=== PATIENT | female | born 1975 | race Caucasian/White ===

== ENCOUNTER 2016-05-19 08:45 | Inpatient (IN) | payer MEDICARE, OTHER ==
[2016-05-19] MEDS ORDERED: SODIUM CHLORIDE 0.9% 1,000 ML IV STA ×2 (10:28)
[2016-05-19] MEDS ORDERED: SODIUM CHLORIDE 0.9% 500 ML IV STA (10:28)
[2016-05-19 10:29] LABS: Glucose,Whole Blood 564 mg/dL (75-99)
--- NOTE | 2016-05-19 10:37 | ED ---
General Adult HPI <Jase Bueno - Last Filed: 05/19/16 13:52> - General Source: patient, RN notes reviewed Mode of arrival: ambulatory Limitations: no limitations <Ky Trent - Last Filed: 05/19/16 14:11> - General Chief complaint: Recheck/Abnormal Lab/Rx Stated complaint: dizziness Time Seen by Provider: 05/19/16 10:22 - History of Present Illness Initial comments: Patient is a 41-year-old female who presents emergency room today with multiple complaints. She does admit that she's had some lower abdominal pain over the last few days. States the pain is gone away. Does admit that she's had increased urinary frequency. States she's had a yeast infection. States she's had a dry mouth. Patient states she was worried about diabetes. States she does have family history. She states she's never been diagnosed or had any issues with blood sugar. Denies any other complaints or symptoms currently. Patient denies any recent fever, chills, shortness of breath, chest pain, back pain, nausea or vomiting, numbness or tingling, dysuria or hematuria, constipation or diarrhea, headaches or visual changes, or any other complaints. (Ky Trent) - Related Data Home Medications Medication Instructions Recorded Confirmed diphenhydrAMINE [Benadryl] 25 mg PO HS PRN 08/05/14 05/19/16 risperiDONE MICROSPHERES 37.5 mg IM Q30D 08/05/14 05/19/16 [RisperDAL CONSTA] Benztropine Mesylate [Cogentin] 0.5 mg PO HS 05/19/16 05/19/16 FLUoxetine HCL [PROzac] 20 mg PO HS 05/19/16 05/19/16 Medroxyprogesterone Acetate 150 mg IM Q90D 05/19/16 05/19/16 [Depo-Provera] Allergies Allergy/AdvReac Type Severity Reaction Status Date / Time No Known Allergies Allergy Verified 05/19/16 10:00 Review of Systems ROS Other: All systems not noted in ROS Statement are negative. <Jase Bueno - Last Filed: 05/19/16 13:52> ROS Other: All systems not noted in ROS Statement are negative. <Ky Trent - Last Filed: 05/19/16 14:11> ROS Statement: Those systems with pertinent positive or pertinent negative responses have been documented in the HPI. Past Medical History Past Medical History: No Reported History History of Any Multi-Drug Resistant Organisms: None Reported Past Surgical History: No Surgical Hx Reported Past Psychological History: Bipolar, Schizophrenia Smoking Status: Current every day smoker Past Alcohol Use History: Occasional Past Drug Use History: None Reported <Ky Trent - Last Filed: 05/19/16 14:11> General Exam <Jase Bueno - Last Filed: 05/19/16 13:52> Limitations: no limitations <Ky Trent - Last Filed: 05/19/16 14:11> - General Exam Comments Initial Comments: General: The patient is awake and alert, in no distress, and does not appear acutely ill. Eye: Pupils are equal, round and reactive to light, extra-ocular movements are intact. No nystagmus. There is normal conjunctiva bilaterally. No signs of icterus. Ears, nose, mouth and throat: There are moist mucous membranes and no oral lesions. Neck: The neck is supple, there is no tenderness or JVD. Cardiovascular: There is a regular rate and rhythm. No murmur, rub or gallop is appreciated. Respiratory: Lungs are clear to auscultation, respirations are non-labored, breath sounds are equal. No wheezes, stridor, rales, or rhonchi. Gastrointestinal: Soft, non-distended, non-tender abdomen without masses or organomegaly noted. There is no rebound or guarding present. No CVA tenderness. Bowel sounds are unremarkable. Musculoskeletal: Normal ROM, no tenderness. Strength 5/5. Sensation intact. Pulses equal bilaterally 2+. Neurological: A&O x 3. CN II-XII intact, There are no obvious motor or sensory deficits. Coordination appears grossly intact. Speech is normal. Skin: Skin is warm and dry and no rashes or lesions are noted. Psychiatric: Cooperative, appropriate mood & affect, normal judgment. (Ky Trent) Course <Jase Bueno - Last Filed: 05/19/16 13:52> <Ky Trent - Last Filed: 05/19/16 14:11> Vital Signs 05/19/16 05/19/16 05/19/16 08:49 11:03 13:01 Temperature 99.1 F Pulse Rate 97 82 86 Respiratory 20 20 20 Rate Blood Pressure 138/83 134/94 120/67 O2 Sat by Pulse 96 97 99 Oximetry - Reevaluation(s) Reevaluation #1: 05/19/16 13:52 Patient reevaluated by myself, Dr. Bueno. Patient resting comfortably in bed. Patient updated on results and plan. IV fluids and insulin provided per DKA protocol. Case was discussed in detail with Dr. Ma, who will admit for Dr. De Leon. (Jase Bueno) Medical Decision Making - Lab Data Result diagrams: 05/19/16 10:29 05/19/16 10:29 <Jase Bueno - Last Filed: 05/19/16 13:52> - Lab Data Result diagrams: 05/19/16 10:29 05/19/16 10:29 <Ky Trent - Last Filed: 05/19/16 14:11> - Medical Decision Making Patient reexamined at this time shows no signs of distress. Patient's labs been reviewed does show evidence for urinary tract infection. Given dose of antibiotics in the emergency room. Patient does have multiple glucose. New- onset diabetes. Patient's been started on insulin drip here in the emergency room. Acetone positive. Patient feeling better. Patient will be admitted. ( Ky Trent) - Lab Data Lab Results 05/19/16 05/19/16 05/19/16 Range/Units 10:25 10:29 10:29 WBC 16.2 H (3.8-10.6) k/uL RBC 5.11 (3.80-5.40) m/uL Hgb 16.1 H (11.4-16.0) gm/dL Hct 46.0 (34.0-46.0) % MCV 90.1 (80.0-100.0) fL MCH 31.5 (25.0-35.0) pg MCHC 34.9 (31.0-37.0) g/dL RDW 13.0 (11.5-15.5) % Plt Count 369 (150-450) k/uL Neutrophils % 84 % Lymphocytes % 11 % Monocytes % 3 % Eosinophils % 0 % Basophils % 0 % Neutrophils # 13.7 H (1.3-7.7) k/uL Lymphocytes # 1.9 (1.0-4.8) k/uL Monocytes # 0.4 (0-1.0) k/uL Eosinophils # 0.1 (0-0.7) k/uL Basophils # 0.1 (0-0.2) k/uL Sodium 134 L (137-145) mmol/L Potassium 4.9 (3.5-5.1) mmol/L Chloride 98 (98-107) mmol/L Carbon Dioxide 16 L (22-30) mmol/L Anion Gap 20 mmol/L BUN 10 (7-17) mg/dL Creatinine 0.76 (0.52-1.04) mg/dL Est GFR (MDRD) Af Amer >60 (>60 ml/min/1.73 sqM) Est GFR (MDRD) Non-Af >60 (>60 ml/min/1.73 sqM) Glucose 608 H* (74-99) mg/dL POC Glucose (mg/dL) 564 H (75-99) mg/dL POC Glu Cloud Engineer ID Ayaz Jung Calcium 9.9 (8.4-10.2) mg/dL Total Bilirubin 1.0 (0.2-1.3) mg/dL AST 32 (14-36) U/L ALT 64 H (9-52) U/L Alkaline Phosphatase 209 H (38-126) U/L Total Protein 8.2 (6.3-8.2) g/dL Albumin 4.6 (3.5-5.0) g/dL Amylase 52 (30-110) U/L Lipase 312 H (23-300) U/L Urine Color Urine Appearance (Clear) Urine pH (5.0-8.0) Ur Specific [place] (1.001-1.035) Urine Protein (Negative) Urine Glucose (UA) (Negative) Urine Ketones (Negative) Urine Blood (Negative) Urine Nitrite (Negative) Urine Bilirubin (Negative) Urine Urobilinogen (<2.0) mg/dL Ur Leukocyte Esterase (Negative) Urine RBC (0-5) /hpf Urine WBC (0-5) /hpf Ur Squamous Epith Cells (0-4) /hpf Urine Bacteria (None) /hpf Urine Yeast (Budding) (None) /hpf Urine HCG, Qual (Not Detectd) Acetone, Qual Positive (Negative) 05/19/16 05/19/16 05/19/16 Range/Units 10:29 10:29 12:11 WBC (3.8-10.6) k/uL RBC (3.80-5.40) m/uL Hgb (11.4-16.0) gm/dL Hct (34.0-46.0) % MCV (80.0-100.0) fL MCH (25.0-35.0) pg MCHC (31.0-37.0) g/dL RDW (11.5-15.5) % Plt Count (150-450) k/uL Neutrophils % % Lymphocytes % % Monocytes % % Eosinophils % % Basophils % % Neutrophils # (1.3-7.7) k/uL Lymphocytes # (1.0-4.8) k/uL Monocytes # (0-1.0) k/uL Eosinophils # (0-0.7) k/uL Basophils # (0-0.2) k/uL Sodium (137-145) mmol/L Potassium (3.5-5.1) mmol/L Chloride (98-107) mmol/L Carbon Dioxide (22-30) mmol/L Anion Gap mmol/L BUN (7-17) mg/dL Creatinine (0.52-1.04) mg/dL Est GFR (MDRD) Af Amer (>60 ml/min/1.73 sqM) Est GFR (MDRD) Non-Af (>60 ml/min/1.73 sqM) Glucose (74-99) mg/dL POC Glucose (mg/dL) 427 H (75-99) mg/dL POC Glu Cloud Engineer ID Branch, Barrera Calcium (8.4-10.2) mg/dL Total Bilirubin (0.2-1.3) mg/dL AST (14-36) U/L ALT (9-52) U/L Alkaline Phosphatase (38-126) U/L Total Protein (6.3-8.2) g/dL Albumin (3.5-5.0) g/dL Amylase (30-110) U/L Lipase (23-300) U/L Urine Color Light Yellow Urine Appearance Cloudy H (Clear) Urine pH 5.0 (5.0-8.0) Ur Specific [place] 1.029 (1.001-1.035) Urine Protein Trace H (Negative) Urine Glucose (UA) 4+ H (Negative) Urine Ketones 3+ H (Negative) Urine Blood Large H (Negative) Urine Nitrite Negative (Negative) Urine Bilirubin Negative (Negative) Urine Urobilinogen <2.0 (<2.0) mg/dL Ur Leukocyte Esterase Moderate H (Negative) Urine RBC 13 H (0-5) /hpf Urine WBC 38 H (0-5) /hpf Ur Squamous Epith Cells 8 H (0-4) /hpf Urine Bacteria Occasional H (None) /hpf Urine Yeast (Budding) Few H (None) /hpf Urine HCG, Qual Not Detected (Not Detectd) Acetone, Qual (Negative) 05/19/16 Range/Units 13:57 WBC (3.8-10.6) k/uL RBC (3.80-5.40) m/uL Hgb (11.4-16.0) gm/dL Hct (34.0-46.0) % MCV (80.0-100.0) fL MCH (25.0-35.0) pg MCHC (31.0-37.0) g/dL RDW (11.5-15.5) % Plt Count (150-450) k/uL Neutrophils % % Lymphocytes % % Monocytes % % Eosinophils % % Basophils % % Neutrophils # (1.3-7.7) k/uL Lymphocytes # (1.0-4.8) k/uL Monocytes # (0-1.0) k/uL Eosinophils # (0-0.7) k/uL Basophils # (0-0.2) k/uL Sodium (137-145) mmol/L Potassium (3.5-5.1) mmol/L Chloride (98-107) mmol/L Carbon Dioxide (22-30) mmol/L Anion Gap mmol/L BUN (7-17) mg/dL Creatinine (0.52-1.04) mg/dL Est GFR (MDRD) Af Amer (>60 ml/min/1.73 sqM) Est GFR (MDRD) Non-Af (>60 ml/min/1.73 sqM) Glucose (74-99) mg/dL POC Glucose (mg/dL) 326 H (75-99) mg/dL POC Glu Cloud Engineer ID Ayaz Jung Calcium (8.4-10.2) mg/dL Total Bilirubin (0.2-1.3) mg/dL AST (14-36) U/L ALT (9-52) U/L Alkaline Phosphatase (38-126) U/L Total Protein (6.3-8.2) g/dL Albumin (3.5-5.0) g/dL Amylase (30-110) U/L Lipase (23-300) U/L Urine Color Urine Appearance (Clear) Urine pH (5.0-8.0) Ur Specific [place] (1.001-1.035) Urine Protein (Negative) Urine Glucose (UA) (Negative) Urine Ketones (Negative) Urine Blood (Negative) Urine Nitrite (Negative) Urine Bilirubin (Negative) Urine Urobilinogen (<2.0) mg/dL Ur Leukocyte Esterase (Negative) Urine RBC (0-5) /hpf Urine WBC (0-5) /hpf Ur Squamous Epith Cells (0-4) /hpf Urine Bacteria (None) /hpf Urine Yeast (Budding) (None) /hpf Urine HCG, Qual (Not Detectd) Acetone, Qual (Negative) Disposition <Jase Bueno - Last Filed: 05/19/16 13:52> Time of Disposition: 14:10 <Ky Trent - Last Filed: 05/19/16 14:11> Clinical Impression: DKA (diabetic ketoacidoses) Disposition: ADMITTED IP TO THIS [facility] Condition: Stable
[2016-05-19] MEDS ORDERED: INSULIN REGULAR 100 UNIT/ML VIAL IV ONE (10:40)
[2016-05-19 10:49] LABS: Basophils # (A) 0.1 k/uL (0-0.2); Basophils % (A) 0 %; CHCM 34.5; Eosinophils # (A) 0.1 k/uL (0-0.7); Eosinophils % (A) 0 %; HDW 2.53; HGB 16.1 gm/dL (11.4-16.0); Luc # (Auto) 0.18; Luc % (Auto) 1; Lymphocytes # (A) 1.9 k/uL (1.0-4.8); Lymphocytes % (A) 11 %; MCH 31.5 pg (25.0-35.0); MCHC 34.9 g/dL (31.0-37.0); MCV 90.1 fL (80.0-100.0); Mean Platelet Volume 7.3; Monocytes # (A) 0.4 k/uL (0-1.0); Monocytes % (A) 3 %; Neutrophils # (A) 13.7 k/uL (1.3-7.7); Neutrophils % (A) 84 %; RBC 5.11 m/uL (3.80-5.40); WBC 16.2 k/uL (3.8-10.6); WBC (Perox) 16.72
[2016-05-19 11:00] LABS: ALT 64 U/L (9-52); AST 32 U/L (14-36); Alkaline Phosphatase 209 U/L (38-126); Amylase 52 U/L (30-110); Anion Gap 20 mmol/L; Blood Urea Nitrogen 10 mg/dL (7-17); Calcium 9.9 mg/dL (8.4-10.2); Carbon Dioxide 16 mmol/L (22-30); Chloride 98 mmol/L (98-107); Non-African American GFR(MDRD) >60 (>60 ml/min/1.73 sqM); Potassium 4.9 mmol/L (3.5-5.1); Sodium 134 mmol/L (137-145); Total Protein 8.2 g/dL (6.3-8.2)
[2016-05-19 11:04] LABS: Glucose 608 mg/dL (74-99)
[2016-05-19 11:05] LABS: Appearance,Urine Cloudy (Clear); Bacteria,Urine Occasional /hpf; Bilirubin,Urine Negative (Negative); Glucose,Urine (UA) 4+ (Negative); Leukocyte Esterase,Urine Moderate (Negative); Nitrite,Urine Negative (Negative); Particle Count 5111; Protein,Urine Trace (Negative); RBC,Urine 13 /hpf (0-5); Specific Gravity,Urine 1.029 (1.001-1.035); Squamous Epithelial Cell,Urine 8 /hpf (0-4); UA Billing (MACRO vs. MICRO) MICRO; Urobilinogen,Urine <2.0 mg/dL (<2.0); WBC,Urine 38 /hpf (0-5)
[2016-05-19 11:28] LABS: Ketones,Urine 3+ (Negative)
[2016-05-19 12:13] LABS: Glucose,Whole Blood 427 mg/dL (75-99)
[2016-05-19] MEDS ORDERED: SODIUM CHLORIDE 0.9% 1,000 ML IV SCH ×2 (12:30→18:00)
[2016-05-19] MEDS ORDERED: INSULIN REGULAR 100 UNIT in SODIUM CHLORIDE 0.9% 100 ML IV SCH (13:00)
[2016-05-19 13:59] LABS: Glucose,Whole Blood 326 mg/dL (75-99)
[2016-05-19] MEDS ORDERED: NALOXONE 0.4 MG/ML 1 ML VIAL IV PRN (14:11)
[2016-05-19 15:09] LABS: Glucose,Whole Blood 361 mg/dL (75-99)
[2016-05-19 16:10] LABS: Glucose,Whole Blood 262 mg/dL (75-99)
[2016-05-19 16:25] LABS: Anion Gap 11 mmol/L; Blood Urea Nitrogen 10 mg/dL (7-17); Carbon Dioxide 16 mmol/L (22-30); Chloride 109 mmol/L (98-107); Glucose 291 mg/dL (74-99); Non-African American GFR(MDRD) >60 (>60 ml/min/1.73 sqM); Phosphorous 2.6 mg/dL (2.5-4.5); Potassium 4.2 mmol/L (3.5-5.1); Sodium 136 mmol/L (137-145)
[2016-05-19] MEDS: D5-0.45% NACL WITH KCL 20MEQ/L 1,000 ML IV SCH ×2 (16:29→20:01)
[2016-05-19] MEDS ORDERED: diphenhydrAMINE 25 MG CAP PO PRN (16:51)
[2016-05-19] MEDS ORDERED: FLUCONAZOLE 100 MG TAB PO STA (16:57)
[2016-05-19 16:58] LABS: Glucose,Whole Blood 194 mg/dL (75-99)
[2016-05-19 18:01] LABS: Glucose,Whole Blood 160 mg/dL (75-99)
[2016-05-19] MEDS: INSULIN LISPRO (humaLOG) 300 UNIT/3 ML VIAL SQ SCH ×2 (18:11→20:59)
[2016-05-19] MEDS: LACTATED RINGERS 1,000 ML IV SCH (18:39)
[2016-05-19 19:30] LABS: Anion Gap 9 mmol/L; Blood Urea Nitrogen 10 mg/dL (7-17); Carbon Dioxide 20 mmol/L (22-30); Chloride 107 mmol/L (98-107); Glucose 180 mg/dL (74-99); Non-African American GFR(MDRD) >60 (>60 ml/min/1.73 sqM); Phosphorous 2.7 mg/dL (2.5-4.5); Potassium 3.8 mmol/L (3.5-5.1); Sodium 136 mmol/L (137-145)
[2016-05-19 19:31] LABS: Glucose,Whole Blood 240 mg/dL (75-99)
[2016-05-19 20:57] LABS: Glucose,Whole Blood 273 mg/dL (75-99)
[2016-05-19] MEDS ORDERED: INSULIN GLARGINE 100 UNIT/ML 10 ML VIAL SQ SCH (21:00)
[2016-05-19] MEDS ORDERED: FLUoxetine HCL 20 MG CAP PO SCH (21:00)
[2016-05-19] MEDS ORDERED: BENZTROPINE MESYLATE 0.5 MG TAB PO SCH (21:00)
--- NOTE | 2016-05-19 23:35 | HP ---
DATE OF ADMISSION: Patient is a 41-year-old female who came in with multiple complaints, including excessive thirst that has been going on for about a week. Patient has increased urination, polyuria, polydipsia. Patient has a significantly dry mouth. Patient came here, found to have highly elevated blood sugars of 700 along with DKA with anion gap, metabolic acidosis, 3+ ketones in the urine. Patient was diagnosed with DKA, was started on IV insulin. Her anion gap subsequently resolved, so I transitioned her to subcutaneous insulin. Patient will be started on diet. Although patient has a little bit of acidosis, which I believe is secondary to hyperchloremia, because of which I changed the IV fluids to lactated Ringers rather than normal saline, which has high chloride. Patient does not have any lactic acidosis. Patient was quite dry when she came in and patient apparently has gestational diabetes. Patient believes she has a yeast infection ( ) patient denied any other UTI ( ) like symptoms, although patient does have leukocytosis. Patient does have concentrated urine, because of which she believes patient has ( ) although UA did show some white blood cells, and I believe it is mostly secondary to her concentrated urine. Color of the urine is mostly secondary to concentrated urine and highly elevated ketones and bilirubin. Patient denied any nausea, vomiting. Patient denied any dysuria. Patient has increased urinary frequency, probably secondary to hyperglycemia rather than urinary tract infection. ROS: All other systems were reviewed and were negative. Home medications include: 1. Diphenhydramine. 2. Risperidone. 3. Benztropine. 4. Fluoxetine. 5. Medroxyprogesterone. ALLERGIES: NO KNOWN DRUG ALLERGIES. PAST MEDICAL HISTORY: 1. Bipolar disorder. 2. Schizophrenia. 3. Gestational diabetes mellitus. SOCIAL HISTORY: Patient does smoke. Denied any alcohol abuse or any drug abuse. FAMILY HISTORY: Significant for diabetes mellitus in both grandparents. PHYSICAL EXAMINATION: VITAL SIGNS: Temperature 99.1, pulse of 82, respiratory rate 20. Blood pressure is 120/67. Saturating at 99% on room air. GENERAL: The patient is alert and oriented x3, not in any acute distress. Well developed, well nourished. HEENT: Pupils are round and equally reacting to light. EOMI. No scleral icterus. No conjunctival pallor. Normocephalic, atraumatic. No pharyngeal erythema. No thyromegaly. Mucous membranes are dry in oral cavity and throat. CARDIOVASCULAR: S1 and S2 present. No murmurs, rubs, or gallops. PULMONARY: Chest is clear to auscultation, no wheezing or crackles. ABDOMEN: Soft, nontender, nondistended, normoactive bowel sounds. No palpable organomegaly. MUSCULOSKELETAL: No joint swelling or deformity. EXTREMITIES: No cyanosis, clubbing, or pedal edema. NEUROLOGICAL: Gross neurological examination did not reveal any focal deficits. SKIN: No rashes. LABORATORY DATA: CBC, CMP: there were multiple electrolyte abnormalities on admission which subsequently improved with treatment of DKA. Patient was hyponatremic which is pseudohyponatremia. Patient has leukocytosis secondary to DKA rather than urinary tract infection. Blood glucose was 608, now 180. Bicarbonate was 16 with significant anion gap of 20; now anion gap resolved. Patient's anion gap is 9 at present. Bicarbonate is still 20. This is as a result of hyperchloremia, which is 107. Patient's AST and ALT are elevated which are nonspecific elevations secondary to DKA. Will repeat liver enzymes again. IMAGING STUDIES: None available. ASSESSMENT AND PLAN: 1. Diabetic ketoacidosis. 2. New-onset diabetes mellitus, most probably type 1 ( ) diabetes mellitus. Patient apparently does have insulin. The patient ( ) insulin. Patient may have insulin resistance along with that. Not sure whether oral hypoglycemic agents will be beneficial or not. Patient was started on 20 units of Lantus with 6 units of pre-meal insulin along with sliding scale. Will titrate as needed. 3. Possibly asymptomatic bacteriuria. May not need antibiotics. Until I get the urine culture and sensitivities, I will go ahead and continue the antibiotics. As mentioned above, rather than UTI patient mostly has symptomatic bacteriuria. 4. Mild hematuria. Repeat UA as an outpatient. 5. Bipolar disorder. Patient's home medications will be continued. 6. Anion gap metabolic acidosis secondary to diabetic ketoacidosis, which resolved. Patient has ( ) gap metabolic acidosis secondary to hyperchloremia. 7. Pseudohyponatremia. 8. Leukocytosis, which is reactive in nature. MTDD
[2016-05-20] MEDS: LACTATED RINGERS 1,000 ML IV SCH ×2 (05:17→10:20)
[2016-05-20 05:53] LABS: Glucose,Whole Blood 325 mg/dL (75-99)
[2016-05-20 06:41] LABS: CH 31.8; CHCM 34.5; HCT 36.7 % (34.0-46.0); HDW 2.39; MCH 30.6 pg (25.0-35.0); MCHC 33.1 g/dL (31.0-37.0); MCV 92.5 fL (80.0-100.0); Mean Platelet Volume 7.3; RBC 3.96 m/uL (3.80-5.40); RDW 13.4 % (11.5-15.5); WBC 12.6 k/uL (3.8-10.6)
[2016-05-20 06:56] LABS: HGB 12.2 gm/dL (11.4-16.0)
[2016-05-20 07:00] LABS: ALT 45 U/L (9-52); AST 26 U/L (14-36); Alkaline Phosphatase 87 U/L (38-126); Anion Gap 10 mmol/L; Blood Urea Nitrogen 11 mg/dL (7-17); Calcium 8.4 mg/dL (8.4-10.2); Carbon Dioxide 17 mmol/L (22-30); Chloride 105 mmol/L (98-107); Glucose 311 mg/dL (74-99); Non-African American GFR(MDRD) >60 (>60 ml/min/1.73 sqM); Sodium 132 mmol/L (137-145); Total Bilirubin 0.7 mg/dL (0.2-1.3); Total Protein 5.6 g/dL (6.3-8.2)
[2016-05-20] MEDS: INSULIN LISPRO (humaLOG) 300 UNIT/3 ML VIAL SQ SCH ×2 (07:18→12:47)
[2016-05-20] MEDS ORDERED: FLUCONAZOLE 100 MG TAB PO SCH (09:00)
[2016-05-20 11:55] LABS: Glucose,Whole Blood 386 mg/dL (75-99)
[2016-05-20 12:18] VITALS: BP 117/76; PULSE 74; RESP 20; TEMP 97.1
[2016-05-20] MEDS ORDERED: INSULIN LISPRO (humaLOG) 300 UNIT/3 ML VIAL SQ SCH (12:30)
[2016-05-20 13:06] LABS: Hemoglobin A1C 11.8 % (4.2-6.1)
[2016-05-20 15:00] VITALS: BMI 36.6
--- NOTE | 2016-05-21 08:06 | DS ---
DATE OF ADMISSION: 05/19/2016 DATE OF DISCHARGE: 05/20/2016 The patient is a 41-year-old admitted secondary to DKA. Patient is a new onset diabetes mellitus. Patient is insulin deficient because of which patient will require insulin. Patient presented with DKA. I am not sure whether any autoimmune conditions were contributing to that. I am obtaining a C-peptide level, results of which are still pending. Patient will be discharged today. Her DKA resolved. The C-peptide needs to be followed as an outpatient. Patient has vaginal candidiasis. Patient does not have any urinary tract infection. Patient has asymptomatic bacteriuria. Patient is being discharged on 30 units of Lantus at bedtime, 9 units of Lispro with each meal along Accu-Cheks 3 times. Patient received diabetic counseling, dietary counseling and patient is also being discharged on fluconazole. Patient was seen and examined on the day of discharge. Vitals are stable. PHYSICAL EXAMINATION: GENERAL: The patient is alert and oriented x3, not in any acute distress. Well developed, well nourished. HEENT: Pupils are round and equally reacting to light. EOMI. No scleral icterus. No conjunctival pallor. Normocephalic, atraumatic. No pharyngeal erythema. No thyromegaly. CARDIOVASCULAR: S1 and S2 present. No murmurs, rubs, or gallops. PULMONARY: Chest is clear to auscultation, no wheezing or crackles. ABDOMEN: Soft, nontender, nondistended, normoactive bowel sounds. No palpable organomegaly. MUSCULOSKELETAL: No joint swelling or deformity. EXTREMITIES: No cyanosis, clubbing, or pedal edema. NEUROLOGICAL: Gross neurological examination did not reveal any focal deficits. SKIN: No rashes. FINAL DIAGNOSES: 1. Diabetic ketoacidosis. 2. New onset diabetes mellitus, probably type 2 with insulin deficiency. C-peptide levels are pending. Autoimmune conditions that cause pancreatic insufficiency need to be considered. Workup can be done as an outpatient. 3. Asymptomatic bacteriuria. 4. Bipolar disorder. 5. Pseudohyponatremia secondary to hyperglycemia, which improved at this point of time. 6. Leukocytosis reactive, which is improving. 7. Vaginal candidiasis. Please refer to my depart summary for further details of discharge medication. Patient will need to closely follow up with Dr. Castaneda in about 3 to 7 days. Activity as tolerated. Diabetic 1800 calorie diet. Spent greater than 35 minutes in total discharge process.
== END 2016-05-20 16:03 | disposition home or self-care (01) | DRG 638 ==
LOC: EC 08:45 → 6SEL 13:55 → 6PED 05-20 10:45
PROVIDERS: ADMIT Internal Medicine; ATTEND Internal Medicine
DX: E13.10 Other specified diabetes mellitus with ketoacidosis without coma (principal); E87.1 Hypo-osmolality and hyponatremia; E87.8 Other disorders of electrolyte and fluid balance, not elsewhere classified; B37.3 Candidiasis of vulva and vagina; F20.9 Schizophrenia, unspecified; F31.9 Bipolar disorder, unspecified; D72.829 Elevated white blood cell count, unspecified; F17.200 Nicotine dependence, unspecified, uncomplicated; R31.9 Hematuria, unspecified; R82.71 Bacteriuria; Z79.899 Other long term (current) drug therapy
CPT/HCPCS: 36415; 80051; 80053; 81001; 81025; 82009; 82150; 82565; 82947; 83036; 83690; 84100; 84520; 84681; 85025; 85027; 87086; 96361; 96365; 96366; 96367; 96376; 99285

== ENCOUNTER 2018-05-18 11:15 | Inpatient (IN) | payer MEDICARE, MEDICAID ==
--- NOTE | 2018-05-18 11:40 | ED ---
General Adult HPI - General Chief complaint: Psychiatric Symptoms Stated complaint: pickup order Time Seen by Provider: 05/18/18 11:23 Source: patient, RN notes reviewed, old records reviewed Mode of arrival: ambulatory Limitations: no limitations - History of Present Illness Initial comments: 43-year-old female presents with quarter petitioned for mental health evaluation. Patient has no reported medical history, she has no complaints. She is unsure exactly why she is sent in for evaluation. There is petitioned indicating that [facility] has evaluated this patient is requesting evaluation in the emergency department. Patient does have previous psychiatric history. - Related Data Home Medications Medication Instructions Recorded Confirmed diphenhydrAMINE [Benadryl] 25 - 50 mg PO HS PRN 08/05/14 05/18/18 FLUoxetine HCL [PROzac] 20 mg PO HS 05/19/16 05/18/18 Medroxyprogesterone Acetate 150 mg IM Q90D 05/19/16 05/18/18 [Depo-Provera] INSULIN LISPRO (humaLOG) [humaLOG] 10 unit SQ AC-TID 05/18/18 05/18/18 Insulin Glargine [Lantus] 35 unit SQ HS 05/18/18 05/18/18 Paliperidone IM [Invega Sustenna] 234 mg IM Q28D 05/18/18 05/18/18 Pregabalin [Lyrica] 50 mg PO DAILY 05/18/18 05/18/18 hydrOXYzine PAMOATE 25 mg PO DAILY PRN 05/18/18 05/18/18 rOPINIRole HCL [Requip] 2 mg PO HS 05/18/18 05/18/18 Allergies Allergy/AdvReac Type Severity Reaction Status Date / Time No Known Allergies Allergy Verified 05/18/18 11:37 Review of Systems ROS Statement: Those systems with pertinent positive or pertinent negative responses have been documented in the HPI. ROS Other: All systems not noted in ROS Statement are negative. Past Medical History Past Medical History: COPD, Diabetes Mellitus, Osteoarthritis (OA) Additional Past Medical History / Comment(s): "GESTATIONAL DIABETES", GOES TO [facility] History of Any Multi-Drug Resistant Organisms: None Reported Past Surgical History: Section Additional Past Surgical History / Comment(s): POLA ARM SX WHEN CHILD-WENT THRU A WINDOW Past Anesthesia/Blood Transfusion Reactions: No Reported Reaction Additional Past Anesthesia/Blood Transfusion Reaction / Comment(s): CLAUSTERPHOBIA Past Psychological History: Anxiety, Bipolar, Panic Disorder, Schizophrenia Smoking Status: Current every day smoker Past Alcohol Use History: Occasional Past Drug Use History: None Reported - Past Family History Father Additional Family Medical History / Comment(s): DEPRESSION, "PROBLEM WITH HIS P ANCJAZMYNAS" Mother Family Medical History: Hyperlipidemia, Hypertension Additional Family Medical History / Comment(s): DDD, NECK FUSION, KIDNEY CANCER General Exam Limitations: no limitations General appearance: alert, in no apparent distress Head exam: Present: atraumatic, normocephalic Eye exam: Present: normal appearance ENT exam: Present: normal exam Neck exam: Present: normal inspection. Absent: tenderness Respiratory exam: Present: normal lung sounds bilaterally. Absent: respiratory distress, wheezes Cardiovascular Exam: Present: regular rate, normal rhythm GI/Abdominal exam: Present: soft. Absent: distended, tenderness Neurological exam: Present: alert. Absent: motor sensory deficit Psychiatric exam: Present: depressed, flat affect Skin exam: Present: warm, dry, intact. Absent: cyanosis, diaphoretic Course Vital Signs 05/18/18 05/18/18 05/18/18 11:19 14:52 18:55 Temperature 98 F 97.7 F Pulse Rate 92 63 90 Respiratory 20 16 18 Rate Blood Pressure 117/83 102/58 101/61 O2 Sat by Pulse 99 100 98 Oximetry Medical Decision Making - Medical Decision Making 43-year-old female presenting with "ordered psychiatric evaluation. She is medically cleared, evaluated by EPS in the emergency department. He will be admitted to this institution for further psychiatric care. - Lab Data Lab Results 05/18/18 Range/Units 13:25 Urine Opiates Screen Not Detected (NotDetected) Ur Oxycodone Screen Not Detected (NotDetected) Urine Methadone Screen Not Detected (NotDetected) Ur Propoxyphene Screen Not Detected (NotDetected) Ur Barbiturates Screen Not Detected (NotDetected) U Tricyclic Antidepress Not Detected (NotDetected) Ur Phencyclidine Scrn Not Detected (NotDetected) Ur Amphetamines Screen Detected H (NotDetected) U Methamphetamines Scrn Detected H (NotDetected) U Benzodiazepines Scrn Not Detected (NotDetected) Urine Cocaine Screen Detected H (NotDetected) U Marijuana (THC) Screen Not Detected (NotDetected) Disposition Clinical Impression: Acute psychosis Disposition: ADMITTED IP TO THIS HOSP Condition: Stable Is patient prescribed a controlled substance at d/c from ED?: No Decision to Admit Reason: Admit from EC Decision Date: 05/18/18 Decision Time: 19:11
[2018-05-18 13:55] LABS: Cocaine Screen,Urine Detected (NotDetected); Phencyclidine Screen,Urine Not Detected (NotDetected); Urn Cannabinoid Scrn Not Detected (NotDetected)
[2018-05-18 13:56] LABS: Amphetamine Screen,Urine Detected (NotDetected); Barbiturate Screen,Urine Not Detected (NotDetected); Benzodiazepines Screen,Urine Not Detected (NotDetected); Methadone Screen, Urine Not Detected (NotDetected); Opiate Screen,Urine Not Detected (NotDetected); Oxycodone Screen, Urine Not Detected (NotDetected); Tricyclic Antidepressant,Urine Not Detected (NotDetected)
[2018-05-18 20:00] VITALS: BP 104/74; PULSE 88; RESP 16; TEMP 96.7
[2018-05-18] MEDS ORDERED: MAG HYDROX/AL HYDROX/SIMETH 30 ML CUP PO PRN (20:28)
[2018-05-18] MEDS ORDERED: LORazepam 1 MG TAB PO PRN (20:28)
[2018-05-18] MEDS ORDERED: ZIPRASIDONE 20 MG VIAL IM PRN (20:28)
[2018-05-18] MEDS ORDERED: MAGNESIUM HYDROXIDE 2,400 MG/10 ML CUP PO PRN (20:28)
[2018-05-18] MEDS ORDERED: ACETAMINOPHEN TAB 325 MG TAB PO PRN (20:28)
[2018-05-18] MEDS ORDERED: LORazepam 2 MG/ML INJ IM PRN (20:37)
[2018-05-18] MEDS ORDERED: PALIPERIDONE 6 MG TAB.ER.24 PO SCH (21:00)
[2018-05-18 21:17] LABS: Glucose,Whole Blood 156 mg/dL (75-99)
[2018-05-18] MEDS ORDERED: INSULIN DETEMIR (LEVEMIR) 100 UNIT/ML SYR SQ SCH (21:30)
[2018-05-18] MEDS: INSULIN ASPART (NovoLOG) 100 UNIT/ML VIAL SQ SCH (22:46)
[2018-05-18] MEDS: NICOTINE 14MG/24HR PATCH TRANSDERM SCH (22:49)
[2018-05-19 06:57] LABS: Glucose,Whole Blood 142 mg/dL (75-99)
[2018-05-19] MEDS ORDERED: INSULIN ASPART (NovoLOG) 100 UNIT/ML VIAL SQ SCH (07:30)
[2018-05-19] MEDS: INSULIN ASPART (NovoLOG) 100 UNIT/ML VIAL SQ SCH ×2 (08:52→13:24)
[2018-05-19] MEDS: NICOTINE 14MG/24HR PATCH TRANSDERM SCH (08:57)
[2018-05-19] MEDS ORDERED: NICOTINE 14MG/24HR PATCH TRANSDERM SCH (09:00)
[2018-05-19] MEDS ORDERED: FLUoxetine HCL 20 MG CAP PO SCH (09:00)
[2018-05-19 10:13] LABS: Basophils # (A) 0.1 k/uL (0-0.2); Basophils % (A) 1 %; Eosinophils # (A) 0.2 k/uL (0-0.7); Eosinophils % (A) 1 %; HCT 45.6 % (34.0-46.0); HGB 14.8 gm/dL (11.4-16.0); Lymphocytes # (A) 3.5 k/uL (1.0-4.8); Lymphocytes % (A) 30 %; MCH 29.2 pg (25.0-35.0); MCHC 32.5 g/dL (31.0-37.0); Mean Platelet Volume 6.5; Monocytes # (A) 0.5 k/uL (0-1.0); Monocytes % (A) 4 %; Neutrophils # (A) 7.4 k/uL (1.3-7.7); Neutrophils % (A) 62 %; Platelet Count 451 k/uL (150-450); RBC 5.07 m/uL (3.80-5.40); RDW 13.2 % (11.5-15.5); WBC 11.8 k/uL (3.8-10.6)
[2018-05-19 10:24] LABS: ALT 52 U/L (9-52); AST 37 U/L (14-36); Albumin 4.1 g/dL (3.5-5.0); Alkaline Phosphatase 76 U/L (38-126); Anion Gap 8 mmol/L; Bilirubin, Delta 0.2 mg/dL (0.0-0.2); Bilirubin,Unconjugated 0.3 mg/dL (0.0-1.1); Blood Urea Nitrogen 13 mg/dL (7-17); Calcium 9.7 mg/dL (8.4-10.2); Carbon Dioxide 25 mmol/L (22-30); Chloride 107 mmol/L (98-107); Cholesterol 126 mg/dL (<200); Glucose 145 mg/dL (74-99); HDL Cholesterol 41 mg/dL (40-60); LDL Cholesterol,Calculated 64 mg/dL (0-99); Potassium 4.6 mmol/L (3.5-5.1); Sodium 140 mmol/L (137-145); Total Bilirubin 0.5 mg/dL (0.2-1.3); Triglycerides 105 mg/dL (<150)
--- NOTE | 2018-05-19 12:11 | P.DS ---
Providers Date of admission: 05/18/18 18:57 Expected date of discharge: 05/19/18 Attending physician: Antwan Pereira DO Consults: 05/18/18 20:28 Consult Physician Routine Consulting Provider: Atilio Lewis Consult Reason/Comments: H & P and medical care Do you want consulting provider notified?: Already Contacted Primary care physician: Tonya Anthony - Discharge Diagnosis(es) (1) Bipolar 1 disorder Allergies Allergy/AdvReac Type Severity Reaction Status Date / Time No Known Allergies Allergy Verified 05/18/18 11:37 Vital Signs Temp 96.7 F L 05/18/18 19:56 Pulse 88 05/18/18 19:56 Resp 16 05/18/18 19:56 BP 104/74 05/18/18 19:56 Pulse Ox 98 05/18/18 18:55 Intake & Output 05/18/18 05/19/18 05/19/18 18:59 06:59 18:59 Weight 64.41 kg Laboratory Last Values POC Glucose (mg/dL) 142 mg/dL (75-99) H 05/19/18 06:16 POC Glu Database Architect ID Jyotsna Montilla 05/19/18 06:16 Urine Opiates Screen Not Detected (NotDetected) 05/18/18 13:25 Ur Oxycodone Screen Not Detected (NotDetected) 05/18/18 13:25 Urine Methadone Screen Not Detected (NotDetected) 05/18/18 13:25 Ur Propoxyphene Screen Not Detected (NotDetected) 05/18/18 13:25 Ur Barbiturates Screen Not Detected (NotDetected) 05/18/18 13:25 U Tricyclic Antidepress Not Detected (NotDetected) 05/18/18 13:25 Ur Phencyclidine Scrn Not Detected (NotDetected) 05/18/18 13:25 Ur Amphetamines Screen Detected (NotDetected) H 05/18/18 13:25 U Methamphetamines Scrn Detected (NotDetected) H 05/18/18 13:25 U Benzodiazepines Scrn Not Detected (NotDetected) 05/18/18 13:25 Urine Cocaine Screen Detected (NotDetected) H 05/18/18 13:25 U Marijuana (THC) Screen Not Detected (NotDetected) 05/18/18 13:25 Assessment and Plan Assessment: 43-year-old female presents with quarter petitioned for mental health evaluation. Patient has no reported medical history, she has no complaints. She is unsure exactly why she is sent in for evaluation. There is petitioned indicating that [facility] has evaluated this patient is requesting evaluation in the emergency department. Patient does have previous psychiatric history. - Related Data Home Medications Medication Instructions Recorded Confirmed diphenhydrAMINE [Benadryl] 25 - 50 mg PO HS PRN 08/05/14 05/18/18 FLUoxetine HCL [PROzac] 20 mg PO HS 05/19/16 05/18/18 Medroxyprogesterone Acetate 150 mg IM Q90D 05/19/16 05/18/18 [Depo-Provera] INSULIN LISPRO (humaLOG) [humaLOG] 10 unit SQ AC-TID 05/18/18 05/18/18 Insulin Glargine [Lantus] 35 unit SQ HS 05/18/18 05/18/18 Paliperidone IM [Invega Sustenna] 234 mg IM Q28D 05/18/18 05/18/18 Pregabalin [Lyrica] 50 mg PO DAILY 05/18/18 05/18/18 hydrOXYzine PAMOATE 25 mg PO DAILY PRN 05/18/18 05/18/18 rOPINIRole HCL [Requip] 2 mg PO HS 05/18/18 05/18/18 Allergies Allergy/AdvReac Type Severity Reaction Status Date / Time No Known Allergies Allergy Verified 05/18/18 11:37 Past Medical History Past Medical History: COPD, Diabetes Mellitus, Osteoarthritis (OA) Additional Past Medical History / Comment(s): "GESTATIONAL DIABETES", GOES TO [facility] History of Any Multi-Drug Resistant Organisms: None Reported Past Surgical History: Section Additional Past Surgical History / Comment(s): POLA ARM SX WHEN CHILD-WENT THRU A WINDOW Past Anesthesia/Blood Transfusion Reactions: No Reported Reaction Additional Past Anesthesia/Blood Transfusion Reaction / Comment(s): CLAUSTERPHOBIA Past Psychological History: Anxiety, Bipolar, Panic Disorder, Schizophrenia Smoking Status: Current every day smoker Past Alcohol Use History: Occasional Past Drug Use History: None Reported - Past Family History Father Additional Family Medical History / Comment(s): DEPRESSION, "PROBLEM WITH HIS PANCREAS" Mother Family Medical History: Hyperlipidemia, Hypertension Additional Family Medical History / Comment(s): DDD, NECK FUSION, KIDNEY CANCER : Mental Status Examination - The patient presents alert, pleasant, and cooperative. There calmly seated without any agitated behavior. [She] reports that [her] mood is good. Affect is congruent and euthymic. []She deny having any suicidal or homicidal ideation intent or plan. [She] denies any auditory or visual hallucinations. There is no evidence of any delusional thought content. [Her] thought process is linear and goal-directed. [Her] speech is fluent and nonpressured. [Her] memory and concentration is grossly intact for the purposes of this session. (1) Bipolar 1 disorder Current Visit: Yes Status: Acute Code(s): F31.9 - BIPOLAR DISORDER, UNSPECIFIED SNOMED Code(s): 127520258 Time with Patient: Less than 30 Current Visit: Yes Status: Acute Priority: Low Patient Condition at Discharge: Stable Plan - Discharge Summary Discharge Rx Participant: No New Discharge Prescriptions: New Nicotine 14Mg/24Hr Patch [Habitrol] 1 patch TRANSDERM DAILY patch FLUoxetine HCL [PROzac] 20 mg PO DAILY cap rOPINIRole HCL [Requip] 2 mg PO HS tab Acetaminophen Tab [Tylenol] 650 mg PO Q4HR PRN tab PRN Reason: Pain/Discomfort Continue diphenhydrAMINE [Benadryl] 25 - 50 mg PO HS PRN PRN Reason: Insomnia FLUoxetine HCL [PROzac] 20 mg PO HS Medroxyprogesterone Acetate [Depo-Provera] 150 mg IM Q90D INSULIN LISPRO (humaLOG) [humaLOG] 10 unit SQ AC-TID Pregabalin [Lyrica] 50 mg PO DAILY Insulin Glargine [Lantus] 35 unit SQ HS hydrOXYzine PAMOATE 25 mg PO DAILY PRN PRN Reason: Anxiety rOPINIRole HCL [Requip] 2 mg PO HS Discontinued Paliperidone IM [Invega Sustenna] 234 mg IM Q28D Discharge Medication List diphenhydrAMINE [Benadryl] 25 - 50 mg PO HS PRN 08/05/14 [History] FLUoxetine HCL [PROzac] 20 mg PO HS 05/19/16 [History] Medroxyprogesterone Acetate [Depo-Provera] 150 mg IM Q90D 05/19/16 [History] INSULIN LISPRO (humaLOG) [humaLOG] 10 unit SQ AC-TID 05/18/18 [History] Insulin Glargine [Lantus] 35 unit SQ HS 05/18/18 [History] Pregabalin [Lyrica] 50 mg PO DAILY 05/18/18 [History] hydrOXYzine PAMOATE 25 mg PO DAILY PRN 05/18/18 [History] rOPINIRole HCL [Requip] 2 mg PO HS 05/18/18 [History] Acetaminophen Tab [Tylenol] 650 mg PO Q4HR PRN tab 05/19/18 [Rx] FLUoxetine HCL [PROzac] 20 mg PO DAILY cap 05/19/18 [Rx] Nicotine 14Mg/24Hr Patch [Habitrol] 1 patch TRANSDERM DAILY patch 05/19/18 [Rx] rOPINIRole HCL [Requip] 2 mg PO HS tab 05/19/18 [Rx] Follow up Appointment(s)/Referral(s): Gabrielle Castaneda MD [Primary Care Provider] - 1-2 days Discharge Disposition: HOME SELF-CARE
[2018-05-19 12:41] LABS: Glucose,Whole Blood 102 mg/dL (75-99)
--- NOTE | 2018-05-19 15:19 | CONS ---
CONSULTATION DATE OF SERVICE: 05/19/2018 REASON FOR CONSULTATION: Advice regarding COPD and diabetes and other medical issues, requested by Psychiatry, Dr. Pereira. HISTORY OF PRESENT ILLNESS: This 43-year-old woman with a past medical history of COPD, diabetes mellitus, DJD, history of sinusitis, anxiety, bipolar, panic disorder, schizophrenia, was admitted for psychiatric evaluation. There is no history of any chest pain. No history of palpitations. No history of headache, loss of consciousness, seizures. The patient is followed by Dr. Castaneda in the outpatient setting. Patient also had some infected superficial lesions around the umbilicus. No chest pain. No palpitations. PAST MEDICAL HISTORY: 1. COPD. 2. Diabetes mellitus. 3. DJD. 4. History of anxiety, bipolar, panic disorder, schizophrenia. MEDICATIONS: Medications prior to admission include: 1. Requip 2 mg p.o. at bedtime. 2. Humalog 10 units before meals t.i.d. 3. Lyrica 50 mg p.o. daily. 4. Lantus 35 units subcutaneously at bedtime. 5. Hydroxyzine 25 mg daily p.r.n. 6. Depo-Provera 150 mg IM q.90 days. 7. Prozac 20 mg p.o. at bedtime. 8. Benadryl 25 to 50 mg at bedtime p.r.n. 9. Habitrol daily. 10.Tylenol 650 q.4 p.r.n. ALLERGIES: NONE. FAMILY HISTORY: History of hypertension and hyperlipidemia. History of depression. History of pancreatic problems. SOCIAL HISTORY: History of smoking. Occasional alcohol. REVIEW OF SYSTEMS: ENT: No diminished hearing. No diminished vision. CARDIOVASCULAR SYSTEM: No angina, palpitations. RESPIRATORY SYSTEM: No cough, hemoptysis. GI: No nausea, vomiting. : No dysuria or retention. NERVOUS SYSTEM: No numbness, weakness. ALLERGY/IMMUNOLOGY: No asthma, hayfever. MUSCULOSKELETAL: As mentioned earlier. HEMATOLOGY/ONCOLOGY: No history of anemia. ENDOCRINE: Diabetes mellitus. CONSTITUTIONAL: As mentioned earlier. DERMATOLOGY: Negative. RHEUMATOLOGY: Negative. PSYCHIATRY: As mentioned earlier. PHYSICAL EXAMINATION: Patient alert and oriented x3. Pulse 88, blood pressure 104/74, respirations 16, temperature 96.7, pulse ox 98% on room air. HEENT: Conjunctivae normal. Oral mucosa moist. NECK: No jugular venous distention. No carotid bruit. No lymph node enlargement. CARDIOVASCULAR SYSTEM: S1, S2 muffled. No S3. No S4. No murmur. No thrills. RESPIRATORY SYSTEM: Breath sounds diminished at the bases. A few rhonchi. No crackles. ABDOMEN: Soft, non-tender. No mass palpable. Minimal cellulitic redness around the umbilicus present. LEGS: No edema. No swelling. NERVOUS SYSTEM: Higher functions as mentioned earlier. Moves all 4 limbs. No focal motor or sensory deficit. Cranial nerves 2 through 12 grossly intact. There is no facial deviation. Eye movements are full in all directions. No nystagmus. Power is normal. Gait is normal. No signs of cerebellar dysfunction. LYMPHATICS: No lymph node palpable in neck, axillae or groin. SKIN: No ulcer, rash, bleeding. JOINTS: No active deforming arthropathy. LABS: WBC 11.8, hemoglobin 14.8. Otherwise, glucose 145. ASSESSMENT: 1. Diabetes mellitus, type 2. 2. Chronic obstructive pulmonary disease. 3. Degenerative joint disease. 4. Gestational diabetes. 5. Claustrophobia. 6. Minimal cellulitis around the umbilicus. 7. Anxiety, bipolar, panic disorder and schizophrenia. RECOMMENDATIONS AND DISCUSSION: In this 43-year-old woman who presented with multiple complex medical issues, at this time we will monitor the patient closely, continue the current medications, continue symptomatic treatment. I recommend initiating the home medications, monitor blood sugars closely. The patient is on a combination of Levemir and NovoLog and blood sugar appears to be fairly controlled at this time. I recommend close followup with the primary physician in the outpatient setting after discharge. I would also recommend local antibiotic ointment for the minimal area of cellulitis noted around the umbilicus and continued followup with the primary physician in the outpatient setting. Discussed with the patient, who understands and agrees. Further recommendations to follow. MMODL / IJN: [id number] /
[2018-05-19 20:01] LABS: Hemoglobin A1C 6.7 % (4.0-6.0)
== END 2018-05-19 14:32 | disposition home or self-care (01) | DRG 885 ==
LOC: EEVIPCON 11:15 → EC 11:15 → 3MHU 18:57
PROVIDERS: ADMIT Psychiatry & Neurology Psychiatry; ATTEND Psychiatry & Neurology Psychiatry
DX: F31.9 Bipolar disorder, unspecified (principal); L03.316 Cellulitis of umbilicus; F17.200 Nicotine dependence, unspecified, uncomplicated; F20.9 Schizophrenia, unspecified; F40.240 Claustrophobia; F41.0 Panic disorder [episodic paroxysmal anxiety]; J44.9 Chronic obstructive pulmonary disease, unspecified; M19.90 Unspecified osteoarthritis, unspecified site; F41.9 Anxiety disorder, unspecified; Z79.4 Long term (current) use of insulin; Z79.899 Other long term (current) drug therapy; Z80.51 Family history of malignant neoplasm of kidney; Z81.8 Family history of other mental and behavioral disorders; Z82.49 Family history of ischemic heart disease and other diseases of the circulatory system
CPT/HCPCS: 80053; 80061; 80306; 82248; 83036; 84443; 85025; 99285

== ENCOUNTER 2018-09-14 14:38 | Inpatient (IN) | payer MEDICARE, OTHER ==
[2018-09-14] MEDS ORDERED: SODIUM CHLORIDE 0.9% 1,000 ML IV STA ×2 (15:24→16:26)
[2018-09-14] MEDS ORDERED: ONDANSETRON 4 MG/2 ML VIAL IVP STA (15:24)
--- NOTE | 2018-09-14 15:35 | ED ---
General Adult HPI - General Chief complaint: Abdominal Pain Stated complaint: dehydration Time Seen by Provider: 09/14/18 15:02 Source: patient Mode of arrival: ambulatory Limitations: no limitations - History of Present Illness Initial comments: Patient is a 43-year-old female presenting to the emergency Department with complaints of feeling really thirsty and a dry mouth 1-2 weeks. Patient has history of diabetes and psychiatric history. Patient also reports nausea. Patient denies chest pain, shortness of breath, vomiting, abdominal pain, head ache. Patient states she has been taking her medication as prescribed. She states she took her blood sugar this morning and it was in the 190s. Patient has no other complaints at this time. Upon arrival, vital signs are slightly tachycardia at 120, blood pressure is normal, afebrile. Patient was very anxious upon arrival. - Related Data Home Medications Medication Instructions Recorded Confirmed diphenhydrAMINE [Benadryl] 50 mg PO HS PRN 08/05/14 09/14/18 Medroxyprogesterone Acetate 150 mg IM Q90D 05/19/16 09/14/18 [Depo-Provera] Insulin Glargine [Lantus] 30 unit SQ HS 05/18/18 09/14/18 Pregabalin [Lyrica] 50 mg PO DAILY 05/18/18 09/14/18 hydrOXYzine PAMOATE 25 mg PO BID PRN 05/18/18 09/14/18 rOPINIRole HCL [Requip] 2 mg PO HS 05/18/18 09/14/18 INSULIN ASPART (NovoLOG) [NovoLOG 10 unit SQ TID 09/14/18 09/14/18 (formulary)] Paliperidone Palmitate [Invega 819 mg IM Q90D 09/14/18 09/14/18 Trinza] Previous Rx's Medication Instructions Recorded FLUoxetine HCL [PROzac] 20 mg PO DAILY cap 05/19/18 Allergies Allergy/AdvReac Type Severity Reaction Status Date / Time No Known Allergies Allergy Verified 09/14/18 15:13 Review of Systems ROS Statement: Those systems with pertinent positive or pertinent negative responses have been documented in the HPI. ROS Other: All systems not noted in ROS Statement are negative. Past Medical History Past Medical History: COPD, Diabetes Mellitus, Osteoarthritis (OA) Additional Past Medical History / Comment(s): "GESTATIONAL DIABETES", GOES TO [facility] History of Any Multi-Drug Resistant Organisms: None Reported Past Surgical History: Section Additional Past Surgical History / Comment(s): POLA ARM SX WHEN CHILD-WENT THRU A WINDOW Past Anesthesia/Blood Transfusion Reactions: No Reported Reaction Additional Past Anesthesia/Blood Transfusion Reaction / Comment(s): CLAUSTERPHOBIA Past Psychological History: Anxiety, Bipolar, Panic Disorder, Schizophrenia Smoking Status: Current every day smoker Past Alcohol Use History: Occasional Past Drug Use History: None Reported - Past Family History Father Additional Family Medical History / Comment(s): DEPRESSION, "PROBLEM WITH HIS PANCREAS" Mother Family Medical History: Hyperlipidemia, Hypertension Additional Family Medical History / Comment(s): DDD, NECK FUSION, KIDNEY CANCER General Exam - General Exam Comments Initial Comments: GENERAL: Well-appearing, well-nourished and in no acute distress. Patient appears very anxious. HEAD: Atraumatic, normocephalic. EYES: Pupils equal round and reactive to light, extraocular movements intact, sclera anicteric, conjunctiva are normal. ENT: TMs normal, nares patent, oropharynx clear without exudates. Moist mucous membranes. NECK: Normal range of motion, supple without lymphadenopathy or JVD. LUNGS: Breath sounds clear to auscultation bilaterally and equal. No wheezes rales or rhonchi. HEART: Regular rate and rhythm without murmurs, rubs or gallops. ABDOMEN: Mild generalized abdominal tenderness. Soft, normoactive bowel sounds. No guarding, no rebound. No masses appreciated. : Deferred EXTREMITIES: Normal range of motion, no pitting or edema. No clubbing or cyanosis. NEUROLOGICAL: Cranial nerves II through XII grossly intact. Normal speech, normal gait. PSYCH: Patient appears very worried, very anxious. SKIN: Warm, Dry, normal turgor, no rashes or lesions noted. Limitations: no limitations Course Vital Signs 09/14/18 09/14/18 14:47 17:00 Temperature 98.3 F Pulse Rate 120 H 89 Respiratory 22 18 Rate Blood Pressure 138/73 124/80 O2 Sat by Pulse 99 97 Oximetry Medical Decision Making - Medical Decision Making Patient is a 43-year-old female with complaints of thirst, dry mouth, mild abdominal pain, nausea 3 days. Patient has histories of uncontrolled diabetes as well as psychiatric history. Upon arrival patient was slightly tachycardia at 120. She seemed very anxious. On exam, patient had some generalized mild abdominal discomfort. Labs show a 15.4 white count, sodium 129, potassium 5.5, CO2 is 8, glucose 943. Blood gas was 7.26 pH, bicarb 10. Acetone is positive. UA shows 4+ glucose, 3+ ketones. Case discussed with Dr. Peterson and patient will be admitted for DKA. - Lab Data Result diagrams: 09/14/18 15:22 09/14/18 15:22 Lab Results 09/14/18 09/14/18 09/14/18 Range/Units 15:22 15:22 15:22 WBC 15.4 H (3.8-10.6) k/uL RBC 4.60 (3.80-5.40) m/uL Hgb 13.4 (11.4-16.0) gm/dL Hct 44.2 (34.0-46.0) % MCV 96.1 (80.0-100.0) fL MCH 29.1 (25.0-35.0) pg MCHC 30.3 L (31.0-37.0) g/dL RDW 13.9 (11.5-15.5) % Plt Count 444 (150-450) k/uL Neutrophils % 81 % Lymphocytes % 13 % Monocytes % 4 % Eosinophils % 1 % Basophils % 0 % Neutrophils # 12.5 H (1.3-7.7) k/uL Lymphocytes # 1.9 (1.0-4.8) k/uL Monocytes # 0.6 (0-1.0) k/uL Eosinophils # 0.1 (0-0.7) k/uL Basophils # 0.0 (0-0.2) k/uL Hypochromasia Marked VBG pH (7.31-7.41) VBG pCO2 (37-51) mmHg VBG HCO3 (24-28) mmol/L Sodium 129 L (137-145) mmol/L Potassium 5.5 H (3.5-5.1) mmol/L Chloride 96 L (98-107) mmol/L Carbon Dioxide 8 L* (22-30) mmol/L Anion Gap 25 mmol/L BUN 16 (7-17) mg/dL Creatinine 0.76 (0.52-1.04) mg/dL Est GFR (CKD-EPI)AfAm >90 (>60 ml/min/1.73 sqM) Est GFR (CKD-EPI)NonAf >90 (>60 ml/min/1.73 sqM) Glucose 943 H* (74-99) mg/dL POC Glucose (mg/dL) (75-99) mg/dL POC Glu Portrait Photographer ID Calcium 9.7 (8.4-10.2) mg/dL Total Bilirubin 0.5 (0.2-1.3) mg/dL AST 53 H (14-36) U/L ALT 57 H (9-52) U/L Alkaline Phosphatase 265 H (38-126) U/L Total Protein 7.8 (6.3-8.2) g/dL Albumin 4.0 (3.5-5.0) g/dL Urine Color Light Yellow Urine Appearance Clear (Clear) Urine pH 5.0 (5.0-8.0) Ur Specific [place] 1.032 (1.001-1.035) Urine Protein Negative (Negative) Urine Glucose (UA) 4+ H (Negative) Urine Ketones 3+ H (Negative) Urine Blood Negative (Negative) Urine Nitrite Negative (Negative) Urine Bilirubin Negative (Negative) Urine Urobilinogen <2.0 (<2.0) mg/dL Ur Leukocyte Esterase Large H (Negative) Urine RBC 7 H (0-5) /hpf Urine WBC 4 (0-5) /hpf Ur Squamous Epith Cells 3 (0-4) /hpf Urine Mucus Rare H (None) /hpf Urine HCG, Qual (Not Detectd) Urine Opiates Screen Not Detected (NotDetected) Ur Oxycodone Screen Not Detected (NotDetected) Urine Methadone Screen Not Detected (NotDetected) Ur Propoxyphene Screen Not Detected (NotDetected) Ur Barbiturates Screen Not Detected (NotDetected) U Tricyclic Antidepress Not Detected (NotDetected) Ur Phencyclidine Scrn Not Detected (NotDetected) Ur Amphetamines Screen Not Detected (NotDetected) U Methamphetamines Scrn Not Detected (NotDetected) U Benzodiazepines Scrn Not Detected (NotDetected) Urine Cocaine Screen Not Detected (NotDetected) U Marijuana (THC) Screen Not Detected (NotDetected) Acetone, Qual (Negative) 0809/14/18 09/14/18 Range/Units 15:22 17:22 17:22 WBC (3.8-10.6) k/uL RBC (3.80-5.40) m/uL Hgb (11.4-16.0) gm/dL Hct (34.0-46.0) % MCV (80.0-100.0) fL MCH (25.0-35.0) pg MCHC (31.0-37.0) g/dL RDW (11.5-15.5) % Plt Count (150-450) k/uL Neutrophils % % Lymphocytes % % Monocytes % % Eosinophils % % Basophils % % Neutrophils # (1.3-7.7) k/uL Lymphocytes # (1.0-4.8) k/uL Monocytes # (0-1.0) k/uL Eosinophils # (0-0.7) k/uL Basophils # (0-0.2) k/uL Hypochromasia VBG pH 7.26 L (7.31-7.41) VBG pCO2 23 L (37-51) mmHg VBG HCO3 10 L (24-28) mmol/L Sodium (137-145) mmol/L Potassium (3.5-5.1) mmol/L Chloride (98-107) mmol/L Carbon Dioxide (22-30) mmol/L Anion Gap mmol/L BUN (7-17) mg/dL Creatinine (0.52-1.04) mg/dL Est GFR (CKD-EPI)AfAm (>60 ml/min/1.73 sqM) Est GFR (CKD-EPI)NonAf (>60 ml/min/1.73 sqM) Glucose (74-99) mg/dL POC Glucose (mg/dL) (75-99) mg/dL POC Glu Portrait Photographer ID Calcium (8.4-10.2) mg/dL Total Bilirubin (0.2-1.3) mg/dL AST (14-36) U/L ALT (9-52) U/L Alkaline Phosphatase (38-126) U/L Total Protein (6.3-8.2) g/dL Albumin (3.5-5.0) g/dL Urine Color Urine Appearance (Clear) Urine pH (5.0-8.0) Ur Specific [place] (1.001-1.035) Urine Protein (Negative) Urine Glucose (UA) (Negative) Urine Ketones (Negative) Urine Blood (Negative) Urine Nitrite (Negative) Urine Bilirubin (Negative) Urine Urobilinogen (<2.0) mg/dL Ur Leukocyte Esterase (Negative) Urine RBC (0-5) /hpf Urine WBC (0-5) /hpf Ur Squamous Epith Cells (0-4) /hpf Urine Mucus (None) /hpf Urine HCG, Qual Not Detected (Not Detectd) Urine Opiates Screen (NotDetected) Ur Oxycodone Screen (NotDetected) Urine Methadone Screen (NotDetected) Ur Propoxyphene Screen (NotDetected) Ur Barbiturates Screen (NotDetected) U Tricyclic Antidepress (NotDetected) Ur Phencyclidine Scrn (NotDetected) Ur Amphetamines Screen (NotDetected) U Methamphetamines Scrn (NotDetected) U Benzodiazepines Scrn (NotDetected) Urine Cocaine Screen (NotDetected) U Marijuana (THC) Screen (NotDetected) Acetone, Qual Positive (Negative) 09/14/18 Range/Units 17:49 WBC (3.8-10.6) k/uL RBC (3.80-5.40) m/uL Hgb (11.4-16.0) gm/dL Hct (34.0-46.0) % MCV (80.0-100.0) fL MCH (25.0-35.0) pg MCHC (31.0-37.0) g/dL RDW (11.5-15.5) % Plt Count (150-450) k/uL Neutrophils % % Lymphocytes % % Monocytes % % Eosinophils % % Basophils % % Neutrophils # (1.3-7.7) k/uL Lymphocytes # (1.0-4.8) k/uL Monocytes # (0-1.0) k/uL Eosinophils # (0-0.7) k/uL Basophils # (0-0.2) k/uL Hypochromasia VBG pH (7.31-7.41) VBG pCO2 (37-51) mmHg VBG HCO3 (24-28) mmol/L Sodium (137-145) mmol/L Potassium (3.5-5.1) mmol/L Chloride (98-107) mmol/L Carbon Dioxide (22-30) mmol/L Anion Gap mmol/L BUN (7-17) mg/dL Creatinine (0.52-1.04) mg/dL Est GFR (CKD-EPI)AfAm (>60 ml/min/1.73 sqM) Est GFR (CKD-EPI)NonAf (>60 ml/min/1.73 sqM) Glucose (74-99) mg/dL POC Glucose (mg/dL) >600 H (75-99) mg/dL POC Glu Portrait Photographer ID Elida Ahmadi Calcium (8.4-10.2) mg/dL Total Bilirubin (0.2-1.3) mg/dL AST (14-36) U/L ALT (9-52) U/L Alkaline Phosphatase (38-126) U/L Total Protein (6.3-8.2) g/dL Albumin (3.5-5.0) g/dL Urine Color Urine Appearance (Clear) Urine pH (5.0-8.0) Ur Specific [place] (1.001-1.035) Urine Protein (Negative) Urine Glucose (UA) (Negative) Urine Ketones (Negative) Urine Blood (Negative) Urine Nitrite (Negative) Urine Bilirubin (Negative) Urine Urobilinogen (<2.0) mg/dL Ur Leukocyte Esterase (Negative) Urine RBC (0-5) /hpf Urine WBC (0-5) /hpf Ur Squamous Epith Cells (0-4) /hpf Urine Mucus (None) /hpf Urine HCG, Qual (Not Detectd) Urine Opiates Screen (NotDetected) Ur Oxycodone Screen (NotDetected) Urine Methadone Screen (NotDetected) Ur Propoxyphene Screen (NotDetected) Ur Barbiturates Screen (NotDetected) U Tricyclic Antidepress (NotDetected) Ur Phencyclidine Scrn (NotDetected) Ur Amphetamines Screen (NotDetected) U Methamphetamines Scrn (NotDetected) U Benzodiazepines Scrn (NotDetected) Urine Cocaine Screen (NotDetected) U Marijuana (THC) Screen (NotDetected) Acetone, Qual (Negative) Disposition Clinical Impression: DKA (diabetic ketoacidoses) Disposition: ADMITTED IP TO THIS [facility] Condition: Good Is patient prescribed a controlled substance at d/c from ED?: No Referrals: None,Stated [Primary Care Provider] - 1-2 days Decision Date: 09/14/18 Decision Time: 17:30
[2018-09-14 15:47] LABS: Basophils % (A) 0 %; Eosinophils # (A) 0.1 k/uL (0-0.7); Eosinophils % (A) 1 %; HCT 44.2 % (34.0-46.0); HGB 13.4 gm/dL (11.4-16.0); Hypochromasia Marked; Lymphocytes # (A) 1.9 k/uL (1.0-4.8); Lymphocytes % (A) 13 %; MCH 29.1 pg (25.0-35.0); MCHC 30.3 g/dL (31.0-37.0); MCV 96.1 fL (80.0-100.0); Mean Platelet Volume 7.4; Monocytes # (A) 0.6 k/uL (0-1.0); Monocytes % (A) 4 %; Neutrophils # (A) 12.5 k/uL (1.3-7.7); Neutrophils % (A) 81 %; Platelet Count 444 k/uL (150-450); RDW 13.9 % (11.5-15.5); WBC 15.4 k/uL (3.8-10.6)
[2018-09-14 15:50] LABS: Appearance,Urine Clear (Clear); Bilirubin,Urine Negative (Negative); Blood,Urine Negative (Negative); Color,Urine Light Yellow; Glucose,Urine (UA) 4+ (Negative); Leukocyte Esterase,Urine Large (Negative); Mucus,Urine Rare /hpf; Nitrite,Urine Negative (Negative); Protein,Urine Negative (Negative); RBC,Urine 7 /hpf (0-5); Specific Gravity,Urine 1.032 (1.001-1.035); Squamous Epithelial Cell,Urine 3 /hpf (0-4); Urobilinogen,Urine <2.0 mg/dL (<2.0); WBC,Urine 4 /hpf (0-5)
[2018-09-14 15:56] LABS: Amphetamine Screen,Urine Not Detected (NotDetected); Barbiturate Screen,Urine Not Detected (NotDetected); Benzodiazepines Screen,Urine Not Detected (NotDetected); Cocaine Screen,Urine Not Detected (NotDetected); Methadone Screen, Urine Not Detected (NotDetected); Opiate Screen,Urine Not Detected (NotDetected); Oxycodone Screen, Urine Not Detected (NotDetected); Phencyclidine Screen,Urine Not Detected (NotDetected); Tricyclic Antidepressant,Urine Not Detected (NotDetected); Urn Cannabinoid Scrn Not Detected (NotDetected)
[2018-09-14 16:00] LABS: ALT 57 U/L (9-52); AST 53 U/L (14-36); African American GFR (CKD) >90 (>60 ml/min/1.73 sqM); Alkaline Phosphatase 265 U/L (38-126); Anion Gap 25 mmol/L; Blood Urea Nitrogen 16 mg/dL (7-17); Calcium 9.7 mg/dL (8.4-10.2); Chloride 96 mmol/L (98-107); Non-African American GFR(CKD) >90 (>60 ml/min/1.73 sqM); Potassium 5.5 mmol/L (3.5-5.1); Sodium 129 mmol/L (137-145); Total Bilirubin 0.5 mg/dL (0.2-1.3); Total Protein 7.8 g/dL (6.3-8.2)
[2018-09-14 16:10] LABS: Ketones,Urine 3+ (Negative)
[2018-09-14 16:20] LABS: Carbon Dioxide 8 mmol/L (22-30)
[2018-09-14 16:22] LABS: Glucose 943 mg/dL (74-99)
[2018-09-14] MEDS ORDERED: INSULIN REGULAR BOLUS (FROM DRIP BAG) IV ONE (16:24)
[2018-09-14] MEDS: INSULIN REGULAR 100 UNIT in SODIUM CHLORIDE 0.9% 100 ML IV SCH (17:13)
[2018-09-14 17:33] LABS: VBG PH 7.26 (7.31-7.41)
[2018-09-14 18:00] LABS: Glucose,Whole Blood >600 mg/dL (75-99)
[2018-09-14 18:38] LABS: Glucose,Whole Blood >600 mg/dL (75-99)
[2018-09-14 19:57] LABS: Glucose,Whole Blood 423 mg/dL (75-99)
[2018-09-14] MEDS: SODIUM CHLORIDE 0.9% 1,000 ML IV SCH ×2 (20:00→22:23)
[2018-09-14 21:05] LABS: Glucose,Whole Blood 304 mg/dL (75-99)
[2018-09-14 21:18] LABS: African American GFR (CKD) >90 (>60 ml/min/1.73 sqM); Anion Gap 10 mmol/L; Blood Urea Nitrogen 14 mg/dL (7-17); Carbon Dioxide 16 mmol/L (22-30); Chloride 109 mmol/L (98-107); Glucose 310 mg/dL (74-99); Non-African American GFR(CKD) >90 (>60 ml/min/1.73 sqM); Sodium 135 mmol/L (137-145)
[2018-09-14] MEDS: D5-0.45% NACL WITH KCL 20MEQ/L 1,000 ML IV SCH (21:31)
[2018-09-14 21:41] LABS: Glucose,Whole Blood 295 mg/dL (75-99)
[2018-09-14 22:31] LABS: Glucose,Whole Blood 247 mg/dL (75-99)
[2018-09-14 23:31] VITALS: RESP 18
[2018-09-14 23:31] LABS: Glucose,Whole Blood 194 mg/dL (75-99)
[2018-09-15 00:45] LABS: Glucose,Whole Blood 158 mg/dL (75-99)
[2018-09-15 01:00] LABS: African American GFR (CKD) >90 (>60 ml/min/1.73 sqM); Anion Gap 9 mmol/L; Blood Urea Nitrogen 11 mg/dL (7-17); Carbon Dioxide 18 mmol/L (22-30); Chloride 109 mmol/L (98-107); Glucose 181 mg/dL (74-99); Non-African American GFR(CKD) >90 (>60 ml/min/1.73 sqM); Potassium 3.7 mmol/L (3.5-5.1); Sodium 136 mmol/L (137-145)
[2018-09-15] MEDS ORDERED: diphenhydrAMINE 50 MG CAP PO PRN (01:29)
[2018-09-15] MEDS ORDERED: NON FORMULARY DRUG (Medroxyprogesterone Acetate [Depo-Provera] 150 MG) IM SCH (01:30)
[2018-09-15] MEDS ORDERED: PALIPERIDONE PALMITATE 819 MG IM SCH (01:30)
[2018-09-15 01:31] LABS: Glucose,Whole Blood 141 mg/dL (75-99)
[2018-09-15] MEDS ORDERED: hydrOXYzine PAMOATE 25 MG CAP PO PRN (02:00)
[2018-09-15] MEDS: SODIUM CHLORIDE 0.9% 1,000 ML IV SCH ×4 (03:36→17:02)
[2018-09-15] MEDS: D5-0.45% NACL WITH KCL 20MEQ/L 1,000 ML IV SCH ×3 (04:43→17:02)
[2018-09-15] MEDS: INSULIN REGULAR 100 UNIT in SODIUM CHLORIDE 0.9% 100 ML IV SCH (06:22)
[2018-09-15 06:48] LABS: Glucose,Whole Blood 343 mg/dL (75-99)
[2018-09-15] MEDS: INSULIN ASPART (NovoLOG) 100 UNIT/ML VIAL SQ SCH ×8 (07:07→21:09)
[2018-09-15] MEDS: PREGABALIN 50 MG CAP PO SCH (08:14)
[2018-09-15] MEDS: FLUoxetine HCL 20 MG CAP PO SCH (08:14)
[2018-09-15 12:00] LABS: Glucose,Whole Blood 316 mg/dL (75-99)
[2018-09-15 12:06] VITALS: BMI 29.1
[2018-09-15 13:45] LABS: Hemoglobin A1C 15.3 % (4.0-6.0)
[2018-09-15 17:18] LABS: Glucose,Whole Blood 276 mg/dL (75-99)
[2018-09-15] MEDS ORDERED: ALPRAZolam 0.25 MG TAB PO PRN (18:06)
[2018-09-15] MEDS ORDERED: TEMAZEPAM 15 MG CAP PO PRN (18:06)
[2018-09-15] MEDS ORDERED: ACETAMINOPHEN TAB 500 MG TAB PO PRN (18:06)
--- NOTE | 2018-09-15 18:49 | XR ---
EXAMINATION TYPE: XR chest 1V portable DATE OF EXAM: 09/15/2018 COMPARISON: 08/05/2014 HISTORY: Pneumonia. Chest pain TECHNIQUE: Single frontal view of the chest is obtained. FINDINGS: There is no heart failure nor confluent pneumonic infiltrate. Costophrenic angles are mohan r. There are chest leads. Bony thorax appears intact. Heart size is normal. IMPRESSION: Normal chest. No change.
[2018-09-15] MEDS: HEPARIN SODIUM,PORCINE 5,000 UNIT/ML 1 ML VIAL SQ SCH (20:18)
[2018-09-15] MEDS: NICOTINE 14MG/24HR PATCH TRANSDERM SCH (20:18)
[2018-09-15] MEDS ORDERED: INSULIN DETEMIR (LEVEMIR) 100 UNIT/ML SYR SQ SCH (21:00)
[2018-09-15 21:03] LABS: Glucose,Whole Blood 448 mg/dL (75-99)
--- NOTE | 2018-09-15 22:22 | HP ---
HISTORY AND PHYSICAL DATE OF SERVICE: 09/15/2018 CHIEF COMPLAINT: Abdominal pain. Dehydration. HISTORY OF PRESENT ILLNESS: This 43-year-old woman with a past medical history of multiple medical problems including COPD, diabetes, DJD, anxiety, bipolar, panic disorder, schizophrenia, has seen Dr. Castaneda previously. The patient also had multiple psychiatric issues as well. The patient apparently feeling really thirsty and dry mouth for the last 1-2 weeks. The blood sugar has been 190, according to the patient. The patient apparently took some significant amount of sweet food and it is unclear whether the patient is compliant with insulin medications, but however she was pleading people to take her to the emergency room and only the lace pinner will take her to the emergency room and the patient admitted for further evaluation and treatment. The patient was found to have acute diabetic ketoacidosis and patient's insulin drip is being closely monitored. There is no history of fever, rigors or chills. No history of headache, loss of consciousness or seizures. PAST MEDICAL HISTORY: COPD, diabetes, DJD, history of distention, diabetes, anxiety, bipolar, panic disorder, schizophrenia. MEDICATIONS: Prior to admission include: 1. Requip 2 mg p.o. q.h.s. 2. Hydroxyzine 25 mg p.o. b.i.d. p.r.n. 3. Benadryl 50 mg q.h.s. p.r.n. 4. Lantus 30 units subcu q.h.s. 5. Lyrica 50 mg p.o. daily. 6. Invega 819 mg IM Q 90 days. 7. Depo-Provera 150 mg IM Q 90 days. 8. NovoLog 10 units t.i.d. 9. Prozac 20 mg daily. ALLERGIES: None. FAMILY HISTORY: History of hypertension, hyperlipidemia, history of depression, problems with the pancreas. SOCIAL HISTORY: History of continued ongoing smoking. REVIEW OF SYSTEMS: ENT: No diminished vision. No diminished hearing. CARDIOVASCULAR: No angina or palpitations. RESPIRATIONS: No cough or hemoptysis. GI no nausea or vomiting. no dysuria. NERVOUS SYSTEM: No numbness. Weakness as mentioned earlier. ALLERGIES/IMMUNOLOGY: No asthma or hayfever. MUSCULOSKELETAL as mentioned earlier. HEMATOLOGY/ONCOLOGY: No history of anemia. ENDOCRINE: Diabetes type 2. CONSTITUTIONAL: As mentioned earlier. DERMATOLOGY: Negative. RHEUMATOLOGY negative. PSYCHIATRY as mentioned earlier. PHYSICAL EXAMINATION: Alert and oriented x3. Pulse 85, blood pressure 108/59, respiration 18, temperature 97.4, pulse ox 94 percent on room air. HEENT: Conjunctivae normal. NECK: No jugular venous distention. No carotid bruit. No lymph node enlargement. CARDIOVASCULAR: S1, S2. No S3, no S4. RESPIRATORY: Breath sounds diminished in the bases. A few scattered rhonchi. No crackles. ABDOMEN: Soft, nontender. No mass palpable. LEGS: No edema. No swelling. NERVOUS SYSTEM: Higher functions as mentioned earlier. Moves all four limbs. No focal motor or sensory deficits. LYMPHATICS: No lymph nodes palpable in the neck, axillae or groin. SKIN: No ulcer, rash or bleeding. JOINTS: No active deforming arthropathy. LAB STUDIES: WBC 15.4, sodium 135, CO2 16, glucosentd, ABGs noted. AST and ALT noted. Otherwise acetone was positive. ASSESSMENT: 1. Acute diabetic ketoacidosis with dehydration, present on admission. 2. Hyponatremia. 3. Increased WBC. 4. Possible history of noncompliance. 5. Increased AST/ALT. 6. History of chronic obstructive pulmonary disease. 7. History of degenerative joint disease. 8. History of gestational diabetes. 9. History of section. 10.History of claustrophobia. 11.History of anxiety, bipolar, panic disorder, schizophrenia. 12.Continued ongoing nicotine dependence. RECOMMENDATIONS AND DISCUSSION: In this 43-year-old woman who presented with multiple complex medical issues, we will monitor the patient closely, continue the current medications, management and symptomatic treatment. Otherwise, at this time, I recommend resume the home dose and monitor blood sugars closely. Otherwise the importance of compliance is stressed. The white count is also elevated. The UA is showing some evidence of some UTI. Would recommend empiric antibiotics, short course of empiric antibiotics and a chest x-ray as well. See orders for details. Prognosis guarded. Further recommendations to follow. Recommend the patient to followup closely with Dr. Castaneda in the outpatient setting. MMODL / IJN: [id number] / MTDD
[2018-09-15] MEDS ORDERED: INSULIN ASPART (NovoLOG) 100 UNIT/ML VIAL SQ ONE (22:28)
[2018-09-15 22:30] LABS: Glucose,Whole Blood 416 mg/dL (75-99)
[2018-09-15 23:36] LABS: Glucose,Whole Blood 299 mg/dL (75-99)
[2018-09-16 06:59] LABS: Glucose,Whole Blood 187 mg/dL (75-99)
[2018-09-16 07:14] LABS: Basophils % (A) 0 %; Eosinophils # (A) 0.2 k/uL (0-0.7); Eosinophils % (A) 2 %; HCT 38.1 % (34.0-46.0); HGB 12.5 gm/dL (11.4-16.0); Lymphocytes % (A) 22 %; MCH 29.3 pg (25.0-35.0); MCHC 32.7 g/dL (31.0-37.0); Mean Platelet Volume 6.8; Monocytes # (A) 0.4 k/uL (0-1.0); Monocytes % (A) 5 %; Neutrophils # (A) 6.1 k/uL (1.3-7.7); Neutrophils % (A) 69 %; Platelet Count 394 k/uL (150-450); RBC 4.26 m/uL (3.80-5.40); RDW 14.5 % (11.5-15.5); WBC 8.9 k/uL (3.8-10.6)
[2018-09-16 07:17] LABS: MCV 89.5 fL (80.0-100.0)
[2018-09-16 07:22] LABS: African American GFR (CKD) >90 (>60 ml/min/1.73 sqM); Anion Gap 9 mmol/L; Blood Urea Nitrogen 14 mg/dL (7-17); Calcium 8.5 mg/dL (8.4-10.2); Carbon Dioxide 20 mmol/L (22-30); Chloride 107 mmol/L (98-107); Glucose 184 mg/dL (74-99); Non-African American GFR(CKD) >90 (>60 ml/min/1.73 sqM); Sodium 136 mmol/L (137-145)
[2018-09-16 07:24] LABS: Potassium 3.9 mmol/L (3.5-5.1)
[2018-09-16] MEDS: INSULIN ASPART (NovoLOG) 100 UNIT/ML VIAL SQ SCH ×4 (07:24→12:40)
[2018-09-16] MEDS ORDERED: PANTOPRAZOLE 40 MG TABLET PO SCH (07:30)
[2018-09-16] MEDS: FLUoxetine HCL 20 MG CAP PO SCH (08:40)
[2018-09-16] MEDS: PREGABALIN 50 MG CAP PO SCH (08:40)
[2018-09-16] MEDS: HEPARIN SODIUM,PORCINE 5,000 UNIT/ML 1 ML VIAL SQ SCH (08:42)
[2018-09-16] MEDS: NICOTINE 14MG/24HR PATCH TRANSDERM SCH (08:48)
[2018-09-16 09:48] VITALS: BP 99/65; PULSE 73; TEMP 97.9
[2018-09-16 11:50] LABS: Glucose,Whole Blood 316 mg/dL (75-99)
--- NOTE | 2018-09-17 00:35 | DS ---
DISCHARGE SUMMARY DATE OF SERVICE: 09/16/2018. FINAL DIAGNOSES: 1. Acute diabetic ketoacidosis and uncontrolled diabetes type 2. 2. History of noncompliance. 3. Hyponatremia. 4. Increased WBC. 5. Increased AST, ALT. 6. History of chronic obstructive pulmonary disease. 7. History of degenerative joint disease. 8. History of gestational diabetes. 9. History of section. 10.History of claustrophobia. 11.Anxiety, bipolar, panic disorder, schizophrenia. 12.Continued ongoing nicotine dependence. DISCHARGE DISPOSITION: The patient is being discharged in stable condition with guarded prognosis. HISTORY OF PRESENT ILLNESS: This 43-year-old woman with a past medical history of multiple medical problems admitted with acute diabetic ketoacidosis. The patient was treated with IV insulin drip. Patient improved significantly. Importance of compliance stressed with the patient. On exam, vitals signs are stable. Cardiovascular: S1, S2 muffled. Abdomen soft. Nervous system: No focal deficits. Discussed with Dr. Castaneda. Dr. Castaneda is willing to see the patient in the outpatient setting. DISCHARGE INSTRUCTIONS AND MEDICATIONS: 1. Discharge diet is cardiac 1800 calorie AD. 2. Accu-Cheks a.c. and at bedtime. 3. Follow up with Dr. Castaneda in 2-3 days. DISCHARGE MEDICATIONS: As follows: 1. Depo-Provera 150 q90 days. 2. Invega 819 q90 days. 3. Lyrica 50 mg p.o. daily. 4. Benadryl 25 mg p.r.n. 5. Habitrol 14 daily. 6. Hydroxyzine 25 mg b.i.d. p.r.n. 7. Lantus 30 units subcu q.h.s. 8. NovoLog scale 10 units t.i.d. 9. Prozac 20 mg p.o. daily. 10.Requip 2 mg q.h.s. Once again, the patient will be discharged in stable condition with guarded prognosis. MMODL / IJN: [id number] /
== END 2018-09-16 13:52 | disposition home or self-care (01) | DRG 638 ==
LOC: EC 14:38 → 3SCARD 20:04
PROVIDERS: ADMIT Hospitalist; ATTEND Hospitalist
DX: E11.10 Type 2 diabetes mellitus with ketoacidosis without coma (principal); E87.1 Hypo-osmolality and hyponatremia; F20.9 Schizophrenia, unspecified; E86.0 Dehydration; F17.200 Nicotine dependence, unspecified, uncomplicated; F31.9 Bipolar disorder, unspecified; F40.240 Claustrophobia; F41.0 Panic disorder [episodic paroxysmal anxiety]; J44.9 Chronic obstructive pulmonary disease, unspecified; M19.90 Unspecified osteoarthritis, unspecified site; D72.829 Elevated white blood cell count, unspecified; Z79.4 Long term (current) use of insulin; Z79.899 Other long term (current) drug therapy; Z86.32 Personal history of gestational diabetes; Z91.19 Patient's noncompliance with other medical treatment and regimen; Z98.891 History of uterine scar from previous surgery; Z80.51 Family history of malignant neoplasm of kidney; Z81.8 Family history of other mental and behavioral disorders; Z82.49 Family history of ischemic heart disease and other diseases of the circulatory system; Z82.69 Family history of other diseases of the musculoskeletal system and connective tissue
CPT/HCPCS: 36415; 71045; 80048; 80051; 80053; 80306; 81001; 81025; 82009; 82565; 82803; 82947; 83036; 84100; 84520; 85025; 96361; 96374; 99284

== ENCOUNTER 2020-07-05 09:44 | Inpatient (IN) | payer MEDICARE, OTHER ==
[2020-07-05 09:54] LABS: Glucose,Whole Blood >600 mg/dL (75-99)
[2020-07-05] MEDS ORDERED: SODIUM CHLORIDE 0.9% 2,000 ML IV ONE (10:10)
[2020-07-05] MEDS: SODIUM CHLORIDE 0.9% 1,000 ML IV SCH ×3 (10:15→16:28)
--- NOTE | 2020-07-05 10:20 | ED ---
Recheck HPI <Rao Jiménez - Last Filed: 07/05/20 11:28> - General Source: RN/, RN notes reviewed, old records reviewed Mode of arrival: EMS Limitations: altered mental status <Vera Fuentes - Last Filed: 07/05/20 11:41> - General Chief Complaint: Recheck/Abnormal Lab/Rx Stated Complaint: hyperglycemia Time Seen by Provider: 07/05/20 09:51 - History of Present Illness Initial Comments: Is a 45-year-old female with history of diabetes presents from EMS for concern for altered mental status and elevated blood sugar. Patient general poor historian, but is alert and oriented 3. She has a history of bipolar disorder. Patient states that she's been vomiting starting this morning. She complains of generalized pain and body aches. EMS reports she has this confusion associated with elevated blood sugar. On EMS her BG was read "high". She report sore throat due to vomiting. (Vera Fuentes) - Related Data Home Medications Medication Instructions Recorded Confirmed Paliperidone Palmitate [Invega 819 mg IM Q90D 09/14/18 07/05/20 Trinza] INSULIN ASPART (NovoLOG) [NovoLOG 10 unit SQ AC-TID 07/05/20 07/05/20 (formulary)] metFORMIN HCL [Glucophage] 1,000 mg PO BID 07/05/20 07/05/20 Previous Rx's Medication Instructions Recorded FLUoxetine HCL [PROzac] 20 mg PO DAILY #30 cap 09/16/18 Insulin Glargine [Lantus] 30 unit SQ HS #1 vial 09/16/18 Allergies Allergy/AdvReac Type Severity Reaction Status Date / Time No Known Allergies Allergy Verified 07/05/20 09:55 Review of Systems ROS Other: All systems not noted in ROS Statement are negative. <Rao Jiménez - Last Filed: 07/05/20 11:28> ROS Other: All systems not noted in ROS Statement are negative. <Vera Fuentes - Last Filed: 07/05/20 11:41> ROS Statement: Those systems with pertinent positive or pertinent negative responses have been documented in the HPI. Past Medical History Past Medical History: COPD, Diabetes Mellitus, Osteoarthritis (OA) Additional Past Medical History / Comment(s): "GESTATIONAL DIABETES", GOES TO [facility] History of Any Multi-Drug Resistant Organisms: None Reported Past Surgical History: Section Additional Past Surgical History / Comment(s): POLA ARM SX WHEN CHILD-WENT THRU A WINDOW Past Anesthesia/Blood Transfusion Reactions: No Reported Reaction Additional Past Anesthesia/Blood Transfusion Reaction / Comment(s): CLAUSTERPHOBIA Past Psychological History: Anxiety, Bipolar, Panic Disorder, Schizophrenia Past Alcohol Use History: Occasional Past Drug Use History: None Reported - Past Family History Father Additional Family Medical History / Comment(s): DEPRESSION, "PROBLEM WITH HIS PANCREAS" Mother Family Medical History: Hyperlipidemia, Hypertension Additional Family Medical History / Comment(s): DDD, NECK FUSION, KIDNEY CANCER <Vera Fuentes - Last Filed: 07/05/20 11:41> General Exam Limitations: altered mental status General appearance: alert, in no apparent distress Head exam: Present: atraumatic, normocephalic, normal inspection Eye exam: Present: normal appearance, PERRL, EOMI. Absent: scleral icterus, conjunctival injection, periorbital swelling ENT exam: Present: mucous membranes moist. Absent: normal exam ( poor Dentition) Neck exam: Present: normal inspection. Absent: tenderness, meningismus, lymphadenopathy Respiratory exam: Present: normal lung sounds bilaterally. Absent: respiratory distress, wheezes, rales, rhonchi, stridor Cardiovascular Exam: Present: regular rate, normal rhythm, normal heart sounds. Absent: systolic murmur, diastolic murmur, rubs, gallop, clicks GI/Abdominal exam: Present: soft, normal bowel sounds. Absent: distended, tend erness, guarding, rebound, rigid Extremities exam: Present: normal inspection, full ROM, normal capillary refill. Absent: tenderness, pedal edema, joint swelling, calf tenderness Back exam: Present: normal inspection Neurological exam: Present: alert, oriented X3 ( ), CN II-XII intact Psychiatric exam: Present: normal affect, normal mood Skin exam: Present: warm, dry, intact, normal color. Absent: rash <Vera Fuentes - Last Filed: 07/05/20 11:41> - General Exam Comments Initial Comments: 45-year-old female. Alert and oriented 3. Patient was vomiting in exam room. (Vera Fuentes) Course <Rao Jiménez - Last Filed: 07/05/20 11:28> Vital Signs 07/05/20 07/05/20 07/05/20 09:47 10:06 10:30 Temperature 97.3 F L Pulse Rate 104 H 96 Pulse Rate [ 104 H Pulse Oximetery ] Respiratory 24 22 Rate Blood Pressure 124/70 125/70 O2 Sat by Pulse 99 96 Oximetry 07/05/20 10:54 Temperature Pulse Rate 105 H Pulse Rate [ Pulse Oximetery ] Respiratory 22 Rate Blood Pressure 130/86 O2 Sat by Pulse 99 Oximetry - Reevaluation(s) Reevaluation #1: 07/05/20 11:28 Patient case review the patient's have evidence of DKA and will be admitted place on appropriate medication. (Rao Jiménez) Medical Decision Making - Lab Data Result diagrams: 07/05/20 10:13 07/05/20 10:13 <Rao Jiménez - Last Filed: 07/05/20 11:28> - Lab Data Result diagrams: 07/05/20 10:13 07/05/20 10:13 - Radiology Data Radiology results: report reviewed <Vera Fuentes - Last Filed: 07/05/20 11:41> - Medical Decision Making 45-year-old female presents to the ER for nausea vomiting and elevated blood sugar. Patient is a known diabetic, unable to state the last time she used insulin. Patient is dehydrated emergency department. Patient is given 2 L saline bolus and lab work obtained. Evidence of acetone on her breath. Lab work was reviewed showing elevated blood sugar 871. Potassium was 6.2 with no significant EKG changes. Patient was started on insulin bolus and insulin drip. She started on DKA protocol. She does have an elevated white blood cell count of 22,000, which I believe to be reactive to nausea and vomiting. She is afebrile. After IV hydration she has less confused conversation. I discussed case with Dr. Jiménez and then discussed the case with Dr. Moore. He states they will come to evaluate the Patient and to put orders in. (Vera Fuentes) - Lab Data Lab Results 07/05/20 07/05/20 07/05/20 Range/Units 09:52 10:13 10:13 WBC 22.5 H (3.8-10.6) k/uL RBC 4.49 (3.80-5.40) m/uL Hgb 13.7 (11.4-16.0) gm/dL Hct 43.6 (34.0-46.0) % MCV 97.1 (80.0-100.0) fL MCH 30.5 (25.0-35.0) pg MCHC 31.4 (31.0-37.0) g/dL RDW 13.2 (11.5-15.5) % Plt Count 564 H (150-450) k/uL MPV 7.8 Neutrophils % 90 % Lymphocytes % 7 % Monocytes % 2 % Eosinophils % 0 % Basophils % 0 % Neutrophils # 20.2 H (1.3-7.7) k/uL Lymphocytes # 1.6 (1.0-4.8) k/uL Monocytes # 0.5 (0-1.0) k/uL Eosinophils # 0.1 (0-0.7) k/uL Basophils # 0.1 (0-0.2) k/uL Hypochromasia Slight Sodium 122 L (137-145) mmol/L Potassium 6.2 H* (3.5-5.1) mmol/L Chloride 84 L (98-107) mmol/L Carbon Dioxide 5 L* (22-30) mmol/L Anion Gap 33 mmol/L BUN 19 H (7-17) mg/dL Creatinine 1.14 H (0.52-1.04) mg/dL Est GFR (CKD-EPI)AfAm 68 (>60 ml/min/1.73 sqM) Est GFR (CKD-EPI)NonAf 59 (>60 ml/min/1.73 sqM) Glucose 871 H* (74-99) mg/dL POC Glucose (mg/dL) >600 H (75-99) mg/dL POC Glu [employer] Shyam Hadley Plasma Lactic Acid Reed (0.7-2.0) mmol/L Calcium 9.2 (8.4-10.2) mg/dL Magnesium 2.2 (1.6-2.3) mg/dL Total Bilirubin 0.5 (0.2-1.3) mg/dL AST 42 H (14-36) U/L ALT 68 H (4-34) U/L Alkaline Phosphatase 241 H (38-126) U/L Total Protein 6.7 (6.3-8.2) g/dL Albumin 4.2 (3.5-5.0) g/dL Lipase 331 H (23-300) U/L Urine Color Urine Appearance (Clear) Urine pH (5.0-8.0) Ur Specific [place] (1.001-1.035) Urine Protein (Negative) Urine Glucose (UA) (Negative) Urine Ketones (Negative) Urine Blood (Negative) Urine Nitrite (Negative) Urine Bilirubin (Negative) Urine Urobilinogen (<2.0) mg/dL Ur Leukocyte Esterase (Negative) Urine Opiates Screen (NotDetected) Ur Oxycodone Screen (NotDetected) Urine Methadone Screen (NotDetected) Ur Propoxyphene Screen (NotDetected) Ur Barbiturates Screen (NotDetected) U Tricyclic Antidepress (NotDetected) Ur Phencyclidine Scrn (NotDetected) Ur Amphetamines Screen (NotDetected) U Methamphetamines Scrn (NotDetected) U Benzodiazepines Scrn (NotDetected) Urine Cocaine Screen (NotDetected) U Marijuana (THC) Screen (NotDetected) Acetone, Qual Positive (Negative) 07/05/20 07/05/20 07/05/20 Range/Units 10:13 10:13 10:13 WBC (3.8-10.6) k/uL RBC (3.80-5.40) m/uL Hgb (11.4-16.0) gm/dL Hct (34.0-46.0) % MCV (80.0-100.0) fL MCH (25.0-35.0) pg MCHC (31.0-37.0) g/dL RDW (11.5-15.5) % Plt Count (150-450) k/uL MPV Neutrophils % % Lymphocytes % % Monocytes % % Eosinophils % % Basophils % % Neutrophils # (1.3-7.7) k/uL Lymphocytes # (1.0-4.8) k/uL Monocytes # (0-1.0) k/uL Eosinophils # (0-0.7) k/uL Basophils # (0-0.2) k/uL Hypochromasia Sodium (137-145) mmol/L Potassium (3.5-5.1) mmol/L Chloride (98-107) mmol/L Carbon Dioxide (22-30) mmol/L Anion Gap mmol/L BUN (7-17) mg/dL Creatinine (0.52-1.04) mg/dL Est GFR (CKD-EPI)AfAm (>60 ml/min/1.73 sqM) Est GFR (CKD-EPI)NonAf (>60 ml/min/1.73 sqM) Glucose (74-99) mg/dL POC Glucose (mg/dL) (75-99) mg/dL POC Glu [employer] ID Plasma Lactic Acid Reed 2.4 H* (0.7-2.0) mmol/L Calcium (8.4-10.2) mg/dL Magnesium (1.6-2.3) mg/dL Total Bilirubin (0.2-1.3) mg/dL AST (14-36) U/L ALT (4-34) U/L Alkaline Phosphatase (38-126) U/L Total Protein (6.3-8.2) g/dL Albumin (3.5-5.0) g/dL Lipase (23-300) U/L Urine Color Colorless Urine Appearance Clear (Clear) Urine pH 5.0 (5.0-8.0) Ur Specific [place] 1.024 (1.001-1.035) Urine Protein Negative (Negative) Urine Glucose (UA) 4+ H (Negative) Urine Ketones 4+ H (Negative) Urine Blood Negative (Negative) Urine Nitrite Negative (Negative) Urine Bilirubin Negative (Negative) Urine Urobilinogen <2.0 (<2.0) mg/dL Ur Leukocyte Esterase Negative (Negative) Urine Opiates Screen Not Detected (NotDetected) Ur Oxycodone Screen Not Detected (NotDetected) Urine Methadone Screen Not Detected (NotDetected) Ur Propoxyphene Screen Not Detected (NotDetected) Ur Barbiturates Screen Not Detected (NotDetected) U Tricyclic Antidepress Not Detected (NotDetected) Ur Phencyclidine Scrn Not Detected (NotDetected) Ur Amphetamines Screen Not Detected (NotDetected) U Methamphetamines Scrn Not Detected (NotDetected) U Benzodiazepines Scrn Not Detected (NotDetected) Urine Cocaine Screen Not Detected (NotDetected) U Marijuana (THC) Screen Not Detected (NotDetected) Acetone, Qual (Negative) 07/05/20 Range/Units 11:31 WBC (3.8-10.6) k/uL RBC (3.80-5.40) m/uL Hgb (11.4-16.0) gm/dL Hct (34.0-46.0) % MCV (80.0-100.0) fL MCH (25.0-35.0) pg MCHC (31.0-37.0) g/dL RDW (11.5-15.5) % Plt Count (150-450) k/uL MPV Neutrophils % % Lymphocytes % % Monocytes % % Eosinophils % % Basophils % % Neutrophils # (1.3-7.7) k/uL Lymphocytes # (1.0-4.8) k/uL Monocytes # (0-1.0) k/uL Eosinophils # (0-0.7) k/uL Basophils # (0-0.2) k/uL Hypochromasia Sodium (137-145) mmol/L Potassium (3.5-5.1) mmol/L Chloride (98-107) mmol/L Carbon Dioxide (22-30) mmol/L Anion Gap mmol/L BUN (7-17) mg/dL Creatinine (0.52-1.04) mg/dL Est GFR (CKD-EPI)AfAm (>60 ml/min/1.73 sqM) Est GFR (CKD-EPI)NonAf (>60 ml/min/1.73 sqM) Glucose (74-99) mg/dL POC Glucose (mg/dL) >600 H (75-99) mg/dL POC Glu [employer] Shyam Hadley Plasma Lactic Acid Reed (0.7-2.0) mmol/L Calcium (8.4-10.2) mg/dL Magnesium (1.6-2.3) mg/dL Total Bilirubin (0.2-1.3) mg/dL AST (14-36) U/L ALT (4-34) U/L Alkaline Phosphatase (38-126) U/L Total Protein (6.3-8.2) g/dL Albumin (3.5-5.0) g/dL Lipase (23-300) U/L Urine Color Urine Appearance (Clear) Urine pH (5.0-8.0) Ur Specific [place] (1.001-1.035) Urine Protein (Negative) Urine Glucose (UA) (Negative) Urine Ketones (Negative) Urine Blood (Negative) Urine Nitrite (Negative) Urine Bilirubin (Negative) Urine Urobilinogen (<2.0) mg/dL Ur Leukocyte Esterase (Negative) Urine Opiates Screen (NotDetected) Ur Oxycodone Screen (NotDetected) Urine Methadone Screen (NotDetected) Ur Propoxyphene Screen (NotDetected) Ur Barbiturates Screen (NotDetected) U Tricyclic Antidepress (NotDetected) Ur Phencyclidine Scrn (NotDetected) Ur Amphetamines Screen (NotDetected) U Methamphetamines Scrn (NotDetected) U Benzodiazepines Scrn (NotDetected) Urine Cocaine Screen (NotDetected) U Marijuana (THC) Screen (NotDetected) Acetone, Qual (Negative) 07/05/20 10:17 EKG shows sinus tachycardia possible left atrial enlargement. Borderline EKG. Ventricular rate of 10 3 bpm. Was 120 ms. QRS duration is 84 ms. QT QTc is 342/448 ms. (Vera Fuentes) - Radiology Data Chest x-rays negative for any acute cardiopulmonary process. (Vera Fuentes) Disposition <Rao Jiménez - Last Filed: 07/05/20 11:28> Is patient prescribed a controlled substance at d/c from ED?: No Time of Disposition: 11:41 <Vera Fuentes - Last Filed: 07/05/20 11:41> Clinical Impression: DKA (diabetic ketoacidoses) Disposition: ADMITTED IP TO THIS HOSP Condition: Stable Referrals: None,Stated [Primary Care Provider] - 1-2 days
[2020-07-05 10:25] LABS: Basophils # (A) 0.1 k/uL (0-0.2); Basophils % (A) 0 %; Eosinophils # (A) 0.1 k/uL (0-0.7); Eosinophils % (A) 0 %; HCT 43.6 % (34.0-46.0); HGB 13.7 gm/dL (11.4-16.0); Hypochromasia Slight; Lymphocytes # (A) 1.6 k/uL (1.0-4.8); Lymphocytes % (A) 7 %; MCH 30.5 pg (25.0-35.0); MCHC 31.4 g/dL (31.0-37.0); MCV 97.1 fL (80.0-100.0); Mean Platelet Volume 7.8; Monocytes # (A) 0.5 k/uL (0-1.0); Monocytes % (A) 2 %; Neutrophils # (A) 20.2 k/uL (1.3-7.7); Neutrophils % (A) 90 %; Platelet Count 564 k/uL (150-450); RBC 4.49 m/uL (3.80-5.40); RDW 13.2 % (11.5-15.5); WBC 22.5 k/uL (3.8-10.6)
[2020-07-05 10:35] LABS: ALT 68 U/L (4-34); AST 42 U/L (14-36); African American GFR (CKD) 68 (>60 ml/min/1.73 sqM); Albumin 4.2 g/dL (3.5-5.0); Alkaline Phosphatase 241 U/L (38-126); Anion Gap 33 mmol/L; Blood Urea Nitrogen 19 mg/dL (7-17); Calcium 9.2 mg/dL (8.4-10.2); Chloride 84 mmol/L (98-107); Lipase 331 U/L (23-300); Magnesium 2.2 mg/dL (1.6-2.3); Non-African American GFR(CKD) 59 (>60 ml/min/1.73 sqM); Sodium 122 mmol/L (137-145); Total Bilirubin 0.5 mg/dL (0.2-1.3); Total Protein 6.7 g/dL (6.3-8.2)
[2020-07-05 10:45] LABS: Glucose 871 mg/dL (74-99)
[2020-07-05 10:46] LABS: Carbon Dioxide 5 mmol/L (22-30); Potassium 6.2 mmol/L (3.5-5.1)
[2020-07-05] MEDS ORDERED: INSULIN REGULAR BOLUS (FROM DRIP BAG) IV ONE (10:46)
[2020-07-05 11:09] LABS: Appearance,Urine Clear (Clear); Bilirubin,Urine Negative (Negative); Blood,Urine Negative (Negative); Color,Urine Colorless; Glucose,Urine (UA) 4+ (Negative); Leukocyte Esterase,Urine Negative (Negative); Nitrite,Urine Negative (Negative); Protein,Urine Negative (Negative); Specific Gravity,Urine 1.024 (1.001-1.035); Urobilinogen,Urine <2.0 mg/dL (<2.0)
[2020-07-05 11:13] LABS: Ketones,Urine 4+ (Negative)
--- NOTE | 2020-07-05 11:15 | XR ---
EXAMINATION TYPE: XR chest 2V DATE OF EXAM: 07/05/2020 COMPARISON: Chest x-ray 10/27/2018 HISTORY: Altered mental status TECHNIQUE: Frontal and lateral views of the chest are obtained. FINDINGS: There is no focal air space opacity, pleural effusion, or pneumothorax seen. The cardiac silhouette size is within normal limits. There are overlying leads, patient is rotated, there may be spinal curvature. The osseous structures are intact. There is elevation of right hemidiaphragm. IMPRESSION: No acute cardiopulmonary process.
[2020-07-05 11:31] LABS: Amphetamine Screen,Urine Not Detected (NotDetected); Barbiturate Screen,Urine Not Detected (NotDetected); Benzodiazepines Screen,Urine Not Detected (NotDetected); Cocaine Screen,Urine Not Detected (NotDetected); Methadone Screen, Urine Not Detected (NotDetected); Opiate Screen,Urine Not Detected (NotDetected); Oxycodone Screen, Urine Not Detected (NotDetected); Phencyclidine Screen,Urine Not Detected (NotDetected); Tricyclic Antidepressant,Urine Not Detected (NotDetected); Urn Cannabinoid Scrn Not Detected (NotDetected)
[2020-07-05 11:33] LABS: Glucose,Whole Blood >600 mg/dL (75-99)
[2020-07-05] MEDS ORDERED: ONDANSETRON 4 MG/2 ML VIAL IVP PRN (11:41)
[2020-07-05] MEDS ORDERED: ACETAMINOPHEN TAB 325 MG TAB PO PRN (11:41)
[2020-07-05] MEDS ORDERED: MORPHINE SULFATE 2 MG/ML SYRINGE IVP PRN (11:41)
[2020-07-05] MEDS: INSULIN REGULAR 100 UNIT in SODIUM CHLORIDE 0.9% 100 ML IV SCH ×2 (11:48→19:30)
[2020-07-05 12:23] LABS: Glucose,Whole Blood >600 mg/dL (75-99)
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
[2020-07-05 13:27] LABS: Glucose,Whole Blood 503 mg/dL (75-99)
[2020-07-05 14:24] LABS: African American GFR (CKD) >90 (>60 ml/min/1.73 sqM); Blood Urea Nitrogen 17 mg/dL (7-17); Chloride 100 mmol/L (98-107); Glucose 484 mg/dL (74-99); Non-African American GFR(CKD) >90 (>60 ml/min/1.73 sqM); Potassium 5.2 mmol/L (3.5-5.1); Sodium 129 mmol/L (137-145)
[2020-07-05 14:30] LABS: Glucose,Whole Blood 422 mg/dL (75-99)
[2020-07-05 14:36] LABS: Carbon Dioxide <5 mmol/L (22-30)
[2020-07-05 15:30] LABS: Glucose,Whole Blood 346 mg/dL (75-99)
[2020-07-05 16:16] LABS: Glucose,Whole Blood 284 mg/dL (75-99)
[2020-07-05] MEDS ORDERED: BENZOCAINE 20 % GEL 15 GM TUBE MM PRN (16:23)
[2020-07-05] MEDS: D5-0.45% NACL WITH KCL 20MEQ/L 1,000 ML IV SCH ×2 (16:27→22:52)
[2020-07-05 17:17] LABS: African American GFR (CKD) >90 (>60 ml/min/1.73 sqM); Anion Gap 19 mmol/L; Blood Urea Nitrogen 15 mg/dL (7-17); Chloride 103 mmol/L (98-107); Glucose 282 mg/dL (74-99); Non-African American GFR(CKD) >90 (>60 ml/min/1.73 sqM); Potassium 4.8 mmol/L (3.5-5.1); Sodium 129 mmol/L (137-145)
[2020-07-05 17:33] LABS: Glucose,Whole Blood 239 mg/dL (75-99)
[2020-07-05 17:59] LABS: Carbon Dioxide 7 mmol/L (22-30)
[2020-07-05 18:26] LABS: Glucose,Whole Blood 230 mg/dL (75-99)
[2020-07-05 19:39] LABS: Hemoglobin A1C 17.4 % (4.0-6.0)
[2020-07-05 20:03] LABS: Glucose,Whole Blood 195 mg/dL (75-99)
[2020-07-05] MEDS ORDERED: NALOXONE 0.4 MG/ML 1 ML VIAL IV PRN (20:26)
[2020-07-05 21:15] LABS: Glucose,Whole Blood 202 mg/dL (75-99)
[2020-07-05 21:50] LABS: African American GFR (CKD) >90 (>60 ml/min/1.73 sqM); Anion Gap 11 mmol/L; Blood Urea Nitrogen 13 mg/dL (7-17); Calcium 8.3 mg/dL (8.4-10.2); Carbon Dioxide 16 mmol/L (22-30); Chloride 103 mmol/L (98-107); Glucose 179 mg/dL (74-99); Non-African American GFR(CKD) >90 (>60 ml/min/1.73 sqM); Potassium 4.4 mmol/L (3.5-5.1); Sodium 130 mmol/L (137-145)
[2020-07-05 22:28] LABS: Glucose,Whole Blood 193 mg/dL (75-99)
[2020-07-05 23:09] LABS: Glucose,Whole Blood 208 mg/dL (75-99)
[2020-07-06 00:09] LABS: Glucose,Whole Blood 224 mg/dL (75-99)
[2020-07-06 01:01] LABS: African American GFR (CKD) >90 (>60 ml/min/1.73 sqM); Anion Gap 6 mmol/L; Blood Urea Nitrogen 13 mg/dL (7-17); Calcium 8.2 mg/dL (8.4-10.2); Carbon Dioxide 17 mmol/L (22-30); Chloride 102 mmol/L (98-107); Glucose 217 mg/dL (74-99); Non-African American GFR(CKD) >90 (>60 ml/min/1.73 sqM); Potassium 4.2 mmol/L (3.5-5.1); Sodium 125 mmol/L (137-145)
[2020-07-06 01:09] LABS: Glucose,Whole Blood 239 mg/dL (75-99)
[2020-07-06 02:12] LABS: Glucose,Whole Blood 209 mg/dL (75-99)
[2020-07-06 03:10] LABS: Glucose,Whole Blood 114 mg/dL (75-99)
[2020-07-06 04:03] LABS: Glucose,Whole Blood 100 mg/dL (75-99)
[2020-07-06 05:03] LABS: Glucose,Whole Blood 115 mg/dL (75-99)
[2020-07-06] MEDS: D5-0.45% NACL WITH KCL 20MEQ/L 1,000 ML IV SCH (05:38)
[2020-07-06 06:12] LABS: Glucose,Whole Blood 189 mg/dL (75-99)
[2020-07-06 07:04] LABS: Glucose,Whole Blood 311 mg/dL (75-99)
[2020-07-06] MEDS ORDERED: INSULIN ASPART (NovoLOG) 100 UNIT/ML VIAL SQ SCH (07:30)
[2020-07-06] MEDS: INSULIN DETEMIR (LEVEMIR) 100 UNIT/ML SYR SQ SCH ×2 (07:44→09:26)
[2020-07-06 07:56] LABS: Glucose,Whole Blood 326 mg/dL (75-99)
--- NOTE | 2020-07-06 08:35 | P.CNPUL ---
History of Present Illness Consult date: 07/05/20 Chief complaint: Hyperglycemia, DKA History of present illness: 45-year-old female patient diabetic presents to the emergency room with DKA. The patient is hyperglycemic with a initial blood sugar 871. She has underlying metabolic acidosis. Anion gap was 33. Potassium level is at 6.2. Sodium level was 122. White count was 22.5. UA was positive for ketones and glucose. Serum acetone was positive. Urine drug screen was negative. She was having some abdominal pain. No nausea. She has been maintained on Lantus insulin 30 units daily at bedtime along with 10 units of NovoLog with meals and metformin 1 g twice a day. The patient has received already IV fluids and she is on her third liter of bolus and she limited on a maintenance fluid at 200 and hour. She is also on insulin drip at 0.1 units per kilogram per hour. Blood sugars are being monitored tissue adjacent to the ICU. Review of Systems Constitutional: Reports daytime sleepiness, Reports fatigue, Reports lethargy, Reports poor appetite, Reports weakness Eyes: denies as per HPI, denies blurred vision, denies bulging eye, denies decreased vision, denies diplopia, denies discharge, denies dry eye, denies irritation, denies itching, denies pain, denies photophobia, denies loss of peripheral vision, denies loss of vision, denies tunnel vision/blind spots Ears: deny: decreased hearing, ear discharge, earache, tinnitus Ears, nose, mouth and throat: Reports as per HPI Breasts: absent: as per HPI, change in shape, gynecomastia, masses, nipple discharge, pain, skin changes, swelling Cardiovascular: Reports as per HPI Respiratory: Reports as per HPI Gastrointestinal: Reports abdominal pain, Reports nausea Genitourinary: Reports as per HPI Menstruation: Reports as per HPI Musculoskeletal: Reports as per HPI Musculoskeletal: absent: ankle pain, ankle stiffness, ankle swelling, as per HPI, elbow pain, elbow stiffness, elbow swelling, foot pain, foot stiffness, foot swelling, hand pain, hand stiffness, hand swelling, hip pain, hip stiffness, hip swelling, knee pain, knee stiffness, knee swelling, shoulder pain, shoulder stiffness, shoulder swelling, wrist pain, wrist stiffness, wrist swelling Integumentary: Reports as per HPI Neurological: Reports as per HPI Psychiatric: Reports as per HPI Endocrine: Reports high blood sugars, Reports nocturia, Reports polydipsia, Reports polyphagia Hematologic/Lymphatic: Reports as per HPI Allergic/Immunologic: Reports as per HPI Past Medical History Past Medical History: Diabetes Mellitus, Osteoarthritis (OA) History of Any Multi-Drug Resistant Organisms: None Reported Past Surgical History: Section Additional Past Surgical History / Comment(s): POLA ARM SX WHEN CHILD-WENT THRU A WINDOW Past Anesthesia/Blood Transfusion Reactions: No Reported Reaction Additional Past Anesthesia/Blood Transfusion Reaction / Comment(s): CLAUSTERPHOBIA Past Psychological History: Anxiety, Bipolar, Panic Disorder, Schizophrenia Past Alcohol Use History: Occasional Past Drug Use History: None Reported - Past Family History Father Additional Family Medical History / Comment(s): DEPRESSION, "PROBLEM WITH HIS PANCREAS" Mother Family Medical History: Hyperlipidemia, Hypertension Additional Family Medical History / Comment(s): DDD, NECK FUSION, KIDNEY CANCER Medications and Allergies Home Medications Medication Instructions Recorded Confirmed Type Paliperidone Palmitate [Invega 819 mg IM Q90D 09/14/18 07/05/20 History Trinza] FLUoxetine HCL [PROzac] 20 mg PO DAILY #30 cap 09/16/18 07/05/20 Rx Insulin Glargine [Lantus] 30 unit SQ HS #1 vial 09/16/18 07/05/20 Rx INSULIN ASPART (NovoLOG) [NovoLOG 10 unit SQ AC-TID 07/05/20 07/05/20 History (formulary)] metFORMIN HCL [Glucophage] 1,000 mg PO BID 07/05/20 07/05/20 History Allergies Allergy/AdvReac Type Severity Reaction Status Date / Time No Known Allergies Allergy Verified 07/05/20 09:55 Physical Exam Vitals: Vital Signs Temp Pulse Pulse Resp BP Pulse Ox 07/05/20 12:02 103 H 22 112/71 96 07/05/20 10:54 105 H 22 130/86 99 07/05/20 10:30 96 22 125/70 96 07/05/20 10:06 104 H 07/05/20 09:47 97.3 F L 104 H 24 124/70 99 Intake and Output 07/04/20 07/05/20 07/05/20 22:59 06:59 14:59 Other: Weight 79.832 kg Results The patient appeared well nourished and normally developed. Vital signs as documented. Head exam is unremarkable. No scleral icterus or corneal arcus noted . Neck is without jugular venous distension, thyromegaly, or carotid bruits. Carotid upstrokes are brisk bilaterally. Lungs are clear to auscultation and percussion. Cardiac exam reveals the PMI to be normally sized and situated. Rhythm is regular. First and second heart sounds normal. No murmurs, rubs or gallops. Abdominal exam reveals normal bowel sounds, no masses, no organomegaly and no aortic enlargement. Extremities are nonedematous and both femoral and pedal pulses are normal. - Laboratory Findings CBC and BMP: 07/05/20 10:13 07/05/20 10:13 Abnormal lab findings: Abnormal Labs 07/05/20 07/05/20 07/05/20 09:52 10:13 10:13 WBC 22.5 H Plt Count 564 H Neutrophils # 20.2 H Sodium 122 L Potassium 6.2 H* Chloride 84 L Carbon Dioxide 5 L* BUN 19 H Creatinine 1.14 H Glucose 871 H* POC Glucose (mg/dL) >600 H Plasma Lactic Acid Reed AST 42 H ALT 68 H Alkaline Phosphatase 241 H Lipase 331 H Urine Glucose (UA) Urine Ketones 07/05/20 07/05/20 07/05/20 10:13 10:13 11:31 WBC Plt Count Neutrophils # Sodium Potassium Chloride Carbon Dioxide BUN Creatinine Glucose POC Glucose (mg/dL) >600 H Plasma Lactic Acid Reed 2.4 H* AST ALT Alkaline Phosphatase Lipase Urine Glucose (UA) 4+ H Urine Ketones 4+ H 07/05/20 12:21 WBC Plt Count Neutrophils # Sodium Potassium Chloride Carbon Dioxide BUN Creatinine Glucose POC Glucose (mg/dL) >600 H Plasma Lactic Acid Reed AST ALT Alkaline Phosphatase Lipase Urine Glucose (UA) Urine Ketones - Diagnostic Findings Chest x-ray: image reviewed Assessment and Plan Plan: 1 DKA with severe anion gap metabolic acidosis and severe hyperglycemia and el ectrolyte disturbances all related to DKA 2 diabetes mellitus maintained on Lantus insulin on outpatient basis 3 previous hospitalization for DKA back in 2019 4 suspect medication noncompliance 5 abdominal pain secondary to above 6 pseudohyponatremia secondary. 7 hyperkalemia secondary to metabolic acidosis, he has sensation with hyperglycemia and DKA 8 leukocytosis, likely reactive 9 abdominal pain, likely secondary to above 10 chronic anxiety/bipolar disorder/panic disorder/questionable schizophrenia and the patient has been seeing [facility]. Plan Treat this patient by our DKA protocol. Blood sugar monitoring. 3 L of fluids and been given and the patient will be kept on insulin drip for now and the electrodes are being monitored and an anion gap is being measured. Monitor blood sugar. Monitor potassium level. Monitor electrolytes. We'll continue to follow patient to the ICU. Lovenox for DVT prophylaxis.
--- NOTE | 2020-07-06 08:35 | P.PN ---
Subjective Progress Note Date: 07/06/20 07/06/2020, I'm seeing this patient for a follow-up. The patient was hospitalized for an acute DKA. The patient was started on insulin drip yesterday. Blood sugars under much better control. The patient was on insulin drip throughout the night and the patient is still on insulin drip which is running at 3 units an hour. Her anion gap has closed and the most recent 9 gap from midnight was around 6 with a serum bicarbonate was 17. Nevertheless there is a sodium level of 125. D5 half-normal was discontinued and the patient was placed on 0.9 normal saline at the rate of 75 mL an hour. The patient is currently sleeping comfortably. She is hemodynamically stable. Overnight she was out I was told throughout the night. She is currently sleeping and she'll be able to tolerate some diet. My plan is to offer her breakfast later on and transition her to long-acting insulin. No other significant events otherwise for now. He is afebrile. Chest x-ray was essentially normal. COVID-19 testing was negative. Objective - Vital Signs Vital signs: Vital Signs Temp 98.2 F 07/06/20 04:00 Pulse 79 07/06/20 07:00 Resp 22 07/06/20 07:00 BP 130/85 07/06/20 07:00 Pulse Ox 94 L 07/06/20 07:00 Intake & Output 07/05/20 07/06/20 07/06/20 18:59 06:59 18:59 Intake Total 751.044 3480.950 154.3 Output Total 2500 800 Balance -2311.701 1126.950 154.3 Weight 79.832 kg Intake: IV 150 1650 150 D5-0.45% NaCl with KCl 150 1650 150 20Meq/l 1,000 ml @ 150 mls/hr IV .[id number] [facility]O Rx# :[id number] Intake, IV Titration 38.299 76.950 4.3 Amount Insulin Regular 100 unit 38.299 76.950 4.3 In Sodium Chloride 0.9% 100 ml @ 0.1 UNITS/KG/HR 8.063 mls/hr IV .[id number] [facility]O Rx#:[id number] Oral 200 Output: Urine 2500 800 Other: Voiding Method Bedside Commode Bedpan # Voids 1 - Exam The patient appeared well nourished and normally developed. Vital signs as documented. Head exam is unremarkable. No scleral icterus or corneal arcus noted. Neck is without jugular venous distension, thyromegaly, or carotid bruits. Carotid upstrokes are brisk bilaterally. Lungs are clear to auscultation and percussion. Cardiac exam reveals the PMI to be normally sized and situated. Rhythm is regular. First and second heart sounds normal. No murmurs, rubs or gallops. Abdominal exam reveals normal bowel sounds, no masses, no organomegaly and no aortic enlargement. Extremities are nonedematous and both femoral and pedal pulses are normal. - Labs CBC & Chem 7: 07/05/20 10:13 07/06/20 00:25 Labs: Abnormal Lab Results - Last 24 Hours (Table) 07/05/20 07/05/20 07/05/20 Range/Units 09:52 10:13 10:13 WBC 22.5 H (3.8-10.6) k/uL Plt Count 564 H (150-450) k/uL Neutrophils # 20.2 H (1.3-7.7) k/uL Sodium 122 L (137-145) mmol/L Potassium 6.2 H* (3.5-5.1) mmol/L Chloride 84 L (98-107) mmol/L Carbon Dioxide 5 L* (22-30) mmol/L BUN 19 H (7-17) mg/dL Creatinine 1.14 H (0.52-1.04) mg/dL Glucose 871 H* (74-99) mg/dL POC Glucose (mg/dL) >600 H (75-99) mg/dL Hemoglobin A1c (4.0-6.0) % Plasma Lactic Acid Reed (0.7-2.0) mmol/L Calcium (8.4-10.2) mg/dL AST 42 H (14-36) U/L ALT 68 H (4-34) U/L Alkaline Phosphatase 241 H (38-126) U/L Lipase 331 H (23-300) U/L Urine Glucose (UA) (Negative) Urine Ketones (Negative) 07/05/20 07/05/20 07/05/20 Range/Units 10:13 10:13 10:13 WBC (3.8-10.6) k/uL Plt Count (150-450) k/uL Neutrophils # (1.3-7.7) k/uL Sodium (137-145) mmol/L Potassium (3.5-5.1) mmol/L Chloride (98-107) mmol/L Carbon Dioxide (22-30) mmol/L BUN (7-17) mg/dL Creatinine (0.52-1.04) mg/dL Glucose (74-99) mg/dL POC Glucose (mg/dL) (75-99) mg/dL Hemoglobin A1c 17.4 H (4.0-6.0) % Plasma Lactic Acid Reed 2.4 H* (0.7-2.0) mmol/L Calcium (8.4-10.2) mg/dL AST (14-36) U/L ALT (4-34) U/L Alkaline Phosphatase (38-126) U/L Lipase (23-300) U/L Urine Glucose (UA) 4+ H (Negative) Urine Ketones 4+ H (Negative) 07/05/20 07/05/20 07/05/20 Range/Units 11:31 12:21 13:25 WBC (3.8-10.6) k/uL Plt Count (150-450) k/uL Neutrophils # (1.3-7.7) k/uL Sodium (137-145) mmol/L Potassium (3.5-5.1) mmol/L Chloride (98-107) mmol/L Carbon Dioxide (22-30) mmol/L BUN (7-17) mg/dL Creatinine (0.52-1.04) mg/dL Glucose (74-99) mg/dL POC Glucose (mg/dL) >600 H >600 H 503 H (75-99) mg/dL Hemoglobin A1c (4.0-6.0) % Plasma Lactic Acid Reed (0.7-2.0) mmol/L Calcium (8.4-10.2) mg/dL AST (14-36) U/L ALT (4-34) U/L Alkaline Phosphatase (38-126) U/L Lipase (23-300) U/L Urine Glucose (UA) (Negative) Urine Ketones (Negative) 07/05/20 07/05/20 07/05/20 Range/Units 14:05 14:28 15:28 WBC (3.8-10.6) k/uL Plt Count (150-450) k/uL Neutrophils # (1.3-7.7) k/uL Sodium 129 L (137-145) mmol/L Potassium 5.2 H (3.5-5.1) mmol/L Chloride (98-107) mmol/L Carbon Dioxide <5 L* (22-30) mmol/L BUN (7-17) mg/dL Creatinine (0.52-1.04) mg/dL Glucose 484 H (74-99) mg/dL POC Glucose (mg/dL) 422 H 346 H (75-99) mg/dL Hemoglobin A1c (4.0-6.0) % Plasma Lactic Acid Reed (0.7-2.0) mmol/L Calcium (8.4-10.2) mg/dL AST (14-36) U/L ALT (4-34) U/L Alkaline Phosphatase (38-126) U/L Lipase (23-300) U/L Urine Glucose (UA) (Negative) Urine Ketones (Negative) 07/05/20 07/05/20 07/05/20 Range/Units 16:02 16:14 17:31 WBC (3.8-10.6) k/uL Plt Count (150-450) k/uL Neutrophils # (1.3-7.7) k/uL Sodium 129 L (137-145) mmol/L Potassium (3.5-5.1) mmol/L Chloride (98-107) mmol/L Carbon Dioxide 7 L* (22-30) mmol/L BUN (7-17) mg/dL Creatinine (0.52-1.04) mg/dL Glucose 282 H (74-99) mg/dL POC Glucose (mg/dL) 284 H 239 H (75-99) mg/dL Hemoglobin A1c (4.0-6.0) % Plasma Lactic Acid Reed (0.7-2.0) mmol/L Calcium (8.4-10.2) mg/dL AST (14-36) U/L ALT (4-34) U/L Alkaline Phosphatase (38-126) U/L Lipase (23-300) U/L Urine Glucose (UA) (Negative) Urine Ketones (Negative) 07/05/20 07/05/20 07/05/20 Range/Units 18:25 20:02 20:56 WBC (3.8-10.6) k/uL Plt Count (150-450) k/uL Neutrophils # (1.3-7.7) k/uL Sodium 130 L (137-145) mmol/L Potassium (3.5-5.1) mmol/L Chloride (98-107) mmol/L Carbon Dioxide 16 L (22-30) mmol/L BUN (7-17) mg/dL Creatinine 0.46 L (0.52-1.04) mg/dL Glucose 179 H (74-99) mg/dL POC Glucose (mg/dL) 230 H 195 H (75-99) mg/dL Hemoglobin A1c (4.0-6.0) % Plasma Lactic Acid Reed (0.7-2.0) mmol/L Calcium 8.3 L (8.4-10.2) mg/dL AST (14-36) U/L ALT (4-34) U/L Alkaline Phosphatase (38-126) U/L Lipase (23-300) U/L Urine Glucose (UA) (Negative) Urine Ketones (Negative) 07/05/20 07/05/20 07/05/20 Range/Units 21:14 22:27 23:07 WBC (3.8-10.6) k/uL Plt Count (150-450) k/uL Neutrophils # (1.3-7.7) k/uL Sodium (137-145) mmol/L Potassium (3.5-5.1) mmol/L Chloride (98-107) mmol/L Carbon Dioxide (22-30) mmol/L BUN (7-17) mg/dL Creatinine (0.52-1.04) mg/dL Glucose (74-99) mg/dL POC Glucose (mg/dL) 202 H 193 H 208 H (75-99) mg/dL Hemoglobin A1c (4.0-6.0) % Plasma Lactic Acid Reed (0.7-2.0) mmol/L Calcium (8.4-10.2) mg/dL AST (14-36) U/L ALT (4-34) U/L Alkaline Phosphatase (38-126) U/L Lipase (23-300) U/L Urine Glucose (UA) (Negative) Urine Ketones (Negative) 07/06/20 07/06/20 07/06/20 Range/Units 00:08 00:25 01:07 WBC (3.8-10.6) k/uL Plt Count (150-450) k/uL Neutrophils # (1.3-7.7) k/uL Sodium 125 L (137-145) mmol/L Potassium (3.5-5.1) mmol/L Chloride (98-107) mmol/L Carbon Dioxide 17 L (22-30) mmol/L BUN (7-17) mg/dL Creatinine 0.48 L (0.52-1.04) mg/dL Glucose 217 H (74-99) mg/dL POC Glucose (mg/dL) 224 H 239 H (75-99) mg/dL Hemoglobin A1c (4.0-6.0) % Plasma Lactic Acid Reed (0.7-2.0) mmol/L Calcium 8.2 L (8.4-10.2) mg/dL AST (14-36) U/L ALT (4-34) U/L Alkaline Phosphatase (38-126) U/L Lipase (23-300) U/L Urine Glucose (UA) (Negative) Urine Ketones (Negative) 07/06/20 07/06/20 07/06/20 Range/Units 02:10 03:08 04:02 WBC (3.8-10.6) k/uL Plt Count (150-450) k/uL Neutrophils # (1.3-7.7) k/uL Sodium (137-145) mmol/L Potassium (3.5-5.1) mmol/L Chloride (98-107) mmol/L Carbon Dioxide (22-30) mmol/L BUN (7-17) mg/dL Creatinine (0.52-1.04) mg/dL Glucose (74-99) mg/dL POC Glucose (mg/dL) 209 H 114 H 100 H (75-99) mg/dL Hemoglobin A1c (4.0-6.0) % Plasma Lactic Acid Reed (0.7-2.0) mmol/L Calcium (8.4-10.2) mg/dL AST (14-36) U/L ALT (4-34) U/L Alkaline Phosphatase (38-126) U/L Lipase (23-300) U/L Urine Glucose (UA) (Negative) Urine Ketones (Negative) 07/06/20 07/06/20 07/06/20 Range/Units 05:02 06:11 07:03 WBC (3.8-10.6) k/uL Plt Count (150-450) k/uL Neutrophils # (1.3-7.7) k/uL Sodium (137-145) mmol/L Potassium (3.5-5.1) mmol/L Chloride (98-107) mmol/L Carbon Dioxide (22-30) mmol/L BUN (7-17) mg/dL Creatinine (0.52-1.04) mg/dL Glucose (74-99) mg/dL POC Glucose (mg/dL) 115 H 189 H 311 H (75-99) mg/dL Hemoglobin A1c (4.0-6.0) % Plasma Lactic Acid Reed (0.7-2.0) mmol/L Calcium (8.4-10.2) mg/dL AST (14-36) U/L ALT (4-34) U/L Alkaline Phosphatase (38-126) U/L Lipase (23-300) U/L Urine Glucose (UA) (Negative) Urine Ketones (Negative) 07/06/20 Range/Units 07:55 WBC (3.8-10.6) k/uL Plt Count (150-450) k/uL Neutrophils # (1.3-7.7) k/uL Sodium (137-145) mmol/L Potassium (3.5-5.1) mmol/L Chloride (98-107) mmol/L Carbon Dioxide (22-30) mmol/L BUN (7-17) mg/dL Creatinine (0.52-1.04) mg/dL Glucose (74-99) mg/dL POC Glucose (mg/dL) 326 H (75-99) mg/dL Hemoglobin A1c (4.0-6.0) % Plasma Lactic Acid Reed (0.7-2.0) mmol/L Calcium (8.4-10.2) mg/dL AST (14-36) U/L ALT (4-34) U/L Alkaline Phosphatase (38-126) U/L Lipase (23-300) U/L Urine Glucose (UA) (Negative) Urine Ketones (Negative) Assessment and Plan Plan: 1 DKA with severe anion gap metabolic acidosis and severe hyperglycemia and electrolyte disturbances all related to DKA and anion gap has closed is down to 6 from midnight. Currently still on insulin drip at 3U/hr 2 diabetes mellitus maintained on Lantus insulin on outpatient basis 3 previous hospitalization for DKA back in 2019 4 suspect medication noncompliance 5 abdominal pain secondary to above, recovered 6 pseudohyponatremia Shiley and the most recent sodium level is at 125 after correcting her sugars. There may be a component of hyponatremia. She is currently on normal saline 7 hyperkalemia secondary to metabolic acidosis, he has sensation with hyperglycemia and DKA , recovered 8 leukocytosis, likely reactive 9 abdominal pain, likely secondary to above, recovered 10 chronic anxiety/bipolar disorder/panic disorder/questionable schizophrenia and the patient has been seeing [facility]. Plan Stat labs including a CMP. If anion gap is still closed, upper the patient guidance was this patient to long-acting insulin with Lantus. Subsequently, the nitroglycerin drip will be discontinued. We'll monitor the sodium level. Continue the normal saline for now. We'll make ADJUSTMENTS in if things are stable the patient will be transferred out of the intensive care unit.
[2020-07-06 09:10] LABS: African American GFR (CKD) >90 (>60 ml/min/1.73 sqM); Anion Gap 5 mmol/L; Blood Urea Nitrogen 11 mg/dL (7-17); Calcium 8.3 mg/dL (8.4-10.2); Carbon Dioxide 18 mmol/L (22-30); Chloride 106 mmol/L (98-107); Glucose 100 mg/dL (74-99); Non-African American GFR(CKD) >90 (>60 ml/min/1.73 sqM); Sodium 129 mmol/L (137-145)
[2020-07-06 09:16] LABS: Glucose,Whole Blood 302 mg/dL (75-99)
[2020-07-06] MEDS: INSULIN ASPART (NovoLOG) 100 UNIT/ML VIAL SQ SCH ×6 (09:26→21:18)
[2020-07-06] MEDS: ENOXAPARIN 40 MG/0.4 ML SYRINGE SQ SCH (09:27)
[2020-07-06] MEDS: FLUoxetine HCL 20 MG CAP PO SCH (09:27)
[2020-07-06 09:35] LABS: African American GFR (CKD) >90 (>60 ml/min/1.73 sqM); Anion Gap 6 mmol/L; Blood Urea Nitrogen 10 mg/dL (7-17); Calcium 7.9 mg/dL (8.4-10.2); Carbon Dioxide 17 mmol/L (22-30); Chloride 104 mmol/L (98-107); Glucose 288 mg/dL (74-99); Non-African American GFR(CKD) >90 (>60 ml/min/1.73 sqM); Phosphorus 1.9 mg/dL (2.5-4.5); Potassium 4.5 mmol/L (3.5-5.1); Sodium 127 mmol/L (137-145)
[2020-07-06 09:39] LABS: Basophils # (A) 0.1 k/uL (0-0.2); Basophils % (A) 0 %; Eosinophils # (A) 0.1 k/uL (0-0.7); Eosinophils % (A) 0 %; HCT 32.4 % (34.0-46.0); HGB 10.9 gm/dL (11.4-16.0); Lymphocytes # (A) 3.4 k/uL (1.0-4.8); Lymphocytes % (A) 22 %; MCH 29.6 pg (25.0-35.0); MCHC 33.5 g/dL (31.0-37.0); Mean Platelet Volume 7.3; Monocytes # (A) 0.7 k/uL (0-1.0); Monocytes % (A) 4 %; Neutrophils % (A) 72 %; Platelet Count 473 k/uL (150-450); RBC 3.68 m/uL (3.80-5.40); RDW 14.3 % (11.5-15.5); WBC 15.4 k/uL (3.8-10.6)
[2020-07-06 09:46] LABS: MCV 88.2 fL (80.0-100.0)
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
[2020-07-06 11:08] VITALS: BMI 30.2
[2020-07-06 11:51] LABS: Glucose,Whole Blood 274 mg/dL (75-99)
[2020-07-06 16:26] LABS: Glucose,Whole Blood 71 mg/dL (75-99)
[2020-07-06] MEDS: SODIUM CHLORIDE 0.9% 1,000 ML IV SCH ×4 (18:28→23:20)
[2020-07-06 20:56] LABS: Glucose,Whole Blood 363 mg/dL (75-99)
[2020-07-06] MEDS ORDERED: INSULIN DETEMIR (LEVEMIR) 100 UNIT/ML SYR SQ SCH (21:00)
[2020-07-06 22:01] VITALS: RESP 18
[2020-07-07 05:59] LABS: African American GFR (CKD) >90 (>60 ml/min/1.73 sqM); Anion Gap 6 mmol/L; Blood Urea Nitrogen 7 mg/dL (7-17); Calcium 8.1 mg/dL (8.4-10.2); Carbon Dioxide 21 mmol/L (22-30); Chloride 100 mmol/L (98-107); Glucose 239 mg/dL (74-99); Non-African American GFR(CKD) >90 (>60 ml/min/1.73 sqM); Potassium 3.5 mmol/L (3.5-5.1); Sodium 127 mmol/L (137-145)
[2020-07-07 07:28] LABS: Glucose,Whole Blood 227 mg/dL (75-99)
[2020-07-07] MEDS: ENOXAPARIN 40 MG/0.4 ML SYRINGE SQ SCH (07:47)
[2020-07-07] MEDS: INSULIN DETEMIR (LEVEMIR) 100 UNIT/ML SYR SQ SCH (07:47)
[2020-07-07] MEDS: INSULIN ASPART (NovoLOG) 100 UNIT/ML VIAL SQ SCH ×4 (07:48→12:54)
[2020-07-07] MEDS: FLUoxetine HCL 20 MG CAP PO SCH (08:47)
--- NOTE | 2020-07-07 09:34 | P.PN ---
Subjective Progress Note Date: 07/07/20 Patient is awake and alert today. She appeared withdrawn to me. She said that she is feeling depressed and does not want to take her medications at home. She denies any suicidal thoughts at this time. Objective - Vital Signs Vital signs: Vital Signs Temp 98.3 F 07/07/20 04:37 Pulse 82 07/07/20 04:37 Resp 18 07/07/20 04:37 BP 102/60 07/07/20 04:37 Pulse Ox 99 07/07/20 04:37 Intake & Output 07/06/20 07/07/20 07/07/20 18:59 06:59 18:59 Intake Total 161.35 1200 Output Total 400 Balance -238.65 1200 Weight 79.832 kg Intake: IV 150 D5-0.45% NaCl with KCl 150 20Meq/l 1,000 ml @ 150 mls/hr IV .Q6H40M [facility] Rx# :[id number] Intake, IV Titration 11.35 Amount Insulin Regular 100 unit 11.35 In Sodium Chloride 0.9% 100 ml @ 0.1 UNITS/KG/HR 8.063 mls/hr IV .[id number] [facility] Rx#:[id number] Oral 1200 Output: Urine 400 Other: Voiding Method Toilet # Voids 2 - Exam General: The patient is awake and alert, in no distress Eye: there is normal conjunctiva bilaterally. Neck: The neck is supple, there is no JVD. Cardiovascular: Normal S1-S2, no S3-S4, no murmurs. Respiratory: Lungs clear to auscultation bilaterally Gastrointestinal: Abdomen is soft, nontender Musculoskeletal: There is no pedal edema. Neurological:. Speech is normal. Skin: Skin is warm and dry - Labs CBC & Chem 7: 07/06/20 08:46 07/07/20 04:32 Labs: Abnormal Lab Results - Last 24 Hours (Table) 07/06/20 07/06/20 07/06/20 Range/Units 08:46 08:46 11:49 WBC 15.4 H (3.8-10.6) k/uL RBC 3.68 L (3.80-5.40) m/uL Hgb 10.9 L (11.4-16.0) gm/dL Hct 32.4 L (34.0-46.0) % Plt Count 473 H (150-450) k/uL Neutrophils # 11.0 H (1.3-7.7) k/uL Sodium 127 L (137-145) mmol/L Carbon Dioxide 17 L (22-30) mmol/L Creatinine 0.50 L (0.52-1.04) mg/dL Glucose 288 H (74-99) mg/dL POC Glucose (mg/dL) 274 H (75-99) mg/dL Calcium 7.9 L (8.4-10.2) mg/dL Phosphorus 1.9 L (2.5-4.5) mg/dL 07/06/20 07/06/20 07/07/20 Range/Units 16:25 20:55 04:32 WBC (3.8-10.6) k/uL RBC (3.80-5.40) m/uL Hgb (11.4-16.0) gm/dL Hct (34.0-46.0) % Plt Count (150-450) k/uL Neutrophils # (1.3-7.7) k/uL Sodium 127 L (137-145) mmol/L Carbon Dioxide 21 L (22-30) mmol/L Creatinine 0.38 L (0.52-1.04) mg/dL Glucose 239 H (74-99) mg/dL POC Glucose (mg/dL) 71 L 363 H (75-99) mg/dL Calcium 8.1 L (8.4-10.2) mg/dL Phosphorus (2.5-4.5) mg/dL 07/07/20 Range/Units 07:26 WBC (3.8-10.6) k/uL RBC (3.80-5.40) m/uL Hgb (11.4-16.0) gm/dL Hct (34.0-46.0) % Plt Count (150-450) k/uL Neutrophils # (1.3-7.7) k/uL Sodium (137-145) mmol/L Carbon Dioxide (22-30) mmol/L Creatinine (0.52-1.04) mg/dL Glucose (74-99) mg/dL POC Glucose (mg/dL) 227 H (75-99) mg/dL Calcium (8.4-10.2) mg/dL Phosphorus (2.5-4.5) mg/dL Microbiology - Last 24 Hours (Table) 07/05/20 11:10 Blood Culture - Preliminary Blood No Growth after 24 hours 07/05/20 11:09 Blood Culture - Preliminary Blood No Growth after 24 hours Assessment and Plan Assessment: This is a 45-year-old female with past medical history noted below who presented to the emergency room with worsening abdominal pain and nausea. Patient was evaluated in the ER and will be admitted to the hospital for further management of her medical problems noted below. 1. Diabetic ketoacidosis 2. Severe metabolic acidosis 3. Acute kidney injury 4. Hyperkalemia 5. Type 2 diabetes uncontrolled secondary to noncompliance, A1c 17.4 6. Underlying bipolar disorder 7. Underlying depression Patient condition improved significantly. She was treated with aggressive IV fluid hydration and insulin drip via DKA protocol. Started Levemir 15 units twice daily and NovoLog 10 units 3 times a day before each meal plus sliding scale. Patient was counseled extensively regarding medication compliance. Today, patient appears very depressed and withdrawn. She told me that she is not sure if she is, take her medication as prescribed. She does not have any support. Given her worsening depression I would consult psychiatry for further evaluation whether patient needs to be admitted to inpatient psych for further management
--- NOTE | 2020-07-07 11:05 | P.PN ---
Subjective Progress Note Date: 07/07/20 07/06/2020, I'm seeing this patient for a follow-up. The patient was hospitalized for an acute DKA. The patient was started on insulin drip yesterday. Blood sugars under much better control. The patient was on insulin drip throughout the night and the patient is still on insulin drip which is running at 3 units an hour. Her anion gap has closed and the most recent 9 gap from midnight was around 6 with a serum bicarbonate was 17. Nevertheless there is a sodium level of 125. D5 half-normal was discontinued and the patient was placed on 0.9 normal saline at the rate of 75 mL an hour. The patient is currently sleeping comfortably. She is hemodynamically stable. Overnight she was out I was told throughout the night. She is currently sleeping and she'll be able to tolerate some diet. My plan is to offer her breakfast later on and transition her to long-acting insulin. No other significant events otherwise for now. He is afebrile. Chest x-ray was essentially normal. COVID-19 testing was negative. On 07/07/2020, the patient is back to normal. She is on the door waiting to go home. If not discharge now, she is going to leave [facility]. Her blood sugars under better control. Her gap is 6 with a serum bicarb of 21. Sodium level is up to 127. Agree on discharge. Awaiting medicine or paperwork. Objective - Vital Signs Vital signs: Vital Signs Temp 98.3 F 07/07/20 04:37 Pulse 82 07/07/20 04:37 Resp 18 07/07/20 04:37 BP 102/60 07/07/20 04:37 Pulse Ox 99 07/07/20 04:37 Intake & Output 07/06/20 07/07/20 07/07/20 18:59 06:59 18:59 Intake Total 161.35 1200 Output Total 400 Balance -238.65 1200 Weight 79.832 kg Intake: IV 150 D5-0.45% NaCl with KCl 150 20Meq/l 1,000 ml @ 150 mls/hr IV .Q6H40M [facility] Rx# :[id number] Intake, IV Titration 11.35 Amount Insulin Regular 100 unit 11.35 In Sodium Chloride 0.9% 100 ml @ 0.1 UNITS/KG/HR 8.063 mls/hr IV .[id number] [facility] Rx#:[id number] Oral 1200 Output: Urine 400 Other: Voiding Method Toilet # Voids 2 - Exam The patient appeared well nourished and normally developed. Vital signs as documented. Head exam is unremarkable. No scleral icterus or corneal arcus noted. Neck is without jugular venous distension, thyromegaly, or carotid bruits. Carotid upstrokes are brisk bilaterally. Lungs are clear to auscultation and percussion. Cardiac exam reveals the PMI to be normally sized and situated. Rhythm is regular. First and second heart sounds normal. No murmurs, rubs or gallops. Abdominal exam reveals normal bowel sounds, no masses, no organomegaly and no aortic enlargement. Extremities are nonedematous and both femoral and pedal pulses are normal. - Labs CBC & Chem 7: 07/06/20 08:46 07/07/20 04:32 Labs: Abnormal Lab Results - Last 24 Hours (Table) 07/06/20 07/06/20 07/06/20 Range/Units 11:49 16:25 20:55 Sodium (137-145) mmol/L Carbon Dioxide (22-30) mmol/L Creatinine (0.52-1.04) mg/dL Glucose (74-99) mg/dL POC Glucose (mg/dL) 274 H 71 L 363 H (75-99) mg/dL Calcium (8.4-10.2) mg/dL 07/07/20 07/07/20 Range/Units 04:32 07:26 Sodium 127 L (137-145) mmol/L Carbon Dioxide 21 L (22-30) mmol/L Creatinine 0.38 L (0.52-1.04) mg/dL Glucose 239 H (74-99) mg/dL POC Glucose (mg/dL) 227 H (75-99) mg/dL Calcium 8.1 L (8.4-10.2) mg/dL Microbiology - Last 24 Hours (Table) 07/05/20 11:10 Blood Culture - Preliminary Blood No Growth after 24 hours 07/05/20 11:09 Blood Culture - Preliminary Blood No Growth after 24 hours Assessment and Plan Plan: 1 DKA with severe anion gap metabolic acidosis and severe hyperglycemia and electrolyte disturbances all related to DKA 2 diabetes mellitus maintained on Lantus insulin on outpatient basis 3 previous hospitalization for DKA back in 2019 4 suspect medication noncompliance 5 abdominal pain secondary to above 6 pseudohyponatremia secondary. 7 hyperkalemia secondary to metabolic acidosis, he has sensation with hyperglycemia and DKA 8 leukocytosis, likely reactive 9 abdominal pain, likely secondary to above 10 chronic anxiety/bipolar disorder/panic disorder/questionable schizophrenia and the patient has been seeing [facility]. Plan Resume long-acting insulin and the patient can be discharged home today.
[2020-07-07 11:25] LABS: Glucose,Whole Blood 223 mg/dL (75-99)
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
[2020-07-07 12:33] VITALS: BP 108/71; PULSE 80; TEMP 98.7
--- NOTE | 2020-07-07 12:49 | P.DS ---
Providers Date of admission: 07/05/20 11:41 Expected date of discharge: 07/07/20 Attending physician: Margaret Moore Consults: 07/05/20 12:24 Consult Physician Stat Consulting Provider: Juan Pablo Perea Consult Reason/Comments: ICU placement due to DKA Do you want consulting provider notified?: Yes 07/07/20 09:32 Consult Physician Routine Consulting Provider: Tu Rodriguez Consult Reason/Comments: Depression Do you want consulting provider notified?: Yes Primary care physician: Stated None Hospital Course: This is a 45-year-old female with past medical history noted below who presented to the emergency room with worsening abdominal pain and nausea. Patient was evaluated in the ER and will be admitted to the hospital for further management of her medical problems noted below. 1. Diabetic ketoacidosis 2. Severe metabolic acidosis 3. Acute kidney injury 4. Hyperkalemia 5. Type 2 diabetes uncontrolled secondary to noncompliance, A1c 17.4 6. Underlying bipolar disorder 7. Underlying depression Patient condition improved significantly. She was treated with aggressive IV fluid hydration and insulin drip via DKA protocol. On her home dose of insulin. Patient was counseled extensively regarding medication compliance. Patient showed some evidence of worsening depression during this admission was seen and evaluated by psychiatry. She was cleared for discharge home. No need for inpatient hospitalization. Her Prozac dose was increased to 30 mg daily. She will follow-up with [facility] as directed. Prescriptions were sent to her pharmacy. She was encouraged to use her insulin as prescribed. Patient Condition at Discharge: Stable Plan - Discharge Summary New Discharge Prescriptions: New FLUoxetine HCL [PROzac] 30 mg PO DAILY #30 capsule Continue Paliperidone Palmitate [Invega Trinza] 819 mg IM Q90D Insulin Glargine [Lantus] 30 unit SQ HS #1 vial metFORMIN HCL [Glucophage] 1,000 mg PO BID Changed INSULIN ASPART (NovoLOG) [NovoLOG (formulary)] 10 unit SQ AC-TID #3 vial Discontinued FLUoxetine HCL [PROzac] 20 mg PO DAILY #30 cap Discharge Medication List Paliperidone Palmitate [Invega Trinza] 819 mg IM Q90D 09/14/18 [History] Insulin Glargine [Lantus] 30 unit SQ HS #1 vial 09/16/18 [Rx] metFORMIN HCL [Glucophage] 1,000 mg PO BID 07/05/20 [History] FLUoxetine HCL [PROzac] 30 mg PO DAILY #30 capsule 07/07/20 [Rx] INSULIN ASPART (NovoLOG) [NovoLOG (formulary)] 10 unit SQ AC-TID #3 vial 07/07/20 [Rx] Follow up Appointment(s)/Referral(s): None,Stated [Primary Care Provider] - 1-2 days Discharge Disposition: HOME SELF-CARE
--- NOTE | 2020-07-07 13:26 | P.CN ---
Psychiatric Consult - . 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 She has a son as well. REASON FOR REFERRAL: Psychiatry was consulted for depression HISTORY OF PRESENT ILLNESS: The patient presented to the hospital on 07/05 for altered mental status had an elevation in her blood glucose was vomiting and was in generalized pain. Patient was found to be in DKA at that time. Her UDS was negative. Patient was endorsing depression and was trying to leave AMA and was therefore certed by the hospitalist and psychiatry was asked to evaluate patient. Patient does have a history of bipolar disorder and is being followed by [facility]. Patient is currently receiving Invega Sustenna long-acting injection monthly. Nurse taking care patient states that the patient told the doctor that she was feeling depressed and is currently not endorsing any suicidal ideations. Intercell Connector Placer spoke with patient at the bedside and patient was cooperative and agreeable to speak brighter. She was fairly appropriate during the conversation. She claims that she has a "eating disorder" and states that she was eating snacks heavy in sugar and was not watching her diet. She claims that her family is not very supportive of her and her diet choices. She claims that her boyfriend has been using drugs on and off and she has been using drugs as well occasionally. She claims that "I'm not a hard user" and claims that she uses very occasionally. She states that she uses anything from "methamphetamine pills cocaine and crack" and states that she uses approximately 1-2 times a month. She states that she is motivated to stop using so that she can see her son more. She claims that she wants to live for her son and will do anything for him. She is future oriented and spoke about her medications and going to [facility] today for her Invega Sustenna injection. She claims that she does feel mildly depressed however is huge oriented and denies having any guns or weapons or any current suicidal thoughts. She states that she has had suicidal thoughts in the past however no previous attempts. She states that her sleep and appetite are fair.. At this time patient denies any suicidal or homical ideations, intent or plan. Patient denies any auditory, visual hallucinations and denies any paranoia or delusions. Patients admits to using recreational drugs as noted above. She states that she drinks alcohol occasionally and smokes cigarettes daily. PAST PSYCHIATRIC HISTORY: Patient has a a history of anxiety and bipolar disorder. patient is currently on Invega Sustenna long-acting injection monthly which is given to her by her nurse practitioner at [facility]. She states that her last shot was given 1 month ago and is due for her next shot now. She states that her last hospitalization was in May 2018. [Patient denies any history of suicide attempts in the past.] PAST MEDICAL HISTORY:COPD, diabetes mellitus, osteoarthritis ALLERGIES: as per EMR. CHEMICAL DEPENDENCY HISTORY: as per HPI. FAMILY PSYCHIATRIC/SUBSTANCE USE HISTORY: bipolar disorder in both parents SOCIAL HISTORY: Patient was born and raised in [place], [place]. she states that she completed up to 11th grade in school. She states that she does not have any legal history in the past. 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 MENTAL STATUS EXAM: General Appearance: Patient appears to be older than stated age is alert, has short hair, pleasant, and cooperative. poor dentition. Has [fair] eye contact. Behavior: [Patient is calmly lying in bed without any agitated behavior.] attempts to cooperate Speech: Patient's speech is fluent and nonpressured. Mood/Affect: Patient reports their mood is "[ok now]", affect is congruent Suicidality/Homicidality: Patient denies having any suicidal or homicidal ideation intent or plan. Perceptions: Patient denies any visual hallucinations [and denies any auditory hallucinations] Though content/process: future oriented. Logical. Not endorsing any delusions or paranoia. Memory and concentration: AOX3, grossly intact for the purposes of this session. Can spell "WORLD" backwards Judgment and insight: limited IMPRESSIONS: bipolar disorder unspecified r/o intellectual disability Anxiety disorder unspecified Cannabis abuse Methamphetamine abuse Cocaine abuse. Nicotine dependence PLAN: -At this time patient DOES NOT meet criteria for inpatient psychiatric admission. -Would recommend the following medication changes/additions: increased Prozac to 30 mg daily for mood/anxiety. patient is currently on Invega Sustenna long- acting injection given monthly by [facility]. -completed a negative certificate as patient is not endorsing suciidal thoughts and has a clear plan for follow up and also verse writer spoke with boyfriend and patient in the room to confirm there are no guns/weapons in the house and that he is able to watch her closley upon discharge. -Both boyfriend and patient agree to plan to go to [facility] today upon discharge so patient can reiceve her Invega Sustenna injection. [-Intercell Connector Placer spoke with patient about substance abuse and the harmful effects on medical and mental health, patient verbally understood and agreed.] [-forest worker to provide patient substance use treatment resources including AA/NA meetings in the community.] [-forest worker to provide patient with access line number to call for inpatient substance rehab] -Communicated plan to patient's nurse -Psychiatry will sign off at this time -Please contact with any questions.
[2020-07-08] MEDS ORDERED: FLUoxetine HCL 10 MG CAP PO SCH (09:00)
== END 2020-07-07 13:49 | disposition home or self-care (01) | DRG 638 ==
LOC: EC 09:44 → 2SICU 11:41 → 5NMEDONC 07-06 21:42
PROVIDERS: ADMIT Internal Medicine; ATTEND Internal Medicine
DX: E11.10 Type 2 diabetes mellitus with ketoacidosis without coma (principal); N17.9 Acute kidney failure, unspecified; F31.9 Bipolar disorder, unspecified; Z79.4 Long term (current) use of insulin; E86.0 Dehydration; Z20.822 Contact with and (suspected) exposure to COVID-19; Z91.14 Patient's other noncompliance with medication regimen; J44.9 Chronic obstructive pulmonary disease, unspecified; Z82.49 Family history of ischemic heart disease and other diseases of the circulatory system; Z80.51 Family history of malignant neoplasm of kidney; E87.5 Hyperkalemia; F20.9 Schizophrenia, unspecified; F41.0 Panic disorder [episodic paroxysmal anxiety]; Z81.8 Family history of other mental and behavioral disorders; Z86.32 Personal history of gestational diabetes; Z91.19 Patient's noncompliance with other medical treatment and regimen; Z79.899 Other long term (current) drug therapy
CPT/HCPCS: 36415; 71046; 80048; 80051; 80053; 80306; 81003; 82009; 82565; 82947; 83036; 83605; 83690; 83735; 84100; 84520; 85025; 87040; 87635; 93005; 96361; 96374; 99285

== ENCOUNTER 2020-10-20 14:44 | Inpatient (IN) | payer MEDICARE, OTHER ==
[2020-10-20] MEDS ORDERED: SODIUM CHLORIDE 0.9% 500 ML 500 ML IV STA (15:10)
--- NOTE | 2020-10-20 15:24 | ED ---
General Adult HPI - General Chief complaint: Psychiatric Symptoms Stated complaint: EPS, hyperglycemia Time Seen by Provider: 10/20/20 15:03 Source: patient, EMS, RN notes reviewed, Caregiver Mode of arrival: EMS Limitations: no limitations - History of Present Illness Initial comments: Patient is a pleasant 45-year-old female presenting to the emergency Department with her voucher examiner for not taking her medications. Blood sugar today was also up around 3 or 400. Patient states she does check her blood sugar frequently and this is abnormal for her. Otherwise patient feels fine. No polyuria or polydipsia. Patient has not taken her antipsychotic injections in the past couple months. Patient states she does not like how they feel. Patient does make several comments that do not make sense. Patient denies suicidal or homicidal thoughts. No hallucinations. - Related Data Home Medications Medication Instructions Recorded Confirmed Paliperidone Palmitate [Invega 819 mg IM DIRECTED 09/14/18 10/20/20 Trinza] metFORMIN HCL [Glucophage] 1,000 mg PO BID 07/05/20 10/20/20 Paliperidone IM [Invega Sustenna] 156 mg IM DIRECTED 10/20/20 10/20/20 Previous Rx's Medication Instructions Recorded Insulin Glargine [Lantus Vial] 30 unit SQ HS #1 vial 09/16/18 FLUoxetine HCL [PROzac] 30 mg PO DAILY #30 capsule 07/07/20 INSULIN ASPART (NovoLOG) [NovoLOG 10 unit SQ AC-TID #3 vial 07/07/20 (formulary)] Allergies Allergy/AdvReac Type Severity Reaction Status Date / Time No Known Allergies Allergy Verified 07/05/20 09:55 Review of Systems ROS Statement: Those systems with pertinent positive or pertinent negative responses have been documented in the HPI. ROS Other: All systems not noted in ROS Statement are negative. Constitutional: Denies: fever Eyes: Denies: eye pain ENT: Denies: ear pain Respiratory: Denies: cough Cardiovascular: Denies: chest pain Endocrine: Denies: fatigue Gastrointestinal: Denies: abdominal pain Genitourinary: Denies: dysuria Musculoskeletal: Denies: back pain Skin: Denies: rash Neurological: Denies: weakness Past Medical History Past Medical History: Diabetes Mellitus, Osteoarthritis (OA) Additional Past Medical History / Comment(s): "GESTATIONAL DIABETES", GOES TO [facility] History of Any Multi-Drug Resistant Organisms: None Reported Past Surgical History: Section Additional Past Surgical History / Comment(s): POLA ARM SX WHEN CHILD-WENT THRU A WINDOW Past Anesthesia/Blood Transfusion Reactions: No Reported Reaction Additional Past Anesthesia/Blood Transfusion Reaction / Comment(s): CLAUSTERPHOBIA Past Psychological History: Anxiety, Bipolar, Panic Disorder, Schizophrenia Past Alcohol Use History: Occasional Past Drug Use History: None Reported - Past Family History Father Additional Family Medical History / Comment(s): DEPRESSION, "PROBLEM WITH HIS PANCREAS" Mother Family Medical History: Hyperlipidemia, Hypertension Additional Family Medical History / Comment(s): DDD, NECK FUSION, KIDNEY CANCER General Exam Limitations: no limitations General appearance: alert Head exam: Present: atraumatic Eye exam: Present: normal appearance, PERRL Neck exam: Present: normal inspection Respiratory exam: Present: normal lung sounds bilaterally Cardiovascular Exam: Present: regular rate, normal rhythm GI/Abdominal exam: Present: soft. Absent: tenderness Extremities exam: Present: normal inspection Neurological exam: Present: alert. Absent: motor sensory deficit Psychiatric exam: Present: anxious (Patient is mildly anxious) Skin exam: Present: normal color Course Vital Signs 10/20/20 14:48 Temperature 97.7 F Pulse Rate 80 Respiratory 18 Rate Blood Pressure 112/73 O2 Sat by Pulse 100 Oximetry Medical Decision Making - Medical Decision Making Acetone was delayed but did come back positive. Case was discussed with practitioner Phyllis Irizarry, covering for Dr. Lewis, who will admit covering for Dr. De Leon. Patient will need a mental health care as well. Positive clinical certificate completed. - Lab Data Result diagrams: 10/20/20 16:08 10/20/20 16:08 Lab Results 10/20/20 10/20/20 10/20/20 Range/Units 16:08 16:08 16:16 WBC 11.5 H (3.8-10.6) k/uL RBC 4.64 (3.80-5.40) m/uL Hgb 14.5 (11.4-16.0) gm/dL Hct 41.9 (34.0-46.0) % MCV 90.2 (80.0-100.0) fL MCH 31.3 (25.0-35.0) pg MCHC 34.7 (31.0-37.0) g/dL RDW 13.5 (11.5-15.5) % Plt Count 447 (150-450) k/uL MPV 7.1 Neutrophils % 60 % Lymphocytes % 34 % Monocytes % 4 % Eosinophils % 1 % Basophils % 0 % Neutrophils # 6.9 (1.3-7.7) k/uL Lymphocytes # 3.9 (1.0-4.8) k/uL Monocytes # 0.4 (0-1.0) k/uL Eosinophils # 0.1 (0-0.7) k/uL Basophils # 0.0 (0-0.2) k/uL Sodium 131 L (137-145) mmol/L Potassium 4.2 (3.5-5.1) mmol/L Chloride 100 (98-107) mmol/L Carbon Dioxide 17 L (22-30) mmol/L Anion Gap 14 mmol/L BUN 10 (7-17) mg/dL Creatinine 0.36 L (0.52-1.04) mg/dL Est GFR (CKD-EPI)AfAm >90 (>60 ml/min/1.73 sqM) Est GFR (CKD-EPI)NonAf >90 (>60 ml/min/1.73 sqM) Glucose 346 H (74-99) mg/dL POC Glucose (mg/dL) 316 H (75-99) mg/dL POC Glu Ear Flap Binder Maribell Piña Calcium 9.4 (8.4-10.2) mg/dL Total Bilirubin 0.7 (0.2-1.3) mg/dL AST 33 (14-36) U/L ALT 33 (4-34) U/L Alkaline Phosphatase 121 (38-126) U/L Total Protein 7.0 (6.3-8.2) g/dL Albumin 4.0 (3.5-5.0) g/dL Serum Alcohol <10 mg/dL Acetone, Qual Positive (Negative) 10/20/20 Range/Units 17:59 WBC (3.8-10.6) k/uL RBC (3.80-5.40) m/uL Hgb (11.4-16.0) gm/dL Hct (34.0-46.0) % MCV (80.0-100.0) fL MCH (25.0-35.0) pg MCHC (31.0-37.0) g/dL RDW (11.5-15.5) % Plt Count (150-450) k/uL MPV Neutrophils % % Lymphocytes % % Monocytes % % Eosinophils % % Basophils % % Neutrophils # (1.3-7.7) k/uL Lymphocytes # (1.0-4.8) k/uL Monocytes # (0-1.0) k/uL Eosinophils # (0-0.7) k/uL Basophils # (0-0.2) k/uL Sodium (137-145) mmol/L Potassium (3.5-5.1) mmol/L Chloride (98-107) mmol/L Carbon Dioxide (22-30) mmol/L Anion Gap mmol/L BUN (7-17) mg/dL Creatinine (0.52-1.04) mg/dL Est GFR (CKD-EPI)AfAm (>60 ml/min/1.73 sqM) Est GFR (CKD-EPI)NonAf (>60 ml/min/1.73 sqM) Glucose (74-99) mg/dL POC Glucose (mg/dL) 299 H (75-99) mg/dL POC Glu Ear Flap Binder ID Holley Osorio Calcium (8.4-10.2) mg/dL Total Bilirubin (0.2-1.3) mg/dL AST (14-36) U/L ALT (4-34) U/L Alkaline Phosphatase (38-126) U/L Total Protein (6.3-8.2) g/dL Albumin (3.5-5.0) g/dL Serum Alcohol mg/dL Acetone, Qual (Negative) Disposition Clinical Impression: DKA (diabetic ketoacidoses), Psychosis Disposition: ADMITTED IP TO THIS HOSP Is patient prescribed a controlled substance at d/c from ED?: No Referrals: Gabrielle Castaneda MD [Primary Care Provider] - 1-2 days Decision Time: 20:30
[2020-10-20] MEDS ORDERED: LORazepam 2 MG/ML INJ IM STA (15:34)
[2020-10-20 16:19] LABS: Basophils % (A) 0 %; Eosinophils # (A) 0.1 k/uL (0-0.7); Eosinophils % (A) 1 %; HCT 41.9 % (34.0-46.0); HGB 14.5 gm/dL (11.4-16.0); Lymphocytes # (A) 3.9 k/uL (1.0-4.8); Lymphocytes % (A) 34 %; MCH 31.3 pg (25.0-35.0); MCHC 34.7 g/dL (31.0-37.0); MCV 90.2 fL (80.0-100.0); Mean Platelet Volume 7.1; Monocytes # (A) 0.4 k/uL (0-1.0); Monocytes % (A) 4 %; Neutrophils # (A) 6.9 k/uL (1.3-7.7); Neutrophils % (A) 60 %; Platelet Count 447 k/uL (150-450); RBC 4.64 m/uL (3.80-5.40); RDW 13.5 % (11.5-15.5); WBC 11.5 k/uL (3.8-10.6)
[2020-10-20 16:21] LABS: Glucose,Whole Blood 316 mg/dL (75-99)
[2020-10-20] MEDS ORDERED: INSULIN REGULAR 100 UNIT/ML VIAL (IM/SQ) SQ ONE (16:23)
[2020-10-20 16:28] LABS: ALT 33 U/L (4-34); AST 33 U/L (14-36); African American GFR (CKD) >90 (>60 ml/min/1.73 sqM); Alcohol <10 mg/dL; Alkaline Phosphatase 121 U/L (38-126); Anion Gap 14 mmol/L; Blood Urea Nitrogen 10 mg/dL (7-17); Calcium 9.4 mg/dL (8.4-10.2); Carbon Dioxide 17 mmol/L (22-30); Chloride 100 mmol/L (98-107); Glucose 346 mg/dL (74-99); Non-African American GFR(CKD) >90 (>60 ml/min/1.73 sqM); Potassium 4.2 mmol/L (3.5-5.1); Sodium 131 mmol/L (137-145); Total Bilirubin 0.7 mg/dL (0.2-1.3)
[2020-10-20 18:00] LABS: Glucose,Whole Blood 299 mg/dL (75-99)
[2020-10-20] MEDS ORDERED: INSULIN REGULAR 100 UNIT in SODIUM CHLORIDE 0.9% 100 ML IV SCH (20:30)
[2020-10-20] MEDS ORDERED: SODIUM CHLORIDE 0.9% 1,000 ML IV SCH (20:30)
[2020-10-20] MEDS ORDERED: SODIUM CHLORIDE 0.9% 1,000 ML IV ONE (20:30)
[2020-10-20 21:11] LABS: Glucose,Whole Blood 460 mg/dL (75-99)
[2020-10-20] MEDS ORDERED: D5-0.45% NACL WITH KCL 20MEQ/L 1,000 ML IV SCH (21:15)
[2020-10-20 22:04] LABS: Glucose,Whole Blood 239 mg/dL (75-99)
[2020-10-20 23:02] LABS: Glucose,Whole Blood 153 mg/dL (75-99)
[2020-10-21 00:05] LABS: Glucose,Whole Blood 58 mg/dL (75-99)
[2020-10-21 00:05] LABS: Glucose,Whole Blood 105 mg/dL (75-99)
[2020-10-21 00:07] LABS: Glucose,Whole Blood 58 mg/dL (75-99)
[2020-10-21 00:25] VITALS: RESP 16
[2020-10-21 00:31] LABS: African American GFR (CKD) >90 (>60 ml/min/1.73 sqM); Blood Urea Nitrogen 8 mg/dL (7-17); Carbon Dioxide 21 mmol/L (22-30); Glucose 57 mg/dL (74-99); Non-African American GFR(CKD) >90 (>60 ml/min/1.73 sqM); Phosphorus 3.2 mg/dL (2.5-4.5)
[2020-10-21 00:35] LABS: Glucose,Whole Blood 116 mg/dL (75-99)
[2020-10-21 00:36] LABS: Anion Gap 6 mmol/L; Chloride 110 mmol/L (98-107); Potassium 3.5 mmol/L (3.5-5.1); Sodium 137 mmol/L (137-145)
[2020-10-21 01:12] LABS: Glucose,Whole Blood 156 mg/dL (75-99)
[2020-10-21] MEDS ORDERED: Potassium Replacement Protocol 1 EACH MISC MISCELLANE PRN (01:22)
[2020-10-21] MEDS ORDERED: INSULIN NPH 300 UNIT/3 ML VIAL SQ ONE (01:30)
[2020-10-21] MEDS: SODIUM CHLORIDE 0.9% 1,000 ML IV SCH ×2 (01:31→15:05)
[2020-10-21] MEDS: POTASSIUM CHLORIDE ER 20 MEQ TAB.ER PO SCH ×2 (01:36→02:40)
[2020-10-21 01:45] LABS: Glucose,Whole Blood 161 mg/dL (75-99)
[2020-10-21 05:42] LABS: African American GFR (CKD) >90 (>60 ml/min/1.73 sqM); Anion Gap 7 mmol/L; Blood Urea Nitrogen 8 mg/dL (7-17); Carbon Dioxide 18 mmol/L (22-30); Chloride 109 mmol/L (98-107); Glucose 215 mg/dL (74-99); Non-African American GFR(CKD) >90 (>60 ml/min/1.73 sqM); Phosphorus 3.8 mg/dL (2.5-4.5); Potassium 4.3 mmol/L (3.5-5.1); Sodium 134 mmol/L (137-145)
[2020-10-21] MEDS: INSULIN ASPART (NovoLOG) 100 UNIT/ML VIAL SQ SCH ×4 (07:43→12:37)
[2020-10-21 07:46] LABS: Glucose,Whole Blood 211 mg/dL (75-99)
[2020-10-21 07:48] VITALS: BP 92/62; PULSE 66; TEMP 98.8
[2020-10-21 12:39] LABS: Glucose,Whole Blood 249 mg/dL (75-99)
--- NOTE | 2020-10-21 13:57 | P.HPIM ---
History of Present Illness H&P Date: 10/21/20 This is a 45-year-old female who was brought to the emergency department by her value stream manager for not taking her medications. In addition the patient's blood sugar was around 3-400. Patient states that she does not check her blood sugar. Patient has not been taking her antipsychotic injections for the past couple months, patient denies suicidal or homicidal ideations, denies hallucinations, history taken from the ER note. When asked patient if she was feeling okay, she states that does not feel very well today. In addition patient states that she would like to go home. Patient is still pending evaluation by psychiatry. At this time patient's current psychiatric medications are on hold, patient did receive a one-time dose of IM Ativan in the ER. Potassium level was 3.5, was replaced per protocol. In addition to an acute psychosis episode, patient was admitted for DKA, patient was found to be acetone positive, patient was transitioned off of the DKA insulin drip protocol blood sugars are in the 200s at this time. Patient is tolerating a consistent carb diet. Urinalysis, drug screen are currently pending. Unable to obtain further history. REVIEW OF SYSTEMS: At the time of my examination, unable to complete a 14 point review of system. PHYSICAL EXAMINATION: GENERAL: The patient is alert and oriented x3, not in any acute distress. HEENT: Pupils are round and equally reacting to light. EOMI. No scleral icterus. No conjunctival pallor. Normocephalic, atraumatic. CARDIOVASCULAR: S1 and S2 present. No murmurs, rubs, or gallops. PULMONARY: Chest is clear to auscultation, no wheezing or crackles. ABDOMEN: Soft, nontender, nondistended, normoactive bowel sounds. MUSCULOSKELETAL: No joint swelling or deformity. EXTREMITIES: No cyanosis, clubbing, or pedal edema. NEUROLOGICAL: Gross neurological examination did not reveal any focal deficits. SKIN: No rashes. Assessment and plan Assessment Acute psychoses, patient has not taken injectable medication for the last month, follows with [facility], pending psychiatric evaluation Uncontrolled hyperglycemia related to possible insulin deficient type 2 diabetes, can cause mild DKA, improved Mild DKA related to above diagnoses - resolved, patient has been transitioned off insulin drip Metabolic acidosis related to anion gap acidosis - resolving Plan Once cleared by psychiatry, patient can be discharged home on an increase in insulin. Pt will follow up with her value stream manager. Patient will receive her injection of paliperidone. Past Medical History Past Medical History: Diabetes Mellitus, Osteoarthritis (OA) Additional Past Medical History / Comment(s): "GESTATIONAL DIABETES", GOES TO [facility] History of Any Multi-Drug Resistant Organisms: None Reported Past Surgical History: Section Additional Past Surgical History / Comment(s): POLA ARM SX WHEN CHILD-WENT THRU A WINDOW Past Anesthesia/Blood Transfusion Reactions: No Reported Reaction Additional Past Anesthesia/Blood Transfusion Reaction / Comment(s): CLAUSTERPHOBIA Past Psychological History: Anxiety, Bipolar, Panic Disorder, Schizophrenia Past Alcohol Use History: Occasional Past Drug Use History: None Reported - Past Family History Father Additional Family Medical History / Comment(s): DEPRESSION, "PROBLEM WITH HIS PANCREAS" Mother Family Medical History: Hyperlipidemia, Hypertension Additional Family Medical History / Comment(s): DDD, NECK FUSION, KIDNEY CANCER Medications and Allergies Home Medications Medication Instructions Recorded Confirmed Type Paliperidone Palmitate [Invega 819 mg IM DIRECTED 09/14/18 10/20/20 History Trinza] Insulin Glargine [Lantus Vial] 30 unit SQ HS #1 vial 09/16/18 10/20/20 Rx metFORMIN HCL [Glucophage] 1,000 mg PO BID 07/05/20 10/20/20 History FLUoxetine HCL [PROzac] 30 mg PO DAILY #30 capsule 07/07/20 10/20/20 Rx INSULIN ASPART (NovoLOG) [NovoLOG 10 unit SQ AC-TID #3 vial 07/07/20 10/20/20 Rx (formulary)] Paliperidone IM [Invega Sustenna] 156 mg IM DIRECTED 10/20/20 10/20/20 Hist ory Allergies Allergy/AdvReac Type Severity Reaction Status Date / Time No Known Allergies Allergy Verified 07/05/20 09:55 Physical Exam Vitals: Vital Signs Temp Pulse Resp BP Pulse Ox 10/21/20 07:46 98.8 F 66 16 92/62 96 10/21/20 05:58 99/72 10/21/20 04:00 69 16 86/55 100 10/21/20 00:17 16 93/53 10/20/20 21:22 69 14 119/83 100 10/20/20 14:48 97.7 F 80 18 112/73 100 Intake and Output 10/20/20 10/21/20 10/21/20 22:59 06:59 14:59 Intake Total 18.545 Balance 18.545 Intake: Intake, IV Titration 18.545 Amount Insulin Regular 100 unit 18.545 In Sodium Chloride 0.9% 100 ml @ 0.1 UNITS/KG/HR 6.322 mls/hr IV .[id number] [facility] Rx#:[id number] Results CBC & Chem 7: 10/20/20 16:08 10/21/20 04:49 Labs: Abnormal Lab Results - Last 24 Hours (Table) 10/20/20 10/20/20 10/20/20 Range/Units 16:08 16:08 16:16 WBC 11.5 H (3.8-10.6) k/uL Sodium 131 L (137-145) mmol/L Chloride (98-107) mmol/L Carbon Dioxide 17 L (22-30) mmol/L Creatinine 0.36 L (0.52-1.04) mg/dL Glucose 346 H (74-99) mg/dL POC Glucose (mg/dL) 316 H (75-99) mg/dL 10/20/20 10/20/20 10/20/20 Range/Units 17:59 21:08 22:03 WBC (3.8-10.6) k/uL Sodium (137-145) mmol/L Chloride (98-107) mmol/L Carbon Dioxide (22-30) mmol/L Creatinine (0.52-1.04) mg/dL Glucose (74-99) mg/dL POC Glucose (mg/dL) 299 H 460 H 239 H (75-99) mg/dL 10/20/20 10/21/20 10/21/20 Range/Units 22:59 00:02 00:04 WBC (3.8-10.6) k/uL Sodium (137-145) mmol/L Chloride (98-107) mmol/L Carbon Dioxide (22-30) mmol/L Creatinine (0.52-1.04) mg/dL Glucose (74-99) mg/dL POC Glucose (mg/dL) 153 H 58 L 105 H (75-99) mg/dL 10/21/20 10/21/20 10/21/20 Range/Units 00:06 00:06 00:34 WBC (3.8-10.6) k/uL Sodium (137-145) mmol/L Chloride 110 H (98-107) mmol/L Carbon Dioxide 21 L (22-30) mmol/L Creatinine 0.38 L (0.52-1.04) mg/dL Glucose 57 L (74-99) mg/dL POC Glucose (mg/dL) 58 L 116 H (75-99) mg/dL 10/21/20 10/21/20 10/21/20 Range/Units 01:00 01:42 04:49 WBC (3.8-10.6) k/uL Sodium 134 L (137-145) mmol/L Chloride 109 H (98-107) mmol/L Carbon Dioxide 18 L (22-30) mmol/L Creatinine 0.40 L (0.52-1.04) mg/dL Glucose 215 H (74-99) mg/dL POC Glucose (mg/dL) 156 H 161 H (75-99) mg/dL 10/21/20 Range/Units 07:43 WBC (3.8-10.6) k/uL Sodium (137-145) mmol/L Chloride (98-107) mmol/L Carbon Dioxide (22-30) mmol/L Creatinine (0.52-1.04) mg/dL Glucose (74-99) mg/dL POC Glucose (mg/dL) 211 H (75-99) mg/dL
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
[2020-10-21] MEDS ORDERED: FLUoxetine HCL 20 MG CAP PO SCH (14:00)
[2020-10-21] MEDS ORDERED: PALIPERIDONE IM 156 MG/ML SYG IM STA (15:48)
[2020-10-21] MEDS ORDERED: INSULIN DETEMIR (LEVEMIR) 100 UNIT/ML SYR SQ SCH (21:00)
== END 2020-10-21 16:40 | disposition home or self-care (01) | DRG 639 ==
LOC: EC 14:44 → 3SCARD 20:31 → 4SSUR 10-21 12:41
PROVIDERS: ADMIT Hospitalist; ATTEND Hospitalist
DX: E11.10 Type 2 diabetes mellitus with ketoacidosis without coma (principal); M19.90 Unspecified osteoarthritis, unspecified site; F20.9 Schizophrenia, unspecified; F41.0 Panic disorder [episodic paroxysmal anxiety]; F31.9 Bipolar disorder, unspecified; F41.9 Anxiety disorder, unspecified; Z79.4 Long term (current) use of insulin; Z79.899 Other long term (current) drug therapy; Z86.32 Personal history of gestational diabetes; Z20.822 Contact with and (suspected) exposure to COVID-19
CPT/HCPCS: 36415; 80051; 80053; 80320; 82009; 82565; 82947; 84100; 84520; 85025; 87635; 96360; 96372; 99285

== ENCOUNTER 2021-05-03 16:35 | Emergency (ER) | payer MEDICARE, OTHER ==
[2021-05-03 16:59] VITALS: TEMP 98.6
[2021-05-03] MEDS ORDERED: SODIUM CHLORIDE 0.9% 1,000 ML IV ONE (17:06)
[2021-05-03 18:16] LABS: Basophils % (A) 0 %; Eosinophils # (A) 0.1 k/uL (0-0.7); Eosinophils % (A) 1 %; HCT 43.4 % (34.0-46.0); HGB 14.8 gm/dL (11.4-16.0); Lymphocytes # (A) 3.9 k/uL (1.0-4.8); Lymphocytes % (A) 35 %; MCH 31.2 pg (25.0-35.0); MCHC 34.2 g/dL (31.0-37.0); MCV 91.3 fL (80.0-100.0); Mean Platelet Volume 6.7; Monocytes # (A) 0.5 k/uL (0-1.0); Monocytes % (A) 4 %; Neutrophils # (A) 6.2 k/uL (1.3-7.7); Neutrophils % (A) 57 %; Platelet Count 498 k/uL (150-450); RBC 4.76 m/uL (3.80-5.40); RDW 13.2 % (11.5-15.5); WBC 10.9 k/uL (3.8-10.6)
[2021-05-03 18:30] LABS: ALT 34 U/L (4-34); AST 29 U/L (14-36); African American GFR (CKD) >90 (>60 ml/min/1.73 sqM); Albumin 4.2 g/dL (3.5-5.0); Alkaline Phosphatase 100 U/L (38-126); Anion Gap 7 mmol/L; Blood Urea Nitrogen 9 mg/dL (7-17); Calcium 9.3 mg/dL (8.4-10.2); Carbon Dioxide 24 mmol/L (22-30); Chloride 101 mmol/L (98-107); Glucose 362 mg/dL (74-99); Non-African American GFR(CKD) >90 (>60 ml/min/1.73 sqM); Potassium 3.7 mmol/L (3.5-5.1); Sodium 132 mmol/L (137-145); Total Bilirubin 0.7 mg/dL (0.2-1.3); Total Protein 7.6 g/dL (6.3-8.2)
[2021-05-03] MEDS ORDERED: INSULIN ASPART (NovoLOG) 100 UNIT/ML VIAL SQ ONE (18:36)
[2021-05-03 18:50] LABS: Glucose,Whole Blood 337 mg/dL (75-99)
[2021-05-03 19:55] LABS: Glucose,Whole Blood 255 mg/dL (75-99)
[2021-05-03 20:06] VITALS: BP 126/81; PULSE 91; RESP 20
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
== END 2021-05-03 20:25 | disposition home or self-care (01) ==
LOC: EC 16:35
DX: E10.65 Type 1 diabetes mellitus with hyperglycemia (principal); F31.9 Bipolar disorder, unspecified; F41.9 Anxiety disorder, unspecified; F20.9 Schizophrenia, unspecified; F17.200 Nicotine dependence, unspecified, uncomplicated; F15.90 Other stimulant use, unspecified, uncomplicated; Z79.899 Other long term (current) drug therapy
CPT/HCPCS: 36415; 80053; 82009; 85025; 96360; 99283

== ENCOUNTER → 2021-08-03 | Outpatient (CLI) | payer MEDICARE ==
[2021-08-03 13:43] LABS: Basophils # (A) 0.04 X 10*3/uL (0.00-0.10); Basophils % (A) 0.5 %; Eosinophils # (A) 0.19 X 10*3/uL (0.04-0.35); Eosinophils % (A) 2.3 %; HCT 42.9 % (37.2-46.3); Immature Grans, Automated 0.2 %; Lymphocytes # (A) 3.81 X 10*3/uL (0.90-5.00); MCH 30.4 pg (27.0-32.0); MCHC 32.6 g/dL (32.0-37.0); MCV 93.1 fL (80.0-97.0); Mean Platelet Volume 9.4 fL (9.5-12.2); Monocytes # (A) 0.61 X 10*3/uL (0.20-1.00); Monocytes % (A) 7.4 %; NRBC Per 100 WBC 0 /100 WBCS (0.0-0.0); Neutrophils # (A) 3.62 X 10*3/uL (1.80-7.70); Neutrophils % (A) 43.6 %; Platelet Count 448 X 10*3/uL (140-440); RBC 4.61 X 10*6/uL (4.10-5.20); RDW 13.5 % (11.5-14.5); WBC 8.29 X 10*3/uL (4.50-10.00)
[2021-08-03 14:37] LABS: ALT 60 U/L (8-44); AST 29 U/L (13-35); Albumin 4.1 g/dL (3.8-4.9); Alkaline Phosphatase 85 U/L (41-126); Bilirubin, Conjugated <0.20 mg/dL (0.20-0.40); Blood Urea Nitrogen 14.3 mg/dL (9.0-27.0); Calcium 9.6 mg/dL (8.7-10.3); Carbon Dioxide 23.2 mmol/L (20.0-27.5); Chloride 103 mmol/L (96-109); Chol/HDL Ratio 2.95 Ratio; Globulin 2.6 g/dL (1.6-3.3); Glucose 191 mg/dL (70-110); LDL Cholesterol,Calculated 108.3 mg/dL (0.0-131.0); Non-African American GFR(CKD) 107.8 (60.0-200.0); Potassium 4.7 mmol/L (3.5-5.5); Sodium 138 mmol/L (135-145); Total Protein 6.7 g/dL (6.2-8.2)
== END | disposition home or self-care (01) ==
LOC: LABWHC1 07:49
PROVIDERS: ATTEND Nurse Practitioner Family
DX: Z79.899 Other long term (current) drug therapy (principal)
CPT/HCPCS: 36415; 80053; 80061; 82248; 82306; 82607; 82746; 83036; 84439; 84443; 85025

== ENCOUNTER → 2021-10-21 | Outpatient (CLI) | payer MEDICARE, MEDICAID ==
--- NOTE | 2021-10-21 11:49 | US ---
EXAMINATION TYPE: US liver DATE OF EXAM: 10/21/2021 COMPARISON: US 2014 CLINICAL HISTORY: B18.2 Chronic viral hepatitis C. TECHNIQUE: Multiple sonographic images of the right upper quadrant are obtained. FINDINGS: EXAM MEASUREMENTS: Liver Length: 15.1 cm Gallbladder Wall: 0.2 cm CBD: 0.6 cm Right Kidney: 10.4 x 4.5 x 4.4 cm Pancreas: visualized portions wnl, limited by overlying midline bowel gas Liver: Normal sonographic appearance without evidence of mass. Gallbladder: wnl Evidence for sonographic Valverde's sign: no CBD: borderline dilated at 0.6cm Right Kidney: visualized portions wnl, inferior pole limited by overlying bowel gas IMPRESSION: 1. Normal sonographic appearance of the liver. No evidence of mass. 2. No evidence of acute process.
== END | disposition home or self-care (01) ==
LOC: RADUSWWP 10:25
PROVIDERS: ATTEND Internal Medicine Gastroenterology
DX: B18.2 Chronic viral hepatitis C (principal)
CPT/HCPCS: 76705

== ENCOUNTER 2022-01-07 13:34 | Inpatient (IN) | payer MEDICARE, MEDICAID ==
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
[2022-01-07 17:11] LABS: Appearance,Urine Cloudy (Clear); Bacteria,Urine Rare /hpf; Bilirubin,Urine Negative (Negative); Blood,Urine Negative (Negative); Color,Urine Light Yellow; Glucose,Urine (UA) Negative (Negative); Ketones,Urine Negative (Negative); Leukocyte Esterase,Urine Small (Negative); Mucus,Urine Rare /hpf; Nitrite,Urine Negative (Negative); PH, Urine 7.5 (5.0-8.0); Protein,Urine Negative (Negative); RBC,Urine <1 /hpf (0-5); Specific Gravity,Urine 1.014 (1.001-1.035); Squamous Epithelial Cell,Urine 25 /hpf (0-4); Urobilinogen,Urine <2.0 mg/dL (<2.0); WBC,Urine 4 /hpf (0-5)
[2022-01-07 17:23] LABS: Glucose,Whole Blood 121 mg/dL (70-110)
[2022-01-07] MEDS ORDERED: LORazepam 2 MG/ML INJ IM STA (17:32)
[2022-01-07] MEDS ORDERED: ACETAMINOPHEN TAB 325 MG TAB PO PRN (18:51)
[2022-01-07] MEDS ORDERED: MAG HYDROX/AL HYDROX/SIMETH 355 ML BOTTLE PO PRN (18:51)
[2022-01-07] MEDS ORDERED: MAGNESIUM HYDROXIDE 2,400 MG/10 ML CUP PO PRN (18:51)
[2022-01-07] MEDS ORDERED: LORazepam 2 MG/ML INJ IM PRN (18:53)
[2022-01-07] MEDS ORDERED: HALOPERIDOL LACTATE 5 MG/ML 1 ML VIAL IM PRN (18:53)
[2022-01-07] MEDS ORDERED: LORazepam 1 MG TAB PO PRN (18:53)
[2022-01-07] MEDS ORDERED: haloperidoL 5 MG TAB PO PRN (18:53)
[2022-01-07] MEDS: PALIPERIDONE 3 MG TAB.ER.24 PO SCH (22:19)
[2022-01-07 23:22] LABS: Urine Alcohol Negative (Negative); Urine Barbiturate Negative (Negative); Urine Cocaine Negative (Negative); Urine Methadone Negative (Negative); Urine Opiates Negative (Negative); Urine Phencyclidine Negative (Negative)
[2022-01-08 07:24] LABS: Basophils # (A) 0.1 k/uL (0-0.2); Basophils % (A) 1 %; Eosinophils # (A) 0.1 k/uL (0-0.7); Eosinophils % (A) 2 %; HCT 41.1 % (34.0-46.0); HGB 14.1 gm/dL (11.4-16.0); Lymphocytes # (A) 3.4 k/uL (1.0-4.8); Lymphocytes % (A) 39 %; MCH 30.8 pg (25.0-35.0); MCHC 34.3 g/dL (31.0-37.0); MCV 89.7 fL (80.0-100.0); Mean Platelet Volume 7.9; Monocytes # (A) 0.3 k/uL (0-1.0); Monocytes % (A) 4 %; Neutrophils # (A) 4.7 k/uL (1.3-7.7); Neutrophils % (A) 54 %; Platelet Count 397 k/uL (150-450); RBC 4.59 m/uL (3.80-5.40); WBC 8.8 k/uL (3.8-10.6)
[2022-01-08 07:36] LABS: ALT 34 U/L (4-34); AST 36 U/L (14-36); African American GFR (CKD) >90 (>60 ml/min/1.73 sqM); Albumin 3.9 g/dL (3.5-5.0); Alkaline Phosphatase 68 U/L (38-126); Anion Gap 6 mmol/L; Bilirubin, Delta 0.3 mg/dL (0.0-0.2); Bilirubin,Unconjugated 0.4 mg/dL (0.0-1.1); Blood Urea Nitrogen 9 mg/dL (7-17); Carbon Dioxide 23 mmol/L (22-30); Chloride 109 mmol/L (98-107); Glucose 127 mg/dL (74-99); Non-African American GFR(CKD) >90 (>60 ml/min/1.73 sqM); Potassium 4.2 mmol/L (3.5-5.1); Sodium 138 mmol/L (137-145); Total Bilirubin 0.7 mg/dL (0.2-1.3); Total Protein 6.5 g/dL (6.3-8.2)
[2022-01-08] MEDS: NICOTINE 14MG/24HR PATCH TRANSDERM SCH (09:19)
[2022-01-08 11:05] LABS: Chol/HDL Ratio 3.33 Ratio; LDL Cholesterol,Calculated 72.9 mg/dL (0.0-131.0)
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
[2022-01-08] MEDS ORDERED: LORazepam 1 MG TAB PO STA (14:06)
[2022-01-08] MEDS: PALIPERIDONE 3 MG TAB.ER.24 PO SCH (20:59)
[2022-01-08] MEDS: TEMAZEPAM 15 MG CAP PO SCH (20:59)
[2022-01-08] MEDS ORDERED: TEMAZEPAM 7.5 MG CAP PO SCH (21:00)
--- NOTE | 2022-01-09 04:09 | CONS ---
CONSULTATION REASON FOR CONSULTATION: Advice regarding diabetes mellitus and other medical issues requested by Psychiatry. HISTORY OF PRESENT ILLNESS: This 46-year-old woman with a past history of diabetes mellitus, DJD, being followed by Dr. Castaneda in the outpatient, admitted for psychiatric evaluation. There is no history of any fever, rigors, chills at this time. Patient has some rash on the face. PAST MEDICAL HISTORY: Diabetes mellitus, DJD. HOME MEDICATIONS: Unknown. ALLERGIES: Pollen extract. FAMILY HISTORY: History of hypertension, hyperlipidemia, and depression. SOCIAL HISTORY: History of smoking. REVIEW OF SYSTEMS: A 14-point review is negative except as mentioned earlier. PHYSICAL EXAMINATION: VITAL SIGNS: Pulse 70, blood pressure is 190/70, and respirations 20. HEENT: Conjunctivae normal. NECK: No jugular venous distention. No carotid bruit. CARDIOVASCULAR: S1, S2 muffled. RESPIRATIONS: Breath sounds diminished at the bases. No rhonchi, no crackles. ABDOMEN: Soft, nontender. LEGS: No edema, no swelling. NERVOUS SYSTEM: No focal deficits. SKIN: No ulcer, rash, or bleeding. JOINTS: No active deforming arthropathy. LABS: CBC within normal limits. Sodium 130, potassium 4.2. ASSESSMENT: 1. Psychosis for evaluation. 2. Diabetes mellitus, type 2. 4. Degenerative joint disease. 5. History of multiple psych issues. RECOMMENDATIONS: This 46-year-old woman presents with multiple medical issues. At this time, I recommend to continue the current medications and on admission. Blood sugars only slightly elevated to 127, hemoglobin A1c is 6.9. I would recommend diabetic diet, outpatient diabetic education, and also Accu-Cheks a.c. and h.s., scale also. Otherwise recommend close follow with primary physician. MMODL / IJN: [id number] / BLUE
[2022-01-09] MEDS: NICOTINE 14MG/24HR PATCH TRANSDERM SCH ×2 (09:25→16:15)
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
[2022-01-09] MEDS: TEMAZEPAM 15 MG CAP PO SCH (20:38)
[2022-01-09] MEDS: PALIPERIDONE 6 MG TAB.ER.24 PO SCH (20:38)
[2022-01-10] MEDS: NICOTINE 14MG/24HR PATCH TRANSDERM SCH ×2 (09:14→11:33)
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
[2022-01-10] MEDS: TEMAZEPAM 15 MG CAP PO SCH (21:01)
[2022-01-10] MEDS: PALIPERIDONE 6 MG TAB.ER.24 PO SCH (21:02)
[2022-01-11] MEDS: PALIPERIDONE 3 MG TAB.ER.24 PO SCH ×2 (08:52→11:14)
[2022-01-11] MEDS: NICOTINE 14MG/24HR PATCH TRANSDERM SCH ×2 (08:54→11:14)
--- NOTE | 2022-01-11 10:17 | P.PN ---
Progress Note - Text Progress Note Date: 01/11/22 Interval History: Patient was seen wandering the hallways and was directable and agreeable to speak with radio script writer in the office. Currently, the patient is not reporting any suicidal or homicidal ideation, intention, and/or plan. She is not reporting any auditory or visual hallucinations. She denies any overt delusional thought content to this provider. She is currently alert and oriented in all spheres. She is inquiring as to whether both her mother and her son are able to visit her during visiting hours. She does have intermittent episodes of crying loudly in her room. She does report that she has been having the same recurring nightmare of a "hairy sasquatch monster." She has been adherent with her medication is not reporting any significant side effects. She does acknowledge that a clin tech does want to speak to her regarding the events of the last 2 months. Mental Status Exam: General Appearance: Patient appears to be stated age is alert, directable, and cooperative. Slightly disheveled. Unkempt hair. Behavior: Patient is calmly seated without any agitated behavior. At times, the patient to be very tearful crying loudly in her room by herself. Speech: Patient's speech is fluent and nonpressured. Mood/Affect: Mood is improving mildly, affect is congruent and constricted. Suicidality/Homicidality: Patient denies having any suicidal or homicidal ideation intent or plan. Perceptions: Patient denies any visual hallucinations and denies any auditory hallucinations Though content/process: There is no evidence of any delusional thought content and thought process is linear and goal-directed. Memory and concentration: AOX3, grossly intact for the purposes of this session Judgment and insight: Improving mildly Vital Signs Temp 97.6 F 01/09/22 05:30 Pulse 87 01/10/22 17:46 Resp 16 01/10/22 17:46 BP 117/62 01/10/22 17:46 Pulse Ox 98 01/09/22 05:30 FiO2 Assessment Schizophrenia Acute stress disorder Tobacco Use Disorder Plan: -Patient continues to meet criteria for inpatient psychiatric admission for symptom stabilization and safety. Patient has signed adult voluntary form and medication consent and was placed in patient's chart. -Medications: Continue Invega 3 mg by mouth every morning and 6 mg by mouth at bedtime for psychosis. Plan is to transition her back to long-acting injectable Invega Sustenna. Continue temazepam 15 mg by mouth at bedtime for acute stress disorder -When necessary Ativan and Haldol for agitation/aggression. -NRT - nicotine patch -SW on board for discharge planning. Encouraged the patient to participate in milieu.
[2022-01-11] MEDS: PALIPERIDONE 6 MG TAB.ER.24 PO SCH (20:33)
[2022-01-11] MEDS: TEMAZEPAM 15 MG CAP PO SCH (20:33)
[2022-01-12 06:48] VITALS: RESP 14
[2022-01-12] MEDS: PALIPERIDONE 3 MG TAB.ER.24 PO SCH (08:54)
[2022-01-12] MEDS: NICOTINE 14MG/24HR PATCH TRANSDERM SCH ×2 (08:55→20:13)
[2022-01-12] MEDS ORDERED: PALIPERIDONE IM 234 MG/1.5 ML SYG IM STA (10:19)
--- NOTE | 2022-01-12 11:42 | P.PN ---
Progress Note - Text Progress Note Date: 01/12/22 Interval History: Patient was seen resting in bed and was agreeable to speak with the video game script writer in her room. Of note, the patient did write down numbers and words on her parker and window of her room. What can be read includes, "[employer]" and "[employer]." She also wrote down numerous numbers and scratched them out. At the bottom of her window is the word "[employer] must ." When asked what these all mean, the patient is minimal in conversation and states that she is "trying to figure what I am going to do for work. [employer]." She has been adherent with her medications and is not reporting any side effects. She reports no suicidal or homicidal ideation, intention, and/or plan. She reports no auditory or visual hallucinations. She is in agreement to receive her loading dose of invega sustenna today. Mental Status Exam: General Appearance: Patient appears to be stated age is alert, directable, and cooperative. Slightly disheveled. Unkempt hair. Behavior: Patient is calmly seated without any agitated behavior. Noted by staff to scribble in crayon around the unit. Speech: Patient's speech is fluent and nonpressured. Nonlinear and difficult to follow. Mood/Affect: Mood is "okay." affect is flat. Suicidality/Homicidality: Patient denies having any suicidal or homicidal i deation intent or plan. Perceptions: Patient denies any visual hallucinations and denies any auditory hallucinations Though content/process: No overt paranoia but appears to be nonsensical in rega rds to work and the reasons for her scribbles. Memory and concentration: AOX3, grossly intact for the purposes of this session Judgment and insight: Poor Vital Signs Temp 98.4 F 01/12/22 06:46 Pulse 57 L 01/12/22 06:46 Resp 14 01/12/22 06:46 BP 81/44 01/12/22 06:46 Pulse Ox 98 01/09/22 05:30 FiO2 Assessment Schizophrenia Acute stress disorder Tobacco Use Disorder Plan: -Patient continues to meet criteria for inpatient psychiatric admission for symptom stabilization and safety. Patient has signed adult voluntary form and m edication consent and was placed in patient's chart. -Medications: Start invega sustenna 234 mg IM today. Discontinue oral invega. Start Prozac 20 mg daily for PTSD Taper temazepam to 7.5 mg by mouth at bedtime for acute stress disorder -When necessary Ativan and Haldol for agitation/aggression. -NRT - nicotine patch -SW on board for discharge planning. Encouraged the patient to participate in [facility].
[2022-01-13] MEDS: PALIPERIDONE 3 MG TAB.ER.24 PO SCH ×2 (01:03→10:08)
[2022-01-13] MEDS: TEMAZEPAM 7.5 MG CAP PO SCH ×2 (01:03→20:37)
[2022-01-13] MEDS: FLUoxetine HCL 20 MG CAP PO SCH (10:08)
[2022-01-13] MEDS: NICOTINE 14MG/24HR PATCH TRANSDERM SCH (10:08)
--- NOTE | 2022-01-13 11:54 | P.PN ---
Progress Note - Text Progress Note Date: 01/13/22 Interval History: Patient was seen sitting in the hallway and was agreeable to speak with the sheet writer in the hallway. Currently, the patient is not reporting any suicidal or homicidal ideation, intention, and/or plan. She is not reporting any auditory or visual hallucinations. However, the patient is nonsensical and nonlinear in her speech. The patient states that she has spoken with her [employer] consultant. She reports that she has Court scheduled on January 18 however this provider is unaware at this time. She does report that she receives the Invega injection every 5 months. She then states that this provider is not the one to give this medication to her. She fixates on this provider's badge and states nonsensical numbers and letters. After conversation, the patient is in agreement to receive Invega Sustenna "only if you give me the medication tonight." Mental Status Exam: General Appearance: Patient appears to be stated age is alert, directable, and cooperative. Slightly disheveled. Unkempt hair. Behavior: Patient is calmly seated without any agitated behavior. Speech: Patient's speech is fluent and nonpressured. Nonlinear and difficult to follow. Mood/Affect: Mood is "okay." affect is flat. Suicidality/Homicidality: Patient denies having any suicidal or homicidal ideation intent or plan. Perceptions: Patient denies any visual hallucinations and denies any auditory hallucinations Though content/process: Nonlinear, disorganized. Memory and concentration: AOX3, grossly intact for the purposes of this session Judgment and insight: Poor Vital Signs Temp 97.8 F 01/13/22 10:35 Pulse 67 01/13/22 10:35 Resp 14 01/13/22 10:35 BP 88/54 01/13/22 10:35 Pulse Ox 98 01/13/22 10:35 FiO2 Assessment Schizophrenia Acute stress disorder Tobacco Use Disorder Plan: -Patient continues to meet criteria for inpatient psychiatric admission for symptom stabilization and safety. Patient has signed adult voluntary form and medication consent and was placed in patient's chart. -Medications: Start invega sustenna 234 mg IM today. We will administer this medication at bedtime. Continue Prozac 20 mg daily for PTSD Continue temazepam 7.5 mg by mouth at bedtime for acute stress disorder -When necessary Ativan and Haldol for agitation/aggression. -NRT - nicotine patch -SW on board for discharge planning. Encouraged the patient to participate in milieu.
[2022-01-13] MEDS ORDERED: PALIPERIDONE IM 234 MG/1.5 ML SYG IM SCH (20:00)
[2022-01-14 06:47] VITALS: BP 102/52; PULSE 62; TEMP 97.9
[2022-01-14] MEDS: FLUoxetine HCL 20 MG CAP PO SCH (08:54)
[2022-01-14] MEDS: NICOTINE 14MG/24HR PATCH TRANSDERM SCH (08:54)
[2022-01-14] MEDS: PALIPERIDONE 3 MG TAB.ER.24 PO SCH (08:54)
[2022-01-14] MEDS ORDERED: FLUoxetine HCL 20 MG CAP PO STA (09:44)
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
[2022-01-15] MEDS ORDERED: FLUoxetine HCL 20 MG CAP PO SCH (09:00)
== END 2022-01-14 15:16 | DRG 885 ==
LOC: EC 13:34 → 3MHU 18:45
PROVIDERS: ADMIT Psychiatry & Neurology Psychiatry; ATTEND Psychiatry & Neurology Psychiatry
DX: F20.9 Schizophrenia, unspecified (principal); R45.851 Suicidal ideations; F31.9 Bipolar disorder, unspecified; E11.9 Type 2 diabetes mellitus without complications; F17.210 Nicotine dependence, cigarettes, uncomplicated; F43.0 Acute stress reaction; F43.10 Post-traumatic stress disorder, unspecified; M19.90 Unspecified osteoarthritis, unspecified site; Z20.822 Contact with and (suspected) exposure to COVID-19; Z79.4 Long term (current) use of insulin; Z79.899 Other long term (current) drug therapy; Z81.8 Family history of other mental and behavioral disorders; Z82.49 Family history of ischemic heart disease and other diseases of the circulatory system; Z86.32 Personal history of gestational diabetes
CPT/HCPCS: 36415; 80053; 80061; 80306; 81001; 81025; 82075; 82248; 83036; 84443; 85025; 87635; 96372; 99285

== ENCOUNTER → 2022-02-17 | Outpatient (CLI) | payer MEDICARE, OTHER ==
[2022-02-17 14:57] LABS: Basophils # (A) 0.05 X 10*3/uL (0.00-0.10); Basophils % (A) 0.5 %; Eosinophils # (A) 0.15 X 10*3/uL (0.04-0.35); Eosinophils % (A) 1.6 %; HCT 42.3 % (37.2-46.3); HGB 13.9 g/dL (12.0-15.0); Immature Grans, Automated 0.3 %; Lymphocytes # (A) 3.57 X 10*3/uL (0.90-5.00); Lymphocytes % (A) 37.3 %; MCH 30.3 pg (27.0-32.0); MCHC 32.9 g/dL (32.0-37.0); MCV 92.2 fL (80.0-97.0); Mean Platelet Volume 9.5 fL (9.5-12.2); Monocytes # (A) 0.57 X 10*3/uL (0.20-1.00); NRBC Per 100 WBC 0 /100 WBCS (0.0-0.0); Neutrophils % (A) 54.3 %; Platelet Count 458 X 10*3/uL (140-440); RBC 4.59 X 10*6/uL (4.10-5.20); RDW 13.2 % (11.5-14.5); WBC 9.57 X 10*3/uL (4.50-10.00)
[2022-02-17 16:22] LABS: African American GFR (CKD) 122.1 (60.0-200.0); Albumin 4.3 g/dL (3.8-4.9); Albumin/Globulin Ratio 1.65 (1.60-3.17); Anion Gap 9.8 mmol/L (10.00-18.00); BUN/Creat Ratio 17.71 Ratio (12.00-20.00); Blood Urea Nitrogen 12.4 mg/dL (9.0-27.0); Calcium 9.4 mg/dL (8.7-10.3); Carbon Dioxide 24.2 mmol/L (20.0-27.5); Globulin 2.6 g/dL (1.6-3.3); Non-African American GFR(CKD) 105.4 (60.0-200.0); Potassium 4.6 mmol/L (3.5-5.5); Total Bilirubin 0.2 mg/dL (0.30-1.20); Total Protein 6.9 g/dL (6.2-8.2)
[2022-02-17 16:43] LABS: Hepatitis B Surface Antigen Nonreactive (Nonreactive)
[2022-02-17 17:08] LABS: Alpha Fetoprotein, Tumor Mkr <1.82 ng/mL (0.00-7.90)
== END | disposition home or self-care (01) ==
LOC: LABWHC1 07:24
PROVIDERS: ATTEND Nurse Practitioner Family
DX: B18.2 Chronic viral hepatitis C (principal)
CPT/HCPCS: 36415; 80053; 82105; 85025; 86704; 87340; 87522

== ENCOUNTER 2022-04-22 16:31 | Emergency (ER) | payer MEDICARE, OTHER ==
[2022-04-22 16:43] VITALS: TEMP 98.1
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
[2022-04-22 17:31] VITALS: BP 137/79; PULSE 79; RESP 16
== END 2022-04-22 17:38 | disposition home or self-care (01) ==
LOC: EC 16:31
DX: R22.31 Localized swelling, mass and lump, right upper limb (principal); E11.9 Type 2 diabetes mellitus without complications; F41.9 Anxiety disorder, unspecified; F31.9 Bipolar disorder, unspecified; F17.200 Nicotine dependence, unspecified, uncomplicated; Z91.048 Other nonmedicinal substance allergy status; W49.04XA Ring or other jewelry causing external constriction, initial encounter
CPT/HCPCS: 99283

== ENCOUNTER 2022-05-18 22:30 | Inpatient (IN) | payer MEDICARE, MEDICAID ==
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
[2022-05-18 23:39] LABS: Basophils % (A) 0 %; Eosinophils # (A) 0.2 k/uL (0-0.7); Eosinophils % (A) 2 %; HCT 37.6 % (34.0-46.0); HGB 12.9 gm/dL (11.4-16.0); Lymphocytes # (A) 4.3 k/uL (1.0-4.8); Lymphocytes % (A) 42 %; MCH 30.6 pg (25.0-35.0); MCHC 34.4 g/dL (31.0-37.0); MCV 88.9 fL (80.0-100.0); Mean Platelet Volume 6.7; Monocytes # (A) 0.6 k/uL (0-1.0); Monocytes % (A) 6 %; Neutrophils % (A) 48 %; Platelet Count 406 k/uL (150-450); RBC 4.23 m/uL (3.80-5.40); RDW 12.7 % (11.5-15.5); WBC 10.4 k/uL (3.8-10.6)
[2022-05-18 23:48] LABS: ALT 34 U/L (4-34); AST 29 U/L (14-36); African American GFR (CKD) >90 (>60 ml/min/1.73 sqM); Albumin 3.9 g/dL (3.5-5.0); Alkaline Phosphatase 68 U/L (38-126); Anion Gap 6 mmol/L; Blood Urea Nitrogen 11 mg/dL (7-17); Calcium 8.9 mg/dL (8.4-10.2); Carbon Dioxide 26 mmol/L (22-30); Chloride 104 mmol/L (98-107); Glucose 157 mg/dL (74-99); Non-African American GFR(CKD) >90 (>60 ml/min/1.73 sqM); Sodium 136 mmol/L (137-145); Total Bilirubin 0.4 mg/dL (0.2-1.3); Total Protein 6.8 g/dL (6.3-8.2)
[2022-05-19] MEDS ORDERED: MAG HYDROX/AL HYDROX/SIMETH 30 ML CUP PO PRN (01:49)
[2022-05-19] MEDS ORDERED: ACETAMINOPHEN TAB 325 MG TAB PO PRN (01:49)
[2022-05-19] MEDS ORDERED: MAGNESIUM HYDROXIDE 2,400 MG/10 ML CUP PO PRN (01:49)
[2022-05-19 02:26] LABS: Appearance,Urine Cloudy (Clear); Bacteria,Urine Rare /hpf; Bilirubin,Urine Negative (Negative); Blood,Urine Negative (Negative); Color,Urine Yellow; Glucose,Urine (UA) Negative (Negative); Ketones,Urine Negative (Negative); Leukocyte Esterase,Urine Small (Negative); Mucus,Urine Few /hpf; Nitrite,Urine Negative (Negative); PH, Urine 5.5 (5.0-8.0); Protein,Urine Negative (Negative); RBC,Urine 3 /hpf (0-5); Specific Gravity,Urine 1.009 (1.001-1.035); Squamous Epithelial Cell,Urine 1 /hpf (0-4); Transitional Epi Cells,Urine 1 /hpf (0-1); Urobilinogen,Urine <2.0 mg/dL (<2.0); WBC,Urine 8 /hpf (0-5)
[2022-05-19 02:36] LABS: Amphetamine Screen,Urine Detected (NotDetected); Barbiturate Screen,Urine Not Detected (NotDetected); Benzodiazepines Screen,Urine Not Detected (NotDetected); Cocaine Screen,Urine Not Detected (NotDetected); Methadone Screen, Urine Not Detected (NotDetected); Opiate Screen,Urine Not Detected (NotDetected); Oxycodone Screen, Urine Not Detected (NotDetected); Phencyclidine Screen,Urine Not Detected (NotDetected); Tricyclic Antidepressant,Urine Not Detected (NotDetected); Urn Cannabinoid Scrn Not Detected (NotDetected)
[2022-05-19] MEDS: NICOTINE 14MG/24HR PATCH TRANSDERM SCH ×2 (09:27→10:35)
[2022-05-19] MEDS ORDERED: chlorproMAZINE 25 MG/ML 2 ML AMP IM PRN (11:46)
[2022-05-19] MEDS ORDERED: chlorproMAZINE 25 MG TAB PO PRN (11:46)
[2022-05-19] MEDS ORDERED: LORazepam 2 MG/ML INJ IM PRN (11:47)
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
[2022-05-19] MEDS: traZODone HCL 50 MG TAB PO SCH (20:57)
[2022-05-19] MEDS: risperiDONE 1 MG TAB PO SCH (20:57)
[2022-05-20 06:40] VITALS: RESP 16
[2022-05-20] MEDS: risperiDONE 1 MG TAB PO SCH ×2 (09:12→21:19)
[2022-05-20] MEDS: NICOTINE 14MG/24HR PATCH TRANSDERM SCH ×2 (09:14→09:26)
--- NOTE | 2022-05-20 11:28 | P.PN ---
Progress Note - Text Progress Note Date: 05/20/22 Interval History: Patient was seen resting in bed and was directable and agreeable to speak with documentation writer in her room. Currently, the patient is not linear or logical in conversation. She makes numerous delusional statements stating "I'm hunted. I know where the money is." She is quite disorganized. She is often reporting different numbers and is fixated on different "process #7, process #31" etc. she is however denying any suicidal or homicidal ideation, intention, and/or plan. She is not reporting any auditory or visual hallucinations. She reports adherence with her medication is not endorsing any significant side effect. She denies any issues regarding her sleep or her appetite. When inquiring about any substance use, the patient denies any recent methamphetamine use despite testing positive for methamphetamines prior to this admission. Mental Status Exam: General Appearance: Patient appears to be stated age is alert, directable, and cooperative. Behavior: Patient is seated upright in her bed but displays elevated psychomotor activity. Speech: Patient's speech is fluent and nonpressured. Nonlinear. Hyperverbal. Mood/Affect: Mood is "scared." Affect is congruent, scared, and anxious. Suicidality/Homicidality: Patient denies having any suicidal or homicidal ideation intent or plan. Perceptions: Patient denies any visual hallucinations and denies any auditory hallucinations Though content/process: The patient is displaying flight of ideas, loose associations, and his reporting multiple delusional thoughts processes. She is also fixated on numerology. Memory and concentration: Poor Judgment and insight: Very poor Vital Signs Temp 98.9 F 05/20/22 06:40 Pulse 58 L 05/20/22 06:40 Resp 16 05/20/22 06:40 BP 104/55 05/20/22 06:40 Pulse Ox 93 L 05/20/22 06:40 FiO2 Assessment Schizophrenia Methamphetamine use disorder Nicotine dependence Plan: -Patient continues to meet criteria for inpatient psychiatric admission for symptom stabilization and safety. Patient has signed adult voluntary form and medication consent and was placed in patient's chart. -Medications: Increase Risperdal to 2 mg by mouth twice a day for mood stabilization/psychosis - likely transition patient to Risperdal perseris prior to discharge. Trazodone 150 mg daily at bedtime for insomnia -When necessary Ativan and Thorazine for agitation/aggression. -NRT - nicotine patch -SW on board for discharge planning. Encouraged the patient to participate in milieu.
[2022-05-20] MEDS: hydrOXYzine pamoate 25 MG CAP PO PRN (11:35)
[2022-05-20] MEDS: traZODone HCL 50 MG TAB PO SCH (21:19)
--- NOTE | 2022-05-20 22:52 | P.MDCNMH ---
History of Present Illness H&P Date: 05/19/22 Chief Complaint: Psychiatric evaluation Patient is a 46-year-old female with a known history of diabetes/gestational diabetes, anxiety/depression and bipolar disorder and schizophrenia, occasional methamphetamine use and currently everyday smoker who brought to ER by police for psychiatric evaluation. Patient was petitioned by her guardian for psychiatric evaluation. Patient reportedly left her snf and has not been taking her medications. Otherwise patient stated that she did not have any suicidal have homicidal ideation. Patient is currently drowsy and sleepy. Otherwise denied any chest pain or shortness of breath. Patient is unable to provide good history. Laboratory data showed WBC 10.4 hemoglobin 12.9 and platelets 406 Sodium 136 potassium 4.0 chloride 104 bicarb is 26 BUN 11 and creatinine 0.67 and blood sugar is 157. Liver enzymes are not elevated. Albumin 3.9 and urinalysis showed cloudy with small leukocyte esterase UDS is positive for amphetamines and methamphetamines. COVID-19 PCR not detected. Review of Systems ROS unobtainable: due to mental status Past Medical History Past Medical History: Diabetes Mellitus, Osteoarthritis (OA) Additional Past Medical History / Comment(s): "GESTATIONAL DIABETES", GOES TO [facility] History of Any Multi-Drug Resistant Organisms: None Reported Past Surgical History: Section Additional Past Surgical History / Comment(s): POLA ARM SX WHEN CHILD-WENT THRU A WINDOW Past Anesthesia/Blood Transfusion Reactions: No Reported Reaction Additional Past Anesthesia/Blood Transfusion Reaction / Comment(s): CLAUSTERPHOBIA Smoking Status: Current every day smoker - Past Family History Father Additional Family Medical History / Comment(s): DEPRESSION, "PROBLEM WITH HIS PANCREAS" Mother Family Medical History: Hyperlipidemia, Hypertension Additional Family Medical History / Comment(s): DDD, NECK FUSION, KIDNEY CANCER Medications and Allergies Home Medications Medication Instructions Recorded Confirmed Type FLUoxetine HCL [PROzac] 40 mg PO DAILY 30 Days cap 01/14/22 Rx Nicotine 14Mg/24Hr Patch [Habitrol] 1 patch TRANSDERM DAILY 30 Days 01/14/22 Rx patch Paliperidone IM [Invega Sustenna] 156 mg IM QMONTHLY #1 each 01/14/22 Rx Paliperidone [Invega] 9 mg PO DAILY 7 Days tab 01/14/22 Rx diphenhydrAMINE [Benadryl] 25 mg PO HS 3 Days #3 capsule 03/12/22 Rx Allergies Allergy/AdvReac Type Severity Reaction Status Date / Time pollen extracts Allergy Rash/Hives Verified 05/18/22 22:39 Physical Exam Vitals: Vital Signs Temp Pulse Pulse Resp BP BP Pulse Ox 05/19/22 02:43 97.4 F L 79 18 130/79 96 05/18/22 22:35 97.5 F L 70 20 114/79 99 Intake and Output 05/18/22 05/19/22 05/19/22 22:59 06:59 14:59 Other: Weight 68.946 kg 83.5 kg PHYSICAL EXAMINATION: Patient is lying in the bed comfortably, no acute distress, awake alert but somnolent.. HEENT: Normocephalic. Neck is supple. Pupils reactive. Nostrils clear. Oral cavity is moist. Neck reveals no JVD, carotid bruits, or thyromegaly. CHEST EXAMINATION: Trachea is central. Symmetrical expansion. Lung merino clear to auscultation and percussion. CARDIAC: Normal S1, S2 with no gallops. No murmurs ABDOMEN: Soft. Bowel sounds present. Nontender. No organomegaly. No abdominal bruits. Extremities: reveal no edema. No clubbing or cyanosis Neurologically awake, alert, oriented x3. No focal neurological deficit. Skin: No rash or skin lesions. Psychiatric: Noncooperative. Denies suicidal ideation. Musculoskeletal: No joint swelling or deformity. Cranial Nerve Examination - Cranial Nerves Cranial Nerve I- Olfactory: Intact Cranial Nerve II- Optic: Intact Cranial Nerve III- Oculomotor: Intact Cranial Nerve IV- Trochlear: Intact Cranial Nerve V- Trigeminal: Intact Cranial Nerve - Abducens: Intact Cranial Nerve VII- Facial: Intact Cranial Nerve VIII- Auditory: Intact Cranial Nerve IX- Glossopharyngeal: Intact Cranial Nerve X- Vagus: Intact Cranial Nerve XI- Accessory: Intact Cranial Nerve XII- Hypoglossal: Intact Results CBC & Chem 7: 05/18/22 23:27 05/18/22 23:27 Labs: Abnormal Lab Results - Last 24 Hours (Table) 05/18/22 05/19/22 05/19/22 Range/Units 23:27 01:56 01:56 Sodium 136 L (137-145) mmol/L Glucose 157 H (74-99) mg/dL Urine Appearance Cloudy H (Clear) Ur Leukocyte Esterase Small H (Negative) Urine WBC 8 H (0-5) /hpf Urine WBC Clumps Rare H (None) /hpf Urine Bacteria Rare H (None) /hpf Urine Mucus Few H (None) /hpf Ur Amphetamines Screen Detected H (NotDetected) U Methamphetamines Scrn Detected H (NotDetected) Assessment and Plan Assessment: Schizophrenia Noncompliance with medications Methamphetamine use disorder Ongoing nicotine addiction Gestational diabetes with mild hyperglycemia. Follow-up A1c level DVT prophylaxis with early ambulation Plan: Patient will be continued on current psychiatric medications including Risperdal and trazodone and Ativan as needed for agitation. Will check A1c level and Accu-Cheks AC and at bedtime. Further recommendations based on clinical course. Smoking cessation and counseling once patient is more awake. Thank you for your consult.
[2022-05-21 08:44] LABS: ALT 28 U/L (4-34); AST 23 U/L (14-36); African American GFR (CKD) >90 (>60 ml/min/1.73 sqM); Albumin 3.8 g/dL (3.5-5.0); Alkaline Phosphatase 68 U/L (38-126); Anion Gap 7 mmol/L; Blood Urea Nitrogen 11 mg/dL (7-17); Calcium 9.1 mg/dL (8.4-10.2); Carbon Dioxide 23 mmol/L (22-30); Chloride 107 mmol/L (98-107); Glucose 152 mg/dL (74-99); Non-African American GFR(CKD) >90 (>60 ml/min/1.73 sqM); Sodium 137 mmol/L (137-145); Total Bilirubin 0.4 mg/dL (0.2-1.3); Total Protein 6.6 g/dL (6.3-8.2)
[2022-05-21 09:03] LABS: Basophils % (A) 0 %; Eosinophils # (A) 0.2 k/uL (0-0.7); Eosinophils % (A) 2 %; HCT 39.9 % (34.0-46.0); HGB 13.9 gm/dL (11.4-16.0); Lymphocytes # (A) 4.1 k/uL (1.0-4.8); Lymphocytes % (A) 49 %; MCH 30.9 pg (25.0-35.0); MCHC 34.7 g/dL (31.0-37.0); Mean Platelet Volume 7.4; Monocytes # (A) 0.4 k/uL (0-1.0); Monocytes % (A) 5 %; Neutrophils # (A) 3.4 k/uL (1.3-7.7); Neutrophils % (A) 41 %; Platelet Count 387 k/uL (150-450); RBC 4.48 m/uL (3.80-5.40); RDW 13.1 % (11.5-15.5); WBC 8.2 k/uL (3.8-10.6)
[2022-05-21] MEDS: INSULIN ASPART (NovoLOG) 100 UNIT/ML VIAL SQ SCH ×4 (09:48→20:37)
[2022-05-21] MEDS: NICOTINE 14MG/24HR PATCH TRANSDERM SCH (10:00)
[2022-05-21] MEDS: risperiDONE 1 MG TAB PO SCH ×2 (10:01→20:36)
--- NOTE | 2022-05-21 12:36 | P.PN ---
Progress Note - Text Progress Note Date: 05/21/22 Interval History: Patient was seen resting in bed and was directable and agreeable to speak with manual writer in her room. Currently, the patient is not reporting any suicidal or homicidal ideation, intention, and/or plan. She is not reporting any auditory or visual hallucinations. She denies any paranoia or other delusions. She has been adherent with her medication is not reporting any significant side effects. She reports no issues regarding sleep or her appetite. She reports no medical issues or concerns. Mental Status Exam: General Appearance: Patient appears to be stated age is alert, directable, and cooperative. Behavior: Patient is lying down in bed without any agitated behavior. Appropriate eye contact. Speech: Patient's speech is fluent and nonpressured. Nonlinear. Hyperverbal. Mood/Affect: Mood is "doing okay" Affect is congruent and euthymic. Suicidality/Homicidality: Patient denies having any suicidal or homicidal ideation intent or plan. Perceptions: Patient denies any visual hallucinations and denies any auditory hallucinations Though content/process: [place]. Minimal in conversation. Linear and logical in short conversation. Memory and concentration: Mildly improving. Judgment and insight: Mildly improving Vital Signs Temp 97.1 F L 05/21/22 06:00 Pulse 64 05/21/22 06:00 Resp 16 05/21/22 06:00 BP 96/51 05/21/22 06:00 Pulse Ox 93 L 05/21/22 06:00 FiO2 Laboratory Results WBC 8.2 k/uL (3.8-10.6) 05/21/22 07:43 RBC 4.48 m/uL (3.80-5.40) 05/21/22 07:43 Hgb 13.9 gm/dL (11.4-16.0) 05/21/22 07:43 Hct 39.9 % (34.0-46.0) 05/21/22 07:43 MCV 89.0 fL (80.0-100.0) 05/21/22 07:43 MCH 30.9 pg (25.0-35.0) 05/21/22 07:43 MCHC 34.7 g/dL (31.0-37.0) 05/21/22 07:43 RDW 13.1 % (11.5-15.5) 05/21/22 07:43 Plt Count 387 k/uL (150-450) 05/21/22 07:43 MPV 7.4 05/21/22 07:43 Neutrophils % 41 % 05/21/22 07:43 Lymphocytes % 49 % 05/21/22 07:43 Monocytes % 5 % 05/21/22 07:43 Eosinophils % 2 % 05/21/22 07:43 Basophils % 0 % 05/21/22 07:43 Neutrophils # 3.4 k/uL (1.3-7.7) 05/21/22 07:43 Lymphocytes # 4.1 k/uL (1.0-4.8) 05/21/22 07:43 Monocytes # 0.4 k/uL (0-1.0) 05/21/22 07:43 Eosinophils # 0.2 k/uL (0-0.7) 05/21/22 07:43 Basophils # 0.0 k/uL (0-0.2) 05/21/22 07:43 Sodium 137 mmol/L (137-145) 05/21/22 07:43 Potassium 5.0 mmol/L (3.5-5.1) 05/21/22 07:43 Chloride 107 mmol/L (98-107) 05/21/22 07:43 Carbon Dioxide 23 mmol/L (22-30) 05/21/22 07:43 Anion Gap 7 mmol/L 05/21/22 07:43 BUN 11 mg/dL (7-17) 05/21/22 07:43 Creatinine 0.68 mg/dL (0.52-1.04) 05/21/22 07:43 Est GFR (CKD-EPI)AfAm >90 (>60 ml/min/1.73 sqM) 05/21/22 07:43 Est GFR (CKD-EPI)NonAf >90 (>60 ml/min/1.73 sqM) 05/21/22 07:43 Glucose 152 mg/dL (74-99) H 05/21/22 07:[address] Glu mg/dL 154 05/21/22 07:43 Hemoglobin A1c 7.0 % (0.0-6.0) H 05/21/22 07:43 Calcium 9.1 mg/dL (8.4-10.2) 05/21/22 07:43 Total Bilirubin 0.4 mg/dL (0.2-1.3) 05/21/22 07:43 AST 23 U/L (14-36) 05/21/22 07:43 ALT 28 U/L (4-34) 05/21/22 07:43 Alkaline Phosphatase 68 U/L (38-126) 05/21/22 07:43 Total Protein 6.6 g/dL (6.3-8.2) 05/21/22 07:43 Albumin 3.8 g/dL (3.5-5.0) 05/21/22 07:43 TSH 0.524 mIU/L (0.465-4.680) 05/21/22 07:43 Urine Color Yellow 05/19/22 01:56 Urine Appearance Cloudy (Clear) H 05/19/22 01:56 Urine pH 5.5 (5.0-8.0) 05/19/22 01:56 Ur Specific [place]andrews 1.009 (1.001-1.035) 05/19/22 01:56 Urine Protein Negative (Negative) 05/19/22 01:56 Urine Glucose (UA) Negative (Negative) 05/19/22 01:56 Urine Ketones Negative (Negative) 05/19/22 01:56 Urine Blood Negative (Negative) 05/19/22 01:56 Urine Nitrite Negative (Negative) 05/19/22 01:56 Urine Bilirubin Negative (Negative) 05/19/22 01:56 Urine Urobilinogen <2.0 mg/dL (<2.0) 05/19/22 01:56 Ur Leukocyte Esterase Small (Negative) H 05/19/22 01:56 Urine RBC 3 /hpf (0-5) 05/19/22 01:56 Urine WBC 8 /hpf (0-5) H 05/19/22 01:56 Urine WBC Clumps Rare /hpf (None) H 05/19/22 01:56 Ur Squamous Epith Cells 1 /hpf (0-4) 05/19/22 01:56 Ur Transition Epith Cell 1 /hpf (0-1) 05/19/22 01:56 Urine Bacteria Rare /hpf (None) H 05/19/22 01:56 Urine Mucus Few /hpf (None) H 05/19/22 01:56 Urine HCG, Qual Not Detected (Not Detectd) 05/19/22 01:56 Urine Opiates Screen Not Detected (NotDetected) 05/19/22 01:56 Ur Oxycodone Screen Not Detected (NotDetected) 05/19/22 01:56 Urine Methadone Screen Not Detected (NotDetected) 05/19/22 01:56 Ur Propoxyphene Screen Not Detected (NotDetected) 05/19/22 01:56 Ur Barbiturates Screen Not Detected (NotDetected) 05/19/22 01:56 U Tricyclic Antidepress Not Detected (NotDetected) 05/19/22 01:56 Ur Phencyclidine Scrn Not Detected (NotDetected) 05/19/22 01:56 Ur Amphetamines Screen Detected (NotDetected) H 05/19/22 01:56 U Methamphetamines Scrn Detected (NotDetected) H 05/19/22 01:56 U Benzodiazepines Scrn Not Detected (NotDetected) 05/19/22 01:56 Urine Cocaine Screen Not Detected (NotDetected) 05/19/22 01:56 U Marijuana (THC) Screen Not Detected (NotDetected) 05/19/22 01:56 Coronavirus (PCR) Not Detected (Not Detectd) 05/18/22 23:27 Assessment Schizophrenia Methamphetamine use disorder Nicotine dependence Plan: -Patient continues to meet criteria for inpatient psychiatric admission for symptom stabilization and safety. Patient has signed adult voluntary form and medication consent and was placed in patient's chart. -Medications: Continue Risperdal 2 mg by mouth twice a day for mood stabilization/psychosis - we will administer Risperdal perseris over the weekend. Trazodone 150 mg daily at bedtime for insomnia -When necessary Ativan and Thorazine for agitation/aggression. -NRT - nicotine patch -SW on board for discharge planning. Encouraged the patient to participate in milieu.
[2022-05-21 13:10] LABS: Glucose,Whole Blood 136 mg/dL (70-110)
[2022-05-21 16:00] LABS: Chol/HDL Ratio 3.87 Ratio; LDL Cholesterol,Calculated 93.2 mg/dL (0.0-131.0)
[2022-05-21 17:24] LABS: Glucose,Whole Blood 115 mg/dL (70-110)
[2022-05-21 19:53] LABS: Glucose,Whole Blood 210 mg/dL (70-110)
[2022-05-21] MEDS: traZODone HCL 50 MG TAB PO SCH (20:37)
[2022-05-22] MEDS: INSULIN ASPART (NovoLOG) 100 UNIT/ML VIAL SQ SCH (08:47)
[2022-05-22] MEDS: NICOTINE 14MG/24HR PATCH TRANSDERM SCH (08:54)
[2022-05-22] MEDS: risperiDONE 1 MG TAB PO SCH ×2 (08:54→20:19)
[2022-05-22] MEDS ORDERED: risperiDONE 120 MG SYR (NO COST) PHARMACY STOCK SQ SCH (12:45)
[2022-05-22 12:56] LABS: Glucose,Whole Blood 154 mg/dL (70-110)
[2022-05-22 17:43] LABS: Glucose,Whole Blood 161 mg/dL (70-110)
[2022-05-22 19:56] LABS: Glucose,Whole Blood 226 mg/dL (70-110)
[2022-05-22] MEDS: hydrOXYzine pamoate 25 MG CAP PO PRN (20:19)
[2022-05-22] MEDS: traZODone HCL 50 MG TAB PO SCH (20:19)
[2022-05-23 07:44] LABS: Glucose,Whole Blood 175 mg/dL (70-110)
[2022-05-23] MEDS: NICOTINE 14MG/24HR PATCH TRANSDERM SCH (09:51)
[2022-05-23] MEDS: risperiDONE 1 MG TAB PO SCH (09:51)
[2022-05-23 12:41] LABS: Glucose,Whole Blood 149 mg/dL (70-110)
[2022-05-23 17:57] LABS: Glucose,Whole Blood 93 mg/dL (70-110)
--- NOTE | 2022-05-23 19:15 | P.PN ---
Progress Note - Text Progress Note Date: 05/22/22 Interval history: Patient was seen resting in her bed and is very tearful, sobbing alone in her room in the dark. She was directable and agreeable to speak with resume writer, however responses were rambled and difficult to understand fully. She reports feeling "really depressed" because she hasn't heard from her family. She reports suicidal thoughts and appears to be attending to internal stimuli, but has difficulty elaborating due to thought blocking. Patient denies any side effects from the medications and has been compliant with meds. She received her Risperidone Perseris 120 mg IM injection today. Mental status exam: General Appearance: Patient appears to be stated age, disheveled, dressed in hooded sweatshirt with arroyo covering her hair and part of her face. Behavior: No agitated behavior. Patient is sobbing alone in her room, laying in her bed in the dark. Speech: Patient's speech is rambled. Mood/Affect: Mood is "really depressed", affect is congruent and constricted. Suicidality/Homicidality: Patient reports feeling suicidal but does not elaborate. Perceptions: Patient denies any auditory or visual hallucinations, but appears to be attending to internal stimuli. Though content/process: There is evidence of paranoid delusional thought content and thought process is rambled and disorganized. Memory and concentration: AOX3, grossly intact for the purposes of this session Judgment and insight: poor Assessment/Plan: Continue with current diagnosis. Patient continues to meet criteria for inpatient psychiatric admission for symptom stabilization and safety. Monitor for medication compliance and for any psychotropic medication side effects. Will continue to monitor ongoing response to treatment. Encouraged participation in milieu.
--- NOTE | 2022-05-23 19:20 | P.PN ---
Progress Note - Text Progress Note Date: 05/23/22 Interval history: Patient was seen resting in her bed, is alone in her room with the lights off. She is not tearful as she was yesterday, but continues to report depressed mood and has disorganized and nonsensical thoughts. She states "I don't pay enough attention...feeling kidnapped..." She continues to report suicidal thoughts that are "coming to me and coming out of me." She appears to be attending to internal stimuli, but denies auditory or visual hallucinations when asked directly. Patient denies any side effects from the medications and has been compliant with meds. She received her Risperidone Perseris 120 mg IM injection yesterday. She did not attend groups today, is mostly withdrawn and isolative. Mental status exam: General Appearance: Patient appears to be stated age, disheveled, dressed in hooded sweatshirt with arroyo covering her hair and part of her face. Behavior: No agitated behavior. Patient is resting in bed, alone in her room, in the dark. Withdrawn, isolative. Speech: Patient's speech is mumbled and at times incoherent. Mood/Affect: Mood is "depressed", affect is congruent and constricted. Suicidality/Homicidality: Patient reports feeling suicidal, but denies HI. Perceptions: Patient appears to be attending to internal stimuli, but denies AH or VH when asked directly. Though content/process: There is evidence of paranoid delusional thought content and thought process is rambled and disorganized. Memory and concentration: AOX3, grossly intact for the purposes of this session Judgment and insight: poor Assessment/Plan: Continue with current diagnosis. Patient continues to meet criteria for inpatient psychiatric admission for symptom stabilization and safety. Monitor for medication compliance and for any psychotropic medication side effects. Will continue to monitor ongoing response to treatment. Encouraged participat ion in milieu.
[2022-05-23 19:54] LABS: Glucose,Whole Blood 124 mg/dL (70-110)
[2022-05-23] MEDS: traZODone HCL 50 MG TAB PO SCH (19:56)
[2022-05-24 06:42] VITALS: BP 106/58; PULSE 53; TEMP 97.7
[2022-05-24] MEDS: NICOTINE 14MG/24HR PATCH TRANSDERM SCH (09:52)
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
== END 2022-05-24 12:46 | DRG 885 ==
LOC: EC 22:30 → 3MHU 05-19 01:59
PROVIDERS: ADMIT Psychiatry & Neurology Psychiatry; ATTEND Psychiatry & Neurology Psychiatry
DX: F20.9 Schizophrenia, unspecified (principal); R45.851 Suicidal ideations; Z91.128 Patient's intentional underdosing of medication regimen for other reason; F15.10 Other stimulant abuse, uncomplicated; E11.65 Type 2 diabetes mellitus with hyperglycemia; F31.9 Bipolar disorder, unspecified; Z28.310 Unvaccinated for COVID-19; Z20.822 Contact with and (suspected) exposure to COVID-19; T50.916A Underdosing of multiple unspecified drugs, medicaments and biological substances, initial encounter; F17.210 Nicotine dependence, cigarettes, uncomplicated; F41.0 Panic disorder [episodic paroxysmal anxiety]; G47.00 Insomnia, unspecified; J30.1 Allergic rhinitis due to pollen; M19.90 Unspecified osteoarthritis, unspecified site; Z79.899 Other long term (current) drug therapy; Z71.41 Alcohol abuse counseling and surveillance of alcoholic; Z71.6 Tobacco abuse counseling; Z71.51 Drug abuse counseling and surveillance of drug abuser; Z91.51 Personal history of suicidal behavior; Z86.32 Personal history of gestational diabetes; Z81.8 Family history of other mental and behavioral disorders
CPT/HCPCS: 36415; 80053; 80061; 80306; 81001; 81025; 82075; 83036; 84443; 85025; 87635; 99285

== ENCOUNTER 2022-09-29 15:57 | Inpatient (IN) | payer MEDICARE, MEDICAID ==
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
[2022-09-29] MEDS ORDERED: diphenhydrAMINE 50 MG/ML 1 ML VIAL IM STA (18:59)
[2022-09-29] MEDS ORDERED: HALOPERIDOL LACTATE 5 MG/ML 1 ML VIAL IM STA ×2 (19:00→19:01)
[2022-09-29] MEDS ORDERED: LORazepam 2 MG/ML INJ IM STA (19:00)
[2022-09-29 19:52] LABS: Basophils % (A) 0 %; Eosinophils # (A) 0.1 k/uL (0-0.7); Eosinophils % (A) 1 %; HCT 38.3 % (34.0-46.0); HGB 13.3 gm/dL (11.4-16.0); Lymphocytes # (A) 3.8 k/uL (1.0-4.8); Lymphocytes % (A) 33 %; MCHC 34.8 g/dL (31.0-37.0); Mean Platelet Volume 7.1; Monocytes # (A) 0.6 k/uL (0-1.0); Monocytes % (A) 5 %; Neutrophils # (A) 6.9 k/uL (1.3-7.7); Neutrophils % (A) 59 %; Platelet Count 374 k/uL (150-450); RDW 13.4 % (11.5-15.5); WBC 11.7 k/uL (3.8-10.6)
[2022-09-29 20:05] LABS: ALT 14 U/L (4-34); AST 20 U/L (14-36); African American GFR (CKD) >90 (>60 ml/min/1.73 sqM); Albumin 3.9 g/dL (3.5-5.0); Alkaline Phosphatase 74 U/L (38-126); Anion Gap 9 mmol/L; Blood Urea Nitrogen 8 mg/dL (7-17); Calcium 9.2 mg/dL (8.4-10.2); Carbon Dioxide 24 mmol/L (22-30); Chloride 105 mmol/L (98-107); Glucose 122 mg/dL (74-99); Non-African American GFR(CKD) >90 (>60 ml/min/1.73 sqM); Potassium 3.4 mmol/L (3.5-5.1); Sodium 138 mmol/L (137-145); Total Bilirubin 0.6 mg/dL (0.2-1.3)
[2022-09-30] MEDS ORDERED: MAG HYDROX/AL HYDROX/SIMETH 30 ML CUP PO PRN (00:56)
[2022-09-30] MEDS ORDERED: MAGNESIUM HYDROXIDE 2,400 MG/30 ML CUP PO PRN (00:56)
[2022-09-30] MEDS ORDERED: IBUPROFEN 600 MG TAB PO PRN (00:56)
[2022-09-30] MEDS ORDERED: ACETAMINOPHEN TAB 325 MG TAB PO PRN (00:56)
[2022-09-30] MEDS ORDERED: LORazepam 2 MG/ML INJ IM PRN (01:02)
[2022-09-30] MEDS ORDERED: HALOPERIDOL LACTATE 5 MG/ML 1 ML VIAL IM PRN (01:03)
--- NOTE | 2022-09-30 03:58 | P.PN ---
Progress Note - Text Progress Note Date: 09/30/22 new consult , could not be seen as she is medicated and sleeping at this time
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
[2022-09-30] MEDS: NICOTINE 21MG/24HR PATCH TRANSDERM SCH (15:04)
[2022-09-30] MEDS: LORazepam 1 MG TAB PO PRN (18:56)
[2022-09-30] MEDS: haloperidoL 5 MG TAB PO PRN (18:56)
[2022-09-30] MEDS: risperiDONE 1 MG TAB PO SCH (21:19)
[2022-10-01] MEDS: NICOTINE 21MG/24HR PATCH TRANSDERM SCH ×2 (10:25→17:37)
[2022-10-01] MEDS: risperiDONE 1 MG TAB PO SCH ×2 (10:26→20:42)
--- NOTE | 2022-10-01 11:33 | P.PN ---
Progress Note - Text Progress Note Date: 10/01/22 Interval History: Patient was seen in her room and was directable and agreeable to speak with fiction and nonfiction writer prose in in her room. And lay, the patient is not reporting any suicidal or homicidal ideation, intention, and/or plan. She is not reporting any auditory or visual hallucinations. She denies any paranoia or other delusions. She refused her medications this morning however is unable to provide a clear reason to this provider as to why. She reports that she is sleeping and eating well. She reports no side effects of the medication she did take. She remained superficial in her responses. Mental Status Exam: General Appearance: Patient appears to be stated age is alert, directable, and cooperative. Behavior: Patient is calmly standing in her room looking out the window. Speech: Patient's speech is fluent and nonpressured. Nonspontaneous. Mood/Affect: Mood is improving mildly, affect is congruent and constricted. Suicidality/Homicidality: Patient denies any suicidal or homicidal ideation. Perceptions: Patient denies any visual hallucinations and denies any auditory hallucinations Though content/process: [place], superficial Memory and concentration: AOX3, grossly intact for the purposes of this session Judgment and insight: Poor at baseline Vital Signs Temp 98.0 F 09/30/22 02:17 Pulse 92 09/30/22 02:17 Resp 14 09/30/22 02:17 BP 120/74 09/30/22 02:17 Pulse Ox 98 09/29/22 16:27 FiO2 Laboratory Results - Last 24 Hours 09/29/22 19:[address] Glu mg/dL 174 Hemoglobin A1c 7.7 H Assessment Schizophrenia Methamphetamine use disorder Nicotine dependence Plan: -Patient continues to meet criteria for inpatient psychiatric admission for symptom stabilization and safety. A second certification was filled out for court. -Medications: Keron Risperdal to 3 mg by mouth at bedtime with plans to transition the patient back to long-acting injectable medication. We may have to wait for court order. -When necessary Ativan and Haldol for agitation/aggression. -NRT - nicotine patch -SW on board for discharge planning. Encouraged the patient to participate in milieu.
[2022-10-01 11:44] LABS: Chol/HDL Ratio 3.19 Ratio; LDL Cholesterol,Calculated 81.7 mg/dL (0.0-131.0); VLDL Calculation 18.48 mg/dL (5.00-40.00)
[2022-10-01] MEDS ORDERED: BENZOCAINE 20 % GEL 11.9 GM TUBE MM PRN (13:10)
--- NOTE | 2022-10-01 18:00 | P.MDCNMH ---
History of Present Illness H&P Date: 10/01/22 Chief Complaint: Medical management 47-year-old woman with medical history of diabetes presented for mental health evaluation. Medicine was consulted for medical management. Patient has no complaints at this time, denied any medical history or her medications. Gen: awake, alert HEENT: normocephalic, atraumatic, good hearing acuity, moist mucous membranes Resp: good air exchange, breathing comfortably with no accessory muscle use CVS: good distal perfusion x 4, GI: soft, NTTP, ND : no SPT, no CVAT, davis catheter not present MSK: no pitting edema, no clubbing Neuro: non-focal, moving all extremities Psych: cooperative, euthymic mood Assessment: Diabetes type 2 Schizophrenia Plan: Vital signs reviewed, afebrile, 120/74, heart rate 92, 98% on room air. CBC s hows mild leukocytosis to 11.7. Basic metabolic panel shows mild elevation of glucose to 122. Hemoglobin A1c was 7.7. Lipid panel is unremarkable. Liver function tests are unremarkable. Covid was negative. Start patient on metformin 500 mg twice a day Start patient on 20 mg atorvastatin at bedtime given her ASCVD risk profile Patient is full code Past Medical History Past Medical History: Diabetes Mellitus, Osteoarthritis (OA) Additional Past Medical History / Comment(s): "GESTATIONAL DIABETES", GOES TO [facility] History of Any Multi-Drug Resistant Organisms: None Reported Past Surgical History: Section Additional Past Surgical History / Comment(s): POLA ARM SX WHEN CHILD-WENT THRU A WINDOW Past Anesthesia/Blood Transfusion Reactions: No Reported Reaction Additional Past Anesthesia/Blood Transfusion Reaction / Comment(s): CLAUSTERPHOBIA Past Psychological History: Anxiety, Bipolar, Panic Disorder, Schizophrenia Additional Psychological History / Comment(s): . HAS 1 DOGS, NO HOSPITAL EQUIPMENT.NO OUTSIDE SERVICES. GOES TO [employer]. Is going to live with her mom Smoking Status: Current every day smoker Past Alcohol Use History: Occasional Additional Past Alcohol Use History / Comment(s): STARTED SMOKING AT AGE 31- SMOKES 1 PPD Past Drug Use History: Methamphetamine - Past Family History Father Additional Family Medical History / Comment(s): DEPRESSION, "PROBLEM WITH HIS PANCREAS" Mother Family Medical History: Hyperlipidemia, Hypertension Additional Family Medical History / Comment(s): DDD, NECK FUSION, KIDNEY CANCER Medications and Allergies Home Medications Medication Instructions Recorded Confirmed Type No Known Home Medications 09/29/22 10/01/22 History Allergies Allergy/AdvReac Type Severity Reaction Status Date / Time pollen extracts Allergy Rash/Hives Verified 10/01/22 11:00 Physical Exam Osteopathic Statement: *. No significant issues noted on an osteopathic structural exam other than those noted in the History and Physical/Consult. Cranial Nerve Examination - Cranial Nerves Cranial Nerve II- Optic: Intact Cranial Nerve III- Oculomotor: Intact Cranial Nerve IV- Trochlear: Intact Cranial Nerve V- Trigeminal: Intact Cranial Nerve - Abducens: Intact Cranial Nerve VII- Facial: Intact Cranial Nerve VIII- Auditory: Intact Cranial Nerve IX- Glossopharyngeal: Intact Cranial Nerve X- Vagus: Intact Cranial Nerve XI- Accessory: Intact Cranial Nerve XII- Hypoglossal: Intact Results CBC & Chem 7: 09/29/22 19:41 09/29/22 19:41 Labs: Abnormal Lab Results - Last 24 Hours (Table) 09/29/22 Range/Units 19:41 Hemoglobin A1c 7.7 H (<=6.0) %
[2022-10-01] MEDS: metFORMIN 500 MG TAB PO SCH (18:43)
[2022-10-01] MEDS: ATORVASTATIN 20 MG TAB PO SCH (20:42)
[2022-10-02] MEDS: NICOTINE 21MG/24HR PATCH TRANSDERM SCH (09:47)
[2022-10-02] MEDS: metFORMIN 500 MG TAB PO SCH ×2 (09:47→17:35)
--- NOTE | 2022-10-02 13:56 | P.PN ---
Subjective Progress Note Date: 10/02/22 Principal diagnosis: Assessment Schizophrenia Methamphetamine use disorder Nicotine dependence Patient Name: Evelyn Camargo Date of : 79 Patient Status: Inpatient Attending Provider: Tino Kilgore Date: 10/02/22 Follow-up by Dr. Aquiles Singh M.D. Interval History: Patient was seen in her room and was directable and agreeable to speak with global technical writer in in her room. the patient is not reporting any suicidal or homicidal ideation, intention, and/or plan. She is not reporting any auditory or visual hallucinations. She denies any paranoia or other delusions. She admits that she was using methamphetamine and cannabis before she was hospitalized She stated that she is currently homeless She reports that she's not sure as to why she was brought here as she was just walking on the streets and the police picked her up and brought her and She reports that she is sleeping and eating well. She reports no side effects of the medication she did take. She remained superficial in her responses. Mental Status Exam: General Appearance: Patient appears to be stated age is alert, directable, and cooperative. Behavior: Patient is calmly standing in her room looking out the window. Speech: Patient's speech is fluent and nonpressured. Nonspontaneous. Mood/Affect: Mood is improving mildly, affect is congruent and constricted. Suicidality/Homicidality: Patient denies any suicidal or homicidal ideation. Perceptions: Patient denies any visual hallucinations and denies any auditory hallucinations Though content/process: [place], superficial Memory and concentration: AOX3, grossly intact for the purposes of this session Judgment and insight: Poor at baseline Assessment Schizophrenia Methamphetamine use disorder Nicotine dependence Plan: -Patient continues to meet criteria for inpatient psychiatric admission for symptom stabilization and safety. A second certification was filled out for court. -Medications: Risperdal to 3 mg by mouth at bedtime with plans to transition the patient back to long-acting injectable medication. We may have to wait for court order. -When necessary Ativan and Haldol for agitation/aggression. -NRT - nicotine patch -SW on board for discharge planning. Encouraged the patient to participate in milieu. Aquiles Singh M.D. 10/02/2022 Objective - Vital Signs Vital signs: Vital Signs Temp 98.3 F 10/02/22 07:08 Pulse 109 H 10/02/22 07:08 Resp 18 10/02/22 07:08 BP 104/57 10/02/22 07:08 Pulse Ox 97 10/02/22 07:08 FiO2 - Labs CBC & Chem 7: 09/29/22 19:41 09/29/22 19:41
[2022-10-02] MEDS: risperiDONE 1 MG TAB PO SCH (21:24)
[2022-10-02] MEDS: ATORVASTATIN 20 MG TAB PO SCH (21:24)
[2022-10-02] MEDS: LORazepam 1 MG TAB PO PRN (21:27)
[2022-10-03] MEDS: metFORMIN 500 MG TAB PO SCH ×2 (09:02→17:09)
[2022-10-03] MEDS: NICOTINE 21MG/24HR PATCH TRANSDERM SCH (09:02)
--- NOTE | 2022-10-03 10:13 | P.PN ---
Subjective Progress Note Date: 10/03/22 Principal diagnosis: Assessment Schizophrenia Methamphetamine use disorder Nicotine dependence Patient Name: Evelyn Camargo Date of : 79 Patient Status: Inpatient Attending Provider: Tino Kilgore Date: 10/03/22 Follow-up by Dr. Aquiles Singh M.D. Interval History: The patient was seen in her room where she was laying in bed Patient mostly respond with grunts and he would not cooperate with this interv iew Patient had several have eaten packets of crackers scattered around the room The room also looked disheveled with thrown things around Mental Status Exam: General Appearance: Patient appears to be stated age is not alert, not directable, and uncooperative. Behavior: Patient is laying down in bed and refused to acknowledge this investigative writer She occasionally she would make grunting sounds acknowledging any questions Speech: Patient's speech is very limited Nonspontaneous. Mood/Affect: Mood is constricted and irritable Suicidality/Homicidality: Patient denies any suicidal or homicidal ideation. Perceptions: Patient denies any visual hallucinations and denies any auditory hallucinations Though content/process: [place], superficial Memory and concentration: AOX3, grossly intact for the purposes of this session Judgment and insight: Poor at baseline Assessment Schizophrenia Methamphetamine use disorder Nicotine dependence Plan: -Patient continues to meet criteria for inpatient psychiatric admission for symptom stabilization and safety. A second certification was filled out for court. -Medications: Risperdal to 3 mg by mouth at bedtime with plans to transition the patient back to long-acting injectable medication. We may have to wait for court order. -When necessary Ativan and Haldol for agitation/aggression. -NRT - nicotine patch -SW on board for discharge planning. Encouraged the patient to participate in milieu. Aquiles Singh M.D. 10/03/2022 Objective - Vital Signs Vital signs: Vital Signs Temp 98.3 F 10/02/22 07:08 Pulse 109 H 10/02/22 07:08 Resp 18 10/02/22 07:08 BP 104/57 10/02/22 07:08 Pulse Ox 97 10/02/22 07:08 FiO2 - Labs CBC & Chem 7: 09/29/22 19:41 09/29/22 19:41
[2022-10-03] MEDS: haloperidoL 5 MG TAB PO PRN (12:22)
[2022-10-03] MEDS: LORazepam 1 MG TAB PO PRN (12:22)
[2022-10-03] MEDS ORDERED: ALBUTEROL HFA INHALER INHALATION PRN (12:35)
[2022-10-03] MEDS: ATORVASTATIN 20 MG TAB PO SCH (20:26)
[2022-10-03] MEDS: risperiDONE 1 MG TAB PO SCH (20:26)
[2022-10-04] MEDS: NICOTINE 21MG/24HR PATCH TRANSDERM SCH (08:28)
[2022-10-04] MEDS: metFORMIN 500 MG TAB PO SCH ×2 (08:28→17:28)
[2022-10-04] MEDS ORDERED: risperiDONE 120 MG SYR (NO COST) PHARMACY STOCK SQ ONE (11:50)
--- NOTE | 2022-10-04 11:54 | P.PN ---
Progress Note - Text Progress Note Date: 10/04/22 Interval History: Patient was seen wandering the hallways and was directable and agreeable to speak with race and sports book writer in the office. The patient is currently denying any suicidal or homicidal ideation, intention, and/or plan. She is not reporting any auditory or visual hallucinations at this time. She reports no paranoia. The patient however states to this provider that she has been consistent with her outpatient follow-ups and her long-acting injectable medication. This has been proven false by [facility]. Furthermore, the patient reports that she has not been using any illicit substances.. At this time patient denies any suicidal or homical ideations, intent or plan. Patient denies any auditory, visual hallucinations and denies any paran she was informed that she did test positive for methamphetamines and amphetamines. She however maintains that she has not used any drugs. She is agreeable to receiving long-acting medication today. She otherwise reports no issues regarding her sleep or her appetite. She reports no acute medical issues or concerns. Mental Status Exam: General Appearance: Patient appears to be stated age is alert, directable, and cooperative. Disheveled with poor dentition. Behavior: Patient is calmly seated without any agitated behavior. Speech: Patient's speech is fluent and nonpressured. Spontaneous today. Mood/Affect: Mood is improving mildly, affect is congruent and blunted. Suicidality/Homicidality: Patient denies any current suicidal or homicidal ideation Perceptions: Patient denies any visual hallucinations and denies any auditory hallucinations Though content/process: Fixated on discharge. Memory and concentration: Poor historian of events leading up to this hospitalization Judgment and insight: Grossly poor Vital Signs Temp 98.3 F 10/02/22 07:08 Pulse 109 H 10/02/22 07:08 Resp 18 10/02/22 07:08 BP 104/57 10/02/22 07:08 Pulse Ox 97 10/02/22 07:08 FiO2 Assessment Schizophrenia Methamphetamine use disorder Nicotine dependence Plan: -Patient continues to meet criteria for inpatient psychiatric admission for symptom stabilization and safety. The patient deferred mental health court. -Medications: We will administer risperidone persersis 120 mg SQ today. Discontinue oral risperidone -When necessary Ativan and Haldol for agitation/aggression. -NRT - nicotine patch -SW on board for discharge planning. Encouraged the patient to participate in milieu.
[2022-10-04] MEDS: LORazepam 1 MG TAB PO PRN ×2 (13:15→18:54)
[2022-10-04] MEDS: haloperidoL 5 MG TAB PO PRN ×2 (13:15→18:53)
[2022-10-04] MEDS: ATORVASTATIN 20 MG TAB PO SCH (20:57)
[2022-10-04] MEDS ORDERED: risperiDONE 1 MG TAB PO SCH (21:00)
[2022-10-05] MEDS: metFORMIN 500 MG TAB PO SCH ×2 (09:02→17:26)
[2022-10-05] MEDS: NICOTINE 21MG/24HR PATCH TRANSDERM SCH (09:03)
--- NOTE | 2022-10-05 09:54 | P.PN ---
Progress Note - Text Progress Note Date: 10/05/22 Interval History: Patient was seen wandering the hallways and was directable and agreeable to speak with selling underwriter in the office. The patient is currently denying any suicidal or homicidal ideation, intention, and/or plan. She is not reporting any auditory or visual hallucinations. She denies any paranoia or other delusions. She did receive her risperidone perseris injection yesterday. The patient was noted by staff to be agitated during lunchtime during which she threw her meal tray and also spat at staff. The patient is minimal and her responses when confronted about this. She is inquiring about discharge and when [facility] will be available to speak with her. She continues to minimize any of her agitated behaviors or her substance abuse. Mental Status Exam: General Appearance: Patient appears to be stated age is alert, directable, and cooperative. Disheveled with poor dentition. Behavior: Patient is calmly seated without any agitated behavior. Speech: Patient's speech is fluent and nonpressured, spontaneous. Mood/Affect: Mood is improving mildly, affect is congruent and blunted. Suicidality/Homicidality: Patient denies any current suicidal or homicidal ideation Perceptions: Patient denies any visual hallucinations and denies any auditory hallucinations Though content/process: Fixated on discharge. Memory and concentration: Poor historian of events leading up to this hospitalization Judgment and insight: Grossly poor Vital Signs Temp 97.9 F 10/05/22 06:52 Pulse 69 10/05/22 06:52 Resp 16 10/05/22 06:52 BP 102/55 10/05/22 06:52 Pulse Ox 97 10/05/22 06:52 FiO2 Assessment Schizophrenia Methamphetamine use disorder Nicotine dependence Plan: -Patient continues to meet criteria for inpatient psychiatric admission for symptom stabilization and safety. The patient deferred mental health court. -Medications: We will administer risperidone persersis 120 mg SQ today. -When necessary Ativan and Haldol for agitation/aggression. -NRT - nicotine patch -SW on board for discharge planning. Encouraged the patient to participate in milieu.
[2022-10-05] MEDS: LORazepam 1 MG TAB PO PRN (17:27)
[2022-10-05] MEDS: haloperidoL 5 MG TAB PO PRN (17:53)
[2022-10-05] MEDS: ATORVASTATIN 20 MG TAB PO SCH (20:58)
[2022-10-06] MEDS: metFORMIN 500 MG TAB PO SCH ×3 (09:02→17:10)
[2022-10-06] MEDS: NICOTINE 21MG/24HR PATCH TRANSDERM SCH ×2 (09:02→14:28)
--- NOTE | 2022-10-06 11:13 | P.PN ---
Progress Note - Text Progress Note Date: 10/06/22 Interval History: Patient was seen wandering the hallways and was directable and agreeable to speak with insurance underwriter sales in the office. The patient is currently denying any suicidal or homicidal ideation, intention, and/or plan. She is not reporting any auditory or visual hallucinations. She denies any paranoia or other delusions. She was adherent with her metformin today. She reports no side effects from medications. She reports no issues regarding sleep or appetite. She denies any paranoia or other delusions. She remains fixated on discharge. She continues to deny any substance use despite testing positive for substances. She also denies being nonadherent with treatment despite her missing multiple appointments. The patient is scheduled for intake for her intermediate tomorrow. Mental Status Exam: General Appearance: Patient appears to be stated age is alert, directable, and cooperative. Fair hygiene with poor dentition. Behavior: Patient is calmly seated without any agitated behavior. Speech: Patient's speech is fluent and nonpressured, spontaneous. Mood/Affect: Mood is improving mildly, affect is congruent and blunted. Suicidality/Homicidality: Patient denies any current suicidal or homicidal ideation Perceptions: Patient denies any visual hallucinations and denies any auditory hallucinations Though content/process: Fixated on discharge. Memory and concentration: Grossly intact for the purposes of this session. Judgment and insight: Grossly poor Vital Signs Temp 97.2 F L 10/06/22 09:02 Pulse 84 10/06/22 09:02 Resp 16 10/06/22 09:02 BP 123/59 10/06/22 09:02 Pulse Ox 96 10/06/22 09:02 FiO2 Assessment Schizophrenia Methamphetamine use disorder Nicotine dependence Plan: -Patient continues to meet criteria for inpatient psychiatric admission for symptom stabilization and safety. The patient deferred mental health court. -Medications: We will administer risperidone persersis 120 mg SQ today. Metformin 500 mg by mouth twice a day -When necessary Ativan and Haldol for agitation/aggression. -NRT - nicotine patch -SW on board for discharge planning. Encouraged the patient to participate in milieu.
[2022-10-06] MEDS: LORazepam 1 MG TAB PO PRN (16:07)
[2022-10-06 18:00] LABS: Glucose,Whole Blood 103 mg/dL (70-110)
[2022-10-06] MEDS: ATORVASTATIN 20 MG TAB PO SCH (20:40)
[2022-10-07 06:45] VITALS: BP 155/60; PULSE 91; RESP 18; TEMP 97.7
[2022-10-07] MEDS: metFORMIN 500 MG TAB PO SCH (08:38)
[2022-10-07] MEDS: NICOTINE 21MG/24HR PATCH TRANSDERM SCH (08:38)
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
== END 2022-10-07 13:00 | disposition home or self-care (01) | DRG 885 ==
LOC: EC 15:57 → 3MHU 09-30 00:53
PROVIDERS: ADMIT Psychiatry & Neurology Psychiatry; ATTEND Psychiatry & Neurology Psychiatry
DX: F20.9 Schizophrenia, unspecified (principal); F15.90 Other stimulant use, unspecified, uncomplicated; F17.200 Nicotine dependence, unspecified, uncomplicated; Z79.84 Long term (current) use of oral hypoglycemic drugs; Z91.51 Personal history of suicidal behavior
CPT/HCPCS: 36415; 80053; 80061; 82075; 83036; 85025; 87635; 96372; 99285

== ENCOUNTER 2023-06-17 16:54 | Inpatient (IN) | payer MEDICARE, OTHER ==
[2023-06-17 16:59] LABS: Glucose,Whole Blood >600 mg/dL (70-110)
[2023-06-17] MEDS: SODIUM CHLORIDE 0.9% 2,000 ML IV STA (17:17)
--- NOTE | 2023-06-17 17:28 | ED ---
General Adult HPI - General Chief complaint: Altered Mental Status Stated complaint: AMS Time Seen by Provider: 06/17/23 16:58 Source: EMS Mode of arrival: EMS Limitations: altered mental status - History of Present Illness Initial comments: Dictation was produced using Wisr dictation software. please excuse any grammatical, word or spelling errors. Chief Complaint: 48-year-old diabetic female presents to the ER for altered mental status History of Present Illness: Patient is a 48-year-old female she has past medical history of diabetes mellitus. Patient was found unresponsive at home by her guardian. Patient has history of diabetes. She is allegedly insulin-dependent. Is unclear when patient was last seen normal. EMS brought patient from home and she was found to be in tacky dysrhythmia. Also hypotensive. Unable to obtain ROS secondary to mental status - Related Data Home Medications Medication Instructions Recorded Confirmed Metformin(Unknown Dose) 1 dose PO DIRECTED 06/17/23 06/17/23 Paliperidone IM [Invega Sustenna] 234 mg IM Q28D 06/17/23 06/17/23 Allergies Allergy/AdvReac Type Severity Reaction Status Date / Time pollen extracts Allergy Rash/Hives Verified 06/17/23 19:00 Review of Systems ROS Statement: Those systems with pertinent positive or pertinent negative responses have been documented in the HPI. ROS Other: All systems not noted in ROS Statement are negative. Past Medical History Past Medical History: Diabetes Mellitus, Osteoarthritis (OA) Additional Past Medical History / Comment(s): "GESTATIONAL DIABETES", GOES TO [facility] History of Any Multi-Drug Resistant Organisms: None Reported Past Surgical History: Section Additional Past Surgical History / Comment(s): POLA ARM SX WHEN CHILD-WENT THRU A WINDOW Past Anesthesia/Blood Transfusion Reactions: No Reported Reaction Additional Past Anesthesia/Blood Transfusion Reaction / Comment(s): CLAUSTER PHOBIA Past Psychological History: Anxiety, Bipolar, Panic Disorder, Schizophrenia Smoking Status: Current every day smoker - Past Family History Father Additional Family Medical History / Comment(s): DEPRESSION, "PROBLEM WITH HIS PANCREAS" Mother Family Medical History: Hyperlipidemia, Hypertension Additional Family Medical History / Comment(s): DDD, NECK FUSION, KIDNEY CANCER General Exam - General Exam Comments Initial Comments: PHYSICAL EXAM: General Impression: Obtunded, positive gag reflex HEENT: Normocephalic atraumatic, extra-ocular movements intact, pupils equal and reactive to light bilaterally, dry mucous membranes Cardiovascular: Tachycardic Chest: Positive acetone, bilateral breath sounds Abdomen: abdomen soft, non-tender, non-distended, no organomegaly Musculoskeletal: Pulses present and equal in all extremities, no peripheral edema Limitations: altered mental status Course Vital Signs 06/17/23 06/17/23 06/17/23 17:08 17:12 17:15 Temperature 97.6 F Pulse Rate 194 H 86 89 Respiratory 28 H 26 H 26 H Rate Blood Pressure 68/36 77/53 O2 Sat by Pulse 98 98 99 Oximetry 06/17/23 06/17/23 06/17/23 17:30 17:54 18:00 Temperature Pulse Rate 85 85 Respiratory 28 H 24 Rate Blood Pressure 81/54 84/48 81/44 O2 Sat by Pulse 100 100 Oximetry 06/17/23 06/17/23 06/17/23 18:15 18:30 18:45 Temperature 97.8 F Pulse Rate 83 86 87 Respiratory 26 H 25 H 28 H Rate Blood Pressure 85/51 83/46 82/48 O2 Sat by Pulse 100 99 100 Oximetry - Reevaluation(s) Reevaluation #1: 06/17/23 17:27 Patient was seen and evaluated immediately in trauma 2 upon arrival. She is found to be in narrow complex tachycardia dysrhythmia. Patient hypotensive with a systolic of 68. Cardioversion with 200 J was performed with successful cardioversion to normal sinus rhythm. Reevaluation #2: 06/17/23 17:41 Some history was obtained from a shelf from [facility]. They last establish contact with her on Tuesday. They went to try to check on her Tuesday but she did not answer the door. Talita reports that patient rece ntly got her own apartment and that she had frequent visitors and likely had provided her with illicit drugs. EKG Findings - EKG Comments: EKG Findings:: My EKG interpretation: Ventricular rate 185, A-fib with RVR, QRS 84, QTc 326. No [place] prolongation, no QTC prolongation, no ST or T-wave changes noted. Procedures - Intubation Mg Given: 20 Paralytic: Rocuronium Mg Given: 60 Size: 3 ET Tube Size: 7.5 ET Tube Uncuffed: No Tube Secured Depth (cm): 22 Tube Secured Location: teeth Tube Placement Confirmation: visualized tube passing through cords, equal breath sounds bilaterally, no breath sounds over epigastrium, confirmation by capnometry Patient Tolerated Procedure: well Medical Decision Making - Medical Decision Making Was pt. sent in by a medical professional or institution (, JAYLON, MATERIALS HANDLER, urgent care, hospital, or custodial...) When possible be specific @ -No Did you speak to anyone other than the patient for history (EMS, parent, family, police, friend...)? What history was obtained from this source @ -Some history obtained from Talita from [facility] as described above Did you review nursing and triage notes (agree or disagree)? Why? @ -I reviewed and agree with nursing and triage notes Were old charts reviewed (outside hosp., previous admission, EMS record, old EKG, old radiological studies, urgent care reports/EKG's, custodial records)? Report findings @ -No old charts were reviewed Differential Diagnosis (chest pain, altered mental status, abdominal pain women, abdominal pain men, vaginal bleeding, musculoskeletal, weakness, fever, dyspnea, syncope, headache, dizziness, GI bleed, back pain, seizure, CVA, palpatations, mental health)? @ -Differential Altered Mental Status: Hypoglycemia, DKA, hypercapnia, ETOH, overdose, CO poisoning, trauma, myxedema coma, HTN encephalopathy, infection, encephalitis, psychosis, intercranial hemorrhage, hepatic encephalopathy, meningitis, CVA, this is not meant to be an all-inclusive list EKG interpreted by me (3pts min.). @ -see above X-rays interpreted by me (1pt min.). @ -Chest x-ray shows interstitial density CT interpreted by me (1pt min.). @ -None done U/S interpreted by me (1pt. min.). @ -None done What testing was considered but not performed or refused? (CT, X-rays, U/S, labs)? Why? @ -None What meds were considered but not given or refused? Why? @ -None Did you discuss the management of the patient with other professionals (professionals i.e. JAYLON Tomas, MATERIALS HANDLER, lab, RT, psych nurse, aids social worker, sweeper driver, teacher, navigation officer, director case)? Give summary @ -Case discussed with inspector paper products, Dr. Clarke and sound physician for admission Was smoking cessation discussed for >3mins.? @ -No Was critical care preformed (if so, how long)? @ -Yes, 33 minutes Were there social determinants of health that impacted care today? How? (Homelessness, low income, unemployed, alcoholism, drug addiction, transportation, low edu. Level, literacy, decrease access to med. care, care home, rehab)? @ -No Was there de-escalation of care discussed even if they declined (Discuss DNR or withdrawal of care, Hospice)? DNR status @ -No What co-morbidities impacted this encounter? (DM, HTN, Smoking, COPD, CAD, Cancer, CVA, ARF, Chemo, Hep., AIDS, mental health diagnosis, sleep apnea, morbid obesity)? @ -None Was patient admitted / discharged? Hospital course, mention meds given and route, prescriptions, significant lab abnormalities, going to OR and other pertinent info. @ -48-year-old female presents to the emergency department for altered mental status she was found unresponsive at home. Vital signs upon arrival showed heart rate of 194 respiratory of 20 with a blood pressure of 68/36. Patient is found to be in unstable tachydysrhythmia. Patient given cardioversion with successful cardioversion. Repeat vitals are improved. Laboratory evaluation obtained. Leukocytosis 27.7. Coag panel is negative. Metabolic panel shows PT of 7.0, bicarb less than 5, glucose of 1418. Lactic acidosis 2.1. Urinalysis 25 white blood cells. Urinalysis positive for amphetamines. ABG shows metabolic acidosis. Case discussed with inspector paper products requesting that we intubate the patient prior to ICU transfer. Patient given antibiotics and started on DKA protocol. Patient intubated for airway protection Undiagnosed new problem with uncertain prognosis? @ -No Drug Therapy requiring intensive monitoring for toxicity (Heparin, Nitro, Insulin, Cardizem)? @ -No Were any procedures done? @ -No Diagnosis/symptom? Acute, or Chronic, or Acute on Chronic? Uncomplicated (wit hout systemic symptoms) or Complicated (systemic symptoms)? @ -Diabetic ketoacidosis Side effects of treatment? @ -No Exacerbation, Progression, or Severe Exacerbation? @ -No Poses a threat to life or bodily function? How? (Chest pain, USA, ME, pneumonia, PE, COPD, DKA, ARF, appy, cholecystitis, CVA, Diverticulitis, Homicidal, Suicidal, threat to staff... and all critical care pts) @ -yes - Lab Data Result diagrams: 06/17/23 17:17 06/17/23 17:17 Lab Results 06/17/23 06/17/23 06/17/23 Range/Units 16:57 17:17 17:17 WBC 27.7 H (3.8-10.6) k/uL RBC 4.79 (3.80-5.40) m/uL Hgb 14.4 (11.4-16.0) gm/dL Hct 51.6 H (34.0-46.0) % MCV 107.8 H (80.0-100.0) fL MCH 30.1 (25.0-35.0) pg MCHC 28.0 L (31.0-37.0) g/dL RDW 13.1 (11.5-15.5) % Plt Count 449 (150-450) k/uL MPV 9.6 Neutrophils % Not Reportable Neutrophils % (Manual) 88 % Band Neuts % (Manual) 5 % Lymphocytes % Not Reportable Lymphocytes % (Manual) 4 % Monocytes % Not Reportable Monocytes % (Manual) 2 % Eosinophils % Not Reportable Basophils % Not Reportable Myelocytes % 2 % Neutrophils # Not Reportable Neutrophils # (Manual) 25.70 H (1.3-7.7) k/uL Lymphocytes # Not Reportable Lymphocytes # (Manual) 1.11 (1.0-4.8) k/uL Monocytes # Not Reportable Monocytes # (Manual) 0.55 (0-1.0) k/uL Eosinophils # Not Reportable Basophils # Not Reportable Myelocytes # (Manual) 0.55 H (0) k/uL Nucleated RBCs 0 (0-0) /100 WBC Manual Slide Review Performed Hypochromasia Marked Macrocytosis Moderate PT 9.6 L (10.0-12.5) sec INR 0.8 (<1.2) APTT 18.1 L (22.0-30.0) sec Sample Site ABG pH (7.35-7.45) ABG pCO2 (35-45) mmHg ABG pO2 (83-108) mmHg ABG HCO3 (21-25) mmol/L ABG Total CO2 (19-24) mmol/L ABG O2 Saturation (94-97) % ABG Base Excess mmol/L Jose Test VBG pH (7.31-7.41) VBG pCO2 (37-51) mmHg VBG HCO3 (24-28) mmol/L FiO2 % Sodium (137-145) mmol/L Potassium (3.5-5.1) mmol/L Chloride (98-107) mmol/L Carbon Dioxide (22-30) mmol/L Anion Gap mmol/L BUN (7-17) mg/dL Creatinine (0.52-1.04) mg/dL Est GFR (CKD-EPI)AfAm (>60 ml/min/1.73 sqM) Est GFR (CKD-EPI)NonAf (>60 ml/min/1.73 sqM) Glucose (74-99) mg/dL POC Glucose (mg/dL) >600 H (70-110) mg/dL POC Glu Displayer Merchandise ID Deisy Zurita Lactic Ac Sepsis Rflx Plasma Lactic Acid Reed (0.7-2.0) mmol/L Calcium (8.4-10.2) mg/dL Magnesium (1.6-2.3) mg/dL Total Bilirubin (0.2-1.3) mg/dL AST (14-36) U/L ALT (4-34) U/L Alkaline Phosphatase (38-126) U/L Ammonia (<30) umol/L Troponin I (0.000-0.034) ng/mL Total Protein (6.3-8.2) g/dL Albumin (3.5-5.0) g/dL Urine Color Urine Appearance (Clear) Urine pH (5.0-8.0) Ur Specific [place] (1.001-1.035) Urine Protein (Negative) Urine Glucose (UA) (Negative) Urine Ketones (Negative) Urine Blood (Negative) Urine Nitrite (Negative) Urine Bilirubin (Negative) Urine Urobilinogen (<2.0) mg/dL Ur Leukocyte Esterase (Negative) Urine RBC (0-5) /hpf Urine WBC (0-5) /hpf Ur Squamous Epith Cells (0-4) /hpf Urine Bacteria (None) /hpf Urine Mucus (None) /hpf Urine Opiates Screen (NotDetected) Ur Oxycodone Screen (NotDetected) Urine Methadone Screen (NotDetected) Ur Barbiturates Screen (NotDetected) U Tricyclic Antidepress (NotDetected) Ur Phencyclidine Scrn (NotDetected) Ur Amphetamines Screen (NotDetected) U Methamphetamines Scrn (NotDetected) U Benzodiazepines Scrn (NotDetected) Urine Cocaine Screen (NotDetected) U Marijuana (THC) Screen (NotDetected) Serum Alcohol mg/dL Acetone, Qual (Negative) 06/17/23 06/17/23 06/17/23 Range/Units 17:17 17:17 17:17 WBC (3.8-10.6) k/uL RBC (3.80-5.40) m/uL Hgb (11.4-16.0) gm/dL Hct (34.0-46.0) % MCV (80.0-100.0) fL MCH (25.0-35.0) pg MCHC (31.0-37.0) g/dL RDW (11.5-15.5) % Plt Count (150-450) k/uL MPV Neutrophils % Neutrophils % (Manual) % Band Neuts % (Manual) % Lymphocytes % Lymphocytes % (Manual) % Monocytes % Monocytes % (Manual) % Eosinophils % Basophils % Myelocytes % % Neutrophils # Neutrophils # (Manual) (1.3-7.7) k/uL Lymphocytes # Lymphocytes # (Manual) (1.0-4.8) k/uL Monocytes # Monocytes # (Manual) (0-1.0) k/uL Eosinophils # Basophils # Myelocytes # (Manual) (0) k/uL Nucleated RBCs (0-0) /100 WBC Manual Slide Review Hypochromasia Macrocytosis PT (10.0-12.5) sec INR (<1.2) APTT (22.0-30.0) sec Sample Site ABG pH (7.35-7.45) ABG pCO2 (35-45) mmHg ABG pO2 (83-108) mmHg ABG HCO3 (21-25) mmol/L ABG Total CO2 (19-24) mmol/L ABG O2 Saturation (94-97) % ABG Base Excess mmol/L Jose Test VBG pH (7.31-7.41) VBG pCO2 (37-51) mmHg VBG HCO3 (24-28) mmol/L FiO2 % Sodium (137-145) mmol/L Potassium (3.5-5.1) mmol/L Chloride (98-107) mmol/L Carbon Dioxide (22-30) mmol/L Anion Gap mmol/L BUN (7-17) mg/dL Creatinine (0.52-1.04) mg/dL Est GFR (CKD-EPI)AfAm (>60 ml/min/1.73 sqM) Est GFR (CKD-EPI)NonAf (>60 ml/min/1.73 sqM) Glucose (74-99) mg/dL POC Glucose (mg/dL) (70-110) mg/dL POC Glu Displayer Merchandise ID Lactic Ac Sepsis Rflx Plasma Lactic Acid Reed 2.1 H* (0.7-2.0) mmol/L Calcium (8.4-10.2) mg/dL Magnesium 4.3 H (1.6-2.3) mg/dL Total Bilirubin (0.2-1.3) mg/dL AST (14-36) U/L ALT (4-34) U/L Alkaline Phosphatase (38-126) U/L Ammonia 23 (<30) umol/L Troponin I 0.013 (0.000-0.034) ng/mL Total Protein (6.3-8.2) g/dL Albumin (3.5-5.0) g/dL Urine Color Urine Appearance (Clear) Urine pH (5.0-8.0) Ur Specific [place] (1.001-1.035) Urine Protein (Negative) Urine Glucose (UA) (Negative) Urine Ketones (Negative) Urine Blood (Negative) Urine Nitrite (Negative) Urine Bilirubin (Negative) Urine Urobilinogen (<2.0) mg/dL Ur Leukocyte Esterase (Negative) Urine RBC (0-5) /hpf Urine WBC (0-5) /hpf Ur Squamous Epith Cells (0-4) /hpf Urine Bacteria (None) /hpf Urine Mucus (None) /hpf Urine Opiates Screen (NotDetected) Ur Oxycodone Screen (NotDetected) Urine Methadone Screen (NotDetected) Ur Barbiturates Screen (NotDetected) U Tricyclic Antidepress (NotDetected) Ur Phencyclidine Scrn (NotDetected) Ur Amphetamines Screen (NotDetected) U Methamphetamines Scrn (NotDetected) U Benzodiazepines Scrn (NotDetected) Urine Cocaine Screen (NotDetected) U Marijuana (THC) Screen (NotDetected) Serum Alcohol <10 mg/dL Acetone, Qual Positive (Negative) 06/17/23 06/17/23 06/17/23 Range/Units 17:17 17:30 17:35 WBC (3.8-10.6) k/uL RBC (3.80-5.40) m/uL Hgb (11.4-16.0) gm/dL Hct (34.0-46.0) % MCV (80.0-100.0) fL MCH (25.0-35.0) pg MCHC (31.0-37.0) g/dL RDW (11.5-15.5) % Plt Count (150-450) k/uL MPV Neutrophils % Neutrophils % (Manual) % Band Neuts % (Manual) % Lymphocytes % Lymphocytes % (Manual) % Monocytes % Monocytes % (Manual) % Eosinophils % Basophils % Myelocytes % % Neutrophils # Neutrophils # (Manual) (1.3-7.7) k/uL Lymphocytes # Lymphocytes # (Manual) (1.0-4.8) k/uL Monocytes # Monocytes # (Manual) (0-1.0) k/uL Eosinophils # Basophils # Myelocytes # (Manual) (0) k/uL Nucleated RBCs (0-0) /100 WBC Manual Slide Review Hypochromasia Macrocytosis PT (10.0-12.5) sec INR (<1.2) APTT (22.0-30.0) sec Sample Site rbrac ABG pH 7.13 L* (7.35-7.45) ABG pCO2 18 L* (35-45) mmHg ABG pO2 116 H (83-108) mmHg ABG HCO3 6 L* (21-25) mmol/L ABG Total CO2 7 L (19-24) mmol/L ABG O2 Saturation 97.4 H (94-97) % ABG Base Excess -23.2 mmol/L Jsoe Test Yes VBG pH 7.06 L* (7.31-7.41) VBG pCO2 31 L (37-51) mmHg VBG HCO3 9 L* (24-28) mmol/L FiO2 28 % Sodium 138 (137-145) mmol/L Potassium 7.0 H* (3.5-5.1) mmol/L Chloride 95 L (98-107) mmol/L Carbon Dioxide <5 L* (22-30) mmol/L Anion Gap mmol/L BUN 80 H (7-17) mg/dL Creatinine 3.41 H (0.52-1.04) mg/dL Est GFR (CKD-EPI)AfAm 18 (>60 ml/min/1.73 sqM) Est GFR (CKD-EPI)NonAf 15 (>60 ml/min/1.73 sqM) Glucose 1418 H* (74-99) mg/dL POC Glucose (mg/dL) (70-110) mg/dL POC Glu Displayer Merchandise ID Lactic Ac Sepsis Rflx Plasma Lactic Acid Reed (0.7-2.0) mmol/L Calcium 9.3 (8.4-10.2) mg/dL Magnesium (1.6-2.3) mg/dL Total Bilirubin 0.8 (0.2-1.3) mg/dL AST 18 (14-36) U/L ALT 19 (4-34) U/L Alkaline Phosphatase 180 H (38-126) U/L Ammonia (<30) umol/L Troponin I (0.000-0.034) ng/mL Total Protein 6.6 (6.3-8.2) g/dL Albumin 4.1 (3.5-5.0) g/dL Urine Color Urine Appearance (Clear) Urine pH (5.0-8.0) Ur Specific [place] (1.001-1.035) Urine Protein (Negative) Urine Glucose (UA) (Negative) Urine Ketones (Negative) Urine Blood (Negative) Urine Nitrite (Negative) Urine Bilirubin (Negative) Urine Urobilinogen (<2.0) mg/dL Ur Leukocyte Esterase (Negative) Urine RBC (0-5) /hpf Urine WBC (0-5) /hpf Ur Squamous Epith Cells (0-4) /hpf Urine Bacteria (None) /hpf Urine Mucus (None) /hpf Urine Opiates Screen (NotDetected) Ur Oxycodone Screen (NotDetected) Urine Methadone Screen (NotDetected) Ur Barbiturates Screen (NotDetected) U Tricyclic Antidepress (NotDetected) Ur Phencyclidine Scrn (NotDetected) Ur Amphetamines Screen (NotDetected) U Methamphetamines Scrn (NotDetected) U Benzodiazepines Scrn (NotDetected) Urine Cocaine Screen (NotDetected) U Marijuana (THC) Screen (NotDetected) Serum Alcohol mg/dL Acetone, Qual (Negative) 06/17/23 06/17/23 06/17/23 Range/Units 17:56 19:05 19:05 WBC (3.8-10.6) k/uL RBC (3.80-5.40) m/uL Hgb (11.4-16.0) gm/dL Hct (34.0-46.0) % MCV (80.0-100.0) fL MCH (25.0-35.0) pg MCHC (31.0-37.0) g/dL RDW (11.5-15.5) % Plt Count (150-450) k/uL MPV Neutrophils % Neutrophils % (Manual) % Band Neuts % (Manual) % Lymphocytes % Lymphocytes % (Manual) % Monocytes % Monocytes % (Manual) % Eosinophils % Basophils % Myelocytes % % Neutrophils # Neutrophils # (Manual) (1.3-7.7) k/uL Lymphocytes # Lymphocytes # (Manual) (1.0-4.8) k/uL Monocytes # Monocytes # (Manual) (0-1.0) k/uL Eosinophils # Basophils # Myelocytes # (Manual) (0) k/uL Nucleated RBCs (0-0) /100 WBC Manual Slide Review Hypochromasia Macrocytosis PT (10.0-12.5) sec INR (<1.2) APTT (22.0-30.0) sec Sample Site ABG pH (7.35-7.45) ABG pCO2 (35-45) mmHg ABG pO2 (83-108) mmHg ABG HCO3 (21-25) mmol/L ABG Total CO2 (19-24) mmol/L ABG O2 Saturation (94-97) % ABG Base Excess mmol/L Jose Test VBG pH (7.31-7.41) VBG pCO2 (37-51) mmHg VBG HCO3 (24-28) mmol/L FiO2 % Sodium (137-145) mmol/L Potassium (3.5-5.1) mmol/L Chloride (98-107) mmol/L Carbon Dioxide (22-30) mmol/L Anion Gap mmol/L BUN (7-17) mg/dL Creatinine (0.52-1.04) mg/dL Est GFR (CKD-EPI)AfAm (>60 ml/min/1.73 sqM) Est GFR (CKD-EPI)NonAf (>60 ml/min/1.73 sqM) Glucose (74-99) mg/dL POC Glucose (mg/dL) (70-110) mg/dL POC Glu Displayer Merchandise ID Lactic Ac Sepsis Rflx Y Plasma Lactic Acid Reed (0.7-2.0) mmol/L Calcium (8.4-10.2) mg/dL Magnesium (1.6-2.3) mg/dL Total Bilirubin (0.2-1.3) mg/dL AST (14-36) U/L ALT (4-34) U/L Alkaline Phosphatase (38-126) U/L Ammonia (<30) umol/L Troponin I (0.000-0.034) ng/mL Total Protein (6.3-8.2) g/dL Albumin (3.5-5.0) g/dL Urine Color Colorless Urine Appearance Cloudy H (Clear) Urine pH 5.0 (5.0-8.0) Ur Specific [place] 1.024 (1.001-1.035) Urine Protein 1+ H (Negative) Urine Glucose (UA) 4+ H (Negative) Urine Ketones 2+ H (Negative) Urine Blood Small H (Negative) Urine Nitrite Negative (Negative) Urine Bilirubin Negative (Negative) Urine Urobilinogen <2.0 (<2.0) mg/dL Ur Leukocyte Esterase Trace H (Negative) Urine RBC 2 (0-5) /hpf Urine WBC 25 H (0-5) /hpf Ur Squamous Epith Cells <1 (0-4) /hpf Urine Bacteria Occasional H (None) /hpf Urine Mucus Few H (None) /hpf Urine Opiates Screen Not Detected (NotDetected) Ur Oxycodone Screen Not Detected (NotDetected) Urine Methadone Screen Not Detected (NotDetected) Ur Barbiturates Screen Not Detected (NotDetected) U Tricyclic Antidepress Not Detected (NotDetected) Ur Phencyclidine Scrn Not Detected (NotDetected) Ur Amphetamines Screen Detected H (NotDetected) U Methamphetamines Scrn Not Detected (NotDetected) U Benzodiazepines Scrn Not Detected (NotDetected) Urine Cocaine Screen Not Detected (NotDetected) U Marijuana (THC) Screen Not Detected (NotDetected) Serum Alcohol mg/dL Acetone, Qual (Negative) Disposition Clinical Impression: DKA (diabetic ketoacidosis) Disposition: ADMITTED IP TO THIS [facility] Condition: Critical Referrals: None,Stated [Primary Care Provider] - 1-2 days Decision Time: 20:10
[2023-06-17 17:34] LABS: ABG Base Excess -23.2 mmol/L; ABG Oxygen Saturation 97.4 % (94-97); ABG PO2 116 mmHg (83-108); ABG TCO2 7 mmol/L (19-24); Allen Test Performed? Yes
[2023-06-17 17:36] LABS: ABG HCO3 6 mmol/L (21-25); ABG PCO2 18 mmHg (35-45); ABG PH 7.13 (7.35-7.45)
[2023-06-17 17:43] LABS: HCT 51.6 % (34.0-46.0); HGB 14.4 gm/dL (11.4-16.0); Hypochromasia Marked; MCH 30.1 pg (25.0-35.0); MCV 107.8 fL (80.0-100.0); Macrocytosis Moderate; Mean Platelet Volume 9.6; Platelet Count 449 k/uL (150-450); RBC 4.79 m/uL (3.80-5.40); RDW 13.1 % (11.5-15.5); WBC 27.7 k/uL (3.8-10.6)
[2023-06-17 17:46] LABS: Alcohol <10 mg/dL; INR 0.8 (<1.2); Magnesium 4.3 mg/dL (1.6-2.3); Prothrombin Time 9.6 sec (10.0-12.5)
[2023-06-17 17:52] LABS: Partial Thromboplastin Time 18.1 sec (22.0-30.0)
[2023-06-17 17:56] LABS: Lactic Acid, Venous 2.1 mmol/L (0.7-2.0)
[2023-06-17 17:59] LABS: VBG PH 7.06 (7.31-7.41)
--- NOTE | 2023-06-17 18:01 | CT ---
EXAMINATION TYPE: CT brain wo con DATE OF EXAM: 06/17/2023 COMPARISON: None HISTORY: 48-year-old female with confusion, ams TECHNIQUE: Examination was done in axial plane without intravenous contrast. Coronal and sagittal r econstructions performed. CT DLP: 1105.6 mGycm Automated exposure control for dose reduction was used. FINDINGS: There is no evidence of acute intracranial hemorrhage, acute ischemic changes, mass, mass-effect, or extra-axial fluid collection. There is no effacement of cerebral sulci or basal subarachnoid cister ns. There is no hydrocephalus. There is no midline shift. Lai-white matter distinction is preserv ed. Paranasal sinuses and mastoid air cells are well pneumatized. Orbits and globes are intact. IMPRESSION: No acute intracranial abnormality seen.
[2023-06-17 18:08] LABS: Band Neutrophils % 5 %; Lymphocytes # (M) 1.11 k/uL (1.0-4.8); Monocytes # (M) 0.55 k/uL (0-1.0); Myelocytes # (M) 0.55 k/uL (0); Myelocytes % 2 %; Neutrophils % (M) 88 %; Nucleated Red Blood Cells 0 /100 WBC (0-0); Total Cells Counted 200
[2023-06-17] MEDS: HEPARIN SODIUM 1,000 UN/ML (10ML VL) IV ONE (18:41)
[2023-06-17] MEDS: HEPARIN SOD,PORK IN 0.45% NACL 25,000 UNIT in 0.45% NACL 1 250ML.BAG IV SCH (18:41)
--- NOTE | 2023-06-17 18:44 | XR ---
EXAMINATION TYPE: XR chest 1V portable DATE OF EXAM: 06/17/2023 Comparison: 07/05/2020 Clinical History: 48-year-old female confusion, altered mental status Findings: Heart normal size. Increased interstitial density without consolidation or pleural effusion. Impression: Increased interstitial densities. Consider bronchitis or atypical pneumonias.
[2023-06-17] MEDS: INSULIN REGULAR BOLUS (FROM DRIP BAG) IV ONE (18:46)
[2023-06-17] MEDS: INSULIN REGULAR 100 UNIT in SODIUM CHLORIDE 0.9% 100 ML IV SCH (18:48)
[2023-06-17] MEDS: SODIUM CHLORIDE 0.9% 1,000 ML IV SCH (18:49)
[2023-06-17 18:54] LABS: ALT 19 U/L (4-34); AST 18 U/L (14-36); African American GFR (CKD) 18 (>60 ml/min/1.73 sqM); Albumin 4.1 g/dL (3.5-5.0); Alkaline Phosphatase 180 U/L (38-126); Blood Urea Nitrogen 80 mg/dL (7-17); Calcium 9.3 mg/dL (8.4-10.2); Chloride 95 mmol/L (98-107); Non-African American GFR(CKD) 15 (>60 ml/min/1.73 sqM); Sodium 138 mmol/L (137-145); Total Bilirubin 0.8 mg/dL (0.2-1.3); Total Protein 6.6 g/dL (6.3-8.2)
[2023-06-17 19:14] LABS: Carbon Dioxide <5 mmol/L (22-30); Glucose 1418 mg/dL (74-99)
[2023-06-17 19:16] LABS: Appearance,Urine Cloudy (Clear); Bacteria,Urine Occasional /hpf; Bilirubin,Urine Negative (Negative); Blood,Urine Small (Negative); Color,Urine Colorless; Glucose,Urine (UA) 4+ (Negative); Leukocyte Esterase,Urine Trace (Negative); Mucus,Urine Few /hpf; Nitrite,Urine Negative (Negative); Protein,Urine 1+ (Negative); RBC,Urine 2 /hpf (0-5); Specific Gravity,Urine 1.024 (1.001-1.035); Squamous Epithelial Cell,Urine <1 /hpf (0-4); Urobilinogen,Urine <2.0 mg/dL (<2.0); WBC,Urine 25 /hpf (0-5)
[2023-06-17 19:18] LABS: Ketones,Urine 2+ (Negative)
[2023-06-17 19:24] LABS: Amphetamine Screen,Urine Detected (NotDetected); Barbiturate Screen,Urine Not Detected (NotDetected); Benzodiazepines Screen,Urine Not Detected (NotDetected); Cocaine Screen,Urine Not Detected (NotDetected); Methadone Screen, Urine Not Detected (NotDetected); Opiate Screen,Urine Not Detected (NotDetected); Phencyclidine Screen,Urine Not Detected (NotDetected); Tricyclic Antidepressant,Urine Not Detected (NotDetected); Urn Cannabinoid Scrn Not Detected (NotDetected)
[2023-06-17 19:25] LABS: Oxycodone Screen, Urine Not Detected (NotDetected)
[2023-06-17] MEDS: PIPERACILLIN-TAZOBACTAM 3.375 GM in SODIUM CHLORIDE 0.9% 100 ML IVPB SCH (19:58)
[2023-06-17] MEDS ORDERED: NALOXONE 0.4 MG/ML 1 ML VIAL IV PRN (20:05)
[2023-06-17] MEDS: ETOMIDATE 2 MG/ML 10 ML VIAL IVP STA (20:14)
[2023-06-17] MEDS: ROCURONIUM 10 MG/ML (5 ML VIAL) IV STA (20:17)
[2023-06-17 20:42] LABS: Glucose,Whole Blood >600 mg/dL (70-110)
[2023-06-17 21:13] LABS: ABG Base Excess -17.3 mmol/L; ABG HCO3 12 mmol/L (21-25); ABG Oxygen Saturation 99.8 % (94-97); ABG PCO2 43 mmHg (35-45); ABG PO2 361 mmHg (83-108); Allen Test Performed? Yes
[2023-06-17 21:31] LABS: Glucose,Whole Blood >600 mg/dL (70-110)
[2023-06-17 21:48] LABS: ABG PH 7.07 (7.35-7.45)
[2023-06-17] MEDS: NOREPINEPHRINE 4 MG in SODIUM CHLORIDE 0.9% 250 ML IV SCH (22:04)
[2023-06-17 22:09] LABS: Glucose,Whole Blood >600 mg/dL (70-110)
[2023-06-17 22:10] LABS: African American GFR (CKD) 22 (>60 ml/min/1.73 sqM); Blood Urea Nitrogen 78 mg/dL (7-17); Chloride 111 mmol/L (98-107); Non-African American GFR(CKD) 19 (>60 ml/min/1.73 sqM); Phosphorus 6.9 mg/dL (2.5-4.5); Potassium 4.5 mmol/L (3.5-5.1); Sodium 148 mmol/L (137-145)
[2023-06-17] MEDS: SODIUM BICARB 8.4% 50 ML SYR (1 MEQ/ML) IV STA (22:12)
[2023-06-17] MEDS: SODIUM CHLORIDE 0.9% 1,000 ML IV ONE (22:16)
[2023-06-17 22:19] LABS: Carbon Dioxide <5 mmol/L (22-30); Glucose 1148 mg/dL (74-99)
--- NOTE | 2023-06-17 23:27 | XR ---
EXAM: XR Chest, 1 View CLINICAL HISTORY: XR Reason: og tube placement TECHNIQUE: Frontal view of the chest. COMPARISON: No relevant prior studies available. FINDINGS: Lungs: Trace amount of perihilar left basilar infiltrate or subsegmental atelectasis, similar to previous. Pleural space: Unremarkable. No pneumothorax. Heart: Unremarkable. No cardiomegaly. Mediastinum: Unremarkable. Normal mediastinal contour. Bones/joints: Unremarkable. No acute fracture. Tubes, lines and devices: Endotracheal tube tip at the level of the clavicles, 4.8 cm from the jillian. The NG tube extends into the stomach. IMPRESSION: 1. Trace amount of perihilar left basilar infiltrate or subsegmental atelectasis, similar to previous. 2. Endotracheal tube tip at the level of the clavicles, 4.8 cm from the jillian. The NG tube extends into the stomach.
[2023-06-18 00:04] LABS: Glucose,Whole Blood >600 mg/dL (70-110)
[2023-06-18 00:57] LABS: African American GFR (CKD) 24 (>60 ml/min/1.73 sqM); Anion Gap 18 mmol/L; Blood Urea Nitrogen 86 mg/dL (7-17); Carbon Dioxide 18 mmol/L (22-30); Chloride 114 mmol/L (98-107); Non-African American GFR(CKD) 20 (>60 ml/min/1.73 sqM); Phosphorus 3.5 mg/dL (2.5-4.5); Potassium 4.2 mmol/L (3.5-5.1); Sodium 150 mmol/L (137-145)
[2023-06-18] MEDS: HEPARIN SODIUM 1,000 UN/ML (10ML VL) IV PRN (01:05)
[2023-06-18 01:40] LABS: Glucose 902 mg/dL (74-99)
[2023-06-18 02:08] LABS: Glucose,Whole Blood >600 mg/dL (70-110)
--- NOTE | 2023-06-18 02:08 | XR ---
EXAM: XR chest 1V portable CLINICAL INDICATION:Female, 48 years old with history of intubation; [facility] COMPARISON: 06/17/2023 6:20 PM TECHNIQUE: Chest single view. FINDINGS: Lines/tubes/devices: ET tube placed with its tip 3.7 cm above the jillian. NG tube placed with its tip just above the diaphragm likely in the distal esophagus. Cardiomediastinum: Cardiac silhouette appears normal in size. Unremarkable mediastinal silhouette. Vasculature: No increased pulmonary vasculature. Lungs/pleura: No consolidation, sizeable effusion, or visible pneumothorax. Possible minimal interstitial density, unchanged. Bones/soft tissues: Bony thorax appears grossly intact as seen. Regional soft tissues appear unremarkable. Mild asymmetri c elevation of the right hemidiaphragm again noted. IMPRESSION: 1. ET tube in good position. 2. NG tube tip above the diaphragm, recommend several centimeters of advancement followed by reimagi ng.
--- NOTE | 2023-06-18 03:27 | P.HPIM ---
History of Present Illness H&P Date: 06/17/23 Patient is a 48-year-old female with a PMH of type II DM who was brought into the emergency room via EMS after she was found unresponsive at home. The history is obtained from the ED provider and from the chart as the patient was intubated at the time of interview. The patient who has an extensive mental health history including schizophrenia as well as polysubstance abuse was reportedly found at her home unresponsive by her guardian. The patient was previously seen at her baseline on 06/15/2023. The patient was reportedly minimally responsive. In the emergency room, she was noted to be in A-fib with RVR with hypotension. She was subsequently cardioverted. On laboratory evaluation, the patient was noted to have a blood glucose of 1418, CO2 less than 5, creatinine 3.41 (previously 0.56), lactic acid 2.1, with troponin 0.013 with urine toxicology positive for amphetamines. The patient was intubated as she was obtunded and responsive only to tactile stimuli. Case was discussed with multiple family members at the bedside. CT brain in the emergency room was unremarkable with chest x-ray showing increased interstitial densities concerning for pneumonia. ED documentation reviewed and case discussed with ED provider. Review of systems: Unable to perform due to mental status Physical examination: Vital signs reviewed General: Intubated female, non toxic, no distress, appears older than stated age, normal weight Derm: no unusual rashes/lesions, warm Head: atraumatic, normocephalic, symmetric Eyes: EOMI, no lid lag, anicteric sclera, pupils equal round reactive to light ENT: Nose and ears atraumatic Neck: No cervical lymphadenopathy, trachea midline, supple Mouth: no lip lesion, mucus membranes moist Cardiovascular: S1S2 reg, no murmur, positive dorsalis pedis pulse bilateral, no edema Lungs: Scattered rhonchi and rales without wheezing, no accessory muscle use Abdominal: soft, nontender to palpation, no guarding Ext: no gross muscle atrophy, no contractures, Neuro: Unable to assess, gag and cough reflex intact Assessment: Diabetic ketoacidosis Acute kidney injury Substance abuse Pneumonia, community-acquired versus aspiration Afib, suspect sole episode Chronic conditions: Schizophrenia Imaging: CT brain in the emergency room was unremarkable with chest x-ray showing increased interstitial densities concerning for pneumonia. Data Review: On laboratory evaluation, the patient was noted to have a blood glucose of 1418, CO2 less than 5, creatinine 3.41 (previously 0.56), lactic acid 2.1, with troponin 0.013 with urine toxicology positive for amphetamines. Plan: Continue with DKA protocol with insulin infusion, with blood glucose and e lectrolyte monitoring Continue with IV fluid normal saline 200 cc/h Patient currently on IV pressors Levophed Continue with broad-spectrum antibiotic coverage with Zosyn Patient admitted to medical ICU Follow-up blood cultures Monitor BMP Check CPK levels Discontinue Heparin infusion for now DVT prophylaxis: Lovenox subcu The patient is admitted with an anticipated greater than than 2 midnight stay for evaluation of DKA CODE STATUS: Full Code Discussed with: Multiple family members, son, mother, sister Anticipated discharge place: Home Past Medical History Past Medical History: Diabetes Mellitus, Osteoarthritis (OA) Additional Past Medical History / Comment(s): "GESTATIONAL DIABETES", GOES TO [facility] History of Any Multi-Drug Resistant Organisms: None Reported Past Surgical History: Section Additional Past Surgical History / Comment(s): POLA ARM SX WHEN CHILD-WENT THRU A WINDOW Past Anesthesia/Blood Transfusion Reactions: No Reported Reaction Additional Past Anesthesia/Blood Transfusion Reaction / Comment(s): CLAUSTERPHOBIA Smoking Status: Current every day smoker - Past Family History Father Additional Family Medical History / Comment(s): DEPRESSION, "PROBLEM WITH HIS PANCREAS" Mother Family Medical History: Hyperlipidemia, Hypertension Additional Family Medical History / Comment(s): DDD, NECK FUSION, KIDNEY CANCER Medications and Allergies Home Medications Medication Instructions Recorded Confirmed Type Metformin(Unknown Dose) 1 dose PO DIRECTED 06/17/23 06/17/23 History Paliperidone IM [Invega Sustenna] 234 mg IM Q28D 06/17/23 06/17/23 History Allergies Allergy/AdvReac Type Severity Reaction Status Date / Time pollen extracts Allergy Rash/Hives Verified 06/17/23 19:00 Physical Exam Vitals: Vital Signs Temp Pulse Resp BP Pulse Ox FiO2 06/17/23 23:00 84 23 97/61 100 06/17/23 22:45 85 23 96/59 100 06/17/23 22:30 84 24 98/52 100 06/17/23 22:15 96 23 85/48 99 06/17/23 22:00 93 30 H 69/44 95 05/10/24 21:45 96 15 72/45 96 06/17/23 21:25 50 06/17/23 20:50 105 H 24 91/51 98 06/17/23 20:33 100 06/17/23 20:30 108 H 24 115/70 99 06/17/23 20:28 100 06/17/23 18:45 97.8 F 87 28 H 82/48 100 06/17/23 18:30 86 25 H 83/46 99 06/17/23 18:15 83 26 H 85/51 100 06/17/23 18:00 85 24 81/44 100 06/17/23 17:54 85 28 H 84/48 100 06/17/23 17:30 81/54 06/17/23 17:15 89 26 H 77/53 99 06/17/23 17:12 86 26 H 98 06/17/23 17:08 97.6 F 194 H 28 H 68/36 98 Intake and Output 06/17/23 06/17/23 06/18/23 14:59 22:59 06:59 Intake Total 1221.678 Output Total 325 Balance 896.678 Intake: IV 1200 Sodium Chloride 0.9% 1, 200 000 ml @ 200 mls/hr IV . Q5H ISIDORO Rx#:[id number] Sodium Chloride 0.9% 1, 1000 000 ml @ 999 mls/hr IV . Q1H1M ONE Rx#:[id number] Intake, IV Titration 21.678 Amount Norepinephrine 4 mg In 2.590 Sodium Chloride 0.9% 250 ml @ 0.03 MCG/KG/MIN 7. 284 mls/hr IV .Q24H ISIDORO Rx#:[id number] propofoL 1,000 mg In 19.088 Empty Bag 1 bag @ 15 MCG/ KG/MIN 5.736 mls/hr IV . [id number] ISIDORO Rx#:[id number] Output: Urine 325 Other: Weight 63.73 kg Results CBC & Chem 7: 06/17/23 17:17 06/17/23 23:59 Labs: Abnormal Lab Results - Last 24 Hours (Table) 06/17/23 06/17/23 06/17/23 Range/Units 16:57 17:17 17:17 WBC 27.7 H (3.8-10.6) k/uL Hct 51.6 H (34.0-46.0) % MCV 107.8 H (80.0-100.0) fL MCHC 28.0 L (31.0-37.0) g/dL Neutrophils # (Manual) 25.70 H (1.3-7.7) k/uL Myelocytes # (Manual) 0.55 H (0) k/uL PT 9.6 L (10.0-12.5) sec APTT 18.1 L (22.0-30.0) sec ABG pH (7.35-7.45) ABG pCO2 (35-45) mmHg ABG pO2 (83-108) mmHg ABG HCO3 (21-25) mmol/L ABG Total CO2 (19-24) mmol/L ABG O2 Saturation (94-97) % VBG pH (7.31-7.41) VBG pCO2 (37-51) mmHg VBG HCO3 (24-28) mmol/L Sodium (137-145) mmol/L Potassium (3.5-5.1) mmol/L Chloride (98-107) mmol/L Carbon Dioxide (22-30) mmol/L BUN (7-17) mg/dL Creatinine (0.52-1.04) mg/dL Glucose (74-99) mg/dL POC Glucose (mg/dL) >600 H (70-110) mg/dL Plasma Lactic Acid Reed (0.7-2.0) mmol/L Phosphorus (2.5-4.5) mg/dL Magnesium (1.6-2.3) mg/dL Alkaline Phosphatase (38-126) U/L Urine Appearance (Clear) Urine Protein (Negative) Urine Glucose (UA) (Negative) Urine Ketones (Negative) Urine Blood (Negative) Ur Leukocyte Esterase (Negative) Urine WBC (0-5) /hpf Urine Bacteria (None) /hpf Urine Mucus (None) /hpf Ur Amphetamines Screen (NotDetected) 06/17/23 06/17/23 06/17/23 Range/Units 17:17 17:17 17:17 WBC (3.8-10.6) k/uL Hct (34.0-46.0) % MCV (80.0-100.0) fL MCHC (31.0-37.0) g/dL Neutrophils # (Manual) (1.3-7.7) k/uL Myelocytes # (Manual) (0) k/uL PT (10.0-12.5) sec APTT (22.0-30.0) sec ABG pH (7.35-7.45) ABG pCO2 (35-45) mmHg ABG pO2 (83-108) mmHg ABG HCO3 (21-25) mmol/L ABG Total CO2 (19-24) mmol/L ABG O2 Saturation (94-97) % VBG pH (7.31-7.41) VBG pCO2 (37-51) mmHg VBG HCO3 (24-28) mmol/L Sodium (137-145) mmol/L Potassium 7.0 H* (3.5-5.1) mmol/L Chloride 95 L (98-107) mmol/L Carbon Dioxide <5 L* (22-30) mmol/L BUN 80 H (7-17) mg/dL Creatinine 3.41 H (0.52-1.04) mg/dL Glucose 1418 H* (74-99) mg/dL POC Glucose (mg/dL) (70-110) mg/dL Plasma Lactic Acid Reed 2.1 H* (0.7-2.0) mmol/L Phosphorus (2.5-4.5) mg/dL Magnesium 4.3 H (1.6-2.3) mg/dL Alkaline Phosphatase 180 H (38-126) U/L Urine Appearance (Clear) Urine Protein (Negative) Urine Glucose (UA) (Negative) Urine Ketones (Negative) Urine Blood (Negative) Ur Leukocyte Esterase (Negative) Urine WBC (0-5) /hpf Urine Bacteria (None) /hpf Urine Mucus (None) /hpf Ur Amphetamines Screen (NotDetected) 06/17/23 06/17/23 06/17/23 Range/Units 17:30 17:35 19:05 WBC (3.8-10.6) k/uL Hct (34.0-46.0) % MCV (80.0-100.0) fL MCHC (31.0-37.0) g/dL Neutrophils # (Manual) (1.3-7.7) k/uL Myelocytes # (Manual) (0) k/uL PT (10.0-12.5) sec APTT (22.0-30.0) sec ABG pH 7.13 L* (7.35-7.45) ABG pCO2 18 L* (35-45) mmHg ABG pO2 116 H (83-108) mmHg ABG HCO3 6 L* (21-25) mmol/L ABG Total CO2 7 L (19-24) mmol/L ABG O2 Saturation 97.4 H (94-97) % VBG pH 7.06 L* (7.31-7.41) VBG pCO2 31 L (37-51) mmHg VBG HCO3 9 L* (24-28) mmol/L Sodium (137-145) mmol/L Potassium (3.5-5.1) mmol/L Chloride (98-107) mmol/L Carbon Dioxide (22-30) mmol/L BUN (7-17) mg/dL Creatinine (0.52-1.04) mg/dL Glucose (74-99) mg/dL POC Glucose (mg/dL) (70-110) mg/dL Plasma Lactic Acid Reed (0.7-2.0) mmol/L Phosphorus (2.5-4.5) mg/dL Magnesium (1.6-2.3) mg/dL Alkaline Phosphatase (38-126) U/L Urine Appearance Cloudy H (Clear) Urine Protein 1+ H (Negative) Urine Glucose (UA) 4+ H (Negative) Urine Ketones 2+ H (Negative) Urine Blood Small H (Negative) Ur Leukocyte Esterase Trace H (Negative) Urine WBC 25 H (0-5) /hpf Urine Bacteria Occasional H (None) /hpf Urine Mucus Few H (None) /hpf Ur Amphetamines Screen (NotDetected) 06/17/23 06/17/23 06/17/23 Range/Units 19:05 20:31 20:41 WBC (3.8-10.6) k/uL Hct (34.0-46.0) % MCV (80.0-100.0) fL MCHC (31.0-37.0) g/dL Neutrophils # (Manual) (1.3-7.7) k/uL Myelocytes # (Manual) (0) k/uL PT (10.0-12.5) sec APTT (22.0-30.0) sec ABG pH (7.35-7.45) ABG pCO2 (35-45) mmHg ABG pO2 (83-108) mmHg ABG HCO3 (21-25) mmol/L ABG Total CO2 (19-24) mmol/L ABG O2 Saturation (94-97) % VBG pH (7.31-7.41) VBG pCO2 (37-51) mmHg VBG HCO3 (24-28) mmol/L Sodium 148 H (137-145) mmol/L Potassium (3.5-5.1) mmol/L Chloride 111 H (98-107) mmol/L Carbon Dioxide <5 L* (22-30) mmol/L BUN 78 H (7-17) mg/dL Creatinine 2.89 H (0.52-1.04) mg/dL Glucose 1148 H* (74-99) mg/dL POC Glucose (mg/dL) >600 H (70-110) mg/dL Plasma Lactic Acid Reed (0.7-2.0) mmol/L Phosphorus 6.9 H (2.5-4.5) mg/dL Magnesium (1.6-2.3) mg/dL Alkaline Phosphatase (38-126) U/L Urine Appearance (Clear) Urine Protein (Negative) Urine Glucose (UA) (Negative) Urine Ketones (Negative) Urine Blood (Negative) Ur Leukocyte Esterase (Negative) Urine WBC (0-5) /hpf Urine Bacteria (None) /hpf Urine Mucus (None) /hpf Ur Amphetamines Screen Detected H (NotDetected) 06/17/23 06/17/23 06/17/23 Range/Units 21:17 21:29 22:07 WBC (3.8-10.6) k/uL Hct (34.0-46.0) % MCV (80.0-100.0) fL MCHC (31.0-37.0) g/dL Neutrophils # (Manual) (1.3-7.7) k/uL Myelocytes # (Manual) (0) k/uL PT (10.0-12.5) sec APTT (22.0-30.0) sec ABG pH 7.07 L* (7.35-7.45) ABG pCO2 (35-45) mmHg ABG pO2 361 H (83-108) mmHg ABG HCO3 12 L (21-25) mmol/L ABG Total CO2 (19-24) mmol/L ABG O2 Saturation 99.8 H (94-97) % VBG pH (7.31-7.41) VBG pCO2 (37-51) mmHg VBG HCO3 (24-28) mmol/L Sodium (137-145) mmol/L Potassium (3.5-5.1) mmol/L Chloride (98-107) mmol/L Carbon Dioxide (22-30) mmol/L BUN (7-17) mg/dL Creatinine (0.52-1.04) mg/dL Glucose (74-99) mg/dL POC Glucose (mg/dL) >600 H >600 H (70-110) mg/dL Plasma Lactic Acid Reed (0.7-2.0) mmol/L Phosphorus (2.5-4.5) mg/dL Magnesium (1.6-2.3) mg/dL Alkaline Phosphatase (38-126) U/L Urine Appearance (Clear) Urine Protein (Negative) Urine Glucose (UA) (Negative) Urine Ketones (Negative) Urine Blood (Negative) Ur Leukocyte Esterase (Negative) Urine WBC (0-5) /hpf Urine Bacteria (None) /hpf Urine Mucus (None) /hpf Ur Amphetamines Screen (NotDetected)
[2023-06-18 04:09] LABS: Glucose,Whole Blood >600 mg/dL (70-110)
[2023-06-18 04:28] LABS: HCT 38.1 % (34.0-46.0); HGB 11.8 gm/dL (11.4-16.0); MCH 29.2 pg (25.0-35.0); MCHC 31.1 g/dL (31.0-37.0); Mean Platelet Volume 8.8; Platelet Count 348 k/uL (150-450); RBC 4.06 m/uL (3.80-5.40); RDW 13.6 % (11.5-15.5); WBC 18.1 k/uL (3.8-10.6)
[2023-06-18 05:43] LABS: African American GFR (CKD) 23 (>60 ml/min/1.73 sqM); Anion Gap 8 mmol/L; Blood Urea Nitrogen 89 mg/dL (7-17); Calcium 7.6 mg/dL (8.4-10.2); Carbon Dioxide 26 mmol/L (22-30); Chloride 117 mmol/L (98-107); Creatine Kinase 75 U/L (30-135); Non-African American GFR(CKD) 20 (>60 ml/min/1.73 sqM); Sodium 151 mmol/L (137-145)
[2023-06-18 06:23] LABS: Glucose 764 mg/dL (74-99)
[2023-06-18 06:31] LABS: Glucose,Whole Blood >600 mg/dL (70-110)
[2023-06-18] MEDS: SODIUM CHLORIDE 0.45% 1,000 ML IV SCH (07:47)
[2023-06-18 08:02] LABS: Glucose,Whole Blood 568 mg/dL (70-110)
[2023-06-18] MEDS: ENOXAPARIN 30 MG/0.3 ML SYRINGE SQ SCH (08:02)
[2023-06-18] MEDS: PANTOPRAZOLE 40 MG/10 ML VIAL IVP SCH (08:02)
[2023-06-18] MEDS ORDERED: ENOXAPARIN 40 MG/0.4 ML SYRINGE SQ SCH (09:00)
[2023-06-18 09:18] LABS: Magnesium 3.5 mg/dL (1.6-2.3)
--- NOTE | 2023-06-18 09:33 | XR ---
EXAMINATION TYPE: XR chest 1V portable DATE OF EXAM: 06/18/2023 Comparison: 06/17/2023 Clinical History: 48-year-old female infiltrates Findings: ET tube tip at the level of the medial clavicular heads. NG tube courses below the diaphragm. Heart n ormal size. Mild interstitial densities have slightly increased from prior. No other consolidation or pleural effusion. Impression: Mild central interstitial densities show slight worsening.
[2023-06-18 10:16] LABS: Glucose,Whole Blood 510 mg/dL (70-110)
[2023-06-18 10:22] LABS: African American GFR (CKD) 20 (>60 ml/min/1.73 sqM); Anion Gap 6 mmol/L; Blood Urea Nitrogen 91 mg/dL (7-17); Calcium 7.2 mg/dL (8.4-10.2); Carbon Dioxide 25 mmol/L (22-30); Chloride 123 mmol/L (98-107); Magnesium 3.3 mg/dL (1.6-2.3); Non-African American GFR(CKD) 17 (>60 ml/min/1.73 sqM); Potassium 4.3 mmol/L (3.5-5.1); Sodium 154 mmol/L (137-145)
[2023-06-18 10:25] LABS: Glucose 563 mg/dL (74-99)
--- NOTE | 2023-06-18 10:47 | P.PN ---
Subjective Progress Note Date: 06/18/23 48-year-old female with a PMH of type II DM who was brought into the emergency room via EMS after she was found unresponsive at home. The history is obtained from the ED provider and from the chart as the patient was intubated at the time of interview. The patient who has an extensive mental health history including schizophrenia as well as polysubstance abuse was reportedly found at her home unresponsive by her guardian. The patient was previously seen at her baseline on 06/15/2023. The patient was reportedly minimally responsive. In the emergency room, she was noted to be in A-fib with RVR with hypotension. She was subsequently cardioverted. On laboratory evaluation, the patient was noted to have a blood glucose of 1418, CO2 less than 5, creatinine 3.41 (previously 0.56), lactic acid 2.1, with troponin 0.013 with urine toxicology positive for amphetamines. CT brain in the emergency room was unremarkable with chest x-ray showing increased interstitial densities concerning for pneumonia. The patient was intubated as she was obtunded and responsive only to tactile stimuli. Admitted to ICU. 06/17 Patient was seen and examined. Currently intubated. Maintained on insulin d rip running at 0.1 units/kg/hr. Pressors include Levophed at 0.26 mcg/kg/hr. Antibiotics include Zosyn 3.375 g IV TID. Sedated with Propofol 50 mcg/kg/min. CBC WBC 18.1. APTT 55.8. BMP Na 151, Cl 117, BUN 89, Cr 2.79, glu 764, Ca 7.6. CPK 75. Ammonia 23. CXR shows no consolidation, ET in place and NG tube requiring advancement. General: Intubated Derm: warm, dry Head: atraumatic, normocephalic, symmetric Eyes: EOMI, no lid lag, anicteric sclera Mouth: no lip lesion, mucus membranes moist Cardiovascular: S1S2 reg, no murmur Lungs: Decreased BS bilateral, no rhonchi, no rales , no accessory muscle use Ext: no gross muscle atrophy, no edema, no contractures Neuro: Intubated Psych: Intubated Septic shock: Tmax 101.1F. Leukocytosis of 27.7 on admission. UA trace LE. CXR with possible PNA. Possible aspiration. Continue Zosyn 3.75g IV TID. Sputum, blood, urine cultures collected. Procal ordered. Levophed titrate to maintain MAP > 65. Telemetry monitoring. 1/2 NS at 245 cc/hr. Pulmonary/ICU consulted. Diabetic ketoacidosis: IVF as above. Continue insulin drip per protocol. BMP Q4H. Accucheck hourly. Check A1c. Acute metabolic encephalopathy likely due to above Acute hypoxic respiratory failure likely due to above Hypernatremia: Switch NS to 1/2 NS at 245 cc/hr. Acute kidney injury: Obtain renal/bladder US. Substance abuse Atrial fibrillation with RVR likely due to severe electrolyte abnormalities. Check Echo and TSH. Chronic conditions: Schizophrenia CODE STATUS: FULL CODE DVT Prophylaxis: Lovenox SQ GI Prophylaxis: Protonix IV Designated medical POA if patient is not able to make medical decisions for themselves: I have reviewed the following education sales consultant notes: I have reviewed the results of the following tests: CBC, BMP, CPK, Ammonia I have ordered the following tests: CBC tomorrow AM. BMP Q4H. Echo. TSH. A1c. I have discussed the care of this patient with the following independent historian: I have independently interpreted the following test below: CXR I have discussed the management of this patient with the following physician: Objective - Vital Signs Vital signs: Vital Signs Temp 101.1 F H 06/18/23 04:00 Pulse 77 06/18/23 07:00 Resp 21 06/18/23 07:00 BP 100/56 06/18/23 07:00 Pulse Ox 99 06/18/23 07:00 FiO2 50 06/18/23 06:10 Intake & Output 06/17/23 06/18/23 06/18/23 18:59 06:59 18:59 Intake Total 3328.827 200 Output Total 670 20 Balance 2658.827 180 Weight 63.73 kg 70.5 kg Intake: IV 2800 200 Sodium Chloride 0.9% 1, 1800 200 000 ml @ 200 mls/hr IV . Q5H [facility] Rx#:[id number] Sodium Chloride 0.9% 1, 1000 000 ml @ 999 mls/hr IV . Q1H1M ONE Rx#:[id number] Intake, IV Titration 528.827 Amount Heparin Sod,Pork in 0.45% 73.294 NaCl 25,000 unit In 0.45 % NaCl 1 250ml.bag @ 12 UNITS/KG/HR 7.648 mls/hr IV .Q24H [facility] Rx#: [id number] Insulin Regular 100 unit 77.137 In Sodium Chloride 0.9% 100 ml @ 0.1 UNITS/KG/HR 6.437 mls/hr IV .[id number] [facility] Rx#:[id number] Norepinephrine 4 mg In 209.790 Sodium Chloride 0.9% 250 ml @ 0.03 MCG/KG/MIN 7. 284 mls/hr IV .Q24H [facility] Rx#:[id number] propofoL 1,000 mg In 168.606 Empty Bag 1 bag @ 15 MCG/ KG/MIN 5.736 mls/hr IV . [id number] [facility] Rx#:[id number] Output: Urine 670 20 Other: Voiding Method Indwelling Catheter - Labs CBC & Chem 7: 06/18/23 03:48 06/18/23 09:47 Labs: Abnormal Lab Results - Last 24 Hours (Table) 06/17/23 06/17/23 06/17/23 Range/Units 16:57 17:17 17:17 WBC 27.7 H (3.8-10.6) k/uL Hct 51.6 H (34.0-46.0) % MCV 107.8 H (80.0-100.0) fL MCHC 28.0 L (31.0-37.0) g/dL Neutrophils # (Manual) 25.70 H (1.3-7.7) k/uL Myelocytes # (Manual) 0.55 H (0) k/uL PT 9.6 L (10.0-12.5) sec APTT 18.1 L (22.0-30.0) sec ABG pH (7.35-7.45) ABG pCO2 (35-45) mmHg ABG pO2 (83-108) mmHg ABG HCO3 (21-25) mmol/L ABG Total CO2 (19-24) mmol/L ABG O2 Saturation (94-97) % VBG pH (7.31-7.41) VBG pCO2 (37-51) mmHg VBG HCO3 (24-28) mmol/L Sodium (137-145) mmol/L Potassium (3.5-5.1) mmol/L Chloride (98-107) mmol/L Carbon Dioxide (22-30) mmol/L BUN (7-17) mg/dL Creatinine (0.52-1.04) mg/dL Glucose (74-99) mg/dL POC Glucose (mg/dL) >600 H (70-110) mg/dL Plasma Lactic Acid Reed (0.7-2.0) mmol/L Calcium (8.4-10.2) mg/dL Phosphorus (2.5-4.5) mg/dL Magnesium (1.6-2.3) mg/dL Alkaline Phosphatase (38-126) U/L Urine Appearance (Clear) Urine Protein (Negative) Urine Glucose (UA) (Negative) Urine Ketones (Negative) Urine Blood (Negative) Ur Leukocyte Esterase (Negative) Urine WBC (0-5) /hpf Urine Bacteria (None) /hpf Urine Mucus (None) /hpf Ur Amphetamines Screen (NotDetected) 06/17/23 06/17/23 06/17/23 Range/Units 17:17 17:17 17:17 WBC (3.8-10.6) k/uL Hct (34.0-46.0) % MCV (80.0-100.0) fL MCHC (31.0-37.0) g/dL Neutrophils # (Manual) (1.3-7.7) k/uL Myelocytes # (Manual) (0) k/uL PT (10.0-12.5) sec APTT (22.0-30.0) sec ABG pH (7.35-7.45) ABG pCO2 (35-45) mmHg ABG pO2 (83-108) mmHg ABG HCO3 (21-25) mmol/L ABG Total CO2 (19-24) mmol/L ABG O2 Saturation (94-97) % VBG pH (7.31-7.41) VBG pCO2 (37-51) mmHg VBG HCO3 (24-28) mmol/L Sodium (137-145) mmol/L Potassium 7.0 H* (3.5-5.1) mmol/L Chloride 95 L (98-107) mmol/L Carbon Dioxide <5 L* (22-30) mmol/L BUN 80 H (7-17) mg/dL Creatinine 3.41 H (0.52-1.04) mg/dL Glucose 1418 H* (74-99) mg/dL POC Glucose (mg/dL) (70-110) mg/dL Plasma Lactic Acid Reed 2.1 H* (0.7-2.0) mmol/L Calcium (8.4-10.2) mg/dL Phosphorus (2.5-4.5) mg/dL Magnesium 4.3 H (1.6-2.3) mg/dL Alkaline Phosphatase 180 H (38-126) U/L Urine Appearance (Clear) Urine Protein (Negative) Urine Glucose (UA) (Negative) Urine Ketones (Negative) Urine Blood (Negative) Ur Leukocyte Esterase (Negative) Urine WBC (0-5) /hpf Urine Bacteria (None) /hpf Urine Mucus (None) /hpf Ur Amphetamines Screen (NotDetected) 06/17/23 06/17/23 06/17/23 Range/Units 17:30 17:35 19:05 WBC (3.8-10.6) k/uL Hct (34.0-46.0) % MCV (80.0-100.0) fL MCHC (31.0-37.0) g/dL Neutrophils # (Manual) (1.3-7.7) k/uL Myelocytes # (Manual) (0) k/uL PT (10.0-12.5) sec APTT (22.0-30.0) sec ABG pH 7.13 L* (7.35-7.45) ABG pCO2 18 L* (35-45) mmHg ABG pO2 116 H (83-108) mmHg ABG HCO3 6 L* (21-25) mmol/L ABG Total CO2 7 L (19-24) mmol/L ABG O2 Saturation 97.4 H (94-97) % VBG pH 7.06 L* (7.31-7.41) VBG pCO2 31 L (37-51) mmHg VBG HCO3 9 L* (24-28) mmol/L Sodium (137-145) mmol/L Potassium (3.5-5.1) mmol/L Chloride (98-107) mmol/L Carbon Dioxide (22-30) mmol/L BUN (7-17) mg/dL Creatinine (0.52-1.04) mg/dL Glucose (74-99) mg/dL POC Glucose (mg/dL) (70-110) mg/dL Plasma Lactic Acid Reed (0.7-2.0) mmol/L Calcium (8.4-10.2) mg/dL Phosphorus (2.5-4.5) mg/dL Magnesium (1.6-2.3) mg/dL Alkaline Phosphatase (38-126) U/L Urine Appearance Cloudy H (Clear) Urine Protein 1+ H (Negative) Urine Glucose (UA) 4+ H (Negative) Urine Ketones 2+ H (Negative) Urine Blood Small H (Negative) Ur Leukocyte Esterase Trace H (Negative) Urine WBC 25 H (0-5) /hpf Urine Bacteria Occasional H (None) /hpf Urine Mucus Few H (None) /hpf Ur Amphetamines Screen (NotDetected) 06/17/23 06/17/23 06/17/23 Range/Units 19:05 20:31 20:41 WBC (3.8-10.6) k/uL Hct (34.0-46.0) % MCV (80.0-100.0) fL MCHC (31.0-37.0) g/dL Neutrophils # (Manual) (1.3-7.7) k/uL Myelocytes # (Manual) (0) k/uL PT (10.0-12.5) sec APTT (22.0-30.0) sec ABG pH (7.35-7.45) ABG pCO2 (35-45) mmHg ABG pO2 (83-108) mmHg ABG HCO3 (21-25) mmol/L ABG Total CO2 (19-24) mmol/L ABG O2 Saturation (94-97) % VBG pH (7.31-7.41) VBG pCO2 (37-51) mmHg VBG HCO3 (24-28) mmol/L Sodium 148 H (137-145) mmol/L Potassium (3.5-5.1) mmol/L Chloride 111 H (98-107) mmol/L Carbon Dioxide <5 L* (22-30) mmol/L BUN 78 H (7-17) mg/dL Creatinine 2.89 H (0.52-1.04) mg/dL Glucose 1148 H* (74-99) mg/dL POC Glucose (mg/dL) >600 H (70-110) mg/dL Plasma Lactic Acid Reed (0.7-2.0) mmol/L Calcium (8.4-10.2) mg/dL Phosphorus 6.9 H (2.5-4.5) mg/dL Magnesium (1.6-2.3) mg/dL Alkaline Phosphatase (38-126) U/L Urine Appearance (Clear) Urine Protein (Negative) Urine Glucose (UA) (Negative) Urine Ketones (Negative) Urine Blood (Negative) Ur Leukocyte Esterase (Negative) Urine WBC (0-5) /hpf Urine Bacteria (None) /hpf Urine Mucus (None) /hpf Ur Amphetamines Screen Detected H (NotDetected) 06/17/23 06/17/23 06/17/23 Range/Units 21:17 21:29 22:07 WBC (3.8-10.6) k/uL Hct (34.0-46.0) % MCV (80.0-100.0) fL MCHC (31.0-37.0) g/dL Neutrophils # (Manual) (1.3-7.7) k/uL Myelocytes # (Manual) (0) k/uL PT (10.0-12.5) sec APTT (22.0-30.0) sec ABG pH 7.07 L* (7.35-7.45) ABG pCO2 (35-45) mmHg ABG pO2 361 H (83-108) mmHg ABG HCO3 12 L (21-25) mmol/L ABG Total CO2 (19-24) mmol/L ABG O2 Saturation 99.8 H (94-97) % VBG pH (7.31-7.41) VBG pCO2 (37-51) mmHg VBG HCO3 (24-28) mmol/L Sodium (137-145) mmol/L Potassium (3.5-5.1) mmol/L Chloride (98-107) mmol/L Carbon Dioxide (22-30) mmol/L BUN (7-17) mg/dL Creatinine (0.52-1.04) mg/dL Glucose (74-99) mg/dL POC Glucose (mg/dL) >600 H >600 H (70-110) mg/dL Plasma Lactic Acid Reed (0.7-2.0) mmol/L Calcium (8.4-10.2) mg/dL Phosphorus (2.5-4.5) mg/dL Magnesium (1.6-2.3) mg/dL Alkaline Phosphatase (38-126) U/L Urine Appearance (Clear) Urine Protein (Negative) Urine Glucose (UA) (Negative) Urine Ketones (Negative) Urine Blood (Negative) Ur Leukocyte Esterase (Negative) Urine WBC (0-5) /hpf Urine Bacteria (None) /hpf Urine Mucus (None) /hpf Ur Amphetamines Screen (NotDetected) 06/17/23 06/18/23 06/18/23 Range/Units 23:59 00:03 02:08 WBC (3.8-10.6) k/uL Hct (34.0-46.0) % MCV (80.0-100.0) fL MCHC (31.0-37.0) g/dL Neutrophils # (Manual) (1.3-7.7) k/uL Myelocytes # (Manual) (0) k/uL PT (10.0-12.5) sec APTT (22.0-30.0) sec ABG pH (7.35-7.45) ABG pCO2 (35-45) mmHg ABG pO2 (83-108) mmHg ABG HCO3 (21-25) mmol/L ABG Total CO2 (19-24) mmol/L ABG O2 Saturation (94-97) % VBG pH (7.31-7.41) VBG pCO2 (37-51) mmHg VBG HCO3 (24-28) mmol/L Sodium 150 H (137-145) mmol/L Potassium (3.5-5.1) mmol/L Chloride 114 H (98-107) mmol/L Carbon Dioxide 18 L (22-30) mmol/L BUN 86 H (7-17) mg/dL Creatinine 2.69 H (0.52-1.04) mg/dL Glucose 902 H* (74-99) mg/dL POC Glucose (mg/dL) >600 H >600 H (70-110) mg/dL Plasma Lactic Acid Reed (0.7-2.0) mmol/L Calcium (8.4-10.2) mg/dL Phosphorus (2.5-4.5) mg/dL Magnesium (1.6-2.3) mg/dL Alkaline Phosphatase (38-126) U/L Urine Appearance (Clear) Urine Protein (Negative) Urine Glucose (UA) (Negative) Urine Ketones (Negative) Urine Blood (Negative) Ur Leukocyte Esterase (Negative) Urine WBC (0-5) /hpf Urine Bacteria (None) /hpf Urine Mucus (None) /hpf Ur Amphetamines Screen (NotDetected) 06/18/23 06/18/23 06/18/23 Range/Units 03:48 03:48 03:51 WBC 18.1 H (3.8-10.6) k/uL Hct (34.0-46.0) % MCV (80.0-100.0) fL MCHC (31.0-37.0) g/dL Neutrophils # (Manual) (1.3-7.7) k/uL Myelocytes # (Manual) (0) k/uL PT (10.0-12.5) sec APTT 55.8 H (22.0-30.0) sec ABG pH (7.35-7.45) ABG pCO2 (35-45) mmHg ABG pO2 (83-108) mmHg ABG HCO3 (21-25) mmol/L ABG Total CO2 (19-24) mmol/L ABG O2 Saturation (94-97) % VBG pH (7.31-7.41) VBG pCO2 (37-51) mmHg VBG HCO3 (24-28) mmol/L Sodium 151 H (137-145) mmol/L Potassium (3.5-5.1) mmol/L Chloride 117 H (98-107) mmol/L Carbon Dioxide (22-30) mmol/L BUN 89 H (7-17) mg/dL Creatinine 2.79 H (0.52-1.04) mg/dL Glucose 764 H* (74-99) mg/dL POC Glucose (mg/dL) (70-110) mg/dL Plasma Lactic Acid Reed (0.7-2.0) mmol/L Calcium 7.6 L (8.4-10.2) mg/dL Phosphorus (2.5-4.5) mg/dL Magnesium (1.6-2.3) mg/dL Alkaline Phosphatase (38-126) U/L Urine Appearance (Clear) Urine Protein (Negative) Urine Glucose (UA) (Negative) Urine Ketones (Negative) Urine Blood (Negative) Ur Leukocyte Esterase (Negative) Urine WBC (0-5) /hpf Urine Bacteria (None) /hpf Urine Mucus (None) /hpf Ur Amphetamines Screen (NotDetected) 06/18/23 06/18/23 Range/Units 04:07 06:29 WBC (3.8-10.6) k/uL Hct (34.0-46.0) % MCV (80.0-100.0) fL MCHC (31.0-37.0) g/dL Neutrophils # (Manual) (1.3-7.7) k/uL Myelocytes # (Manual) (0) k/uL PT (10.0-12.5) sec APTT (22.0-30.0) sec ABG pH (7.35-7.45) ABG pCO2 (35-45) mmHg ABG pO2 (83-108) mmHg ABG HCO3 (21-25) mmol/L ABG Total CO2 (19-24) mmol/L ABG O2 Saturation (94-97) % VBG pH (7.31-7.41) VBG pCO2 (37-51) mmHg VBG HCO3 (24-28) mmol/L Sodium (137-145) mmol/L Potassium (3.5-5.1) mmol/L Chloride (98-107) mmol/L Carbon Dioxide (22-30) mmol/L BUN (7-17) mg/dL Creatinine (0.52-1.04) mg/dL Glucose (74-99) mg/dL POC Glucose (mg/dL) >600 H >600 H (70-110) mg/dL Plasma Lactic Acid Reed (0.7-2.0) mmol/L Calcium (8.4-10.2) mg/dL Phosphorus (2.5-4.5) mg/dL Magnesium (1.6-2.3) mg/dL Alkaline Phosphatase (38-126) U/L Urine Appearance (Clear) Urine Protein (Negative) Urine Glucose (UA) (Negative) Urine Ketones (Negative) Urine Blood (Negative) Ur Leukocyte Esterase (Negative) Urine WBC (0-5) /hpf Urine Bacteria (None) /hpf Urine Mucus (None) /hpf Ur Amphetamines Screen (NotDetected)
--- NOTE | 2023-06-18 11:13 | P.CNPUL ---
History of Present Illness Consult date: 06/18/23 Requesting physician: Maris Sky Reason for consult: other (ICU management) Chief complaint: Altered mental status, unresponsive at home History of present illness: This is a 48-year-old female with history of type 2 diabetes, history of schizophrenia, and polysubstance abuse, patient was found at home unresponsive by her guardian. Patient was brought into the ER and upon arrival the patient was noted to be in atrial fibrillation with RVR, she was extremely obtunded, she was also noted to have what seems to be a picture of severe hyperglycemia and DKA with significant anion gap metabolic acidosis. I was made aware of this patient by the ER physician and considering her obtundation, I recommended intubating the patient and accepted the patient to be admitted to the ICU with the DKA protocol, patient was extremely acidotic hyperkalemic significant anion gap metabolic acidosis was noted, and the patient was minimally responsive in the ER. Patient did have cardioversion for atrial fibrillation with RVR, and she went into sinus tachycardia. Initial labs upon admission showed leuk ocytosis with WBC count of 27.7, hemoglobin of 14.4, normal PT and INR, normal PTT, ABG postintubation showed a pO2 of 361 pCO2 43 pH of 7.07. Patient was also noted to have hypernatremia with a sodium of 138, bicarb was less than 5, lactic acid was 1.2, anion gap was above 18. Patient had positive ketones in the urine, 2+ drug screen came back positive for amphetamine. Patient is known to have history of polysubstance abuse. Today the patient is in the ICU, intubated and mechanically ventilated, she is on assist-control rate of 16 tidal volume 350 FiO2 40% and PEEP of 5 ABG this a.m. showed a pO2 of 179 pCO2 49 pH of 7.45. FiO2 now is down to 40%. Electrolytes showed hyponatremia with sodium of 151 hence her main IV fluid was changed to 2.45 at 120 cc/h, and the renal functioning seems to be improving creatinine on admission was 3.41 today it is 3.07. Nephrology is following the patient for her acute kidney injury. Presently the patient is on Lovenox subcu at 30 mg subcu daily, she remains on the DKA protocol, receiving insulin at 6.5 units/h, she is also on Protonix as well as Zosyn, feeding is still presently on hold. Review of Systems ROS unobtainable: due to endotracheal tube, due to mental status Past Medical History Past Medical History: Diabetes Mellitus, Osteoarthritis (OA) Additional Past Medical History / Comment(s): "GESTATIONAL DIABETES", GOES TO [facility] History of Any Multi-Drug Resistant Organisms: None Reported Past Surgical History: Section Additional Past Surgical History / Comment(s): POLA ARM SX WHEN CHILD-WENT THRU A WINDOW Past Anesthesia/Blood Transfusion Reactions: No Reported Reaction Additional Past Anesthesia/Blood Transfusion Reaction / Comment(s): CLAUSTERPHOBIA Smoking Status: Current every day smoker - Past Family History Father Additional Family Medical History / Comment(s): DEPRESSION, "PROBLEM WITH HIS PANCREAS" Mother Family Medical History: Hyperlipidemia, Hypertension Additional Family Medical History / Comment(s): DDD, NECK FUSION, KIDNEY CANCER Medications and Allergies Home Medications Medication Instructions Recorded Confirmed Type Metformin(Unknown Dose) 1 dose PO DIRECTED 06/17/23 06/17/23 History Paliperidone IM [Invega Sustenna] 234 mg IM Q28D 06/17/23 06/17/23 History Allergies Allergy/AdvReac Type Severity Reaction Status Date / Time pollen extracts Allergy Rash/Hives Verified 06/17/23 19:00 Physical Exam Vitals: Vital Signs Temp Pulse Resp BP Pulse Ox FiO2 06/18/23 10:52 40 06/18/23 10:00 76 22 96/61 98 06/18/23 09:45 75 20 103/65 98 06/18/23 09:30 76 20 97/64 99 06/18/23 09:15 78 20 99/61 98 06/18/23 09:00 71 22 98/62 98 06/18/23 08:45 75 20 99/63 98 06/18/23 08:30 75 20 100/58 98 06/18/23 08:15 77 22 101/61 98 06/18/23 08:00 74 22 99/60 99 50 06/18/23 07:59 40 06/18/23 07:45 98.4 F 75 20 99/57 99 40 06/18/23 07:30 75 20 101/60 99 06/18/23 07:15 77 16 100/59 99 06/18/23 07:00 77 21 100/56 99 06/18/23 06:45 76 22 94/58 99 06/18/23 06:30 77 24 97/55 98 06/18/23 06:15 78 29 H 93/54 98 06/18/23 06:10 50 06/18/23 06:00 79 24 98 06/18/23 05:45 80 22 91/51 98 06/18/23 05:30 24 91/51 98 06/18/23 05:15 86 23 83/54 98 06/18/23 05:00 85 22 85/54 98 06/18/23 04:45 87 22 91/50 98 06/18/23 04:30 87 23 99/50 98 06/18/23 04:15 87 25 H 96/54 98 06/18/23 04:00 101.1 F H 87 22 87/51 98 50 06/18/23 03:45 85 25 H 90/54 99 06/18/23 03:30 87 22 92/52 98 06/18/23 03:15 87 0 L 91/58 98 06/18/23 03:00 87 2 L 82/54 98 06/18/23 02:45 86 22 83/55 98 06/18/23 02:30 90 21 87/51 98 06/18/23 02:15 82 20 88/53 99 06/18/23 02:00 85 24 86/53 98 06/18/23 01:45 85 25 H 84/46 98 06/18/23 01:30 84 22 85/49 99 06/18/23 01:15 85 22 86/52 98 06/18/23 01:00 85 23 88/47 98 06/18/23 00:45 83 22 86/47 98 06/18/23 00:30 84 20 83/49 99 06/18/23 00:15 84 21 88/51 99 06/18/23 00:08 50 06/18/23 00:00 99.4 F 81 22 91/53 99 50 06/17/23 23:45 82 23 93/54 99 06/17/23 23:30 83 25 H 95/53 99 06/17/23 23:15 83 29 H 98/60 100 06/17/23 23:06 82 19 100/61 100 06/17/23 23:00 84 23 97/61 100 06/17/23 22:45 85 23 96/59 100 05/10/24 22:30 84 24 98/52 100 06/17/23 22:15 96 23 85/48 99 06/17/23 22:00 93 30 H 69/44 95 06/17/23 21:45 96 15 72/45 96 06/17/23 21:25 50 06/17/23 20:50 105 H 24 91/51 98 06/17/23 20:33 100 06/17/23 20:30 108 H 24 115/70 99 06/17/23 20:28 100 06/17/23 18:45 97.8 F 87 28 H 82/48 100 06/17/23 18:30 86 25 H 83/46 99 06/17/23 18:15 83 26 H 85/51 100 06/17/23 18:00 85 24 81/44 100 06/17/23 17:54 85 28 H 84/48 100 06/17/23 17:30 81/54 06/17/23 17:15 89 26 H 77/53 99 06/17/23 17:12 86 26 H 98 06/17/23 17:08 97.6 F 194 H 28 H 68/36 98 Intake and Output 06/17/23 06/18/23 06/18/23 22:59 06:59 14:59 Intake Total 6093.176 4449.149 822.558 Output Total 325 345 100 Balance 647.750 5311.149 722.558 Intake: IV 1200 1600 650 Sodium Chloride 0.45% 1, 450 000 ml @ 125 mls/hr IV . Q8H [facility]O Rx#:[id number] Sodium Chloride 0.9% 1, 200 1600 200 000 ml @ 200 mls/hr IV . Q5H [facility] Rx#:[id number] Sodium Chloride 0.9% 1, 1000 000 ml @ 999 mls/hr IV . Q1H1M ONE Rx#:[id number] Intake, IV Titration 21.678 507.149 172.558 Amount Heparin Sod,Pork in 0.45% 73.294 NaCl 25,000 unit In 0.45 % NaCl 1 250ml.bag @ 12 UNITS/KG/HR 7.648 mls/hr IV .Q24H [facility]O Rx#: [id number] Insulin Regular 100 unit 77.137 In Sodium Chloride 0.9% 100 ml @ 0.1 UNITS/KG/HR 6.437 mls/hr IV .[id number] [facility] Rx#:[id number] Norepinephrine 4 mg In 2.590 207.200 172.558 Sodium Chloride 0.9% 250 ml @ 0.03 MCG/KG/MIN 7. 284 mls/hr IV .Q24H [facility]O Rx#:[id number] propofoL 1,000 mg In 19.088 149.518 Empty Bag 1 bag @ 15 MCG/ KG/MIN 5.736 mls/hr IV . [id number] [facility]O Rx#:[id number] Output: Urine 325 345 100 Other: Voiding Method Indwelling Catheter Indwelling Catheter Weight 63.73 kg 70.5 kg General: Revealed a 48-year-old female, intubated, sedated, on propofol, not in distress. Seems to be comfortable on mechanical ventilation. Head: Atraumatic, normocephalic. Endotracheal tube and orogastric tube are intact. Coffee-ground material is noted in the nasogastric tube. Skin: No rashes Eyes: EOMI, PERRLA, no evidence of icterus. ENT: Nose and ears, normal Neck: No cervical lymphadenopathy, trachea midline, supple Mouth: dry mucous membranes noted. No lesions noted on mucous membranes Cardiovascular: Distant S1-S2, no S3 gallop, no murmur. Lungs: Minimal crackles at the bases no rhonchi no wheezes Abdominal: soft, nontender, no megaly no rebound no guarding Ext: No evidence of deformities good pulses bilaterally Neuro: Patient is sedated, unable to assess. Results - Laboratory Findings CBC and BMP: 06/18/23 03:48 06/18/23 09:47 ABG ABG pH 7.07 (7.35-7.45) L* 06/17/23 21:17 ABG pCO2 43 mmHg (35-45) 06/17/23 21:17 ABG pO2 361 mmHg (83-108) H 06/17/23 21:17 ABG O2 Saturation 99.8 % (94-97) H 06/17/23 21:17 PT/INR, D-dimer PT 9.6 sec (10.0-12.5) L 06/17/23 17:17 INR 0.8 (<1.2) 06/17/23 17:17 Abnormal lab findings: Abnormal Labs 06/17/23 06/17/23 06/17/23 16:57 17:17 17:17 WBC 27.7 H Hct 51.6 H MCV 107.8 H MCHC 28.0 L Neutrophils # (Manual) 25.70 H Myelocytes # (Manual) 0.55 H PT 9.6 L APTT 18.1 L ABG pH ABG pCO2 ABG pO2 ABG HCO3 ABG Total CO2 ABG O2 Saturation VBG pH VBG pCO2 VBG HCO3 Sodium Potassium Chloride Carbon Dioxide BUN Creatinine Glucose POC Glucose (mg/dL) >600 H Plasma Lactic Acid Reed Calcium Phosphorus Magnesium Alkaline Phosphatase Urine Appearance Urine Protein Urine Glucose (UA) Urine Ketones Urine Blood Ur Leukocyte Esterase Urine WBC Urine Bacteria Urine Mucus Ur Amphetamines Screen 06/17/23 06/17/23 06/17/23 17:17 17:17 17:17 WBC Hct MCV MCHC Neutrophils # (Manual) Myelocytes # (Manual) PT APTT ABG pH ABG pCO2 ABG pO2 ABG HCO3 ABG Total CO2 ABG O2 Saturation VBG pH VBG pCO2 VBG HCO3 Sodium Potassium 7.0 H* Chloride 95 L Carbon Dioxide <5 L* BUN 80 H Creatinine 3.41 H Glucose 1418 H* POC Glucose (mg/dL) Plasma Lactic Acid Reed 2.1 H* Calcium Phosphorus Magnesium 4.3 H Alkaline Phosphatase 180 H Urine Appearance Urine Protein Urine Glucose (UA) Urine Ketones Urine Blood Ur Leukocyte Esterase Urine WBC Urine Bacteria Urine Mucus Ur Amphetamines Screen 06/17/23 06/17/23 06/17/23 17:30 17:35 19:05 WBC Hct MCV MCHC Neutrophils # (Manual) Myelocytes # (Manual) PT APTT ABG pH 7.13 L* ABG pCO2 18 L* ABG pO2 116 H ABG HCO3 6 L* ABG Total CO2 7 L ABG O2 Saturation 97.4 H VBG pH 7.06 L* VBG pCO2 31 L VBG HCO3 9 L* Sodium Potassium Chloride Carbon Dioxide BUN Creatinine Glucose POC Glucose (mg/dL) Plasma Lactic Acid Reed Calcium Phosphorus Magnesium Alkaline Phosphatase Urine Appearance Cloudy H Urine Protein 1+ H Urine Glucose (UA) 4+ H Urine Ketones 2+ H Urine Blood Small H Ur Leukocyte Esterase Trace H Urine WBC 25 H Urine Bacteria Occasional H Urine Mucus Few H Ur Amphetamines Screen 06/17/23 06/17/23 06/17/23 19:05 20:31 20:41 WBC Hct MCV MCHC Neutrophils # (Manual) Myelocytes # (Manual) PT APTT ABG pH ABG pCO2 ABG pO2 ABG HCO3 ABG Total CO2 ABG O2 Saturation VBG pH VBG pCO2 VBG HCO3 Sodium 148 H Potassium Chloride 111 H Carbon Dioxide <5 L* BUN 78 H Creatinine 2.89 H Glucose 1148 H* POC Glucose (mg/dL) >600 H Plasma Lactic Acid Reed Calcium Phosphorus 6.9 H Magnesium Alkaline Phosphatase Urine Appearance Urine Protein Urine Glucose (UA) Urine Ketones Urine Blood Ur Leukocyte Esterase Urine WBC Urine Bacteria Urine Mucus Ur Amphetamines Screen Detected H 06/17/23 06/17/23 06/17/23 21:17 21:29 22:07 WBC Hct MCV MCHC Neutrophils # (Manual) Myelocytes # (Manual) PT APTT ABG pH 7.07 L* ABG pCO2 ABG pO2 361 H ABG HCO3 12 L ABG Total CO2 ABG O2 Saturation 99.8 H VBG pH VBG pCO2 VBG HCO3 Sodium Potassium Chloride Carbon Dioxide BUN Creatinine Glucose POC Glucose (mg/dL) >600 H >600 H Plasma Lactic Acid Reed Calcium Phosphorus Magnesium Alkaline Phosphatase Urine Appearance Urine Protein Urine Glucose (UA) Urine Ketones Urine Blood Ur Leukocyte Esterase Urine WBC Urine Bacteria Urine Mucus Ur Amphetamines Screen 06/17/23 06/18/23 06/18/23 23:59 00:03 02:08 WBC Hct MCV MCHC Neutrophils # (Manual) Myelocytes # (Manual) PT APTT ABG pH ABG pCO2 ABG pO2 ABG HCO3 ABG Total CO2 ABG O2 Saturation VBG pH VBG pCO2 VBG HCO3 Sodium 150 H Potassium Chloride 114 H Carbon Dioxide 18 L BUN 86 H Creatinine 2.69 H Glucose 902 H* POC Glucose (mg/dL) >600 H >600 H Plasma Lactic Acid Reed Calcium Phosphorus Magnesium Alkaline Phosphatase Urine Appearance Urine Protein Urine Glucose (UA) Urine Ketones Urine Blood Ur Leukocyte Esterase Urine WBC Urine Bacteria Urine Mucus Ur Amphetamines Screen 06/18/23 06/18/23 06/18/23 03:48 03:48 03:51 WBC 18.1 H Hct MCV MCHC Neutrophils # (Manual) Myelocytes # (Manual) PT APTT 55.8 H ABG pH ABG pCO2 ABG pO2 ABG HCO3 ABG Total CO2 ABG O2 Saturation VBG pH VBG pCO2 VBG HCO3 Sodium 151 H Potassium Chloride 117 H Carbon Dioxide BUN 89 H Creatinine 2.79 H Glucose 764 H* POC Glucose (mg/dL) Plasma Lactic Acid Reed Calcium 7.6 L Phosphorus Magnesium 3.5 H Alkaline Phosphatase Urine Appearance Urine Protein Urine Glucose (UA) Urine Ketones Urine Blood Ur Leukocyte Esterase Urine WBC Urine Bacteria Urine Mucus Ur Amphetamines Screen 06/18/23 06/18/23 06/18/23 04:07 06:29 08:01 WBC Hct MCV MCHC Neutrophils # (Manual) Myelocytes # (Manual) PT APTT ABG pH ABG pCO2 ABG pO2 ABG HCO3 ABG Total CO2 ABG O2 Saturation VBG pH VBG pCO2 VBG HCO3 Sodium Potassium Chloride Carbon Dioxide BUN Creatinine Glucose POC Glucose (mg/dL) >600 H >600 H 568 H Plasma Lactic Acid Reed Calcium Phosphorus Magnesium Alkaline Phosphatase Urine Appearance Urine Protein Urine Glucose (UA) Urine Ketones Urine Blood Ur Leukocyte Esterase Urine WBC Urine Bacteria Urine Mucus Ur Amphetamines Screen 06/18/23 06/18/23 09:47 10:14 WBC Hct MCV MCHC Neutrophils # (Manual) Myelocytes # (Manual) PT APTT ABG pH ABG pCO2 ABG pO2 ABG HCO3 ABG Total CO2 ABG O2 Saturation VBG pH VBG pCO2 VBG HCO3 Sodium 154 H Potassium Chloride 123 H Carbon Dioxide BUN 91 H Creatinine 3.07 H Glucose 563 H* POC Glucose (mg/dL) 510 H Plasma Lactic Acid Reed Calcium 7.2 L Phosphorus Magnesium 3.3 H Alkaline Phosphatase Urine Appearance Urine Protein Urine Glucose (UA) Urine Ketones Urine Blood Ur Leukocyte Esterase Urine WBC Urine Bacteria Urine Mucus Ur Amphetamines Screen - Diagnostic Findings Chest x-ray: image reviewed (Chest x-ray showed minimal vascular congestion, no evidence of pneumonia and no evidence of pleural effusions.. Endotracheal tube and orogastric tube are in proper position) Assessment and Plan Assessment: Impression: Acute diabetic ketoacidosis Acute metabolic encephalopathy Possible amphetamine overdose, patient is known to have history of polysubstance abuse Atrial fibrillation with RVR on presentation requiring cardioversion History of schizophrenia based on information obtained from the chart. Acute anion gap metabolic acidosis, secondary to DKA Possible aspiration pneumonia Hypotension secondary mostly to hypovolemia secondary to hyperglycemia, doubt sepsis and doubt septic shock. Acute kidney injury secondary to hypotension on her initial presentation Obtundation on presentation requiring intubation and mechanical ventilation, patient was intubated to protect mostly her airways. Electrolytes imbalance secondary to her DKA and fluids given Recommendation: Continue ventilatory support Continue hemodynamic support Continue DKA protocol Continue GI and DVT prophylaxis/Lovenox and Protonix Keep patient n.p.o. for now will address nutritional support in the next 24 hours Interruption of sedation and assessment of mental status today off sedation Continue antibiotics empirically, patient may have developed aspiration pneumonia although not clearly seen on chest x-ray. Patient is definitely critically ill. Will continue to monitor in the ICU and will continue to follow Critical care time is over 45 minutes Time with Patient: Greater than 30
[2023-06-18 11:56] LABS: Glucose,Whole Blood 538 mg/dL (70-110)
[2023-06-18 14:10] LABS: Glucose,Whole Blood 414 mg/dL (70-110)
[2023-06-18 14:56] LABS: Glucose,Whole Blood 446 mg/dL (70-110)
--- NOTE | 2023-06-18 15:07 | US ---
EXAMINATION TYPE: US renals and bladder DATE OF EXAM: 06/18/2023 Exam done portable in ICU COMPARISON: US 2013 CLINICAL INDICATION: Female, 48 years old with history of NIKOLE; EXAM MEASUREMENTS: Right Kidney: 10.8 x 4.5 x 4.4 cm Left Kidney: 10.5 x 4.9 x 5.5 cm Right Kidney: no hydronephrosis or masses seen Left Kidney: limited visualization due to patient's positioning and overlying bowel gas, no hydroneph rosis or masses seen Bladder: not distended, davis catheter There is no evidence for hydronephrosis at this point in time. No nephrolithiasis is seen. No ny s are identified. The urinary bladder is anechoic. Bilateral ureteral jets are seen. IMPRESSION: No evidence for obstructive uropathy.
[2023-06-18 16:01] LABS: Glucose,Whole Blood 357 mg/dL (70-110)
[2023-06-18 16:13] LABS: African American GFR (CKD) 19 (>60 ml/min/1.73 sqM); Anion Gap 6 mmol/L; Blood Urea Nitrogen 91 mg/dL (7-17); Calcium 7.1 mg/dL (8.4-10.2); Carbon Dioxide 24 mmol/L (22-30); Chloride 125 mmol/L (98-107); Glucose 398 mg/dL (74-99); Non-African American GFR(CKD) 17 (>60 ml/min/1.73 sqM); Potassium 3.8 mmol/L (3.5-5.1); Sodium 155 mmol/L (137-145)
--- NOTE | 2023-06-18 16:17 | CA ---
Transthoracic Echo Report Name: Evelyn Camargo Age: 48 Gender: F : 1975 Exam Date: 06/18/2023 08:02 Exam Location: [facility] Ht (in): 63 Wt (lb): 155 Ordering Physician: Che Oh MD Attending/Referring Phys: Health Facilities Surveyor Gypsy Mccarthy RDCS Procedure CPT: Indications: afib Cardiac Hx: Technical Quality: Fair Contrast 1: Total Dose (mL): Contrast 2: Total Dose (mL): MEASUREMENTS (Male / Female) Normal Values 2D ECHO LV Diastolic Diameter PLAX 4.3 cm 4.2 - 5.9 / 3.9 - 5.3 cm LV Systolic Diameter PLAX 3.3 cm IVS Diastolic Thickness 1.0 cm 0.6 - 1.0 / 0.6 - 0.9 cm LVPW Diastolic Thickness 1.1 cm 0.6 - 1.0 / 0.6 - 0.9 cm LV Relative Wall Thickness 0.5 RV Internal Dim ED PLAX 3.3 cm LV Diastolic Volume MOD BP 54.5 cm??? 67 - 155 / 56 - 104 cm??? LV Systolic Volume MOD BP 23.6 cm??? 22 - 58 / 19 - 49 cm??? LV Ejection Fraction MOD BP 56.7 % >= 55 % LV Cardiac Index MOD BP 1316.1 cm???/min???m??? LV Diastolic Volume MOD 4C 66.9 cm??? LV Systolic Volume MOD 4C 31.7 cm??? LV Ejection Fraction MOD 4C 52.6 % LV Cardiac Index MOD 4C 1498.3 cm???/min???m??? LV Diastolic Length 4C 7.0 cm LV Systolic Length 4C 5.6 cm LV Diastolic Volume MOD 2C 37.9 cm??? LV Systolic Volume MOD 2C 17.1 cm??? LV Ejection Fraction MOD 2C 55.0 % LV Cardiac Index MOD 2C 886.4 cm???/min???m??? LV Diastolic Length 2C 5.9 cm LV Systolic Length 2C 5.4 cm LA Volume 24.0 cm??? 18 - 58 / 22 - 52 cm??? LA Volume Index 13.4 cm???/m??? 16 - 28 cm???/m??? M-MODE Aortic Root Diameter MM 3.5 cm LA Systolic Diameter MM 3.4 cm LA Ao Ratio MM 1.0 AV Cusp Separation MM 2.2 cm DOPPLER AV Peak Velocity 154.0 cm/s AV Peak Gradient 9.5 mmHg AV Mean Velocity 107.1 cm/s AV Mean Gradient 5.1 mmHg AV Velocity Time Integral 24.1 cm LVOT Peak Velocity 119.1 cm/s LVOT Peak Gradient 5.7 mmHg LVOT Velocity Time Integral 17.7 cm MV Area PHT 3.4 cm??? Mitral E Point Velocity 53.4 cm/s Mitral A Point Velocity 66.4 cm/s Mitral E to A Ratio 0.8 MV Deceleration Time 224.9 ms MV E' Velocity 6.5 cm/s Mitral E to MV E' Ratio 8.2 TR Peak Velocity 178.4 cm/s TR Peak Gradient 12.7 mmHg Right Ventricular Systolic Press 17.0 mmHg FINDINGS Left Ventricle Left ventricular cavity size normal. Left ventricular wall thickness normal. No obvious regional wall motion abnormalities. Left ventricular ejection fraction is estimated at 50-55 %. Right Ventricle Normal right ventricular size and function. Right ventricular systolic pressure within normal limits. Right Atrium Normal right atrial size. Left Atrium Normal left atrial size. Mitral Valve Structurally normal mitral valve. No mitral stenosis. Trace mitral regurgitation. Aortic Valve No aortic valve stenosis or regurgitation. Tricuspid Valve Structurally normal tricuspid valve. Mild tricuspid regurgitation. Pulmonic Valve Structurally normal pulmonic valve. Pericardium No pericardial effusion. Aorta Normal size aortic root and proximal ascending aorta. CONCLUSIONS left ventricular ejection fraction 50-55% Trace mitral regurgitation RVSP 17 No pericardial effusion Previewed by: Dr. Ray Condon DO (Electronically Signed) Final Date: 18 Jun 2023 16:16
[2023-06-18 17:01] LABS: Glucose,Whole Blood 348 mg/dL (70-110)
[2023-06-18] MEDS: SODIUM CHLORIDE IV SCH (17:41)
[2023-06-18] MEDS: NACL IV SCH (17:41)
[2023-06-18] MEDS: KCL IV SCH (17:41)
[2023-06-18 18:10] LABS: Glucose,Whole Blood 328 mg/dL (70-110)
[2023-06-18 19:03] LABS: Glucose,Whole Blood 319 mg/dL (70-110)
[2023-06-18 20:03] LABS: Glucose,Whole Blood 264 mg/dL (70-110)
[2023-06-18 20:07] LABS: African American GFR (CKD) 19 (>60 ml/min/1.73 sqM); Anion Gap 8 mmol/L; Blood Urea Nitrogen 89 mg/dL (7-17); Carbon Dioxide 23 mmol/L (22-30); Chloride 125 mmol/L (98-107); Glucose 289 mg/dL (74-99); Non-African American GFR(CKD) 17 (>60 ml/min/1.73 sqM); Potassium 3.8 mmol/L (3.5-5.1); Sodium 156 mmol/L (137-145)
[2023-06-18] MEDS: INSULIN NPH 100 UNIT/ML 10 ML VIAL SQ ONE (20:39)
[2023-06-18 20:53] LABS: Glucose,Whole Blood 282 mg/dL (70-110)
[2023-06-18] MEDS: INSULIN ASPART (NovoLOG) 100 UNIT/ML VIAL SQ SCH (21:16)
[2023-06-18 22:05] LABS: Glucose,Whole Blood 232 mg/dL (70-110)
[2023-06-18] MEDS: CHLORHEXIDINE GLUCONATE 15 ML CUP MUCOUS MEM SCH (22:18)
[2023-06-19] LABS: African American GFR (CKD) 20 (>60 ml/min/1.73 sqM); Anion Gap 9 mmol/L; Blood Urea Nitrogen 84 mg/dL (7-17); Carbon Dioxide 21 mmol/L (22-30); Chloride 126 mmol/L (98-107); Glucose 248 mg/dL (74-99); Non-African American GFR(CKD) 17 (>60 ml/min/1.73 sqM); Sodium 156 mmol/L (137-145)
[2023-06-19 00:02] LABS: Glucose,Whole Blood 259 mg/dL (70-110)
[2023-06-19] MEDS: propofoL 100 ML IV ONE (02:04)
[2023-06-19 02:09] LABS: Glucose,Whole Blood 247 mg/dL (70-110)
[2023-06-19 04:59] LABS: HCT 34.9 % (34.0-46.0); HGB 11.4 gm/dL (11.4-16.0); MCH 30.5 pg (25.0-35.0); MCHC 32.6 g/dL (31.0-37.0); MCV 93.5 fL (80.0-100.0); Mean Platelet Volume 8.2; Platelet Count 238 k/uL (150-450); RBC 3.73 m/uL (3.80-5.40); RDW 13.9 % (11.5-15.5); WBC 17.8 k/uL (3.8-10.6)
[2023-06-19 07:06] LABS: Glucose,Whole Blood 324 mg/dL (70-110)
[2023-06-19 07:11] LABS: T4, Free (Free Thyroxine) 1.51 ng/dL (0.78-2.19)
[2023-06-19] MEDS: INSULIN DETEMIR (LEVEMIR) 100 UNIT/ML SYR SQ SCH (07:15)
--- NOTE | 2023-06-19 07:49 | XR ---
EXAMINATION TYPE: XR chest 1V portable DATE OF EXAM: 06/19/2023 Comparison: 06/18/2023 Clinical History: 48-year-old female intubated + lung status Findings: ET and NG tubes are satisfactory. Heart upper limits of normal in size. Mild patchy perihilar and ret rocardiac opacity remains. Impression: Similar patchy central interstitial densities.
[2023-06-19 08:34] LABS: African American GFR (CKD) 22 (>60 ml/min/1.73 sqM); Anion Gap 7 mmol/L; Blood Urea Nitrogen 76 mg/dL (7-17); Calcium 7.1 mg/dL (8.4-10.2); Carbon Dioxide 20 mmol/L (22-30); Chloride 128 mmol/L (98-107); Glucose 291 mg/dL (74-99); Non-African American GFR(CKD) 19 (>60 ml/min/1.73 sqM); Potassium 3.9 mmol/L (3.5-5.1); Sodium 155 mmol/L (137-145)
[2023-06-19] MEDS ORDERED: SODIUM CHLORIDE 0.45% 1,000 ML with POTASSIUM CHLORIDE 20 MEQ IV SCH (09:00)
[2023-06-19] MEDS: DEXTROSE 5% IN WATER 1,000 ML IV SCH (10:10)
[2023-06-19] MEDS ORDERED: DEXTROSE 50% SYRINGE 50 ML IVP PRN ×2 (10:11)
[2023-06-19] MEDS: CALCIUM GLUCONATE IN NACL 1 GM in SALINE 1 100ML.BAG IVPB ONE (10:29)
--- NOTE | 2023-06-19 11:07 | P.PN ---
Subjective Progress Note Date: 06/19/23 48-year-old female with a PMH of type II DM who was brought into the emergency room via EMS after she was found unresponsive at home. The history is obtained from the ED provider and from the chart as the patient was intubated at the time of interview. The patient who has an extensive mental health history including schizophrenia as well as polysubstance abuse was reportedly found at her home unresponsive by her guardian. The patient was previously seen at her baseline on 06/15/2023. The patient was reportedly minimally responsive. In the emergency room, she was noted to be in A-fib with RVR with hypotension. She was subsequently cardioverted. On laboratory evaluation, the patient was noted to have a blood glucose of 1418, CO2 less than 5, creatinine 3.41 (previously 0.56), lactic acid 2.1, with troponin 0.013 with urine toxicology positive for amphetamines. CT brain in the emergency room was unremarkable with chest x-ray showing increased interstitial densities concerning for pneumonia. The patient was intubated as she was obtunded and responsive only to tactile stimuli. Admitted to ICU. Started on Zosyn for treatment of PNA. She required Levophed 06/16 which was wean ed off by 06/18. Started on insulin drip and NS per DKA protocol for treatment of DKA. NS switched to 1/2 NS due to hypernatremia. Transitioned to SQ insulin on 06/17 after AG closed and bicarb normalized. 06/17 Patient was seen and examined. Currently intubated. Insulin drip switched to SQ insulin last night after AG closed and bicarb normalized. Levophed has been weaned off. Antibiotics include Zosyn 3.375 g IV TID (D2). Sedated with Propofol 35 mcg/kg/min. CBC WBC 17.8, RBC 3.73. BMP Na 155, Cl 126, BUN 76, Cr 2.86, glu 291, Ca 7.1. TSH 0.325, FT4 1.51. Echo shows EF 50-55% trace MR/TR. Renal US shows no obstruction. CXR shows patchy opacities. Sputum Cx rare PMN, rare gram positive cocci. BCx negative at 24H. General: Intubated Derm: warm, dry Head: atraumatic, normocephalic, symmetric Eyes: EOMI, no lid lag, anicteric sclera Mouth: no lip lesion, mucus membranes moist Cardiovascular: S1S2 reg, no murmur Lungs: Decreased BS bilateral, no rhonchi, no rales , no accessory muscle use Ext: no gross muscle atrophy, no edema, no contractures Neuro: Intubated Psych: Intubated Septic shock: Tmax 101.1F. Leukocytosis of 27.7 on admission. UA trace LE. CXR with possible PNA. Possible aspiration. Continue Zosyn 3.75g IV TID (D2). Sputum, blood, urine cultures collected. Procal ordered. Levophed titrate to maintain MAP > 65. Telemetry monitoring. 1/2 NS at 125 cc/hr. Pulmonary/ICU con sulted. Diabetes mellitus with hyperglycemia: Insulin drip switched to Levemir 10 units QD, MDSS. Received 27 units of Novolog on the sliding scale so far. Accucheck. Check A1c. Acute metabolic encephalopathy likely due to above Acute hypoxic respiratory failure likely due to above Hypernatremia: Switch 1/2 NS to D5W at 125 cc/hr and restarting insulin drip. Nephrology consulted. Acute kidney injury: Likely prerenal from use of pressors. Renal US no obstruction. Nephrology consulted. Substance abuse Atrial fibrillation with RVR likely due to severe electrolyte abnormalities. Echo and TSH as above. Subclinical hyperthyroidism: Repeat TSH and FT4 in 6 weeks. Resolved: DKA Chronic conditions: Schizophrenia CODE STATUS: FULL CODE DVT Prophylaxis: Lovenox SQ GI Prophylaxis: Protonix IV Designated medical POA if patient is not able to make medical decisions for themselves: I have reviewed the following in home sales consultant notes: Pulmonary. I have reviewed the results of the following tests: CBC, BMP, Echo, TSH, FT4, Renal US, CXR, Sputum and BCx. I have ordered the following tests: CBC and BMP. A1c pending. Sputum, Blood, Urine culture pending. I have discussed the care of this patient with the following independent historian: TOSIN I have independently interpreted the following test below: CXR I have discussed the management of this patient with the following physician: Dr. Huffman Objective - Vital Signs Vital signs: Vital Signs Temp 98.0 F 06/19/23 08:00 Pulse 67 06/19/23 08:00 Resp 20 06/19/23 08:00 BP 123/73 06/19/23 08:00 Pulse Ox 100 06/19/23 08:00 FiO2 40 06/19/23 08:00 Intake & Output 06/18/23 06/19/23 06/19/23 18:59 06:59 18:59 Intake Total 2312.056 1881.852 350 Output Total 435 925 235 Balance 1877.056 956.852 115 Weight 70.5 kg Intake: IV 1650 1600 250 Piperacillin-Tazobactam 3 100 .375 gm In Sodium Chloride 0.9% 100 ml @ 25 mls/hr IVPB Q8H [facility] Rx#: [id number] Sodium Chloride 0.45% 1, 1200 000 ml @ 125 mls/hr IV . Q8H [facility] Rx#:[id number] Sodium Chloride 0.45% 1, 250 1500 250 000 ml @ 200 mls/hr IV . Q10H [facility] with 0.45% NaCl with KCl 20 Meq/l 1,000 ml Rx#:[id number] Sodium Chloride 0.9% 1, 200 000 ml @ 200 mls/hr IV . Q5H [facility] Rx#:[id number] Intake, IV Titration 662.056 281.852 100 Amount Insulin Regular 100 unit 95.375 In Sodium Chloride 0.9% 100 ml @ 0.1 UNITS/KG/HR 6.437 mls/hr IV .[id number] [facility] Rx#:[id number] Norepinephrine 4 mg In 531.633 71.023 Sodium Chloride 0.9% 250 ml @ 0.03 MCG/KG/MIN 7. 284 mls/hr IV .Q24H [facility] Rx#:[id number] propofoL 1,000 mg In 130.423 115.454 100 Empty Bag 1 bag @ 15 MCG/ KG/MIN 5.736 mls/hr IV . [id number] [facility] Rx#:[id number] Output: Urine 435 925 235 Other: Voiding Method Indwelling Catheter Indwelling Catheter - Labs CBC & Chem 7: 06/19/23 04:49 06/19/23 04:49 Labs: Abnormal Lab Results - Last 24 Hours (Table) 06/18/23 06/18/23 06/18/23 Range/Units 03:48 09:47 10:14 WBC (3.8-10.6) k/uL RBC (3.80-5.40) m/uL Sodium 151 H 154 H (137-145) mmol/L Chloride 117 H 123 H (98-107) mmol/L Carbon Dioxide (22-30) mmol/L BUN 89 H 91 H (7-17) mg/dL Creatinine 2.79 H 3.07 H (0.52-1.04) mg/dL Glucose 764 H* 563 H* (74-99) mg/dL POC Glucose (mg/dL) 510 H (70-110) mg/dL Calcium 7.6 L 7.2 L (8.4-10.2) mg/dL Magnesium 3.5 H 3.3 H (1.6-2.3) mg/dL TSH (0.465-4.680) mIU/L 06/18/23 06/18/23 06/18/23 Range/Units 11:55 14:09 14:53 WBC (3.8-10.6) k/uL RBC (3.80-5.40) m/uL Sodium (137-145) mmol/L Chloride (98-107) mmol/L Carbon Dioxide (22-30) mmol/L BUN (7-17) mg/dL Creatinine (0.52-1.04) mg/dL Glucose (74-99) mg/dL POC Glucose (mg/dL) 538 H 414 H 446 H (70-110) mg/dL Calcium (8.4-10.2) mg/dL Magnesium (1.6-2.3) mg/dL TSH (0.465-4.680) mIU/L 06/18/23 06/18/23 06/18/23 Range/Units 15:27 15:59 17:00 WBC (3.8-10.6) k/uL RBC (3.80-5.40) m/uL Sodium 155 H (137-145) mmol/L Chloride 125 H (98-107) mmol/L Carbon Dioxide (22-30) mmol/L BUN 91 H (7-17) mg/dL Creatinine 3.16 H (0.52-1.04) mg/dL Glucose 398 H (74-99) mg/dL POC Glucose (mg/dL) 357 H 348 H (70-110) mg/dL Calcium 7.1 L (8.4-10.2) mg/dL Magnesium (1.6-2.3) mg/dL TSH (0.465-4.680) mIU/L 06/18/23 06/18/23 06/18/23 Range/Units 18:08 19:01 19:34 WBC (3.8-10.6) k/uL RBC (3.80-5.40) m/uL Sodium 156 H (137-145) mmol/L Chloride 125 H (98-107) mmol/L Carbon Dioxide (22-30) mmol/L BUN 89 H (7-17) mg/dL Creatinine 3.18 H (0.52-1.04) mg/dL Glucose 289 H (74-99) mg/dL POC Glucose (mg/dL) 328 H 319 H (70-110) mg/dL Calcium 7.0 L (8.4-10.2) mg/dL Magnesium (1.6-2.3) mg/dL TSH (0.465-4.680) mIU/L 06/18/23 06/18/23 06/18/23 Range/Units 20:02 20:52 22:03 WBC (3.8-10.6) k/uL RBC (3.80-5.40) m/uL Sodium (137-145) mmol/L Chloride (98-107) mmol/L Carbon Dioxide (22-30) mmol/L BUN (7-17) mg/dL Creatinine (0.52-1.04) mg/dL Glucose (74-99) mg/dL POC Glucose (mg/dL) 264 H 282 H 232 H (70-110) mg/dL Calcium (8.4-10.2) mg/dL Magnesium (1.6-2.3) mg/dL TSH (0.465-4.680) mIU/L 06/18/23 06/19/23 06/19/23 Range/Units 23:27 00:01 02:07 WBC (3.8-10.6) k/uL RBC (3.80-5.40) m/uL Sodium 156 H (137-145) mmol/L Chloride 126 H (98-107) mmol/L Carbon Dioxide 21 L (22-30) mmol/L BUN 84 H (7-17) mg/dL Creatinine 3.09 H (0.52-1.04) mg/dL Glucose 248 H (74-99) mg/dL POC Glucose (mg/dL) 259 H 247 H (70-110) mg/dL Calcium 7.0 L (8.4-10.2) mg/dL Magnesium (1.6-2.3) mg/dL TSH (0.465-4.680) mIU/L 06/19/23 06/19/23 06/19/23 Range/Units 04:49 04:49 07:05 WBC 17.8 H (3.8-10.6) k/uL RBC 3.73 L (3.80-5.40) m/uL Sodium (137-145) mmol/L Chloride (98-107) mmol/L Carbon Dioxide (22-30) mmol/L BUN (7-17) mg/dL Creatinine (0.52-1.04) mg/dL Glucose (74-99) mg/dL POC Glucose (mg/dL) 324 H (70-110) mg/dL Calcium (8.4-10.2) mg/dL Magnesium (1.6-2.3) mg/dL TSH 0.325 L (0.465-4.680) mIU/L Microbiology - Last 24 Hours (Table) 06/17/23 17:35 Blood Culture - Preliminary Blood 06/18/23 06:15 Gram Stain - Preliminary Sputum
[2023-06-19 11:11] LABS: Glucose,Whole Blood 345 mg/dL (70-110)
[2023-06-19] MEDS: SODIUM CHLORIDE 0.45% 1,000 ML IV SCH (11:17)
[2023-06-19] MEDS: PIPERACILLIN-TAZOBACTAM 3.375 GM in SODIUM CHLORIDE 0.9% 100 ML IVPB SCH (11:18)
[2023-06-19] MEDS: INSULIN REGULAR 100 UNIT in SODIUM CHLORIDE 0.9% 100 ML IV SCH (11:30)
--- NOTE | 2023-06-19 11:55 | P.NPCON ---
History of Present Illness - Reason for Consult Consult date: 06/19/23 - Chief Complaint AMS - History of Present Illness This is a 48-year-old female with history of type 2 diabetes, history of schizophrenia, and polysubstance abuse, patient was found at home unresponsive by her guardian. Patient was brought into the ER and upon arrival the patient was noted to be in atrial fibrillation with RVR, she was extremely obtunded, she was also noted to have what seems to be a picture of severe hyperglycemia and DKA with significant anion gap metabolic acidosis. She was intubating in ED and admitted to the ICU with the DKA protocol, patient was extremely acidotic hyp erkalemic significant anion gap metabolic acidosis was noted, and the patient was minimally responsive in the ER. Patient did have cardioversion for atrial fibrillation with RVR, and she went into sinus tachycardia. Patient seen this morning was just extubated. Not able to provide history which was obtained from chart. She is asking for water. Vital signs are stable. General: No acute distress. HEENT: Neck supple LUNGS: No audible rhonchi or wheezes. HEART: Rate and Rhythm are regular. ABDOMEN: Nontender. EXTREMITITES: No edema. Review of Systems ROS unobtainable: due to mental status Past Medical History Past Medical History: Diabetes Mellitus, Osteoarthritis (OA) Additional Past Medical History / Comment(s): "GESTATIONAL DIABETES", GOES TO [facility] History of Any Multi-Drug Resistant Organisms: None Reported Past Surgical History: Section Additional Past Surgical History / Comment(s): POLA ARM SX WHEN CHILD-WENT THRU A WINDOW Past Anesthesia/Blood Transfusion Reactions: No Reported Reaction Additional Past Anesthesia/Blood Transfusion Reaction / Comment(s): CLAUSTERPHOBIA Smoking Status: Current every day smoker - Past Family History Father Additional Family Medical History / Comment(s): DEPRESSION, "PROBLEM WITH HIS PANCREAS" Mother Family Medical History: Hyperlipidemia, Hypertension Additional Family Medical History / Comment(s): DDD, NECK FUSION, KIDNEY CANCER Medications and Allergies Home Medications Medication Instructions Recorded Confirmed Type Metformin(Unknown Dose) 1 dose PO DIRECTED 06/17/23 06/17/23 History Paliperidone IM [Invega Sustenna] 234 mg IM Q28D 06/17/23 06/17/23 History Allergies Allergy/AdvReac Type Severity Reaction Status Date / Time pollen extracts Allergy Rash/Hives Verified 06/17/23 19:00 Physical Exam Vitals: Vital Signs Temp Pulse Resp BP Pulse Ox FiO2 06/19/23 09:00 70 18 114/68 98 06/19/23 08:00 98.0 F 67 20 123/73 100 40 06/19/23 07:52 40 06/19/23 07:00 89 11 L 113/64 99 06/19/23 06:00 70 22 112/66 100 06/19/23 05:00 73 24 126/77 99 06/19/23 04:30 72 115/67 100 06/19/23 04:00 98.6 F 78 23 114/71 98 40 06/19/23 03:36 40 06/19/23 03:30 72 115/70 99 06/19/23 03:00 71 24 112/63 99 06/19/23 02:30 76 121/71 99 06/19/23 02:00 75 22 115/66 99 06/19/23 01:30 73 109/67 99 06/19/23 01:00 75 25 H 104/64 98 06/19/23 00:37 40 06/19/23 00:30 73 108/66 98 06/19/23 00:00 98.2 F 71 24 119/71 99 40 06/18/23 23:30 74 110/68 99 06/18/23 23:00 74 24 119/71 100 06/18/23 22:45 79 118/70 98 06/18/23 22:30 75 117/68 99 06/18/23 22:15 74 118/68 98 06/18/23 22:00 68 24 108/67 99 06/18/23 21:45 71 110/63 99 06/18/23 21:30 71 107/64 99 06/18/23 21:15 73 111/66 99 06/18/23 21:00 72 24 111/70 99 06/18/23 20:59 40 06/18/23 20:45 72 110/70 99 06/18/23 20:30 72 119/70 99 06/18/23 20:15 73 115/68 99 06/18/23 20:00 97.2 F L 78 26 H 114/67 98 40 06/18/23 19:45 78 26 H 113/67 98 06/18/23 19:30 74 25 H 118/72 98 05/11/24 19:15 72 24 111/68 98 06/18/23 19:00 73 20 106/65 98 06/18/23 18:45 73 22 106/63 98 06/18/23 18:30 73 22 108/64 98 06/18/23 18:15 73 20 110/70 98 06/18/23 18:00 73 20 116/70 99 06/18/23 17:45 75 22 117/65 98 06/18/23 17:30 79 20 110/69 98 06/18/23 17:15 77 22 112/72 99 06/18/23 17:00 73 23 105/66 100 06/18/23 16:45 74 20 111/64 99 06/18/23 16:30 74 22 106/68 98 06/18/23 16:15 75 20 101/62 98 06/18/23 16:00 98.3 F 75 19 101/67 98 40 06/18/23 15:45 75 24 114/70 98 06/18/23 15:39 40 06/18/23 15:30 76 16 111/69 99 06/18/23 15:15 77 17 110/64 99 06/18/23 15:00 81 20 105/65 98 06/18/23 14:45 82 20 112/73 99 06/18/23 14:30 84 20 113/66 98 06/18/23 14:15 79 20 112/66 98 06/18/23 14:00 82 20 104/68 98 06/18/23 13:45 80 26 H 106/65 98 06/18/23 13:30 79 22 109/65 98 06/18/23 13:15 84 20 106/62 98 06/18/23 13:00 82 28 H 108/59 98 06/18/23 12:45 81 22 105/63 98 06/18/23 12:30 81 24 108/62 98 06/18/23 12:15 80 26 H 103/60 98 06/18/23 12:00 98.1 F 78 25 H 102/64 98 40 06/18/23 11:45 78 25 H 103/66 98 06/18/23 11:30 80 26 H 101/65 98 06/18/23 11:15 79 24 96/55 98 06/18/23 11:00 78 24 97/58 98 06/18/23 10:52 40 06/18/23 10:45 76 20 94/58 98 06/18/23 10:30 75 22 98/59 98 06/18/23 10:15 75 20 96/62 98 06/18/23 10:00 76 22 96/61 98 Intake and Output 06/18/23 06/19/23 06/19/23 22:59 06:59 14:59 Intake Total 7945.237 9133.352 484.400 Output Total 375 700 280 Balance 860.822 439.352 204.400 Intake: IV 875 1100 375 Piperacillin-Tazobactam 3 100 .375 gm In Sodium Chloride 0.9% 100 ml @ 25 mls/hr IVPB Q8H [facility] Rx#: [id number] Sodium Chloride 0.45% 1, 750 1000 375 000 ml @ 125 mls/hr IV . Q16H [facility] with 0.45% NaCl with KCl 20 Meq/l 1,000 ml Rx#:[id number] Sodium Chloride 0.45% 1, 125 000 ml @ 125 mls/hr IV . Q8H [facility] Rx#:[id number] Intake, IV Titration 360.822 39.352 109.400 Amount Insulin Regular 100 unit 95.375 In Sodium Chloride 0.9% 100 ml @ 0.1 UNITS/KG/HR 6.437 mls/hr IV .[id number] [facility] Rx#:[id number] Norepinephrine 4 mg In 158.373 1.497 Sodium Chloride 0.9% 250 ml @ 0.03 MCG/KG/MIN 7. 284 mls/hr IV .Q24H [facility] Rx#:[id number] propofoL 1,000 mg In 107.074 37.855 109.400 Empty Bag 1 bag @ 15 MCG/ KG/MIN 5.736 mls/hr IV . [id number] [facility] Rx#:[id number] Output: Urine 375 700 280 Other: Voiding Method Indwelling Catheter Indwelling Catheter Results - Lab Results Most recent lab results ABG pH 7.07 (7.35-7.45) L* 06/17/23 21:17 ABG pCO2 43 mmHg (35-45) 06/17/23 21:17 ABG pO2 361 mmHg (83-108) H 06/17/23 21:17 ABG HCO3 12 mmol/L (21-25) L 06/17/23 21:17 ABG O2 Saturation 99.8 % (94-97) H 06/17/23 21:17 Calcium 7.1 mg/dL (8.4-10.2) L 06/19/23 04:49 Phosphorus 3.5 mg/dL (2.5-4.5) 06/17/23 23:59 Magnesium 3.3 mg/dL (1.6-2.3) H 06/18/23 09:47 06/19/23 04:49 06/19/23 04:49 Assessment and Plan Plan: Assessment: 1. Non-oliguric NIKOLE 2/2 ATN from volume depletion. Baseline creatinine 0.5 mg/dL, presented 3.4-->2.8 today with good urine output. UA consistent with po ssible UTI. 2. DKA on insulin drip. 3. Toxic/Metabolic Encephalopathy 4. Pneumonia with severe sepsis s/p AVDRF- extubated this morning. 5. Hypernatremia due to volume depletion. Sodium 155 this morning. 6. History of polysubstance abuse Plan: Agree with changing IVF to D5W now extubated and continue insulin drip for glucose control. Swallow evaluation, encourage PO intake when cleared. Strict I/O's, mainjaylan Choe for now Supportive care, making good urine. Should continue to improve with fluid hydration and glucose control. Discussed with ICU team.
[2023-06-19 12:32] LABS: Glucose,Whole Blood 297 mg/dL (70-110)
--- NOTE | 2023-06-19 12:40 | P.PN ---
Subjective Progress Note Date: 06/19/23 Principal diagnosis: Altered mental status/unresponsiveness, DKA This is a 48-year-old female with history of type 2 diabetes, history of schizophrenia, and polysubstance abuse, patient was found at home unresponsive by her guardian. Patient was brought into the ER and upon arrival the patient was noted to be in atrial fibrillation with RVR, she was extremely obtunded, she was also noted to have what seems to be a picture of severe hyperglycemia and DKA with significant anion gap metabolic acidosis. I was made aware of this patient by the ER physician and considering her obtundation, I recommended intubating the patient and accepted the patient to be admitted to the ICU with the DKA protocol, patient was extremely acidotic hyperkalemic significant anion gap metabolic acidosis was noted, and the patient was minimally responsive in the ER. Patient did have cardioversion for atrial fibrillation with RVR, and she went into sinus tachycardia. Initial labs upon admission showed leukocytosis with WBC count of 27.7, hemoglobin of 14.4, normal PT and INR, normal PTT, ABG postintubation showed a pO2 of 361 pCO2 43 pH of 7.07. Patient was also noted to have hypernatremia with a sodium of 138, bicarb was less than 5, lactic acid was 1.2, anion gap was above 18. Patient had positive ketones in the urine, 2+ drug screen came back positive for amphetamine. Patient is known to have history of polysubstance abuse. Today the patient is in the ICU, intubated and mechanically ventilated, she is on assist-control rate of 16 tidal volume 350 FiO2 40% and PEEP of 5 ABG this a.m. showed a pO2 of 179 pCO2 49 pH of 7.45. FiO2 now is down to 40%. Electrolytes showed hyponatremia with sodium of 151 hence her main IV fluid was changed to 2.45 at 120 cc/h, and the renal functioning seems to be improving creatinine on admission was 3.41 today it is 3.07. Nephrology is following the patient for her acute kidney injury. Presently the patient is on Lovenox subcu at 30 mg subcu daily, she remains on the DKA protocol, receiving insulin at 6.5 units/h, she is also on Protonix as well as Zosyn, feeding is still presently on hold. Patient was reexamined today while in the ICU on 06/19/2023, patient remains intubated and mechanically ventilated. Patient is on assist-control rate of 16 tidal volume 350 FiO2 40% and PEEP of 5. Patient is on propofol at 15 mcg/kg/m in, she is off norepinephrine, her IV fluid is running at 125 cc/h, it is 0.45, however patient is still running relatively high sodium, and I am changing her IV fluid to D5W, and I am recommending insulin drip to address her elevated blood sugars. WBC count today is 17.8 hemoglobin is 11.4. Basic metabolic profile is normal except for elevated sodium of 155 elevated chloride of 128 her anion gap has resolved her BUN is 76 creatinine 2.86, improving since admission patient had a creatinine as high as 3.41 on admission. Chest x-ray today showed minimal nonspecific patchy interstitial changes, patient remains empirically on Zosyn for presumptive aspiration. Patient remains on pantoprazole and she remains on Lovenox. Objective - Vital Signs Vital signs: Vital Signs Temp 98.9 F 06/19/23 12:00 Pulse 71 06/19/23 12:00 Resp 24 06/19/23 12:00 BP 139/81 06/19/23 12:00 Pulse Ox 96 06/19/23 12:00 FiO2 40 06/19/23 10:39 Intake & Output 06/18/23 06/19/23 06/19/23 18:59 06:59 18:59 Intake Total 2312.056 1881.852 746.602 Output Total 435 925 855 Balance 1877.056 956.852 -108.398 Weight 70.5 kg Intake: IV 1650 1600 625 Dextrose 5% in Water 1, 250 000 ml @ 125 mls/hr IV . Q8H [facility] Rx#:[id number] Piperacillin-Tazobactam 3 100 .375 gm In Sodium Chloride 0.9% 100 ml @ 25 mls/hr IVPB Q8H [facility] Rx#: [id number] Sodium Chloride 0.45% 1, 250 1500 375 000 ml @ 125 mls/hr IV . Q16H [facility] with 0.45% NaCl with KCl 20 Meq/l 1,000 ml Rx#:[id number] Sodium Chloride 0.45% 1, 1200 000 ml @ 125 mls/hr IV . Q8H [facility] Rx#:[id number] Sodium Chloride 0.9% 1, 200 000 ml @ 200 mls/hr IV . Q5H [facility] Rx#:[id number] Intake, IV Titration 662.056 281.852 121.602 Amount Insulin Regular 100 unit 95.375 In Sodium Chloride 0.9% 100 ml @ 0.1 UNITS/KG/HR 6.437 mls/hr IV .[id number] [facility] Rx#:[id number] Insulin Regular 100 unit 3.183 In Sodium Chloride 0.9% 100 ml @ Titrate IV .Q0M [facility] Rx#:[id number] Norepinephrine 4 mg In 531.633 71.023 Sodium Chloride 0.9% 250 ml @ 0.03 MCG/KG/MIN 7. 284 mls/hr IV .Q24H [facility] Rx#:[id number] propofoL 1,000 mg In 130.423 115.454 118.419 Empty Bag 1 bag @ 15 MCG/ KG/MIN 5.736 mls/hr IV . [id number] [facility] Rx#:[id number] Output: Urine 435 925 855 Other: Voiding Method Indwelling Catheter Indwelling Catheter - Exam General: Revealed a 48-year-old female, intubated, sedated, on propofol, not in distress. Arousable, follows very simple instructions mostly wiggling toes and squeezing hands Head: Atraumatic, normocephalic. Endotracheal tube and orogastric tube are intact. Skin: No rashes Eyes: EOMI, PERRLA, no evidence of icterus. ENT: Nose and ears, normal Neck: No cervical lymphadenopathy, trachea midline, supple Mouth: dry mucous membranes noted. No lesions noted on mucous membranes Cardiovascular: Distant S1-S2, no S3 gallop, no murmur. Lungs: Good breath sound bilaterally no rhonchi no wheezes Abdominal: soft, nontender, no megaly no rebound no guarding Ext: No evidence of deformities good pulses bilaterally Neuro: Arousable, but remains fairly sedated, opens eyes, follows simple instructions mostly wiggling toes and squeezing hands. - Labs CBC & Chem 7: 06/19/23 04:49 06/19/23 04:49 Labs: Abnormal Lab Results - Last 24 Hours (Table) 06/18/23 06/18/23 06/18/23 Range/Units 14:09 14:53 15:27 WBC (3.8-10.6) k/uL RBC (3.80-5.40) m/uL Sodium 155 H (137-145) mmol/L Chloride 125 H (98-107) mmol/L Carbon Dioxide (22-30) mmol/L BUN 91 H (7-17) mg/dL Creatinine 3.16 H (0.52-1.04) mg/dL Glucose 398 H (74-99) mg/dL POC Glucose (mg/dL) 414 H 446 H (70-110) mg/dL Calcium 7.1 L (8.4-10.2) mg/dL Procalcitonin (0.02-0.09) ng/mL TSH (0.465-4.680) mIU/L 06/18/23 06/18/23 06/18/23 Range/Units 15:59 17:00 18:08 WBC (3.8-10.6) k/uL RBC (3.80-5.40) m/uL Sodium (137-145) mmol/L Chloride (98-107) mmol/L Carbon Dioxide (22-30) mmol/L BUN (7-17) mg/dL Creatinine (0.52-1.04) mg/dL Glucose (74-99) mg/dL POC Glucose (mg/dL) 357 H 348 H 328 H (70-110) mg/dL Calcium (8.4-10.2) mg/dL Procalcitonin (0.02-0.09) ng/mL TSH (0.465-4.680) mIU/L 06/18/23 06/18/23 06/18/23 Range/Units 19:01 19:34 20:02 WBC (3.8-10.6) k/uL RBC (3.80-5.40) m/uL Sodium 156 H (137-145) mmol/L Chloride 125 H (98-107) mmol/L Carbon Dioxide (22-30) mmol/L BUN 89 H (7-17) mg/dL Creatinine 3.18 H (0.52-1.04) mg/dL Glucose 289 H (74-99) mg/dL POC Glucose (mg/dL) 319 H 264 H (70-110) mg/dL Calcium 7.0 L (8.4-10.2) mg/dL Procalcitonin (0.02-0.09) ng/mL TSH (0.465-4.680) mIU/L 06/18/23 06/18/23 06/18/23 Range/Units 20:52 22:03 23:27 WBC (3.8-10.6) k/uL RBC (3.80-5.40) m/uL Sodium 156 H (137-145) mmol/L Chloride 126 H (98-107) mmol/L Carbon Dioxide 21 L (22-30) mmol/L BUN 84 H (7-17) mg/dL Creatinine 3.09 H (0.52-1.04) mg/dL Glucose 248 H (74-99) mg/dL POC Glucose (mg/dL) 282 H 232 H (70-110) mg/dL Calcium 7.0 L (8.4-10.2) mg/dL Procalcitonin (0.02-0.09) ng/mL TSH (0.465-4.680) mIU/L 06/19/23 06/19/23 06/19/23 Range/Units 00:01 02:07 04:49 WBC (3.8-10.6) k/uL RBC (3.80-5.40) m/uL Sodium (137-145) mmol/L Chloride (98-107) mmol/L Carbon Dioxide (22-30) mmol/L BUN (7-17) mg/dL Creatinine (0.52-1.04) mg/dL Glucose (74-99) mg/dL POC Glucose (mg/dL) 259 H 247 H (70-110) mg/dL Calcium (8.4-10.2) mg/dL Procalcitonin 0.63 H (0.02-0.09) ng/mL TSH (0.465-4.680) mIU/L 06/19/23 06/19/23 06/19/23 Range/Units 04:49 04:49 04:49 WBC 17.8 H (3.8-10.6) k/uL RBC 3.73 L (3.80-5.40) m/uL Sodium 155 H (137-145) mmol/L Chloride 128 H (98-107) mmol/L Carbon Dioxide 20 L (22-30) mmol/L BUN 76 H (7-17) mg/dL Creatinine 2.86 H (0.52-1.04) mg/dL Glucose 291 H (74-99) mg/dL POC Glucose (mg/dL) (70-110) mg/dL Calcium 7.1 L (8.4-10.2) mg/dL Procalcitonin (0.02-0.09) ng/mL TSH 0.325 L (0.465-4.680) mIU/L 06/19/23 06/19/23 06/19/23 Range/Units 07:05 11:10 12:20 WBC (3.8-10.6) k/uL RBC (3.80-5.40) m/uL Sodium (137-145) mmol/L Chloride (98-107) mmol/L Carbon Dioxide (22-30) mmol/L BUN (7-17) mg/dL Creatinine (0.52-1.04) mg/dL Glucose (74-99) mg/dL POC Glucose (mg/dL) 324 H 345 H 297 H (70-110) mg/dL Calcium (8.4-10.2) mg/dL Procalcitonin (0.02-0.09) ng/mL TSH (0.465-4.680) mIU/L Microbiology - Last 24 Hours (Table) 06/17/23 19:05 Urine Culture - Preliminary Urine,Voided Gram Neg Bacilli 06/17/23 17:35 Blood Culture - Preliminary Blood 06/18/23 06:15 Gram Stain - Preliminary Sputum Assessment and Plan Assessment: Impression: Acute diabetic ketoacidosis Acute metabolic encephalopathy Possible amphetamine overdose, patient is known to have history of polysubstance abuse Atrial fibrillation with RVR on presentation requiring cardioversion History of schizophrenia based on information obtained from the chart. Acute anion gap metabolic acidosis, secondary to DKA Possible aspiration pneumonia Hypotension secondary mostly to hypovolemia secondary to hyperglycemia, doubt sepsis and doubt septic shock. Acute kidney injury secondary to hypotension on her initial presentation Obtundation on presentation requiring intubation and mechanical ventilation, patient was intubated to protect mostly her airways. Electrolytes imbalance secondary to her DKA and fluids given Recommendation: Continue ventilatory support, however the patient will be given a trial of weaning off sedation assuming the patient wakes up and follows all instructions may even give the patient a very short trial of pressure support and CPAP. Change IV fluid to D5W to correct her hypernatremia and closely monitor electrolytes, closely monitor blood sugar patient may need to be placed back on insulin drip if sugar becomes quite elevated. Continue GI and DVT prophylaxis/Lovenox and Protonix Keep n.p.o. as we may extubate the patient today. Continue antibiotics empirically, patient is on Zosyn. Remains critically ill Will consider a trial of weaning and extubation today after she is off sedation Will continue to monitor in the ICU Resume home meds including meds for her schizophrenia. Consult psychiatry if the patient gets extubated today or tomorrow. Will continue to follow Continue close monitoring of her sugars and electrolytes Critical care time is over 30 minutes Time with Patient: Greater than 30
[2023-06-19 13:04] LABS: Glucose,Whole Blood 320 mg/dL (70-110)
[2023-06-19 14:14] LABS: Glucose,Whole Blood 308 mg/dL (70-110)
[2023-06-19 15:06] LABS: Glucose,Whole Blood 291 mg/dL (70-110)
[2023-06-19 16:08] LABS: Glucose,Whole Blood 293 mg/dL (70-110)
[2023-06-19 17:00] LABS: Glucose,Whole Blood 247 mg/dL (70-110)
[2023-06-19 18:10] LABS: Glucose,Whole Blood 210 mg/dL (70-110)
[2023-06-19 18:56] LABS: Glucose,Whole Blood 157 mg/dL (70-110)
[2023-06-19 20:09] LABS: Glucose,Whole Blood 109 mg/dL (70-110)
[2023-06-19 21:02] LABS: Glucose,Whole Blood 155 mg/dL (70-110)
[2023-06-19 22:24] LABS: Glucose,Whole Blood 164 mg/dL (70-110)
[2023-06-19 23:02] LABS: Glucose,Whole Blood 202 mg/dL (70-110)
[2023-06-20 00:01] LABS: Glucose,Whole Blood 250 mg/dL (70-110)
[2023-06-20 01:08] LABS: Glucose,Whole Blood 244 mg/dL (70-110)
[2023-06-20 02:02] LABS: Glucose,Whole Blood 228 mg/dL (70-110)
[2023-06-20 03:05] LABS: Glucose,Whole Blood 215 mg/dL (70-110)
[2023-06-20 03:59] LABS: Glucose,Whole Blood 187 mg/dL (70-110)
[2023-06-20 05:01] LABS: Glucose,Whole Blood 192 mg/dL (70-110)
[2023-06-20 06:01] LABS: HCT 31.6 % (34.0-46.0); MCH 28.7 pg (25.0-35.0); MCHC 31.6 g/dL (31.0-37.0); MCV 90.9 fL (80.0-100.0); Mean Platelet Volume 8.8; Platelet Count 186 k/uL (150-450); RBC 3.47 m/uL (3.80-5.40); RDW 13.7 % (11.5-15.5); WBC 20.5 k/uL (3.8-10.6)
[2023-06-20 06:12] LABS: Glucose,Whole Blood 145 mg/dL (70-110)
[2023-06-20 07:00] LABS: African American GFR (CKD) 47 (>60 ml/min/1.73 sqM); Anion Gap 4 mmol/L; Blood Urea Nitrogen 42 mg/dL (7-17); Calcium 7.8 mg/dL (8.4-10.2); Carbon Dioxide 25 mmol/L (22-30); Chloride 116 mmol/L (98-107); Glucose 161 mg/dL (74-99); Non-African American GFR(CKD) 41 (>60 ml/min/1.73 sqM); Potassium 2.9 mmol/L (3.5-5.1); Sodium 145 mmol/L (137-145)
[2023-06-20 07:01] LABS: Glucose,Whole Blood 105 mg/dL (70-110)
[2023-06-20] MEDS ORDERED: Potassium Replacement Protocol 1 EACH MISC MISCELLANE PRN (07:08)
[2023-06-20] MEDS: POTASSIUM CHLORIDE ER 20 MEQ TAB.ER PO SCH (07:48)
[2023-06-20 08:03] LABS: Glucose,Whole Blood 136 mg/dL (70-110)
[2023-06-20] MEDS ORDERED: VANCOMYCIN IV PER PHARMACY 1 EACH MISC MISCELLANE PRN (08:36)
[2023-06-20] MEDS: VANCOMYCIN 1,500 MG in SODIUM CHLORIDE 0.9% 500 ML 500 ML IVPB ONE (09:09)
[2023-06-20] MEDS: PIPERACILLIN-TAZOBACTAM 3.375 GM in SODIUM CHLORIDE 0.9% 100 ML IVPB SCH (09:11)
[2023-06-20] MEDS: SODIUM CHLORIDE 0.9% 1,000 ML IV SCH (09:11)
--- NOTE | 2023-06-20 11:00 | P.PN ---
Subjective patient is seen for follow-up for acute kidney injury. Patient has been extubated. maintained on IV fluids. urine culture is growing gram-negative bacilli. urine output at 100-200 ML per hour. serum creatinine improved to 1.5 today. Objective - Vital Signs Vital signs: Vital Signs Temp 98.7 F 06/20/23 08:00 Pulse 79 06/20/23 09:00 Resp 18 06/20/23 09:00 BP 111/64 06/20/23 09:00 Pulse Ox 95 06/20/23 09:00 FiO2 40 06/19/23 10:39 Intake & Output 06/19/23 06/20/23 06/20/23 18:59 06:59 18:59 Intake Total 2468.802 1874.659 943.963 Output Total 1930 1865 420 Balance 538.802 9.659 523.963 Weight 74.5 kg Intake: IV 1625 1475 925 Dextrose 5% in Water 1, 1250 1375 250 000 ml @ 125 mls/hr IV . Q8H [facility] Rx#:[id number] Piperacillin-Tazobactam 3 100 .375 gm In Sodium Chloride 0.9% 100 ml @ 25 mls/hr IVPB Q8H [facility] Rx#: [id number] Piperacillin-Tazobactam 3 100 .375 gm In Sodium Chloride 0.9% 100 ml @ 25 mls/hr IVPB Q8HR [facility] Rx# :[id number] Sodium Chloride 0.45% 1, 375 000 ml @ 125 mls/hr IV . Q16H [facility] with 0.45% NaCl with KCl 20 Meq/l 1,000 ml Rx#:[id number] Sodium Chloride 0.9% 1, 75 000 ml @ 75 mls/hr IV . [id number] [facility] Rx#:[id number] Vancomycin 1,500 mg In 500 Sodium Chloride 0.9% 500 ml 500 ml @ 167 mls/hr IVPB ONCE [facility] Rx#: [id number] Intake, IV Titration 203.802 49.659 18.963 Amount Insulin Regular 100 unit 85.383 49.659 18.963 In Sodium Chloride 0.9% 100 ml @ Titrate IV .Q0M [facility] Rx#:[id number] propofoL 1,000 mg In 118.419 Empty Bag 1 bag @ 15 MCG/ KG/MIN 5.736 mls/hr IV . [id number] [facility] Rx#:[id number] Oral 640 350 Output: Urine 1930 1865 420 Other: Voiding Method Indwelling Catheter Indwelling Catheter Indwelling Catheter # Voids 130 - Exam patient is comfortable. She is sleeping but arousable. Examination of the heart S1 and S2 Examination of the lungs decreased breath sounds at the bases Abdomen is soft nontender Examination of lower extremity shows no significant edema. - Labs CBC & Chem 7: 06/20/23 05:27 06/20/23 05:27 Labs: Abnormal Lab Results - Last 24 Hours (Table) 06/19/23 06/19/23 06/19/23 Range/Units 04:49 11:10 12:20 WBC (3.8-10.6) k/uL RBC (3.80-5.40) m/uL Hgb (11.4-16.0) gm/dL Hct (34.0-46.0) % Sodium (137-145) mmol/L Potassium (3.5-5.1) mmol/L Chloride (98-107) mmol/L BUN (7-17) mg/dL Creatinine (0.52-1.04) mg/dL Glucose (74-99) mg/dL POC Glucose (mg/dL) 345 H 297 H (70-110) mg/dL Calcium (8.4-10.2) mg/dL Procalcitonin 0.63 H (0.02-0.09) ng/mL 06/19/23 06/19/23 06/19/23 Range/Units 13:02 13:59 14:02 WBC (3.8-10.6) k/uL RBC (3.80-5.40) m/uL Hgb (11.4-16.0) gm/dL Hct (34.0-46.0) % Sodium 154 H (137-145) mmol/L Potassium (3.5-5.1) mmol/L Chloride (98-107) mmol/L BUN (7-17) mg/dL Creatinine (0.52-1.04) mg/dL Glucose (74-99) mg/dL POC Glucose (mg/dL) 320 H 308 H (70-110) mg/dL Calcium (8.4-10.2) mg/dL Procalcitonin (0.02-0.09) ng/mL 06/19/23 06/19/23 06/19/23 Range/Units 15:04 16:07 16:59 WBC (3.8-10.6) k/uL RBC (3.80-5.40) m/uL Hgb (11.4-16.0) gm/dL Hct (34.0-46.0) % Sodium (137-145) mmol/L Potassium (3.5-5.1) mmol/L Chloride (98-107) mmol/L BUN (7-17) mg/dL Creatinine (0.52-1.04) mg/dL Glucose (74-99) mg/dL POC Glucose (mg/dL) 291 H 293 H 247 H (70-110) mg/dL Calcium (8.4-10.2) mg/dL Procalcitonin (0.02-0.09) ng/mL 06/19/23 06/19/23 06/19/23 Range/Units 17:51 18:08 18:55 WBC (3.8-10.6) k/uL RBC (3.80-5.40) m/uL Hgb (11.4-16.0) gm/dL Hct (34.0-46.0) % Sodium 152 H (137-145) mmol/L Potassium (3.5-5.1) mmol/L Chloride (98-107) mmol/L BUN (7-17) mg/dL Creatinine (0.52-1.04) mg/dL Glucose (74-99) mg/dL POC Glucose (mg/dL) 210 H 157 H (70-110) mg/dL Calcium (8.4-10.2) mg/dL Procalcitonin (0.02-0.09) ng/mL 06/19/23 06/19/23 06/19/23 Range/Units 21:01 21:26 22:23 WBC (3.8-10.6) k/uL RBC (3.80-5.40) m/uL Hgb (11.4-16.0) gm/dL Hct (34.0-46.0) % Sodium 149 H (137-145) mmol/L Potassium (3.5-5.1) mmol/L Chloride (98-107) mmol/L BUN (7-17) mg/dL Creatinine (0.52-1.04) mg/dL Glucose (74-99) mg/dL POC Glucose (mg/dL) 155 H 164 H (70-110) mg/dL Calcium (8.4-10.2) mg/dL Procalcitonin (0.02-0.09) ng/mL 06/19/23 06/20/23 06/20/23 Range/Units 23:01 00:00 01:06 WBC (3.8-10.6) k/uL RBC (3.80-5.40) m/uL Hgb (11.4-16.0) gm/dL Hct (34.0-46.0) % Sodium (137-145) mmol/L Potassium (3.5-5.1) mmol/L Chloride (98-107) mmol/L BUN (7-17) mg/dL Creatinine (0.52-1.04) mg/dL Glucose (74-99) mg/dL POC Glucose (mg/dL) 202 H 250 H 244 H (70-110) mg/dL Calcium (8.4-10.2) mg/dL Procalcitonin (0.02-0.09) ng/mL 06/20/23 06/20/23 06/20/23 Range/Units 02:00 03:04 03:57 WBC (3.8-10.6) k/uL RBC (3.80-5.40) m/uL Hgb (11.4-16.0) gm/dL Hct (34.0-46.0) % Sodium (137-145) mmol/L Potassium (3.5-5.1) mmol/L Chloride (98-107) mmol/L BUN (7-17) mg/dL Creatinine (0.52-1.04) mg/dL Glucose (74-99) mg/dL POC Glucose (mg/dL) 228 H 215 H 187 H (70-110) mg/dL Calcium (8.4-10.2) mg/dL Procalcitonin (0.02-0.09) ng/mL 06/20/23 06/20/23 06/20/23 Range/Units 05:00 05:27 05:27 WBC 20.5 H (3.8-10.6) k/uL RBC 3.47 L (3.80-5.40) m/uL Hgb 10.0 L (11.4-16.0) gm/dL Hct 31.6 L (34.0-46.0) % Sodium (137-145) mmol/L Potassium 2.9 L (3.5-5.1) mmol/L Chloride 116 H (98-107) mmol/L BUN 42 H (7-17) mg/dL Creatinine 1.52 H (0.52-1.04) mg/dL Glucose 161 H (74-99) mg/dL POC Glucose (mg/dL) 192 H (70-110) mg/dL Calcium 7.8 L (8.4-10.2) mg/dL Procalcitonin (0.02-0.09) ng/mL 06/20/23 06/20/23 Range/Units 05:58 08:01 WBC (3.8-10.6) k/uL RBC (3.80-5.40) m/uL Hgb (11.4-16.0) gm/dL Hct (34.0-46.0) % Sodium (137-145) mmol/L Potassium (3.5-5.1) mmol/L Chloride (98-107) mmol/L BUN (7-17) mg/dL Creatinine (0.52-1.04) mg/dL Glucose (74-99) mg/dL POC Glucose (mg/dL) 145 H 136 H (70-110) mg/dL Calcium (8.4-10.2) mg/dL Procalcitonin (0.02-0.09) ng/mL Microbiology - Last 24 Hours (Table) 06/18/23 06:15 Gram Stain - Preliminary Sputum Sputum Culture - Preliminary Staphylococcus aureus Jamee albicans Fungus Isolated 06/17/23 17:35 Blood Culture - Preliminary Blood 06/17/23 17:20 Blood Culture - Preliminary Blood 06/17/23 19:05 Urine Culture - Preliminary Urine,Voided Gram Neg Bacilli Assessment and Plan Assessment: 1. Non-oliguric NIKOLE 2/2 ATN from volume depletion. Baseline creatinine 0.5 mg/dL, presented 3.4-->1.5 today with good urine output. UA consistent with possible UTI. 2. DKA, status post insulin drip. 3. Toxic/Metabolic Encephalopathy 4. Pneumonia with severe sepsis s/p AVDRF- extubated this morning. 5. Hypernatremia due to volume depletion., improved 6. History of polysubstance abuse 7. UTI with urine culture growing gram-negative bacilli Plan: continue with IV fluids Replace potassium Repeat labs in a.m.
[2023-06-20 11:12] LABS: Glucose,Whole Blood 285 mg/dL (70-110)
--- NOTE | 2023-06-20 11:34 | P.PN ---
Subjective Progress Note Date: 06/20/23 This is a 48-year-old female with history of type 2 diabetes, history of schizophrenia, and polysubstance abuse, patient was found at home unresponsive by her guardian. Patient was brought into the ER and upon arrival the patient was noted to be in atrial fibrillation with RVR, she was extremely obtunded, she was also noted to have what seems to be a picture of severe hyperglycemia and DKA with significant anion gap metabolic acidosis. I was made aware of this patient by the ER physician and considering her obtundation, I recommended intubating the patient and accepted the patient to be admitted to the ICU with the DKA protocol, patient was extremely acidotic hyperkalemic significant anion gap metabolic acidosis was noted, and the patient was minimally responsive in the ER. Patient did have cardioversion for atrial fibrillation with RVR, and she went into sinus tachycardia. Initial labs upon admission showed leukocytosis with WBC count of 27.7, hemoglobin of 14.4, normal PT and INR, norm al PTT, ABG postintubation showed a pO2 of 361 pCO2 43 pH of 7.07. Patient was also noted to have hypernatremia with a sodium of 138, bicarb was less than 5, lactic acid was 1.2, anion gap was above 18. Patient had positive ketones in the urine, 2+ drug screen came back positive for amphetamine. Patient is known to have history of polysubstance abuse. Today the patient is in the ICU, intubated and mechanically ventilated, she is on assist-control rate of 16 tidal volume 350 FiO2 40% and PEEP of 5 ABG this a.m. showed a pO2 of 179 pCO2 49 pH of 7.45. FiO2 now is down to 40%. Electrolytes showed hyponatremia with sodium of 151 hence her main IV fluid was changed to 2.45 at 120 cc/h, and the renal functioning seems to be improving creatinine on admission was 3.41 today it is 3.07. Nephrology is following the patient for her acute kidney injury. Presently the patient is on Lovenox subcu at 30 mg subcu daily, she remains on the DKA protocol, receiving insulin at 6.5 units/h, she is also on Protonix as well as Zosyn, feeding is still presently on hold. Patient was reexamined today while in the ICU on 06/19/2023, patient remains intubated and mechanically ventilated. Patient is on assist-control rate of 16 tidal volume 350 FiO2 40% and PEEP of 5. Patient is on propofol at 15 m cg/kg/min, she is off norepinephrine, her IV fluid is running at 125 cc/h, it is 0.45, however patient is still running relatively high sodium, and I am changing her IV fluid to D5W, and I am recommending insulin drip to address her elevated blood sugars. WBC count today is 17.8 hemoglobin is 11.4. Basic metabolic profile is normal except for elevated sodium of 155 elevated chloride of 128 her anion gap has resolved her BUN is 76 creatinine 2.86, improving since admission patient had a creatinine as high as 3.41 on admission. Chest x-ray today showed minimal nonspecific patchy interstitial changes, patient remains empirically on Zosyn for presumptive aspiration. Patient remains on pantoprazole and she remains on Lovenox. The patient is seen today June 20, 2023 in follow-up in the intensive care unit. She is currently sitting up in bed. Awake and alert in no acute distress. Maintaining O2 saturations in the 90s on room air. Sputum culture was positive for MSSA. She remains on Unasyn and vancomycin. Insulin is on hold. Normal saline at 75 MLS per hour. She is currently off norepinephrine. Her ventricular rate is well-controlled. White count 20.5. Hemoglobin 10.0. Plat elets 186. Sodium 145. Potassium 2.9. Bicarb 25. BUN 42. Creatinine 1.52. Glucose 161. Objective - Vital Signs Vital signs: Vital Signs Temp 98.7 F 06/20/23 08:00 Pulse 79 06/20/23 09:00 Resp 18 06/20/23 09:00 BP 111/64 06/20/23 09:00 Pulse Ox 95 06/20/23 09:00 FiO2 40 06/19/23 10:39 Intake & Output 06/19/23 06/20/23 06/20/23 18:59 06:59 18:59 Intake Total 2468.802 1874.659 943.963 Output Total 1930 1865 420 Balance 538.802 9.659 523.963 Weight 74.5 kg Intake: IV 1625 1475 925 Dextrose 5% in Water 1, 1250 1375 250 000 ml @ 125 mls/hr IV . Q8H [facility] Rx#:[id number] Piperacillin-Tazobactam 3 100 .375 gm In Sodium Chloride 0.9% 100 ml @ 25 mls/hr IVPB Q8H [facility] Rx#: [id number] Piperacillin-Tazobactam 3 100 .375 gm In Sodium Chloride 0.9% 100 ml @ 25 mls/hr IVPB Q8HR [facility] Rx# :[id number] Sodium Chloride 0.45% 1, 375 000 ml @ 125 mls/hr IV . Q16H [facility] with 0.45% NaCl with KCl 20 Meq/l 1,000 ml Rx#:[id number] Sodium Chloride 0.9% 1, 75 000 ml @ 75 mls/hr IV . [id number] [facility] Rx#:[id number] Vancomycin 1,500 mg In 500 Sodium Chloride 0.9% 500 ml 500 ml @ 167 mls/hr IVPB ONCE ONE Rx#: [id number] Intake, IV Titration 203.802 49.659 18.963 Amount Insulin Regular 100 unit 85.383 49.659 18.963 In Sodium Chloride 0.9% 100 ml @ Titrate IV .Q0M [facility] Rx#:[id number] propofoL 1,000 mg In 118.419 Empty Bag 1 bag @ 15 MCG/ KG/MIN 5.736 mls/hr IV . [id number] [facility] Rx#:[id number] Oral 640 350 Output: Urine 1930 1865 420 Other: Voiding Method Indwelling Catheter Indwelling Catheter Indwelling Catheter # Voids 130 - Exam General: Revealed a 48-year-old female. Awake and alert in no acute distress. On room air. Head: Atraumatic, normocephalic. Endotracheal tube and orogastric tube are intact. Skin: No rashes Eyes: EOMI, PERRLA, no evidence of icterus. ENT: Nose and ears, normal Neck: No cervical lymphadenopathy, trachea midline, supple Mouth: dry mucous membranes noted. No lesions noted on mucous membranes Cardiovascular: Distant S1-S2, no S3 gallop, no murmur. Lungs: Good breath sound bilaterally no rhonchi no wheezes Abdominal: soft, nontender, no megaly no rebound no guarding Ext: No evidence of deformities good pulses bilaterally Neuro: Awake, alert, no focal deficits. - Labs CBC & Chem 7: 06/20/23 05:27 06/20/23 05:27 Labs: Abnormal Lab Results - Last 24 Hours (Table) 06/19/23 06/19/23 06/19/23 Range/Units 04:49 12:20 13:02 WBC (3.8-10.6) k/uL RBC (3.80-5.40) m/uL Hgb (11.4-16.0) gm/dL Hct (34.0-46.0) % Sodium (137-145) mmol/L Potassium (3.5-5.1) mmol/L Chloride (98-107) mmol/L BUN (7-17) mg/dL Creatinine (0.52-1.04) mg/dL Glucose (74-99) mg/dL POC Glucose (mg/dL) 297 H 320 H (70-110) mg/dL Calcium (8.4-10.2) mg/dL Procalcitonin 0.63 H (0.02-0.09) ng/mL 06/19/23 06/19/23 06/19/23 Range/Units 13:59 14:02 15:04 WBC (3.8-10.6) k/uL RBC (3.80-5.40) m/uL Hgb (11.4-16.0) gm/dL Hct (34.0-46.0) % Sodium 154 H (137-145) mmol/L Potassium (3.5-5.1) mmol/L Chloride (98-107) mmol/L BUN (7-17) mg/dL Creatinine (0.52-1.04) mg/dL Glucose (74-99) mg/dL POC Glucose (mg/dL) 308 H 291 H (70-110) mg/dL Calcium (8.4-10.2) mg/dL Procalcitonin (0.02-0.09) ng/mL 06/19/23 06/19/23 06/19/23 Range/Units 16:07 16:59 17:51 WBC (3.8-10.6) k/uL RBC (3.80-5.40) m/uL Hgb (11.4-16.0) gm/dL Hct (34.0-46.0) % Sodium 152 H (137-145) mmol/L Potassium (3.5-5.1) mmol/L Chloride (98-107) mmol/L BUN (7-17) mg/dL Creatinine (0.52-1.04) mg/dL Glucose (74-99) mg/dL POC Glucose (mg/dL) 293 H 247 H (70-110) mg/dL Calcium (8.4-10.2) mg/dL Procalcitonin (0.02-0.09) ng/mL 06/19/23 06/19/23 06/19/23 Range/Units 18:08 18:55 21:01 WBC (3.8-10.6) k/uL RBC (3.80-5.40) m/uL Hgb (11.4-16.0) gm/dL Hct (34.0-46.0) % Sodium (137-145) mmol/L Potassium (3.5-5.1) mmol/L Chloride (98-107) mmol/L BUN (7-17) mg/dL Creatinine (0.52-1.04) mg/dL Glucose (74-99) mg/dL POC Glucose (mg/dL) 210 H 157 H 155 H (70-110) mg/dL Calcium (8.4-10.2) mg/dL Procalcitonin (0.02-0.09) ng/mL 06/19/23 06/19/23 06/19/23 Range/Units 21:26 22:23 23:01 WBC (3.8-10.6) k/uL RBC (3.80-5.40) m/uL Hgb (11.4-16.0) gm/dL Hct (34.0-46.0) % Sodium 149 H (137-145) mmol/L Potassium (3.5-5.1) mmol/L Chloride (98-107) mmol/L BUN (7-17) mg/dL Creatinine (0.52-1.04) mg/dL Glucose (74-99) mg/dL POC Glucose (mg/dL) 164 H 202 H (70-110) mg/dL Calcium (8.4-10.2) mg/dL Procalcitonin (0.02-0.09) ng/mL 06/20/23 06/20/23 06/20/23 Range/Units 00:00 01:06 02:00 WBC (3.8-10.6) k/uL RBC (3.80-5.40) m/uL Hgb (11.4-16.0) gm/dL Hct (34.0-46.0) % Sodium (137-145) mmol/L Potassium (3.5-5.1) mmol/L Chloride (98-107) mmol/L BUN (7-17) mg/dL Creatinine (0.52-1.04) mg/dL Glucose (74-99) mg/dL POC Glucose (mg/dL) 250 H 244 H 228 H (70-110) mg/dL Calcium (8.4-10.2) mg/dL Procalcitonin (0.02-0.09) ng/mL 06/20/23 06/20/23 06/20/23 Range/Units 03:04 03:57 05:00 WBC (3.8-10.6) k/uL RBC (3.80-5.40) m/uL Hgb (11.4-16.0) gm/dL Hct (34.0-46.0) % Sodium (137-145) mmol/L Potassium (3.5-5.1) mmol/L Chloride (98-107) mmol/L BUN (7-17) mg/dL Creatinine (0.52-1.04) mg/dL Glucose (74-99) mg/dL POC Glucose (mg/dL) 215 H 187 H 192 H (70-110) mg/dL Calcium (8.4-10.2) mg/dL Procalcitonin (0.02-0.09) ng/mL 06/20/23 06/20/23 06/20/23 Range/Units 05:27 05:27 05:58 WBC 20.5 H (3.8-10.6) k/uL RBC 3.47 L (3.80-5.40) m/uL Hgb 10.0 L (11.4-16.0) gm/dL Hct 31.6 L (34.0-46.0) % Sodium (137-145) mmol/L Potassium 2.9 L (3.5-5.1) mmol/L Chloride 116 H (98-107) mmol/L BUN 42 H (7-17) mg/dL Creatinine 1.52 H (0.52-1.04) mg/dL Glucose 161 H (74-99) mg/dL POC Glucose (mg/dL) 145 H (70-110) mg/dL Calcium 7.8 L (8.4-10.2) mg/dL Procalcitonin (0.02-0.09) ng/mL 06/20/23 06/20/23 Range/Units 08:01 11:10 WBC (3.8-10.6) k/uL RBC (3.80-5.40) m/uL Hgb (11.4-16.0) gm/dL Hct (34.0-46.0) % Sodium (137-145) mmol/L Potassium (3.5-5.1) mmol/L Chloride (98-107) mmol/L BUN (7-17) mg/dL Creatinine (0.52-1.04) mg/dL Glucose (74-99) mg/dL POC Glucose (mg/dL) 136 H 285 H (70-110) mg/dL Calcium (8.4-10.2) mg/dL Procalcitonin (0.02-0.09) ng/mL Microbiology - Last 24 Hours (Table) 06/18/23 06:15 Gram Stain - Preliminary Sputum Sputum Culture - Preliminary Staphylococcus aureus Jamee albicans Fungus Isolated 06/17/23 17:35 Blood Culture - Preliminary Blood 06/17/23 17:20 Blood Culture - Preliminary Blood 06/17/23 19:05 Urine Culture - Preliminary Urine,Voided Gram Neg Bacilli Assessment and Plan Assessment: Acute diabetic ketoacidosis Acute metabolic encephalopathy Possible amphetamine overdose, patient is known to have history of polysubstance abuse Atrial fibrillation with RVR on presentation requiring cardioversion, rate improved History of schizophrenia based on information obtained from the chart Acute anion gap metabolic acidosis, secondary to DKA Possible aspiration pneumonia, sputum positive for MSSA, Jamee Hypotension secondary mostly to hypovolemia secondary to hyperglycemia, doubt sepsis and doubt septic shock. Acute kidney injury secondary to hypotension and gram-negative bacilli urinary tract infection Obtundation on presentation requiring intubation and mechanical ventilation, recovered and on room air. Electrolytes imbalance secondary to her DKA and fluids given, being replaced Plan: The patient was seen and evaluated Labs and medications reviewed Replace electrolytes Continue antibiotics Lovenox for DVT prophylaxis Remains awake and alert, stable on room air We will continue to follow I have personally seen and examined the patient, performed the documentation and the assessment and plan as written. Number of minutes spent on the visit: 10.
[2023-06-20] MEDS: AMPICILLIN-SULBACTAM 3 GM in SODIUM CHLORIDE 0.9% 100 ML IVPB SCH (11:57)
[2023-06-20] MEDS: INSULIN ASPART (NovoLOG) 100 UNIT/ML VIAL SQ SCH ×2 (11:58→17:24)
--- NOTE | 2023-06-20 13:03 | P.PN ---
Subjective Progress Note Date: 06/20/23 48-year-old female with a PMH of type II DM who was brought into the emergency room via EMS after she was found unresponsive at home. The history is obtained from the ED provider and from the chart as the patient was intubated at the time of interview. The patient who has an extensive mental health history including schizophrenia as well as polysubstance abuse was reportedly found at her home unresponsive by her guardian. The patient was previously seen at her baseline on 06/15/2023. The patient was reportedly minimally responsive. In the emergency room, she was noted to be in A-fib with RVR with hypotension. She was subsequently cardioverted. On laboratory evaluation, the patient was noted to have a blood glucose of 1418, CO2 less than 5, creatinine 3.41 (previously 0.56), lactic acid 2.1, with troponin 0.013 with urine toxicology positive for amphetamines. CT brain in the emergency room was unremarkable with chest x-ray showing increased interstitial densities concerning for pneumonia. The patient was intubated as she was obtunded and responsive only to tactile stimuli. Admitted to ICU. Started on Zosyn for treatment of PNA. She required Levophed 06/16 which was wean ed off by 06/18. Started on insulin drip and NS per DKA protocol for treatment of DKA. NS switched to 1/2 NS due to hypernatremia. Transitioned to SQ insulin on 06/17 after AG closed and bicarb normalized. Her hypernatremia continued to worsen, 1/2 NS was switched to D5W and patient restarted on insulin drip. She was extubated on 06/18. 06/19 Patient was seen and examined. Appears lethargic sitting in her chair. She was extubated on 06/18. Restarted back on insulin drip yesterday and D5W for hypernatremia. Nephrology consulted, agreeable for D5W. CBC WBC 20.5, RBC 3.47, Hg 10, Hct 31.6. BMP K 2.9, Cl 116, BUN 42, Cr 1.52, glu 161, Ca 7.8. POC glucose 105-345 over the past 24H. CBC done today shows WBC 20.5 Hg 10, Hct 31.6. BMP shows K 2.9, Cl 116, BUN 42, Cr 1.52, glu 161, Ca 7.8. Procal is 0.63. UCx growing GNB. Sputum Cx presumptive staph, jamee albicans. BCx negative at 48H. ID consulted, Zosyn (D3) and Vancomycin (D1) switched to Unasyn 3 g IV Q6H. General: No acute distress. Lethargic Derm: warm, dry Head: atraumatic, normocephalic, symmetric Eyes: no lid lag, normal sclera Mouth: no lip lesion, mucus membranes moist Cardiovascular: Normal S1 S2. No murmurs, rubs, gallops Lungs: Decreased BS BL, no accessory muscle use Ext: no gross muscle atrophy, no edema, no contractures Neuro: No focal neurologic deficits Psych: Alert and oriented x 3 Septic shock: Tmax 101.1F. Leukocytosis of 27.7 on admission. UA trace LE. CXR with possible PNA. Possible aspiration. Sputum Cx growing jamee albicans and staph aureus. UCx GNB. Procal 0.63. ID consulted, Zosyn (D3) and Vancomycin (D1) switched to Unasyn 3g IV Q6H. Levophed titrate to maintain MAP > 65. Telemetry monitoring. NS at 75 cc/hr. Pulmonary/ICU on board. ID consulted. Diabetes mellitus with hyperglycemia: BG significantly improved. Insulin drip switched to MDSS. D5W switched to normal saline. Accucheck ACHS. Check A1c. Acute metabolic encephalopathy likely due to above Acute kidney injury: Improving. Likely prerenal from use of pressors. Renal US no obstruction. Nephrology on board. Substance abuse: UDS + amphetamines. Atrial fibrillation with RVR likely due to severe electrolyte abnormalities. Echo and TSH as above. Subclinical hyperthyroidism: Repeat TSH and FT4 in 6 weeks. Resolved: DKA, Acute hypoxic respiratory failure, Hypernatremia Chronic conditions: Schizophrenia CODE STATUS: FULL CODE DVT Prophylaxis: Lovenox SQ GI Prophylaxis: Protonix IV Designated medical POA if patient is not able to make medical decisions for themselves: I have reviewed the following ent consultant notes: Pulmonary, Nephrology I have reviewed the results of the following tests: CBC, BMP, UCx, POC glucose, Sputum and BCx. I have ordered the following tests: CBC and BMP. A1c pending. I have discussed the care of this patient with the following independent historian: I have independently interpreted the following test below: I have discussed the management of this patient with the following physician: Objective - Vital Signs Vital signs: Vital Signs Temp 98.7 F 06/20/23 08:00 Pulse 72 06/20/23 08:00 Resp 16 06/20/23 08:00 BP 111/67 06/20/23 08:00 Pulse Ox 96 06/20/23 08:00 FiO2 40 06/19/23 10:39 Intake & Output 06/19/23 06/20/23 06/20/23 18:59 06:59 18:59 Intake Total 2468.802 1874.659 268.963 Output Total 1930 1865 265 Balance 538.802 9.659 3.963 Weight 74.5 kg Intake: IV 1625 1475 250 Dextrose 5% in Water 1, 1250 1375 250 000 ml @ 125 mls/hr IV . Q8H [facility] Rx#:[id number] Piperacillin-Tazobactam 3 100 .375 gm In Sodium Chloride 0.9% 100 ml @ 25 mls/hr IVPB Q8H [facility] Rx#: [id number] Sodium Chloride 0.45% 1, 375 000 ml @ 125 mls/hr IV . Q16H [facility] with 0.45% NaCl with KCl 20 Meq/l 1,000 ml Rx#:[id number] Intake, IV Titration 203.802 49.659 18.963 Amount Insulin Regular 100 unit 85.383 49.659 18.963 In Sodium Chloride 0.9% 100 ml @ Titrate IV .Q0M [facility] Rx#:[id number] propofoL 1,000 mg In 118.419 Empty Bag 1 bag @ 15 MCG/ KG/MIN 5.736 mls/hr IV . [id number] [facility] Rx#:[id number] Oral 640 350 Output: Urine 1930 1865 265 Other: Voiding Method Indwelling Catheter Indwelling Catheter Indwelling Catheter # Voids 130 - Labs CBC & Chem 7: 06/20/23 05:27 06/20/23 05:27 Labs: Abnormal Lab Results - Last 24 Hours (Table) 06/19/23 06/19/23 06/19/23 Range/Units 04:49 04:49 11:10 WBC (3.8-10.6) k/uL RBC (3.80-5.40) m/uL Hgb (11.4-16.0) gm/dL Hct (34.0-46.0) % Sodium 155 H (137-145) mmol/L Potassium (3.5-5.1) mmol/L Chloride 128 H (98-107) mmol/L Carbon Dioxide 20 L (22-30) mmol/L BUN 76 H (7-17) mg/dL Creatinine 2.86 H (0.52-1.04) mg/dL Glucose 291 H (74-99) mg/dL POC Glucose (mg/dL) 345 H (70-110) mg/dL Calcium 7.1 L (8.4-10.2) mg/dL Procalcitonin 0.63 H (0.02-0.09) ng/mL 06/19/23 06/19/23 06/19/23 Range/Units 12:20 13:02 13:59 WBC (3.8-10.6) k/uL RBC (3.80-5.40) m/uL Hgb (11.4-16.0) gm/dL Hct (34.0-46.0) % Sodium 154 H (137-145) mmol/L Potassium (3.5-5.1) mmol/L Chloride (98-107) mmol/L Carbon Dioxide (22-30) mmol/L BUN (7-17) mg/dL Creatinine (0.52-1.04) mg/dL Glucose (74-99) mg/dL POC Glucose (mg/dL) 297 H 320 H (70-110) mg/dL Calcium (8.4-10.2) mg/dL Procalcitonin (0.02-0.09) ng/mL 06/19/23 06/19/23 06/19/23 Range/Units 14:02 15:04 16:07 WBC (3.8-10.6) k/uL RBC (3.80-5.40) m/uL Hgb (11.4-16.0) gm/dL Hct (34.0-46.0) % Sodium (137-145) mmol/L Potassium (3.5-5.1) mmol/L Chloride (98-107) mmol/L Carbon Dioxide (22-30) mmol/L BUN (7-17) mg/dL Creatinine (0.52-1.04) mg/dL Glucose (74-99) mg/dL POC Glucose (mg/dL) 308 H 291 H 293 H (70-110) mg/dL Calcium (8.4-10.2) mg/dL Procalcitonin (0.02-0.09) ng/mL 06/19/23 06/19/23 06/19/23 Range/Units 16:59 17:51 18:08 WBC (3.8-10.6) k/uL RBC (3.80-5.40) m/uL Hgb (11.4-16.0) gm/dL Hct (34.0-46.0) % Sodium 152 H (137-145) mmol/L Potassium (3.5-5.1) mmol/L Chloride (98-107) mmol/L Carbon Dioxide (22-30) mmol/L BUN (7-17) mg/dL Creatinine (0.52-1.04) mg/dL Glucose (74-99) mg/dL POC Glucose (mg/dL) 247 H 210 H (70-110) mg/dL Calcium (8.4-10.2) mg/dL Procalcitonin (0.02-0.09) ng/mL 06/19/23 06/19/23 06/19/23 Range/Units 18:55 21:01 21:26 WBC (3.8-10.6) k/uL RBC (3.80-5.40) m/uL Hgb (11.4-16.0) gm/dL Hct (34.0-46.0) % Sodium 149 H (137-145) mmol/L Potassium (3.5-5.1) mmol/L Chloride (98-107) mmol/L Carbon Dioxide (22-30) mmol/L BUN (7-17) mg/dL Creatinine (0.52-1.04) mg/dL Glucose (74-99) mg/dL POC Glucose (mg/dL) 157 H 155 H (70-110) mg/dL Calcium (8.4-10.2) mg/dL Procalcitonin (0.02-0.09) ng/mL 06/19/23 06/19/23 06/20/23 Range/Units 22:23 23:01 00:00 WBC (3.8-10.6) k/uL RBC (3.80-5.40) m/uL Hgb (11.4-16.0) gm/dL Hct (34.0-46.0) % Sodium (137-145) mmol/L Potassium (3.5-5.1) mmol/L Chloride (98-107) mmol/L Carbon Dioxide (22-30) mmol/L BUN (7-17) mg/dL Creatinine (0.52-1.04) mg/dL Glucose (74-99) mg/dL POC Glucose (mg/dL) 164 H 202 H 250 H (70-110) mg/dL Calcium (8.4-10.2) mg/dL Procalcitonin (0.02-0.09) ng/mL 06/20/23 06/20/23 06/20/23 Range/Units 01:06 02:00 03:04 WBC (3.8-10.6) k/uL RBC (3.80-5.40) m/uL Hgb (11.4-16.0) gm/dL Hct (34.0-46.0) % Sodium (137-145) mmol/L Potassium (3.5-5.1) mmol/L Chloride (98-107) mmol/L Carbon Dioxide (22-30) mmol/L BUN (7-17) mg/dL Creatinine (0.52-1.04) mg/dL Glucose (74-99) mg/dL POC Glucose (mg/dL) 244 H 228 H 215 H (70-110) mg/dL Calcium (8.4-10.2) mg/dL Procalcitonin (0.02-0.09) ng/mL 06/20/23 06/20/23 06/20/23 Range/Units 03:57 05:00 05:27 WBC 20.5 H (3.8-10.6) k/uL RBC 3.47 L (3.80-5.40) m/uL Hgb 10.0 L (11.4-16.0) gm/dL Hct 31.6 L (34.0-46.0) % Sodium (137-145) mmol/L Potassium (3.5-5.1) mmol/L Chloride (98-107) mmol/L Carbon Dioxide (22-30) mmol/L BUN (7-17) mg/dL Creatinine (0.52-1.04) mg/dL Glucose (74-99) mg/dL POC Glucose (mg/dL) 187 H 192 H (70-110) mg/dL Calcium (8.4-10.2) mg/dL Procalcitonin (0.02-0.09) ng/mL 06/20/23 06/20/23 06/20/23 Range/Units 05:27 05:58 08:01 WBC (3.8-10.6) k/uL RBC (3.80-5.40) m/uL Hgb (11.4-16.0) gm/dL Hct (34.0-46.0) % Sodium (137-145) mmol/L Potassium 2.9 L (3.5-5.1) mmol/L Chloride 116 H (98-107) mmol/L Carbon Dioxide (22-30) mmol/L BUN 42 H (7-17) mg/dL Creatinine 1.52 H (0.52-1.04) mg/dL Glucose 161 H (74-99) mg/dL POC Glucose (mg/dL) 145 H 136 H (70-110) mg/dL Calcium 7.8 L (8.4-10.2) mg/dL Procalcitonin (0.02-0.09) ng/mL Microbiology - Last 24 Hours (Table) 06/17/23 17:35 Blood Culture - Preliminary Blood 06/17/23 17:20 Blood Culture - Preliminary Blood 06/18/23 06:15 Gram Stain - Preliminary Sputum Sputum Culture - Preliminary Presumptive Staph aureus Jamee albicans 06/17/23 19:05 Urine Culture - Preliminary Urine,Voided Gram Neg Bacilli
--- NOTE | 2023-06-20 14:38 | P.CN ---
Psychiatric Consult - . Consult date: 06/20/23 Consult:: 06/20/23 12:44 IDENTIFYING DATA: This patient is a Patient is a single, 48-year-old female with significant history of schizophrenia REASON FOR REFERRAL: Psychiatry was consulted for "schizophrenia" HISTORY OF PRESENT ILLNESS: The patient presented to the hospital on 06/16. As per ED note, "Patient is a 48-year-old female she has past medical history of diabetes mellitus. Patient was found unresponsive at home by her guardian. Patient has history of diabetes. She is allegedly insulin-dependent. Is unclear when patient was last seen normal. EMS brought patient from home and she was found to be in tachy dysrhythmia. Also hypotensive, blood glucose 1418" Counseling Center Manager attempted to see the patient in the ICU today. Patient was sitting in the chair at her bedside. Patient seemed sedated, and would not awaken to speak with this mortgage underwriter. Patient did answer momentarily however drifts off back to sleep, she was fairly somnolent. When I spoke with the nurse caring for the patient, she stated that the patient will awaken for certain physicians, but not others. She did not relay any other concerns. Nursing staff stated that the patient is eating her meals, and she is sleeping at night. Patient did receive Invega inj ection on 06/14 at [facility], and her next dose due on 07/12. Patients UDS positive for amphetamines. PAST PSYCHIATRIC HISTORY: Patient has a previous diagnosis of schizophrenia. She is currently not on any medications and has been nonadherent with any outpatient follow-up. She was last discharged from our psychiatric unit on 09/2022. She was also on Prozac and trazodone. Patient was given Invega Suste nna 234 mg IM q. monthly, last dose was given on 06/14. She was last hospitalized on our psychiatric unit in September of 2022. She is had multiple psychiatric hospitalizations. Reportedly the patient has had 2 prior suicide attempts in the past. PAST MEDICAL HISTORY: As per medical H&P. ALLERGIES: Pollen CHEMICAL DEPENDENCY HISTORY: Unable to assess at this time however the patient does have a significant history of polysubstance abuse. She has a history of amphetamine and methamphetamine use. FAMILY PSYCHIATRIC/SUBSTANCE USE HISTORY: Reportedly the patient's mother has mental illness and substance abuse problems. SOCIAL HISTORY: The patient was recently incarcerated last June. From her previous chart review, she is 1 of 4 children. She left home when she was 16 years old. She only completed up to the 11th grade. She receives Social Security. She has never , and has no children. MENTAL STATUS EXAM: General Appearance: Patient appears to be older than stated age is somnolent and unarousable. She however does not appear to be in any acute distress.. Patient appears to have very disheveled hygiene and grooming. Very poor dentition. Behavior: Patient is sleeping calmly in her bed. Speech: Patient's speech could not be assessed. Mood/Affect: Patient mood could not be assessed. Affect is somnolent. Suicidality/Homicidality: Could not be assessed Perceptions: Could not be assessed Though content/process: Could not be assessed Memory and concentration: Could not be assessed Judgment and insight: Very poor IMPRESSIONS: possible delirium, unknown etiology history of Schizophrenia history of Methamphetamine use disorder Nicotine dependence PLAN: -At this time patient DOES NOT meet criteria for inpatient psychiatric admission. -Delirium precautions recommended with patient including - avoiding use of narcotics and DIGITAL [employer]IA STRATEGIST sedatives, limit anticholinergic medications when possible, frequent re-orientation, minimize use of restraints, open window shades during the day and close them at night -Would recommend the following medication changes/additions: Please avoid sedatives, opiates, benzodiazepines and antihistamines as this will make delirium likely worse. Patient was given Invega Sustenna 234 mg IM on 06/14, next dose is q. monthly on 07/12 for psychosis. Will start trazodone 50 mg nightly as needed for insomnia, Haldol every 6 hours as needed for agitation. -Patient can continue following up with [facility] on an outpatient basis. -Communicated plan to patient's nurse -Psychiatry will sign off at this time -Please contact with any questions. 06/20/23 13:58 06/20/23 14:35
[2023-06-20 16:19] LABS: Glucose,Whole Blood 396 mg/dL (70-110)
[2023-06-20 19:51] LABS: Glucose,Whole Blood 388 mg/dL (70-110)
[2023-06-20] MEDS: INSULIN DETEMIR (LEVEMIR) 100 UNIT/ML SYR SQ SCH (20:09)
--- NOTE | 2023-06-20 21:41 | P.CONS ---
History of Present Illness - Reason for Consult Consult date: 06/20/23 - History of Present Illness Patient is a 48-year-old female past medical history significant for diabetes mellitus osteoarthritis schizophrenia as well as polysubstance abuse, patient has been brought into the hospital 3 days ago after the patient was found to be unresponsive at home patient via was noticed to be hypotensive also noted to be in A-fib with RVR for the patient did cardioverted patient to get in tubated and has been transferred to the ICU for protection of the airways on arrival to the ER patient was afebrile however she did spike a fever of 101.1 F on 06/18/2023 patient has been afebrile since then patient has been hypotensive requiring pressor support however currently not requiring any pressor support at this point patient has been extubated yesterday morning and is currently breathing comfortably on room air patient did have a sputum cultures came back positive with Staph aureus and Jamee prompting this infectious disease consultation patient is currently on combination of vancomycin and Zosyn patient was breathing comfortably denies any headache or URI symptoms no chest pain or shortness of breath did have mild cough not bring up any sputum no nausea no vomiting no abdominal pain and no diarrhea reported by the nursing staff patient did have a white count of 20.5 creatinine is 1.52 did improve from previous creatinine of 3.09 liver enzymes are normal did have a positive UA with urine culture showing E. coli urine toxin was positive for amphetamines patient did have a chest x-ray patchy central interstitial density Past Medical History Past Medical History: Diabetes Mellitus, Osteoarthritis (OA) Additional Past Medical History / Comment(s): "GESTATIONAL DIABETES", GOES TO [facility] History of Any Multi-Drug Resistant Organisms: None Reported Past Surgical History: Section Additional Past Surgical History / Comment(s): POLA ARM SX WHEN CHILD-WENT THRU A WINDOW Past Anesthesia/Blood Transfusion Reactions: No Reported Reaction Additional Past Anesthesia/Blood Transfusion Reaction / Comm: CLAUSTERPHOBIA Smoking Status: Current every day smoker - Past Family History Father Additional Family Medical History / Comment(s): DEPRESSION, "PROBLEM WITH HIS PANCREAS" Mother Family Medical History: Hyperlipidemia, Hypertension Additional Family Medical History / Comment(s): DDD, NECK FUSION, KIDNEY CANCER Medications and Allergies Home Medications Medication Instructions Recorded Confirmed Type Paliperidone IM [Invega Sustenna] 234 mg IM Q28D 06/17/23 06/17/23 History Atorvastatin [Lipitor] 10 mg PO DAILY 06/20/23 06/20/23 History metFORMIN HCL [metFORMIN HCL ER] 750 mg PO DAILY 06/20/23 06/20/23 History Allergies Allergy/AdvReac Type Severity Reaction Status Date / Time pollen extracts Allergy Rash/Hives Verified 06/17/23 19:00 Physical Exam Vitals: Vital Signs Temp Pulse Resp BP Pulse Ox 06/20/23 09:00 79 18 111/64 95 06/20/23 08:00 98.7 F 72 16 111/67 96 06/20/23 07:00 66 10 L 119/69 95 06/20/23 06:00 72 13 115/66 95 06/20/23 05:00 75 18 117/79 94 L 06/20/23 04:00 98 F 71 25 H 116/81 93 L 06/20/23 03:00 68 21 118/78 95 06/20/23 02:00 74 21 114/71 95 06/20/23 01:00 70 10 L 118/77 92 L 06/20/23 00:00 99 F 77 18 122/80 92 L 06/19/23 23:00 75 29 H 112/66 94 L 06/19/23 22:00 75 29 H 112/72 96 06/19/23 21:00 74 25 H 133/70 96 06/19/23 20:00 98.5 F 76 28 H 122/81 97 06/19/23 19:00 74 10 L 118/70 97 06/19/23 18:00 76 27 H 122/82 96 06/19/23 17:00 80 20 129/77 97 06/19/23 16:00 98.0 F 73 27 H 137/95 97 06/19/23 15:00 81 19 126/81 95 06/19/23 14:00 70 25 H 120/72 96 06/19/23 13:00 73 10 L 118/73 94 L 06/19/23 12:00 98.9 F 71 24 139/81 96 Intake and Output 06/19/23 06/20/23 06/20/23 22:59 06:59 14:59 Intake Total 9840.306 5598.317 943.963 Output Total 1250 1265 420 Balance 371.001 224.317 523.963 Intake: IV 1000 1100 925 Dextrose 5% in Water 1, 1000 1000 250 000 ml @ 125 mls/hr IV . Q8H [facility] Rx#:[id number] Piperacillin-Tazobactam 3 100 .375 gm In Sodium Chloride 0.9% 100 ml @ 25 mls/hr IVPB Q8H [facility] Rx#: [id number] Piperacillin-Tazobactam 3 100 .375 gm In Sodium Chloride 0.9% 100 ml @ 25 mls/hr IVPB Q8HR [facility] Rx# :[id number] Sodium Chloride 0.9% 1, 75 000 ml @ 75 mls/hr IV . [id number] [facility] Rx#:[id number] Vancomycin 1,500 mg In 500 Sodium Chloride 0.9% 500 ml 500 ml @ 167 mls/hr IVPB ONCE ONE Rx#: [id number] Intake, IV Titration 81.001 39.317 18.963 Amount Insulin Regular 100 unit 81.001 39.317 18.963 In Sodium Chloride 0.9% 100 ml @ Titrate IV .Q0M [facility] Rx#:[id number] Oral 540 350 Output: Urine 1250 1265 420 Other: Voiding Method Indwelling Catheter Indwelling Catheter Indwelling Catheter # Voids 130 Weight 74.5 kg Results CBC & Chem 7: 06/22/23 05:31 06/22/23 05:31 Labs: Abnormal Lab Results - Last 24 Hours (Table) 06/19/23 06/19/23 06/19/23 Range/Units 04:49 11:10 12:20 WBC (3.8-10.6) k/uL RBC (3.80-5.40) m/uL Hgb (11.4-16.0) gm/dL Hct (34.0-46.0) % Sodium (137-145) mmol/L Potassium (3.5-5.1) mmol/L Chloride (98-107) mmol/L BUN (7-17) mg/dL Creatinine (0.52-1.04) mg/dL Glucose (74-99) mg/dL POC Glucose (mg/dL) 345 H 297 H (70-110) mg/dL Calcium (8.4-10.2) mg/dL Procalcitonin 0.63 H (0.02-0.09) ng/mL 06/19/23 06/19/23 06/19/23 Range/Units 13:02 13:59 14:02 WBC (3.8-10.6) k/uL RBC (3.80-5.40) m/uL Hgb (11.4-16.0) gm/dL Hct (34.0-46.0) % Sodium 154 H (137-145) mmol/L Potassium (3.5-5.1) mmol/L Chloride (98-107) mmol/L BUN (7-17) mg/dL Creatinine (0.52-1.04) mg/dL Glucose (74-99) mg/dL POC Glucose (mg/dL) 320 H 308 H (70-110) mg/dL Calcium (8.4-10.2) mg/dL Procalcitonin (0.02-0.09) ng/mL 06/19/23 06/19/23 06/19/23 Range/Units 15:04 16:07 16:59 WBC (3.8-10.6) k/uL RBC (3.80-5.40) m/uL Hgb (11.4-16.0) gm/dL Hct (34.0-46.0) % Sodium (137-145) mmol/L Potassium (3.5-5.1) mmol/L Chloride (98-107) mmol/L BUN (7-17) mg/dL Creatinine (0.52-1.04) mg/dL Glucose (74-99) mg/dL POC Glucose (mg/dL) 291 H 293 H 247 H (70-110) mg/dL Calcium (8.4-10.2) mg/dL Procalcitonin (0.02-0.09) ng/mL 06/19/23 06/19/23 06/19/23 Range/Units 17:51 18:08 18:55 WBC (3.8-10.6) k/uL RBC (3.80-5.40) m/uL Hgb (11.4-16.0) gm/dL Hct (34.0-46.0) % Sodium 152 H (137-145) mmol/L Potassium (3.5-5.1) mmol/L Chloride (98-107) mmol/L BUN (7-17) mg/dL Creatinine (0.52-1.04) mg/dL Glucose (74-99) mg/dL POC Glucose (mg/dL) 210 H 157 H (70-110) mg/dL Calcium (8.4-10.2) mg/dL Procalcitonin (0.02-0.09) ng/mL 06/19/23 06/19/23 06/19/23 Range/Units 21:01 21:26 22:23 WBC (3.8-10.6) k/uL RBC (3.80-5.40) m/uL Hgb (11.4-16.0) gm/dL Hct (34.0-46.0) % Sodium 149 H (137-145) mmol/L Potassium (3.5-5.1) mmol/L Chloride (98-107) mmol/L BUN (7-17) mg/dL Creatinine (0.52-1.04) mg/dL Glucose (74-99) mg/dL POC Glucose (mg/dL) 155 H 164 H (70-110) mg/dL Calcium (8.4-10.2) mg/dL Procalcitonin (0.02-0.09) ng/mL 06/19/23 06/20/23 06/20/23 Range/Units 23:01 00:00 01:06 WBC (3.8-10.6) k/uL RBC (3.80-5.40) m/uL Hgb (11.4-16.0) gm/dL Hct (34.0-46.0) % Sodium (137-145) mmol/L Potassium (3.5-5.1) mmol/L Chloride (98-107) mmol/L BUN (7-17) mg/dL Creatinine (0.52-1.04) mg/dL Glucose (74-99) mg/dL POC Glucose (mg/dL) 202 H 250 H 244 H (70-110) mg/dL Calcium (8.4-10.2) mg/dL Procalcitonin (0.02-0.09) ng/mL 06/20/23 06/20/23 06/20/23 Range/Units 02:00 03:04 03:57 WBC (3.8-10.6) k/uL RBC (3.80-5.40) m/uL Hgb (11.4-16.0) gm/dL Hct (34.0-46.0) % Sodium (137-145) mmol/L Potassium (3.5-5.1) mmol/L Chloride (98-107) mmol/L BUN (7-17) mg/dL Creatinine (0.52-1.04) mg/dL Glucose (74-99) mg/dL POC Glucose (mg/dL) 228 H 215 H 187 H (70-110) mg/dL Calcium (8.4-10.2) mg/dL Procalcitonin (0.02-0.09) ng/mL 06/20/23 06/20/23 06/20/23 Range/Units 05:00 05:27 05:27 WBC 20.5 H (3.8-10.6) k/uL RBC 3.47 L (3.80-5.40) m/uL Hgb 10.0 L (11.4-16.0) gm/dL Hct 31.6 L (34.0-46.0) % Sodium (137-145) mmol/L Potassium 2.9 L (3.5-5.1) mmol/L Chloride 116 H (98-107) mmol/L BUN 42 H (7-17) mg/dL Creatinine 1.52 H (0.52-1.04) mg/dL Glucose 161 H (74-99) mg/dL POC Glucose (mg/dL) 192 H (70-110) mg/dL Calcium 7.8 L (8.4-10.2) mg/dL Procalcitonin (0.02-0.09) ng/mL 06/20/23 06/20/23 Range/Units 05:58 08:01 WBC (3.8-10.6) k/uL RBC (3.80-5.40) m/uL Hgb (11.4-16.0) gm/dL Hct (34.0-46.0) % Sodium (137-145) mmol/L Potassium (3.5-5.1) mmol/L Chloride (98-107) mmol/L BUN (7-17) mg/dL Creatinine (0.52-1.04) mg/dL Glucose (74-99) mg/dL POC Glucose (mg/dL) 145 H 136 H (70-110) mg/dL Calcium (8.4-10.2) mg/dL Procalcitonin (0.02-0.09) ng/mL Microbiology - Last 24 Hours (Table) 06/18/23 06:15 Gram Stain - Preliminary Sputum Sputum Culture - Preliminary Staphylococcus aureus Jamee albicans Fungus Isolated 06/17/23 17:35 Blood Culture - Preliminary Blood 06/17/23 17:20 Blood Culture - Preliminary Blood 06/17/23 19:05 Urine Culture - Preliminary Urine,Voided Gram Neg Bacilli Assessment and Plan Plan: 1patient presented to hospital with sepsis in this patient who did have a fever elevated white count patient was found to be unresponsive he did have some interstitial infiltrate concerning for possible aspiration pneumonia with a sputum showing MSSA likely contributing to her illness 2-patient did have a positive urine culture positive for E. coli very hard to get any history as far as urinary symptoms is concerned 3-borderline kidney function high risk of nephrotoxicity 4-discontinue vancomycin and Zosyn 5-start the patient on Unasyn 3 g every 6 hours with a plan to transition to oral antibiotics on discharge We will follow on clinical condition and cultures to further adjust medication if needed Thank you for this consultation we will follow the patient along with you Dictation was produced using [employer] dictation software. please excuse any grammatical, word or spelling errors. Time with Patient: Greater than 30
[2023-06-21] MEDS ORDERED: VANCOMYCIN 1,250 MG in SODIUM CHLORIDE 0.9% 250 ML IVPB SCH (02:00)
[2023-06-21 06:42] LABS: Glucose,Whole Blood 371 mg/dL (70-110)
[2023-06-21 07:42] LABS: HCT 34.2 % (34.0-46.0); HGB 10.2 gm/dL (11.4-16.0); Hypochromasia Moderate; MCH 28.9 pg (25.0-35.0); MCHC 29.8 g/dL (31.0-37.0); Mean Platelet Volume 8.3; Platelet Count 175 k/uL (150-450); RBC 3.52 m/uL (3.80-5.40); RDW 13.5 % (11.5-15.5); WBC 18.2 k/uL (3.8-10.6)
[2023-06-21 07:44] LABS: MCV 97.1 fL (80.0-100.0)
[2023-06-21 08:27] LABS: African American GFR (CKD) 64 (>60 ml/min/1.73 sqM); Anion Gap 2 mmol/L; Blood Urea Nitrogen 24 mg/dL (7-17); Calcium 7.8 mg/dL (8.4-10.2); Carbon Dioxide 22 mmol/L (22-30); Chloride 114 mmol/L (98-107); Glucose 383 mg/dL (74-99); Non-African American GFR(CKD) 56 (>60 ml/min/1.73 sqM); Potassium 3.7 mmol/L (3.5-5.1); Sodium 138 mmol/L (137-145)
[2023-06-21] MEDS: ENOXAPARIN 40 MG/0.4 ML SYRINGE SQ SCH (08:48)
--- NOTE | 2023-06-21 11:16 | P.PN ---
Subjective patient is seen for follow-up for acute kidney injury. Patient is comfortable. Trying to increase oral intake. IV fluids discontinued. urine culture is growing E. coli. good urine output. serum creatinine improved to 1.1 today. Objective - Vital Signs Vital signs: Vital Signs Temp 98.2 F 06/21/23 08:00 Pulse 80 06/21/23 08:00 Resp 22 06/21/23 08:00 BP 127/81 06/21/23 08:00 Pulse Ox 96 06/21/23 08:00 FiO2 40 06/19/23 10:39 Intake & Output 06/20/23 06/21/23 06/21/23 18:59 06:59 18:59 Intake Total 9588.671 5818 Output Total 1270 2150 Balance 323.963 -1000 Weight 74.5 kg 76.8 kg Intake: IV 1575 1150 Ampicillin-Sulbactam 3 gm 200 100 In Sodium Chloride 0.9% 100 ml @ 200 mls/hr IVPB Q6HR [facility] Rx#:[id number] Dextrose 5% in Water 1, 250 000 ml @ 125 mls/hr IV . Q8H [facility] Rx#:[id number] Piperacillin-Tazobactam 3 100 .375 gm In Sodium Chloride 0.9% 100 ml @ 25 mls/hr IVPB Q8HR [facility] Rx# :[id number] Sodium Chloride 0.9% 1, 525 1050 000 ml @ 75 mls/hr IV . [id number] [facility] Rx#:[id number] Vancomycin 1,500 mg In 500 Sodium Chloride 0.9% 500 ml 500 ml @ 167 mls/hr IVPB ONCE ONE Rx#: [id number] Intake, IV Titration 18.963 Amount Insulin Regular 100 unit 18.963 In Sodium Chloride 0.9% 100 ml @ Titrate IV .Q0M [facility] Rx#:[id number] Output: Urine 1270 2150 Other: Voiding Method Bedside Commode Bedside Commode Bedside Commode - Exam patient is comfortable. She is sleeping but arousable. Examination of the heart S1 and S2 Examination of the lungs decreased breath sounds at the bases Abdomen is soft nontender Examination of lower extremity shows no significant edema. Moving all 4 extremities. - Labs CBC & Chem 7: 06/21/23 06:42 06/21/23 06:42 Labs: Abnormal Lab Results - Last 24 Hours (Table) 05/12/24 05/13/24 05/13/24 Range/Units 04:49 16:18 19:50 WBC (3.8-10.6) k/uL RBC (3.80-5.40) m/uL Hgb (11.4-16.0) gm/dL MCHC (31.0-37.0) g/dL Chloride (98-107) mmol/L BUN (7-17) mg/dL Creatinine (0.52-1.04) mg/dL Glucose (74-99) mg/dL POC Glucose (mg/dL) 396 H 388 H (70-110) mg/dL Hemoglobin A1c 15.0 H (<=6.0) % Calcium (8.4-10.2) mg/dL 06/21/23 06/21/23 06/21/23 Range/Units 06:41 06:42 06:42 WBC 18.2 H (3.8-10.6) k/uL RBC 3.52 L (3.80-5.40) m/uL Hgb 10.2 L (11.4-16.0) gm/dL MCHC 29.8 L (31.0-37.0) g/dL Chloride 114 H (98-107) mmol/L BUN 24 H (7-17) mg/dL Creatinine 1.18 H (0.52-1.04) mg/dL Glucose 383 H (74-99) mg/dL POC Glucose (mg/dL) 371 H (70-110) mg/dL Hemoglobin A1c (<=6.0) % Calcium 7.8 L (8.4-10.2) mg/dL Microbiology - Last 24 Hours (Table) 06/17/23 17:35 Blood Culture - Preliminary Blood 06/17/23 19:05 Urine Culture - Final Urine,Voided Escherichia coli 06/17/23 17:20 Blood Culture - Preliminary Blood 06/18/23 06:15 Gram Stain - Preliminary Sputum Sputum Culture - Preliminary Staphylococcus aureus Jamee albicans Fungus Isolated Assessment and Plan Assessment: 1. Non-oliguric NIKOLE 2/2 ATN from volume depletion. Baseline creatinine 0.5 mg/dL, presented 3.4-->1.5 today with good urine output. UA consistent with possible UTI. 2. DKA, status post insulin drip. 3. Toxic/Metabolic Encephalopathy 4. Pneumonia with severe sepsis s/p AVDRF- extubated this morning. 5. Hypernatremia due to volume depletion., improved 6. History of polysubstance abuse 7. UTI with urine culture growing E. coli. Plan: continue to encourage increased oral intake Repeat labs in a.m.
[2023-06-21 11:23] LABS: Glucose,Whole Blood 385 mg/dL (70-110)
--- NOTE | 2023-06-21 11:26 | P.PN ---
Subjective Progress Note Date: 06/21/23 This is a 48-year-old female with history of type 2 diabetes, history of schizophrenia, and polysubstance abuse, patient was found at home unresponsive by her guardian. Patient was brought into the ER and upon arrival the patient was noted to be in atrial fibrillation with RVR, she was extremely obtunded, she was also noted to have what seems to be a picture of severe hyperglycemia and DKA with significant anion gap metabolic acidosis. I was made aware of this patient by the ER physician and considering her obtundation, I recommended intubating the patient and accepted the patient to be admitted to the ICU with the DKA protocol, patient was extremely acidotic hyperkalemic significant anion gap metabolic acidosis was noted, and the patient was minimally responsive in the ER. Patient did have cardioversion for atrial fibrillation with RVR, and she went into sinus tachycardia. Initial labs upon admission showed leukocytosis with WBC count of 27.7, hemoglobin of 14.4, normal PT and INR, norm al PTT, ABG postintubation showed a pO2 of 361 pCO2 43 pH of 7.07. Patient was also noted to have hypernatremia with a sodium of 138, bicarb was less than 5, lactic acid was 1.2, anion gap was above 18. Patient had positive ketones in the urine, 2+ drug screen came back positive for amphetamine. Patient is known to have history of polysubstance abuse. Today the patient is in the ICU, intubated and mechanically ventilated, she is on assist-control rate of 16 tidal volume 350 FiO2 40% and PEEP of 5 ABG this a.m. showed a pO2 of 179 pCO2 49 pH of 7.45. FiO2 now is down to 40%. Electrolytes showed hyponatremia with sodium of 151 hence her main IV fluid was changed to 2.45 at 120 cc/h, and the renal functioning seems to be improving creatinine on admission was 3.41 today it is 3.07. Nephrology is following the patient for her acute kidney injury. Presently the patient is on Lovenox subcu at 30 mg subcu daily, she remains on the DKA protocol, receiving insulin at 6.5 units/h, she is also on Protonix as well as Zosyn, feeding is still presently on hold. Patient was reexamined today while in the ICU on 06/19/2023, patient remains intubated and mechanically ventilated. Patient is on assist-control rate of 16 tidal volume 350 FiO2 40% and PEEP of 5. Patient is on propofol at 15 m cg/kg/min, she is off norepinephrine, her IV fluid is running at 125 cc/h, it is 0.45, however patient is still running relatively high sodium, and I am changing her IV fluid to D5W, and I am recommending insulin drip to address her elevated blood sugars. WBC count today is 17.8 hemoglobin is 11.4. Basic metabolic profile is normal except for elevated sodium of 155 elevated chloride of 128 her anion gap has resolved her BUN is 76 creatinine 2.86, improving since admission patient had a creatinine as high as 3.41 on admission. Chest x-ray today showed minimal nonspecific patchy interstitial changes, patient remains empirically on Zosyn for presumptive aspiration. Patient remains on pantoprazole and she remains on Lovenox. The patient is seen today June 20, 2023 in follow-up in the intensive care unit. She is currently sitting up in bed. Awake and alert in no acute distress. Maintaining O2 saturations in the 90s on room air. Sputum culture was positive for MSSA. She remains on Unasyn and vancomycin. Insulin is on hold. Normal saline at 75 MLS per hour. She is currently off norepinephrine. Her ventricular rate is well-controlled. White count 20.5. Hemoglobin 10.0. Plat elets 186. Sodium 145. Potassium 2.9. Bicarb 25. BUN 42. Creatinine 1.52. Glucose 161. The patient is seen today June 21, 2023 in follow-up in the intensive care unit. She is awake and alert in no acute distress. Currently resting comfortably in bed. Denies any shortness of breath, cough or congestion. Maintaining good O2 saturation in the 90s on room air. She is afebrile. Hemodynamically stable. She has been resumed on Levemir 30 units at bedtime along with NovoLog sliding scale. Lovenox for DVT prophylaxis. She remains on antibiotics in the form of Unasyn. Her sputum culture was positive for MSSA and Jamee. Urine culture was positive for E. coli. White count 18.2. Hemoglobin 10.2. Platelets 175. Sodium 138. Potassium 3.7. Bicarb 22. BUN 24. Creatinine 1.18. Glucose 383. Objective - Vital Signs Vital signs: Vital Signs Temp 98.2 F 05/14/24 08:00 Pulse 80 06/21/23 08:00 Resp 22 06/21/23 08:00 BP 127/81 06/21/23 08:00 Pulse Ox 96 06/21/23 08:00 FiO2 40 06/19/23 10:39 Intake & Output 06/20/23 06/21/23 06/21/23 18:59 06:59 18:59 Intake Total 0627.560 5949 Output Total 1270 2150 Balance 323.963 -1000 Weight 74.5 kg 76.8 kg Intake: IV 1575 1150 Ampicillin-Sulbactam 3 gm 200 100 In Sodium Chloride 0.9% 100 ml @ 200 mls/hr IVPB Q6HR [facility] Rx#:[id number] Dextrose 5% in Water 1, 250 000 ml @ 125 mls/hr IV . Q8H [facility] Rx#:[id number] Piperacillin-Tazobactam 3 100 .375 gm In Sodium Chloride 0.9% 100 ml @ 25 mls/hr IVPB Q8HR [facility] Rx# :[id number] Sodium Chloride 0.9% 1, 525 1050 000 ml @ 75 mls/hr IV . [id number] [facility] Rx#:[id number] Vancomycin 1,500 mg In 500 Sodium Chloride 0.9% 500 ml 500 ml @ 167 mls/hr IVPB ONCE ONE Rx#: [id number] Intake, IV Titration 18.963 Amount Insulin Regular 100 unit 18.963 In Sodium Chloride 0.9% 100 ml @ Titrate IV .Q0M [facility] Rx#:[id number] Output: Urine 1270 2150 Other: Voiding Method Bedside Commode Bedside Commode Bedside Commode - Exam General: Revealed a 48-year-old female. Resting comfortably in bed. Awake in no acute distress. On room air. Head: Atraumatic, normocephalic. Endotracheal tube and orogastric tube are intact. Skin: No rashes Eyes: EOMI, PERRLA, no evidence of icterus. ENT: Nose and ears, normal Neck: No cervical lymphadenopathy, trachea midline, supple Mouth: dry mucous membranes noted. No lesions noted on mucous membranes Cardiovascular: Distant S1-S2, no S3 gallop, no murmur. Lungs: Good breath sound bilaterally no rhonchi no wheezes Abdominal: soft, nontender, no megaly no rebound no guarding Ext: No evidence of deformities good pulses bilaterally Neuro: Awake, alert, no focal deficits. - Labs CBC & Chem 7: 06/21/23 06:42 06/21/23 06:42 Labs: Abnormal Lab Results - Last 24 Hours (Table) 06/19/23 06/20/23 06/20/23 Range/Units 04:49 16:18 19:50 WBC (3.8-10.6) k/uL RBC (3.80-5.40) m/uL Hgb (11.4-16.0) gm/dL MCHC (31.0-37.0) g/dL Chloride (98-107) mmol/L BUN (7-17) mg/dL Creatinine (0.52-1.04) mg/dL Glucose (74-99) mg/dL POC Glucose (mg/dL) 396 H 388 H (70-110) mg/dL Hemoglobin A1c 15.0 H (<=6.0) % Calcium (8.4-10.2) mg/dL 06/21/23 06/21/23 06/21/23 Range/Units 06:41 06:42 06:42 WBC 18.2 H (3.8-10.6) k/uL RBC 3.52 L (3.80-5.40) m/uL Hgb 10.2 L (11.4-16.0) gm/dL MCHC 29.8 L (31.0-37.0) g/dL Chloride 114 H (98-107) mmol/L BUN 24 H (7-17) mg/dL Creatinine 1.18 H (0.52-1.04) mg/dL Glucose 383 H (74-99) mg/dL POC Glucose (mg/dL) 371 H (70-110) mg/dL Hemoglobin A1c (<=6.0) % Calcium 7.8 L (8.4-10.2) mg/dL Microbiology - Last 24 Hours (Table) 06/17/23 17:35 Blood Culture - Preliminary Blood 06/17/23 19:05 Urine Culture - Final Urine,Voided Escherichia coli 06/17/23 17:20 Blood Culture - Preliminary Blood 06/18/23 06:15 Gram Stain - Preliminary Sputum Sputum Culture - Preliminary Staphylococcus aureus Jamee albicans Fungus Isolated Assessment and Plan Assessment: Acute diabetic ketoacidosis, recovered Acute metabolic encephalopathy, recovered Possible amphetamine overdose, patient is known to have history of polysubstance abuse Atrial fibrillation with RVR on presentation requiring cardioversion, rate improved History of schizophrenia based on information obtained from the chart Acute anion gap metabolic acidosis, secondary to DKA Possible aspiration pneumonia, sputum positive for MSSA, Jamee Hypotension secondary mostly to hypovolemia secondary to hyperglycemia, doubt sepsis and doubt septic shock. Acute kidney injury secondary to hypotension and gram-negative bacilli urinary tract infection Obtundation on presentation requiring intubation and mechanical ventilation, recovered and on room air. Electrolytes imbalance secondary to her DKA and fluids given, being replaced Plan: The patient was seen and evaluated Labs and medications reviewed On Levemir and NovoLog sliding scale Continue antibiotics Lovenox for DVT prophylaxis To be transferred out of the ICU today We will continue to follow I have personally seen and examined the patient, performed the documentation and the assessment and plan as written. Number of minutes spent on the visit: 10.
[2023-06-21] MEDS: INSULIN ASPART (NovoLOG) 100 UNIT/ML VIAL SQ SCH (12:02)
--- NOTE | 2023-06-21 12:08 | P.PN ---
Subjective Progress Note Date: 06/21/23 48-year-old female with a PMH of type II DM who was brought into the emergency room via EMS after she was found unresponsive at home. The history is obtained from the ED provider and from the chart as the patient was intubated at the time of interview. The patient who has an extensive mental health history including schizophrenia as well as polysubstance abuse was reportedly found at her home unresponsive by her guardian. The patient was previously seen at her baseline on 06/15/2023. The patient was reportedly minimally responsive. In the emergency room, she was noted to be in A-fib with RVR with hypotension. She was subsequently cardioverted. On laboratory evaluation, the patient was noted to have a blood glucose of 1418, CO2 less than 5, creatinine 3.41 (previously 0.56), lactic acid 2.1, with troponin 0.013 with urine toxicology positive for amphetamines. CT brain in the emergency room was unremarkable with chest x-ray showing increased interstitial densities concerning for pneumonia. The patient was intubated as she was obtunded and responsive only to tactile stimuli. Admitted to ICU. Started on Zosyn for treatment of PNA. She required Levophed 06/16 which was wean ed off by 06/18. Started on insulin drip and NS per DKA protocol for treatment of DKA. She developed worsening hypernatremia, Nephrology was consulted. NS was switched to 1/2NS and then D5W. Hypernatremia and NIKOLE improved. Renal US was negative. Patient was successfully extubated on 06/18. She was transitioned to SQ insulin on 06/19. UCx growing > 100k E. coli. Sputum Cx staph aureus, jamee albicans. ID consulted, switched Zosyn to Unasyn on 06/19. 06/20 Patient was seen and examined. Appears slow to respond to questions. Started on Levemir 15 units QHS and Novolog 5 TID with MDSS yesterday. Received 54 units of Novolog over the sliding scale. POC glucose 105-396 over the past 24H. WBC 18.5, Hg 10.2. BMP Cl 114, BUN 24, Cr 1.18, glu 383, Ca 7.8. UCx growing > 100k E. coli. Sputum Cx staph aureus, jamee albicans. BCx negative at 72H. ID on board, continue Unasyn 3 g IV Q6H. General: No acute distress. Lethargic Derm: warm, dry Head: atraumatic, normocephalic, symmetric Eyes: no lid lag, normal sclera Mouth: no lip lesion, mucus membranes moist Cardiovascular: Normal S1 S2. No murmurs, rubs, gallops Lungs: Decreased BS BL, no accessory muscle use Ext: no gross muscle atrophy, no edema, no contractures Neuro: No focal neurologic deficits Psych: Hard to determine. Septic shock: Tmax 101.1F. Leukocytosis of 27.7 on admission. UA trace LE. CXR with possible aspiration. UCx growing > 100k E. coli. Sputum Cx staph aureus, jamee albicans. Procal 0.63. ID consulted, continue Unasyn 3g IV Q6H (D2). Levophed titrate to maintain MAP > 65. Telemetry monitoring. NS at 75 cc/hr. Pu lmonary/ICU on board. ID on board. Diabetes mellitus with hyperglycemia: A1c 15. Increase Levemir from 15 to 30 units QHS. Increase Novolog from 5 units to 10 units TID. Continue MDSS. Accucheck ACHS. Hypoglycemic precautions. Acute metabolic encephalopathy likely due to above Acute kidney injury: Improving. Likely prerenal from use of pressors. Renal US no obstruction. Nephrology on board. Substance abuse: UDS + amphetamines. Atrial fibrillation with RVR likely due to severe electrolyte abnormalities. Echo and TSH as above. Subclinical hyperthyroidism: Repeat TSH and FT4 in 6 weeks. Schizophrenia: Psyc note reviewed, no inpatient, avoid sedatives and narcotics, continue Invega monthly infections, start Trazadone 50 mg PO QHS PRN insomnia, Haldol Q6H PRN agitation. Resolved: DKA, Acute hypoxic respiratory failure, Hypernatremia CODE STATUS: FULL CODE DVT Prophylaxis: Lovenox SQ GI Prophylaxis: Protonix IV Designated medical POA if patient is not able to make medical decisions for emselves: I have reviewed the following transformation consultant notes: Pulmonary, ID, Psyc, Nephrology I have reviewed the results of the following tests: CBC, BMP, UCx, Bcx, Sputum Cx, POC glucose, A1c. I have ordered the following tests: CBC and BMP. I have discussed the care of this patient with the following independent historian: I have independently interpreted the following test below: I have discussed the management of this patient with the following physician: Objective - Vital Signs Vital signs: Vital Signs Temp 97.8 F 06/21/23 04:00 Pulse 81 06/21/23 04:00 Resp 22 06/21/23 04:00 BP 114/72 06/21/23 04:00 Pulse Ox 99 06/21/23 04:00 FiO2 40 06/19/23 10:39 Intake & Output 06/20/23 06/21/23 06/21/23 18:59 06:59 18:59 Intake Total 6441.475 7621 Output Total 1270 2150 Balance 323.963 -1000 Weight 74.5 kg 76.8 kg Intake: IV 1575 1150 Ampicillin-Sulbactam 3 gm 200 100 In Sodium Chloride 0.9% 100 ml @ 200 mls/hr IVPB Q6HR [facility] Rx#:[id number] Dextrose 5% in Water 1, 250 000 ml @ 125 mls/hr IV . Q8H [facility] Rx#:[id number] Piperacillin-Tazobactam 3 100 .375 gm In Sodium Chloride 0.9% 100 ml @ 25 mls/hr IVPB Q8HR [facility] Rx# :[id number] Sodium Chloride 0.9% 1, 525 1050 000 ml @ 75 mls/hr IV . [id number] [facility] Rx#:[id number] Vancomycin 1,500 mg In 500 Sodium Chloride 0.9% 500 ml 500 ml @ 167 mls/hr IVPB ONCE ONE Rx#: [id number] Intake, IV Titration 18.963 Amount Insulin Regular 100 unit 18.963 In Sodium Chloride 0.9% 100 ml @ Titrate IV .Q0M [facility] Rx#:[id number] Output: Urine 1270 2150 Other: Voiding Method Bedside Commode Bedside Commode - Labs CBC & Chem 7: 06/21/23 06:42 06/21/23 06:42 Labs: Abnormal Lab Results - Last 24 Hours (Table) 06/19/23 06/20/23 06/20/23 Range/Units 04:49 11:10 16:18 WBC (3.8-10.6) k/uL RBC (3.80-5.40) m/uL Hgb (11.4-16.0) gm/dL MCHC (31.0-37.0) g/dL POC Glucose (mg/dL) 285 H 396 H (70-110) mg/dL Hemoglobin A1c 15.0 H (<=6.0) % 06/20/23 06/21/23 06/21/23 Range/Units 19:50 06:41 06:42 WBC 18.2 H (3.8-10.6) k/uL RBC 3.52 L (3.80-5.40) m/uL Hgb 10.2 L (11.4-16.0) gm/dL MCHC 29.8 L (31.0-37.0) g/dL POC Glucose (mg/dL) 388 H 371 H (70-110) mg/dL Hemoglobin A1c (<=6.0) % Microbiology - Last 24 Hours (Table) 06/17/23 17:35 Blood Culture - Preliminary Blood 06/17/23 19:05 Urine Culture - Final Urine,Voided Escherichia coli 06/17/23 17:20 Blood Culture - Preliminary Blood 06/18/23 06:15 Gram Stain - Preliminary Sputum Sputum Culture - Preliminary Staphylococcus aureus Jamee albicans Fungus Isolated
[2023-06-21 12:11] VITALS: BMI 29.9
[2023-06-21 13:24] LABS: Glucose,Whole Blood 442 mg/dL (70-110)
[2023-06-21] MEDS: ACETAMINOPHEN TAB 325 MG TAB PO PRN (16:37)
[2023-06-21 17:03] LABS: Glucose,Whole Blood 339 mg/dL (70-110)
[2023-06-21 20:30] LABS: Glucose,Whole Blood 384 mg/dL (70-110)
[2023-06-21] MEDS: INSULIN DETEMIR (LEVEMIR) 100 UNIT/ML SYR SQ SCH (20:33)
[2023-06-22] MEDS: traZODone HCL 50 MG TAB PO PRN (00:24)
[2023-06-22] MEDS: HALOPERIDOL LACTATE 5 MG/ML 1 ML VIAL IM PRN (03:44)
[2023-06-22 03:52] LABS: Glucose,Whole Blood 199 mg/dL (70-110)
[2023-06-22 06:32] LABS: HGB 9.9 gm/dL (11.4-16.0); MCHC 32.9 g/dL (31.0-37.0); Mean Platelet Volume 8.6; Platelet Count 197 k/uL (150-450); RDW 13.3 % (11.5-15.5); WBC 15.6 k/uL (3.8-10.6)
[2023-06-22 06:32] LABS: Glucose,Whole Blood 193 mg/dL (70-110)
[2023-06-22 06:37] LABS: MCV 91.1 fL (80.0-100.0)
[2023-06-22 06:51] LABS: African American GFR (CKD) 79 (>60 ml/min/1.73 sqM); Anion Gap 3 mmol/L; Blood Urea Nitrogen 18 mg/dL (7-17); Calcium 7.8 mg/dL (8.4-10.2); Carbon Dioxide 25 mmol/L (22-30); Chloride 111 mmol/L (98-107); Glucose 190 mg/dL (74-99); Non-African American GFR(CKD) 69 (>60 ml/min/1.73 sqM); Potassium 3.3 mmol/L (3.5-5.1); Sodium 139 mmol/L (137-145)
[2023-06-22] MEDS: POTASSIUM CHLORIDE ER 20 MEQ TAB.ER PO SCH ×2 (07:05→15:31)
--- NOTE | 2023-06-22 07:49 | P.PN ---
Subjective Progress Note Date: 06/21/23 Principal diagnosis: Reason for follow-up is aspiration pneumonia and UTI Patient is a 48-year-old female past medical history significant for diabetes mellitus osteoarthritis schizophrenia as well as polysubstance abuse, patient has been brought into the hospital after the patient was found to be unresponsive at home patient did require intubation for respiratory support did have a fever and concern for possible aspiration pneumonia with a sputum culture positive for MSSA Jamee urine culture with an E. coli prompting this consultation. On today's evaluation that is 06/21/2023,the patient denies any fever or any chills, patient is breathing comfortably on room air, the patient denies chest pain shortness of breath and no significant cough, patient denies abdominal pain, no nausea vomiting or diarrhea. Patient white count is down to 18.2, creatinine is 1.18 Objective - Vital Signs Vital signs: Vital Signs Temp 98.2 F 06/21/23 08:00 Pulse 80 06/21/23 08:00 Resp 22 06/21/23 08:00 BP 127/81 06/21/23 08:00 Pulse Ox 96 06/21/23 08:00 FiO2 40 06/19/23 10:39 Intake & Output 06/20/23 06/21/23 06/21/23 18:59 06:59 18:59 Intake Total 3671.196 4365 Output Total 1270 2150 600 Balance 323.963 -1000 -600 Weight 74.5 kg 76.8 kg 76.8 kg Intake: IV 1575 1150 Ampicillin-Sulbactam 3 gm 200 100 In Sodium Chloride 0.9% 100 ml @ 200 mls/hr IVPB Q6HR [facility] Rx#:[id number] Dextrose 5% in Water 1, 250 000 ml @ 125 mls/hr IV . Q8H [facility] Rx#:[id number] Piperacillin-Tazobactam 3 100 .375 gm In Sodium Chloride 0.9% 100 ml @ 25 mls/hr IVPB Q8HR [facility] Rx# :[id number] Sodium Chloride 0.9% 1, 525 1050 000 ml @ 75 mls/hr IV . [id number] [facility] Rx#:[id number] Vancomycin 1,500 mg In 500 Sodium Chloride 0.9% 500 ml 500 ml @ 167 mls/hr IVPB ONCE ONE Rx#: [id number] Intake, IV Titration 18.963 Amount Insulin Regular 100 unit 18.963 In Sodium Chloride 0.9% 100 ml @ Titrate IV .Q0M [facility] Rx#:[id number] Output: Urine 1270 2150 600 Other: Voiding Method Bedside Commode Bedside Commode Bedside Commode - Exam GENERAL DESCRIPTION: Middle-aged female up in the chair in no distress RESPIRATORY SYSTEM: Unlabored breathing , decreased breath sounds at bases HEART: S1 S2 regular rate and rhythm , ABDOMEN: Soft , no tenderness EXTREMITIES: No edema feet - Labs CBC & Chem 7: 06/22/23 05:31 06/22/23 05:31 Labs: Abnormal Lab Results - Last 24 Hours (Table) 06/19/23 06/20/23 06/20/23 Range/Units 04:49 16:18 19:50 WBC (3.8-10.6) k/uL RBC (3.80-5.40) m/uL Hgb (11.4-16.0) gm/dL MCHC (31.0-37.0) g/dL Chloride (98-107) mmol/L BUN (7-17) mg/dL Creatinine (0.52-1.04) mg/dL Glucose (74-99) mg/dL POC Glucose (mg/dL) 396 H 388 H (70-110) mg/dL Hemoglobin A1c 15.0 H (<=6.0) % Calcium (8.4-10.2) mg/dL 06/21/23 06/21/23 06/21/23 Range/Units 06:41 06:42 06:42 WBC 18.2 H (3.8-10.6) k/uL RBC 3.52 L (3.80-5.40) m/uL Hgb 10.2 L (11.4-16.0) gm/dL MCHC 29.8 L (31.0-37.0) g/dL Chloride 114 H (98-107) mmol/L BUN 24 H (7-17) mg/dL Creatinine 1.18 H (0.52-1.04) mg/dL Glucose 383 H (74-99) mg/dL POC Glucose (mg/dL) 371 H (70-110) mg/dL Hemoglobin A1c (<=6.0) % Calcium 7.8 L (8.4-10.2) mg/dL 06/21/23 06/21/23 Range/Units 11:21 13:23 WBC (3.8-10.6) k/uL RBC (3.80-5.40) m/uL Hgb (11.4-16.0) gm/dL MCHC (31.0-37.0) g/dL Chloride (98-107) mmol/L BUN (7-17) mg/dL Creatinine (0.52-1.04) mg/dL Glucose (74-99) mg/dL POC Glucose (mg/dL) 385 H 442 H (70-110) mg/dL Hemoglobin A1c (<=6.0) % Calcium (8.4-10.2) mg/dL Microbiology - Last 24 Hours (Table) 06/17/23 17:20 Blood Culture - Preliminary Blood 06/17/23 17:35 Blood Culture - Preliminary Blood 06/17/23 19:05 Urine Culture - Final Urine,Voided Escherichia coli Assessment and Plan (1) Aspiration pneumonia Current Visit: Yes Status: Acute Code(s): J69.0 - PNEUMONITIS DUE TO INHALATION OF FOOD AND VOMIT SNOMED Code(s): 831272877 (2) UTI (urinary tract infection) Current Visit: Yes Status: Acute Code(s): N39.0 - URINARY TRACT INFECTION, SITE NOT SPECIFIED SNOMED Code(s): 29847355 (3) MSSA (methicillin susceptible Staphylococcus aureus) pneumonia Current Visit: Yes Status: Acute Code(s): J15.211 - PNEUMONIA DUE TO METHICILLIN SUSCEP STAPH SNOMED Code(s): 651970606508410 (4) Leukocytosis Current Visit: Yes Status: Acute Code(s): D72.829 - ELEVATED WHITE BLOOD CELL COUNT, UNSPECIFIED SNOMED Code(s): 379670174 Plan: 1patient presented to hospital with sepsis in this patient who did have a fever elevated white count patient was found to be unresponsive he did have some interstitial infiltrate concerning for possible aspiration pneumonia with a sputum showing MSSA likely contributing to her illness 2-patient did have a positive urine culture positive for E. coli very hard to get any history as far as urinary symptoms is concerned 3-borderline kidney function high risk of nephrotoxicity 4-patient to continue with Unasyn 3 g every 6 hours, patient white count is trending down and monitor clinical course closely Dictation was produced using [employer] dictation software. please excuse any grammatical, word or spelling errors. Time with Patient: Less than 30
--- NOTE | 2023-06-22 10:58 | P.PN ---
Subjective Progress Note Date: 06/22/23 This is a 48-year-old female with history of type 2 diabetes, history of schizophrenia, and polysubstance abuse, patient was found at home unresponsive by her guardian. Patient was brought into the ER and upon arrival the patient was noted to be in atrial fibrillation with RVR, she was extremely obtunded, she was also noted to have what seems to be a picture of severe hyperglycemia and DKA with significant anion gap metabolic acidosis. I was made aware of this patient by the ER physician and considering her obtundation, I recommended intubating the patient and accepted the patient to be admitted to the ICU with the DKA protocol, patient was extremely acidotic hyperkalemic significant anion gap metabolic acidosis was noted, and the patient was minimally responsive in the ER. Patient did have cardioversion for atrial fibrillation with RVR, and she went into sinus tachycardia. Initial labs upon admission showed leukocytosis with WBC count of 27.7, hemoglobin of 14.4, normal PT and INR, norm al PTT, ABG postintubation showed a pO2 of 361 pCO2 43 pH of 7.07. Patient was also noted to have hypernatremia with a sodium of 138, bicarb was less than 5, lactic acid was 1.2, anion gap was above 18. Patient had positive ketones in the urine, 2+ drug screen came back positive for amphetamine. Patient is known to have history of polysubstance abuse. Today the patient is in the ICU, intubated and mechanically ventilated, she is on assist-control rate of 16 tidal volume 350 FiO2 40% and PEEP of 5 ABG this a.m. showed a pO2 of 179 pCO2 49 pH of 7.45. FiO2 now is down to 40%. Electrolytes showed hyponatremia with sodium of 151 hence her main IV fluid was changed to 2.45 at 120 cc/h, and the renal functioning seems to be improving creatinine on admission was 3.41 today it is 3.07. Nephrology is following the patient for her acute kidney injury. Presently the patient is on Lovenox subcu at 30 mg subcu daily, she remains on the DKA protocol, receiving insulin at 6.5 units/h, she is also on Protonix as well as Zosyn, feeding is still presently on hold. Patient was reexamined today while in the ICU on 06/19/2023, patient remains intubated and mechanically ventilated. Patient is on assist-control rate of 16 tidal volume 350 FiO2 40% and PEEP of 5. Patient is on propofol at 15 m cg/kg/min, she is off norepinephrine, her IV fluid is running at 125 cc/h, it is 0.45, however patient is still running relatively high sodium, and I am changing her IV fluid to D5W, and I am recommending insulin drip to address her elevated blood sugars. WBC count today is 17.8 hemoglobin is 11.4. Basic metabolic profile is normal except for elevated sodium of 155 elevated chloride of 128 her anion gap has resolved her BUN is 76 creatinine 2.86, improving since admission patient had a creatinine as high as 3.41 on admission. Chest x-ray today showed minimal nonspecific patchy interstitial changes, patient remains empirically on Zosyn for presumptive aspiration. Patient remains on pantoprazole and she remains on Lovenox. The patient is seen today June 20, 2023 in follow-up in the intensive care unit. She is currently sitting up in bed. Awake and alert in no acute distress. Maintaining O2 saturations in the 90s on room air. Sputum culture was positive for MSSA. She remains on Unasyn and vancomycin. Insulin is on hold. Normal saline at 75 MLS per hour. She is currently off norepinephrine. Her ventricular rate is well-controlled. White count 20.5. Hemoglobin 10.0. Plat elets 186. Sodium 145. Potassium 2.9. Bicarb 25. BUN 42. Creatinine 1.52. Glucose 161. The patient is seen today June 21, 2023 in follow-up in the intensive care unit. She is awake and alert in no acute distress. Currently resting comfortably in bed. Denies any shortness of breath, cough or congestion. Maintaining good O2 saturation in the 90s on room air. She is afebrile. Hemodynamically stable. She has been resumed on Levemir 30 units at bedtime along with NovoLog sliding scale. Lovenox for DVT prophylaxis. She remains on antibiotics in the form of Unasyn. Her sputum culture was positive for MSSA and Jamee. Urine culture was positive for E. coli. White count 18.2. Hemoglobin 10.2. Platelets 175. Sodium 138. Potassium 3.7. Bicarb 22. BUN 24. Creatinine 1.18. Glucose 383. The patient is seen today June 22, 2023 in follow-up in the intensive care unit. She is currently sitting up in bed. Awake and alert in no acute distress. She is maintaining good O2 saturations in the 90s on room air. No IV fluids. Sputum culture was positive for MSSA. Urine culture positive for E. coli. She remains on antibiotics in the form of Unasyn. Lovenox for DVT prophylaxis. She is transitioned to Levemir and NovoLog sliding scale. White count 15.6. Hemoglobin 9.9. Platelets 197. Sodium 139. Potassium 3.3. Bicarb 25. BUN 18. Creatinine 0.99. Glucose 190. Objective - Vital Signs Vital signs: Vital Signs Temp 99.5 F 06/22/23 08:00 Pulse 89 06/22/23 08:00 Resp 12 06/22/23 08:00 BP 143/73 06/22/23 08:00 Pulse Ox 93 L 06/22/23 08:00 FiO2 40 06/19/23 10:39 Intake & Output 06/21/23 06/22/23 06/22/23 18:59 06:59 18:59 Intake Total 100 1200 Output Total 600 Balance -500 1200 Weight 76.8 kg Intake: IV 100 200 Ampicillin-Sulbactam 3 gm 100 200 In Sodium Chloride 0.9% 100 ml @ 200 mls/hr IVPB Q6HR [facility] Rx#:[id number] Oral 1000 Output: Urine 600 Other: Voiding Method Bedside Commode Toilet # Voids 1 5 # Bowel Movements 1 - Exam General: Revealed a 48-year-old female. Sitting up in bed. Awake in no distress. On room air. Head: Atraumatic, normocephalic. Endotracheal tube and orogastric tube are intact. Skin: No rashes Eyes: EOMI, PERRLA, no evidence of icterus. ENT: Nose and ears, normal Neck: No cervical lymphadenopathy, trachea midline, supple Mouth: dry mucous membranes noted. No lesions noted on mucous membranes Cardiovascular: Distant S1-S2, no S3 gallop, no murmur. Lungs: Good breath sound bilaterally no rhonchi no wheezes Abdominal: soft, nontender, no megaly no rebound no guarding Ext: No evidence of deformities good pulses bilaterally Neuro: Awake, alert, no focal deficits. - Labs CBC & Chem 7: 06/22/23 05:31 06/22/23 05:31 Labs: Abnormal Lab Results - Last 24 Hours (Table) 06/21/23 06/21/23 06/21/23 Range/Units 11:21 13:23 17:02 WBC (3.8-10.6) k/uL RBC (3.80-5.40) m/uL Hgb (11.4-16.0) gm/dL Hct (34.0-46.0) % Potassium (3.5-5.1) mmol/L Chloride (98-107) mmol/L BUN (7-17) mg/dL Glucose (74-99) mg/dL POC Glucose (mg/dL) 385 H 442 H 339 H (70-110) mg/dL Calcium (8.4-10.2) mg/dL 06/21/23 06/22/23 06/22/23 Range/Units 20:29 03:51 05:31 WBC 15.6 H (3.8-10.6) k/uL RBC 3.30 L (3.80-5.40) m/uL Hgb 9.9 L (11.4-16.0) gm/dL Hct 30.0 L (34.0-46.0) % Potassium (3.5-5.1) mmol/L Chloride (98-107) mmol/L BUN (7-17) mg/dL Glucose (74-99) mg/dL POC Glucose (mg/dL) 384 H 199 H (70-110) mg/dL Calcium (8.4-10.2) mg/dL 06/22/23 06/22/23 Range/Units 05:31 06:31 WBC (3.8-10.6) k/uL RBC (3.80-5.40) m/uL Hgb (11.4-16.0) gm/dL Hct (34.0-46.0) % Potassium 3.3 L (3.5-5.1) mmol/L Chloride 111 H (98-107) mmol/L BUN 18 H (7-17) mg/dL Glucose 190 H (74-99) mg/dL POC Glucose (mg/dL) 193 H (70-110) mg/dL Calcium 7.8 L (8.4-10.2) mg/dL Microbiology - Last 24 Hours (Table) 06/18/23 06:15 Gram Stain - Final Sputum Sputum Culture - Final Staphylococcus aureus Jamee albicans Fungus Isolated 06/17/23 17:20 Blood Culture - Preliminary Blood Assessment and Plan Assessment: Acute diabetic ketoacidosis, recovered Acute metabolic encephalopathy, recovered Possible amphetamine overdose, patient is known to have history of polysubstance abuse Atrial fibrillation with RVR on presentation requiring cardioversion, rate imp roved History of schizophrenia based on information obtained from the chart Acute anion gap metabolic acidosis, secondary to DKA Possible aspiration pneumonia, sputum positive for MSSA, Jamee Hypotension secondary mostly to hypovolemia secondary to hyperglycemia, doubt sepsis and doubt septic shock. Acute kidney injury secondary to hypotension and gram-negative bacilli urinary tract infection Obtundation on presentation requiring intubation and mechanical ventilation, recovered and on room air. Electrolytes imbalance secondary to her DKA and fluids given, being replaced Plan: The patient was seen and evaluated Labs and medications reviewed Continue the current treatment plan Awaiting a bed on the regular medical floor We will continue to follow I have personally seen and examined the patient, performed the documentation and the assessment and plan as written. Number of minutes spent on the visit: 10.
[2023-06-22 11:17] LABS: Glucose,Whole Blood 288 mg/dL (70-110)
[2023-06-22 14:44] LABS: Glucose,Whole Blood 205 mg/dL (70-110)
[2023-06-22] MEDS: haloperidoL 5 MG TAB PO PRN (14:50)
--- NOTE | 2023-06-22 15:47 | P.PN ---
Subjective Progress Note Date: 06/22/23 (delayed charting seen at 0945) Patient is a 48-year-old female with diabetes mellitus type 2 previously on insulin, schizophrenia, and polysubstance abuse who initially was brought to the ER after being found unresponsive at home. Thorough evaluation in the ER revealed DKA with blood glucose of 1418 and a CO2 of less than 5. She was also noted to have A-fib with RVR and hypotension and was subsequently cardioverted. He required intubation in the emergency department. She underwent head CT which showed no acute process she was started on IV fluids, insulin drip, and was admitted to the ICU. Of note her toxicology was positive for amphetamines. Pulmonology and then ultimately nephrology were consulted. She underwent renal ultrasound which demonstrated no evidence of obstructive uropathy patient initially had renal failure which resolved with IV fluid administration. Of note her hemoglobin A1c was 15. She was able to come off of the insulin drip and was transitioned to long and short acting insulin. Was extubated on the morning of 06/19. She was found to have an E. coli urinary tract infection and infectious disease was consulted. She was transition to Unasyn 3 g every 6 hours. She underwent echocardiogram which showed ejection fraction 50 to 55%. Patient seen and examined at bedside. She reports that she is feeling well. She denies any chest pain or shortness of breath. Wants to be left alone as she is feeling tired. Vital signs reviewed General: Nontoxic, no distress, appears at stated age Cardiovascular: S1S2 reg, no murmur Lungs: CTA bilateral, no rhonchi, no rales, no accessory muscle use Abdominal: Soft, nontender to palpation, no guarding Ext: No gross muscle atrophy, no edema b/l lower extremities, no contractures Neuro: CN II-XI grossly intact, no focal neuro deficits Psych: Alert, oriented, appropriate affect Assessment/Plan: DKA Diabetes mellitus type 2, suboptimally controlled -A1c 15 -Continue with Levemir 30 units at night, NovoLog 10 units 3 times daily, and sliding scale -Continue to follow blood sugars -Patient will need sliding scale insulin on discharge E. coli UTI with septic shock -Continue IV Unasyn 3 g IV piggyback every 6 hours day #3, patient completed 2 days of Zosyn before this. - Patient sensitivites have come back and are indeterminant to ampicillin, await ID review. -Infectious disease recommendations reviewed: Continue with Unasyn -E. coli is dawson sensitive and can be transitioned to keflex on discharge Isolated episode of A-fib with RVR on admission -Patient was cardioverted in the ER -Start heparin drip -Consult cardiology -Agree that likely due to electrolyte derangements. However patient likely would benefit from 30 days of anticoagulation after cardioversion -Echocardiogram reviewed ejection fraction 50 to 55% Schizophrenia Polysubstance abuse -Psych note reviewed, does not meet requirements for inpatient admission -Patient was given Invega on 06/14 with next dose due on 07/12 Acute kidney injury, resolved Metabolic encephalopathy, resolved Subclinical hyperthyroidism- repeat TSH in 6 weeks Acute hypoxic respiratory failure, resolved Hypernatremia, resolved Imaging: None new Data Review: Labs reviewed from today include CBC and basic metabolic profile which are remarkable for white blood cell count 15.6, BUN 18, and blood sugar 205. DVT prophylaxis: Heaprin gtt Anticipated discharge date and place: once safe discharge plan in place. Discussed with social work at [facility] and [facility] to obtain crisis bed This dictation was prepared using [employer] voice recognition software. Though every attempt is made to correct errors during dictation some may still exist. Objective - Vital Signs Vital signs: Vital Signs Temp 98.3 F 06/22/23 14:00 Pulse 72 06/22/23 14:00 Resp 16 06/22/23 14:00 BP 131/71 06/22/23 14:00 Pulse Ox 99 06/22/23 14:00 FiO2 40 06/19/23 10:39 Intake & Output 06/21/23 06/22/23 06/22/23 18:59 06:59 18:59 Intake Total 100 1200 100 Output Total 600 Balance -500 1200 100 Weight 76.8 kg Intake: IV 100 200 100 Ampicillin-Sulbactam 3 gm 100 200 100 In Sodium Chloride 0.9% 100 ml @ 200 mls/hr IVPB Q6HR [facility] Rx#:[id number] Oral 1000 Output: Urine 600 Other: Voiding Method Bedside Commode Toilet Toilet # Voids 1 5 1 # Bowel Movements 1 - Labs CBC & Chem 7: 06/22/23 05:31 06/22/23 14:08 Labs: Abnormal Lab Results - Last 24 Hours (Table) 06/21/23 06/21/23 06/22/23 Range/Units 17:02 20:29 03:51 WBC (3.8-10.6) k/uL RBC (3.80-5.40) m/uL Hgb (11.4-16.0) gm/dL Hct (34.0-46.0) % Potassium (3.5-5.1) mmol/L Chloride (98-107) mmol/L BUN (7-17) mg/dL Glucose (74-99) mg/dL POC Glucose (mg/dL) 339 H 384 H 199 H (70-110) mg/dL Calcium (8.4-10.2) mg/dL 06/22/23 06/22/23 06/22/23 Range/Units 05:31 05:31 06:31 WBC 15.6 H (3.8-10.6) k/uL RBC 3.30 L (3.80-5.40) m/uL Hgb 9.9 L (11.4-16.0) gm/dL Hct 30.0 L (34.0-46.0) % Potassium 3.3 L (3.5-5.1) mmol/L Chloride 111 H (98-107) mmol/L BUN 18 H (7-17) mg/dL Glucose 190 H (74-99) mg/dL POC Glucose (mg/dL) 193 H (70-110) mg/dL Calcium 7.8 L (8.4-10.2) mg/dL 06/22/23 06/22/23 Range/Units 11:16 14:41 WBC (3.8-10.6) k/uL RBC (3.80-5.40) m/uL Hgb (11.4-16.0) gm/dL Hct (34.0-46.0) % Potassium (3.5-5.1) mmol/L Chloride (98-107) mmol/L BUN (7-17) mg/dL Glucose (74-99) mg/dL POC Glucose (mg/dL) 288 H 205 H (70-110) mg/dL Calcium (8.4-10.2) mg/dL Microbiology - Last 24 Hours (Table) 06/18/23 06:15 Gram Stain - Final Sputum Sputum Culture - Final Staphylococcus aureus Jamee albicans Fungus Isolated 06/17/23 17:20 Blood Culture - Preliminary Blood
[2023-06-22 16:04] LABS: INR 0.8 (<1.2); Prothrombin Time 9.6 sec (10.0-12.5)
[2023-06-22] MEDS: HEPARIN SOD,PORK IN 0.45% NACL 25,000 UNIT in 0.45% NACL 1 250ML.BAG IV SCH (16:20)
[2023-06-22] MEDS: HEPARIN SODIUM 1,000 UN/ML (10ML VL) IV ONE (16:20)
[2023-06-22 16:43] LABS: Glucose,Whole Blood 275 mg/dL (70-110)
--- NOTE | 2023-06-22 19:13 | P.PN ---
Subjective patient is seen for follow-up for acute kidney injury. Patient is comfortable. Trying to increase oral intake. urine culture is growing E. coli. good urine output. serum creatinine improved to 0.9 today. Objective - Vital Signs Vital signs: Vital Signs Temp 98.3 F 06/22/23 16:20 Pulse 76 06/22/23 16:20 Resp 19 06/22/23 16:20 BP 135/86 06/22/23 16:20 Pulse Ox 99 06/22/23 16:20 FiO2 40 06/19/23 10:39 Intake & Output 06/22/23 06/22/23 06/23/23 06:59 18:59 06:59 Intake Total 1200 100 Balance 1200 100 Intake: IV 200 100 Ampicillin-Sulbactam 3 gm 200 100 In Sodium Chloride 0.9% 100 ml @ 200 mls/hr IVPB Q6HR [facility] Rx#:[id number] Oral 1000 Other: Voiding Method Toilet Toilet # Voids 5 1 - Exam patient is comfortable. She is sleeping but arousable. Examination of the heart S1 and S2 Examination of the lungs decreased breath sounds at the bases Abdomen is soft nontender Examination of lower extremity shows no significant edema. Moving all 4 extremities. - Labs CBC & Chem 7: 06/22/23 05:31 06/22/23 14:08 Labs: Abnormal Lab Results - Last 24 Hours (Table) 06/21/23 06/22/23 06/22/23 Range/Units 20:29 03:51 05:31 WBC 15.6 H (3.8-10.6) k/uL RBC 3.30 L (3.80-5.40) m/uL Hgb 9.9 L (11.4-16.0) gm/dL Hct 30.0 L (34.0-46.0) % PT (10.0-12.5) sec Potassium (3.5-5.1) mmol/L Chloride (98-107) mmol/L BUN (7-17) mg/dL Glucose (74-99) mg/dL POC Glucose (mg/dL) 384 H 199 H (70-110) mg/dL Calcium (8.4-10.2) mg/dL 06/22/23 06/22/23 06/22/23 Range/Units 05:31 06:31 11:16 WBC (3.8-10.6) k/uL RBC (3.80-5.40) m/uL Hgb (11.4-16.0) gm/dL Hct (34.0-46.0) % PT (10.0-12.5) sec Potassium 3.3 L (3.5-5.1) mmol/L Chloride 111 H (98-107) mmol/L BUN 18 H (7-17) mg/dL Glucose 190 H (74-99) mg/dL POC Glucose (mg/dL) 193 H 288 H (70-110) mg/dL Calcium 7.8 L (8.4-10.2) mg/dL 06/22/23 06/22/23 06/22/23 Range/Units 14:41 15:28 16:41 WBC (3.8-10.6) k/uL RBC (3.80-5.40) m/uL Hgb (11.4-16.0) gm/dL Hct (34.0-46.0) % PT 9.6 L (10.0-12.5) sec Potassium (3.5-5.1) mmol/L Chloride (98-107) mmol/L BUN (7-17) mg/dL Glucose (74-99) mg/dL POC Glucose (mg/dL) 205 H 275 H (70-110) mg/dL Calcium (8.4-10.2) mg/dL Assessment and Plan Assessment: 1. Non-oliguric NIKOLE 2/2 ATN from volume depletion. Baseline creatinine 0.5 mg/dL, presented 3.4--> 0.9 today with good urine output. UA consistent with p ossible UTI. 2. DKA, status post insulin drip. 3. Toxic/Metabolic Encephalopathy 4. Pneumonia with severe sepsis s/p AVDRF- extubated this morning. 5. Hypernatremia due to volume depletion., improved 6. History of polysubstance abuse 7. UTI with urine culture growing E. coli. Plan: continue to encourage increased oral intake Repeat labs in a.m.
[2023-06-22 21:11] LABS: Glucose,Whole Blood 502 mg/dL (70-110)
[2023-06-22 21:11] LABS: Glucose,Whole Blood 499 mg/dL (70-110)
[2023-06-22 23:27] LABS: Glucose,Whole Blood 432 mg/dL (70-110)
[2023-06-23] MEDS: INSULIN ASPART (NovoLOG) 100 UNIT/ML VIAL SQ ONE (00:02)
[2023-06-23] MEDS: HEPARIN SODIUM 1,000 UN/ML (10ML VL) IV PRN (01:05)
[2023-06-23 01:30] LABS: Glucose,Whole Blood 316 mg/dL (70-110)
[2023-06-23 06:15] LABS: Glucose,Whole Blood 206 mg/dL (70-110)
[2023-06-23 06:26] LABS: African American GFR (CKD) >90 (>60 ml/min/1.73 sqM); Anion Gap 4 mmol/L; Blood Urea Nitrogen 16 mg/dL (7-17); Calcium 8.1 mg/dL (8.4-10.2); Carbon Dioxide 23 mmol/L (22-30); Chloride 108 mmol/L (98-107); Glucose 175 mg/dL (74-99); Non-African American GFR(CKD) 86 (>60 ml/min/1.73 sqM); Potassium 3.6 mmol/L (3.5-5.1); Sodium 135 mmol/L (137-145)
[2023-06-23 06:51] LABS: HCT 28.7 % (34.0-46.0); HGB 9.4 gm/dL (11.4-16.0); MCH 29.3 pg (25.0-35.0); MCHC 32.9 g/dL (31.0-37.0); Mean Platelet Volume 9.3; Platelet Count 259 k/uL (150-450); RBC 3.22 m/uL (3.80-5.40); RDW 13.3 % (11.5-15.5); WBC 14.8 k/uL (3.8-10.6)
--- NOTE | 2023-06-23 09:43 | P.CRDCN ---
History of Present Illness Consult date: 06/23/23 Consult reason: atrial fibrillation (on admission) History of present illness: History of present illness: This is a 48-year-old female with past medical history of diabetes mellitus type 2, schizophrenia, polysubstance abuse. Patient was brought into the hospital on 06/16 as she was found unresponsive at home. She was found to have a blood sugar of 1418 CO2 of 5. She was also in A-fib with RVR and hypotensive. She was intubated, status post electrocardioversion and was initially in the intensive care unit. We have been asked to evaluate the patient for A-fib which was present on admission and she cardioverted at the time in the emergency center and has had no documented episodes since. Patient is unwilling to answer any questions and so history is being obtained from the patient's record. Yesterday, patient was started on heparin drip and this consult was added. EKG atrial fibrillation at 185 bpm, telemetry sinus rhythm Chest x-ray: Performed on 06/18: Similar patchy central interstitial densities. On presentation, laboratory studies revealed WBC 27.7. pH 7.07 sodium 150, potassium 4.2, chloride 114, CO2 18, BUN 86 and creatinine 2.69. TSH 0.325. Procalcitonin 0.63. Urinalysis with WBC 25, trace leukoesterase. Urine drug screen positive for amphetamines. Home cardiac medications: None Echocardiogram performed on 06/18/2023 revealed EF 50 to 55%, trace mitral regurgitation. RVSP 17. No pericardial effusion. Review Of Systems: At the time of my exam: CONSTITUTIONAL: Denies fever or chills. HEENT: Denies blurred vision, vision changes, or eye pain. Denies hemoptysis CARDIOVASCULAR: Denies chest pain. Denies orthopnea. Denies PND. Denies palpitations RESPIRATORY: Denies shortness of breath. GASTROINTESTINAL: Denies abdominal pain. Denies nausea or vomiting. HEMATOLOGIC: Denies bleeding disorders. GENITOURINARY: Denies any blood in urine. SKIN: Denies pruitis. Denies rash. Physical examination: Gen: This is a 48-year-old female in no acute distress VS: reviewed, blood pressure 117/77, heart rate 76, pulse ox 97% on room air. HEENT: Head is atraumatic, normocephalic. Pupils equal, round. Sclerae is anicteric. NECK: Supple. No JVD. LUNGS: Clear to auscultation. No wheezes or rhonchi. No intercostal retractions. HEART: Regular rate and rhythm. No murmur. ABDOMEN: Soft No tenderness. EXTREMITIES: No pedal edema. No calf tenderness. Assessment: Isolated episode of A-fib with RVR on admission most likely secondary to electrolyte abnormalities status post electrocardioversion DKA E. coli UTI and septic shock Schizophrenia Acute kidney injury, resolved Plan: Discontinue heparin drip Obtain an event monitor No plan for anticoagulation at this time. If patient has recurrence of atrial fibrillation this will be revisited. Patient may follow-up in the office in 2 weeks. Cardiology will sign off this case and follow on an as-needed basis. Please reconsult for any new concerns. Patient may follow-up in the office in one to 2 weeks. Thank you kindly for this consultation. Nurse practitioner note has been reviewed, I agree with documented findings and plan of care. Patient was seen and examined. Past Medical History Past Medical History: Diabetes Mellitus, Osteoarthritis (OA) Additional Past Medical History / Comment(s): "GESTATIONAL DIABETES", GOES TO [facility] History of Any Multi-Drug Resistant Organisms: None Reported Past Surgical History: Section Additional Past Surgical History / Comment(s): POLA ARM SX WHEN CHILD-WENT THRU A WINDOW Past Anesthesia/Blood Transfusion Reactions: No Reported Reaction Additional Past Anesthesia/Blood Transfusion Reaction / Comment(s): CL AUSTERPHOBIA Smoking Status: Current every day smoker - Past Family History Father Additional Family Medical History / Comment(s): DEPRESSION, "PROBLEM WITH HIS PANCREAS" Mother Family Medical History: Hyperlipidemia, Hypertension Additional Family Medical History / Comment(s): DDD, NECK FUSION, KIDNEY CANCER Medications and Allergies Home Medications Medication Instructions Recorded Confirmed Type Paliperidone IM [Invega Sustenna] 234 mg IM Q28D 06/17/23 06/17/23 History Atorvastatin [Lipitor] 10 mg PO DAILY 06/20/23 06/20/23 History metFORMIN HCL [metFORMIN HCL ER] 750 mg PO DAILY 06/20/23 06/20/23 History Allergies Allergy/AdvReac Type Severity Reaction Status Date / Time pollen extracts Allergy Rash/Hives Verified 06/17/23 19:00 Physical Exam Vitals: Vital Signs Temp Pulse Resp BP Pulse Ox 06/23/23 07:15 98.2 F 76 18 117/77 97 06/23/23 01:32 97.8 F 82 16 119/76 98 06/22/23 19:03 98.9 F 82 17 126/82 98 06/22/23 16:20 98.3 F 76 19 135/86 99 06/22/23 14:00 98.3 F 72 16 131/71 99 Intake and Output 06/22/23 06/23/23 06/23/23 22:59 06:59 14:59 Intake Total 79.565 85.248 Balance 79.565 85.248 Intake: Intake, IV Titration 79.565 85.248 Amount Heparin Sod,Pork in 0.45% 79.565 85.248 NaCl 25,000 unit In 0.45 % NaCl 1 250ml.bag @ 12 UNITS/KG/HR 9.216 mls/hr IV .Q24H [facility] Rx#: [id number] Other: Voiding Method Toilet # Voids 4 6 Results 06/23/23 05:42 06/23/23 05:42 Coagulation 06/22/23 06/22/23 06/23/23 Range/Units 15:28 23:57 07:25 PT 9.6 L (10.0-12.5) sec APTT 24.0 29.3 33.0 H (22.0-30.0) sec CBC 06/23/23 Range/Units 05:42 WBC 14.8 H (3.8-10.6) k/uL RBC 3.22 L (3.80-5.40) m/uL Hgb 9.4 L (11.4-16.0) gm/dL Hct 28.7 L (34.0-46.0) % Plt Count 259 (150-450) k/uL Comprehensive Metabolic Panel 06/22/23 06/23/23 Range/Units 14:08 05:42 Sodium 135 L (137-145) mmol/L Potassium 3.5 3.6 (3.5-5.1) mmol/L Chloride 108 H (98-107) mmol/L Carbon Dioxide 23 (22-30) mmol/L BUN 16 (7-17) mg/dL Creatinine 0.82 (0.52-1.04) mg/dL Glucose 175 H (74-99) mg/dL Calcium 8.1 L (8.4-10.2) mg/dL Current Medications Generic Name Dose Route Start Last Admin Trade Name Gabbie PRN Reason Stop Dose Admin Acetaminophen 650 mg 06/21/23 16:21 06/23/23 06:05 Acetaminophen Tab 325 Mg Tab PO 650 mg Q6HR PRN Administration Fever and/ or Pain Dextrose/Water 25 ml 06/19/23 10:11 Dextrose 50% Syringe 50 Ml IVP PER PROTOCOL PRN Hypoglycemia Protocol Dextrose/Water 50 ml 06/19/23 10:11 Dextrose 50% Syringe 50 Ml IVP PER PROTOCOL PRN Hypoglycemia Protocol Haloperidol 5 mg 06/20/23 14:33 06/23/23 01:49 Haloperidol 5 Mg Tab PO 5 mg Q6HR PRN Administration Agitation Haloperidol Lactate 5 mg 06/20/23 14:33 06/22/23 03:44 Haloperidol Lactate 5 Mg/Ml 1 Ml Vial IM 5 mg Q6HR PRN Administration Agitation or Acute Psychosis Heparin Sodium (Porcine) 0 unit 06/22/23 15:14 06/23/23 08:17 Heparin Sodium 1,000 Un/Ml (10ml Vl) IV 3,840 unit PER PROTOCOL PRN Administration Low PTT Protocol Ampicillin Sodium/Sulbactam 100 mls @ 200 mls/hr 06/20/23 12:00 06/23/23 06:05 Sodium 3 gm/ Sodium Chloride IVPB 200 mls/hr Q6HR [facility] Administration Protocol Heparin Sodium/Sodium Chloride 250 mls @ 9.216 mls/hr 06/22/23 15:15 06/23/23 08:22 25,000 unit/ Sodium Chloride IV 18 units/kg/hr .Q24H [facility] 13.824 mls/hr Titration Protocol 12 UNITS/KG/HR Insulin Aspart 0 unit 06/20/23 12:30 06/23/23 07:00 Insulin Aspart (Novolog) 100 Unit/Ml Vial SQ 6 unit ACHS [facility] Administration Protocol Insulin Aspart 10 unit 06/21/23 12:30 06/23/23 07:00 Insulin Aspart (Novolog) 100 Unit/Ml Vial SQ 10 unit AC-TID [facility] Administration Insulin Detemir 30 unit 06/21/23 21:00 06/22/23 21:46 Insulin Detemir (Levemir) 100 Unit/Ml Syr SQ 30 unit HS [facility] Administration Miscellaneous Information 1 each 06/20/23 07:08 Potassium Replacement Protocol 1 Each Misc MISCELLANE DAILY PRN Per Protocol Protocol Naloxone HCl 0.2 mg 06/17/23 20:05 Naloxone 0.4 Mg/Ml 1 Ml Vial IV Q2M PRN Opioid Reversal Pantoprazole Sodium 40 mg 06/18/23 09:00 06/23/23 08:17 Pantoprazole 40 Mg/10 Ml Vial IVP 40 mg DAILY [facility] Administration Trazodone HCl 50 mg 06/20/23 14:33 06/22/23 21:46 Trazodone Hcl 50 Mg Tab PO 50 mg HS PRN Administration Insomnia Intake and Output 06/22/23 06/23/23 06/23/23 22:59 06:59 14:59 Intake Total 79.565 85.248 Balance 79.565 85.248 Intake: Intake, IV Titration 79.565 85.248 Amount Heparin Sod,Pork in 0.45% 79.565 85.248 NaCl 25,000 unit In 0.45 % NaCl 1 250ml.bag @ 12 UNITS/KG/HR 9.216 mls/hr IV .Q24H [facility] Rx#: [id number] Other: Voiding Method Toilet # Voids 4 6 06/23/23 05:42 06/23/23 05:42
--- NOTE | 2023-06-23 10:53 | P.PN ---
Subjective Progress Note Date: 06/23/23 This is a 48-year-old female with history of type 2 diabetes, history of schizophrenia, and polysubstance abuse, patient was found at home unresponsive by her guardian. Patient was brought into the ER and upon arrival the patient was noted to be in atrial fibrillation with RVR, she was extremely obtunded, she was also noted to have what seems to be a picture of severe hyperglycemia and DKA with significant anion gap metabolic acidosis. I was made aware of this patient by the ER physician and considering her obtundation, I recommended intubating the patient and accepted the patient to be admitted to the ICU with the DKA protocol, patient was extremely acidotic hyperkalemic significant anion gap metabolic acidosis was noted, and the patient was minimally responsive in the ER. Patient did have cardioversion for atrial fibrillation with RVR, and she went into sinus tachycardia. Initial labs upon admission showed leukocytosis with WBC count of 27.7, hemoglobin of 14.4, normal PT and INR, norm al PTT, ABG postintubation showed a pO2 of 361 pCO2 43 pH of 7.07. Patient was also noted to have hypernatremia with a sodium of 138, bicarb was less than 5, lactic acid was 1.2, anion gap was above 18. Patient had positive ketones in the urine, 2+ drug screen came back positive for amphetamine. Patient is known to have history of polysubstance abuse. Today the patient is in the ICU, intubated and mechanically ventilated, she is on assist-control rate of 16 tidal volume 350 FiO2 40% and PEEP of 5 ABG this a.m. showed a pO2 of 179 pCO2 49 pH of 7.45. FiO2 now is down to 40%. Electrolytes showed hyponatremia with sodium of 151 hence her main IV fluid was changed to 2.45 at 120 cc/h, and the renal functioning seems to be improving creatinine on admission was 3.41 today it is 3.07. Nephrology is following the patient for her acute kidney injury. Presently the patient is on Lovenox subcu at 30 mg subcu daily, she remains on the DKA protocol, receiving insulin at 6.5 units/h, she is also on Protonix as well as Zosyn, feeding is still presently on hold. Patient was reexamined today while in the ICU on 06/19/2023, patient remains intubated and mechanically ventilated. Patient is on assist-control rate of 16 tidal volume 350 FiO2 40% and PEEP of 5. Patient is on propofol at 15 m cg/kg/min, she is off norepinephrine, her IV fluid is running at 125 cc/h, it is 0.45, however patient is still running relatively high sodium, and I am changing her IV fluid to D5W, and I am recommending insulin drip to address her elevated blood sugars. WBC count today is 17.8 hemoglobin is 11.4. Basic metabolic profile is normal except for elevated sodium of 155 elevated chloride of 128 her anion gap has resolved her BUN is 76 creatinine 2.86, improving since admission patient had a creatinine as high as 3.41 on admission. Chest x-ray today showed minimal nonspecific patchy interstitial changes, patient remains empirically on Zosyn for presumptive aspiration. Patient remains on pantoprazole and she remains on Lovenox. The patient is seen today June 20, 2023 in follow-up in the intensive care unit. She is currently sitting up in bed. Awake and alert in no acute distress. Maintaining O2 saturations in the 90s on room air. Sputum culture was positive for MSSA. She remains on Unasyn and vancomycin. Insulin is on hold. Normal saline at 75 MLS per hour. She is currently off norepinephrine. Her ventricular rate is well-controlled. White count 20.5. Hemoglobin 10.0. Plat elets 186. Sodium 145. Potassium 2.9. Bicarb 25. BUN 42. Creatinine 1.52. Glucose 161. The patient is seen today June 21, 2023 in follow-up in the intensive care unit. She is awake and alert in no acute distress. Currently resting comfortably in bed. Denies any shortness of breath, cough or congestion. Maintaining good O2 saturation in the 90s on room air. She is afebrile. Hemodynamically stable. She has been resumed on Levemir 30 units at bedtime along with NovoLog sliding scale. Lovenox for DVT prophylaxis. She remains on antibiotics in the form of Unasyn. Her sputum culture was positive for MSSA and Jamee. Urine culture was positive for E. coli. White count 18.2. Hemoglobin 10.2. Platelets 175. Sodium 138. Potassium 3.7. Bicarb 22. BUN 24. Creatinine 1.18. Glucose 383. The patient is seen today June 22, 2023 in follow-up in the intensive care unit. She is currently sitting up in bed. Awake and alert in no acute distress. She is maintaining good O2 saturations in the 90s on room air. No IV fluids. Sputum culture was positive for MSSA. Urine culture positive for E. coli. She remains on antibiotics in the form of Unasyn. Lovenox for DVT prophylaxis. She is transitioned to Levemir and NovoLog sliding scale. White count 15.6. Hemoglobin 9.9. Platelets 197. Sodium 139. Potassium 3.3. Bicarb 25. BUN 18. Creatinine 0.99. Glucose 190. The patient is seen today June 23, 2023 in follow-up on the regular medical floor. She is currently resting comfortably in bed. Awake and alert in no acute distress. She is maintaining good O2 saturations in the 90s on room air. She did develop atrial fibrillation with a rapid ventricular response. C ardiology consulted. She is currently on a heparin drip. Normal saline at KVO. Continued on antibiotics in the form of Unasyn. Continued on Levemir and NovoLog sliding scale. White count 14.8. Hemoglobin 9.4. Platelets 259. Sodium 134. Potassium 3.6. Bicarb 23. BUN 16. Creatinine 0.82. Glucose 175. Objective - Vital Signs Vital signs: Vital Signs Temp 98.2 F 06/23/23 07:15 Pulse 76 06/23/23 07:15 Resp 18 06/23/23 07:15 BP 117/77 06/23/23 07:15 Pulse Ox 97 06/23/23 07:15 FiO2 40 06/19/23 10:39 Intake & Output 06/22/23 06/23/23 06/23/23 18:59 06:59 18:59 Intake Total 100 79.565 85.248 Balance 100 79.565 85.248 Intake: IV 100 Ampicillin-Sulbactam 3 gm 100 In Sodium Chloride 0.9% 100 ml @ 200 mls/hr IVPB Q6HR [facility] Rx#:[id number] Intake, IV Titration 79.565 85.248 Amount Heparin Sod,Pork in 0.45% 79.565 85.248 NaCl 25,000 unit In 0.45 % NaCl 1 250ml.bag @ 12 UNITS/KG/HR 9.216 mls/hr IV .Q24H [facility] Rx#: [id number] Other: Voiding Method Toilet Toilet # Voids 1 6 - Exam General: Revealed a 48-year-old female. Resting in bed. Awake in no distress. On room air. Head: Atraumatic, normocephalic. Endotracheal tube and orogastric tube are intact. Skin: No rashes Eyes: EOMI, PERRLA, no evidence of icterus ENT: Nose and ears, normal Neck: No cervical lymphadenopathy, trachea midline, supple Mouth: Moist mucous membranes noted. No lesions noted on mucous membranes Cardiovascular: Distant S1-S2, no S3 gallop, no murmur. Irregularly irregular, tachycardic Lungs: Good breath sound bilaterally no rhonchi no wheezes Abdominal: soft, nontender, no megaly no rebound no guarding Ext: No evidence of deformities good pulses bilaterally Neuro: Awake, alert, no focal deficits. - Labs CBC & Chem 7: 06/23/23 05:42 06/23/23 05:42 Labs: Abnormal Lab Results - Last 24 Hours (Table) 06/22/23 06/22/23 06/22/23 Range/Units 11:16 14:41 15:28 WBC (3.8-10.6) k/uL RBC (3.80-5.40) m/uL Hgb (11.4-16.0) gm/dL Hct (34.0-46.0) % PT 9.6 L (10.0-12.5) sec APTT (22.0-30.0) sec Sodium (137-145) mmol/L Chloride (98-107) mmol/L Glucose (74-99) mg/dL POC Glucose (mg/dL) 288 H 205 H (70-110) mg/dL Calcium (8.4-10.2) mg/dL 06/22/23 06/22/23 06/22/23 Range/Units 16:41 21:08 21:10 WBC (3.8-10.6) k/uL RBC (3.80-5.40) m/uL Hgb (11.4-16.0) gm/dL Hct (34.0-46.0) % PT (10.0-12.5) sec APTT (22.0-30.0) sec Sodium (137-145) mmol/L Chloride (98-107) mmol/L Glucose (74-99) mg/dL POC Glucose (mg/dL) 275 H 502 H 499 H (70-110) mg/dL Calcium (8.4-10.2) mg/dL 06/22/23 06/23/23 06/23/23 Range/Units 23:25 01:28 05:42 WBC 14.8 H (3.8-10.6) k/uL RBC 3.22 L (3.80-5.40) m/uL Hgb 9.4 L (11.4-16.0) gm/dL Hct 28.7 L (34.0-46.0) % PT (10.0-12.5) sec APTT (22.0-30.0) sec Sodium (137-145) mmol/L Chloride (98-107) mmol/L Glucose (74-99) mg/dL POC Glucose (mg/dL) 432 H 316 H (70-110) mg/dL Calcium (8.4-10.2) mg/dL 06/23/23 06/23/23 06/23/23 Range/Units 05:42 06:14 07:25 WBC (3.8-10.6) k/uL RBC (3.80-5.40) m/uL Hgb (11.4-16.0) gm/dL Hct (34.0-46.0) % PT (10.0-12.5) sec APTT 33.0 H (22.0-30.0) sec Sodium 135 L (137-145) mmol/L Chloride 108 H (98-107) mmol/L Glucose 175 H (74-99) mg/dL POC Glucose (mg/dL) 206 H (70-110) mg/dL Calcium 8.1 L (8.4-10.2) mg/dL Microbiology - Last 24 Hours (Table) 06/17/23 17:35 Blood Culture - Final Blood Assessment and Plan Assessment: Acute diabetic ketoacidosis, recovered Acute metabolic encephalopathy, recovered Possible amphetamine overdose, patient is known to have history of polysubstance abuse Atrial fibrillation with RVR on presentation requiring cardioversion, recurrent, currently on heparin History of schizophrenia based on information obtained from the chart Acute anion gap metabolic acidosis, secondary to DKA Possible aspiration pneumonia, sputum positive for MSSA, Jamee Hypotension secondary mostly to hypovolemia secondary to hyperglycemia, doubt sepsis and doubt septic shock. Acute kidney injury secondary to hypotension and gram-negative bacilli urinary tract infection Obtundation on presentation requiring intubation and mechanical ventilation, recovered and on room air. Electrolytes imbalance secondary to her DKA and fluids given, being replaced Plan: The patient was seen and evaluated Labs and medications reviewed Now on a heparin drip with A-fib RVR Cardiology consulted We will continue to follow I have personally seen and examined the patient, performed the documentation and the assessment and plan as written. Number of minutes spent on the visit: 10.
--- NOTE | 2023-06-23 11:09 | P.PN ---
Subjective patient is seen for follow-up for acute kidney injury. Patient is comfortable. Trying to increase oral intake. serum creatinine improved to 0.8 today. Objective - Vital Signs Vital signs: Vital Signs Temp 98.2 F 06/23/23 07:15 Pulse 76 06/23/23 07:15 Resp 18 06/23/23 07:15 BP 117/77 06/23/23 07:15 Pulse Ox 97 06/23/23 07:15 FiO2 40 06/19/23 10:39 Intake & Output 06/22/23 06/23/23 06/23/23 18:59 06:59 18:59 Intake Total 100 79.565 85.248 Balance 100 79.565 85.248 Intake: IV 100 Ampicillin-Sulbactam 3 gm 100 In Sodium Chloride 0.9% 100 ml @ 200 mls/hr IVPB Q6HR [facility] Rx#:[id number] Intake, IV Titration 79.565 85.248 Amount Heparin Sod,Pork in 0.45% 79.565 85.248 NaCl 25,000 unit In 0.45 % NaCl 1 250ml.bag @ 12 UNITS/KG/HR 9.216 mls/hr IV .Q24H [facility] Rx#: [id number] Other: Voiding Method Toilet Toilet # Voids 1 6 - Exam patient is comfortable. She is sleeping but arousable. Examination of the heart S1 and S2 Examination of the lungs decreased breath sounds at the bases Abdomen is soft nontender Examination of lower extremity shows no significant edema. Moving all 4 extremities. - Labs CBC & Chem 7: 06/23/23 05:42 06/23/23 05:42 Labs: Abnormal Lab Results - Last 24 Hours (Table) 06/22/23 06/22/23 06/22/23 Range/Units 11:16 14:41 15:28 WBC (3.8-10.6) k/uL RBC (3.80-5.40) m/uL Hgb (11.4-16.0) gm/dL Hct (34.0-46.0) % PT 9.6 L (10.0-12.5) sec APTT (22.0-30.0) sec Sodium (137-145) mmol/L Chloride (98-107) mmol/L Glucose (74-99) mg/dL POC Glucose (mg/dL) 288 H 205 H (70-110) mg/dL Calcium (8.4-10.2) mg/dL 06/22/23 06/22/23 06/22/23 Range/Units 16:41 21:08 21:10 WBC (3.8-10.6) k/uL RBC (3.80-5.40) m/uL Hgb (11.4-16.0) gm/dL Hct (34.0-46.0) % PT (10.0-12.5) sec APTT (22.0-30.0) sec Sodium (137-145) mmol/L Chloride (98-107) mmol/L Glucose (74-99) mg/dL POC Glucose (mg/dL) 275 H 502 H 499 H (70-110) mg/dL Calcium (8.4-10.2) mg/dL 06/22/23 06/23/23 06/23/23 Range/Units 23:25 01:28 05:42 WBC 14.8 H (3.8-10.6) k/uL RBC 3.22 L (3.80-5.40) m/uL Hgb 9.4 L (11.4-16.0) gm/dL Hct 28.7 L (34.0-46.0) % PT (10.0-12.5) sec APTT (22.0-30.0) sec Sodium (137-145) mmol/L Chloride (98-107) mmol/L Glucose (74-99) mg/dL POC Glucose (mg/dL) 432 H 316 H (70-110) mg/dL Calcium (8.4-10.2) mg/dL 06/23/23 06/23/23 06/23/23 Range/Units 05:42 06:14 07:25 WBC (3.8-10.6) k/uL RBC (3.80-5.40) m/uL Hgb (11.4-16.0) gm/dL Hct (34.0-46.0) % PT (10.0-12.5) sec APTT 33.0 H (22.0-30.0) sec Sodium 135 L (137-145) mmol/L Chloride 108 H (98-107) mmol/L Glucose 175 H (74-99) mg/dL POC Glucose (mg/dL) 206 H (70-110) mg/dL Calcium 8.1 L (8.4-10.2) mg/dL Microbiology - Last 24 Hours (Table) 06/17/23 17:35 Blood Culture - Final Blood Assessment and Plan Assessment: 1. Non-oliguric NIKOLE 2/2 ATN from volume depletion. Baseline creatinine 0.5 mg/dL, presented 3.4--> 0.8 today with good urine output. UA consistent with UTI. 2. DKA, status post insulin drip. 3. Toxic/Metabolic Encephalopathy 4. Pneumonia with severe sepsis s/p AVDRF- extubated 5. Hypernatremia due to volume depletion., improved 6. History of polysubstance abuse 7. UTI with urine culture growing E. coli. Plan: continue to encourage increased oral intake stable for discharge from nephrology standpoint.
[2023-06-23 11:42] LABS: INR 0.99 sec (0.93-1.11); Prothrombin Time 10.7 sec (9.9-11.9)
[2023-06-23 11:53] LABS: Glucose,Whole Blood 342 mg/dL (70-110)
[2023-06-23] MEDS: INSULIN DETEMIR (LEVEMIR) 100 UNIT/ML SYR SQ SCH (12:30)
--- NOTE | 2023-06-23 14:20 | P.PN ---
Subjective Progress Note Date: 06/23/23 (delayed charting seen at 11am) Patient is a 48-year-old female with diabetes mellitus type 2 previously on insulin, schizophrenia, and polysubstance abuse who initially was brought to the ER after being found unresponsive at home. Thorough evaluation in the ER revealed DKA with blood glucose of 1418 and a CO2 of less than 5. She was also noted to have A-fib with RVR and hypotension and was subsequently cardioverted. He required intubation in the emergency department. She underwent head CT which showed no acute process she was started on IV fluids, insulin drip, and was admitted to the ICU. Of note her toxicology was positive for amphetamines. Pulmonology and then ultimately nephrology were consulted. She underwent renal ultrasound which demonstrated no evidence of obstructive uropathy patient initially had renal failure which resolved with IV fluid administration. Of note her hemoglobin A1c was 15. She was able to come off of the insulin drip and was transitioned to long and short acting insulin. Was extubated on the morning of 06/19. She was found to have an E. coli urinary tract infection and infectious disease was consulted. She was transition to Unasyn 3 g every 6 hours. She underwent echocardiogram which showed ejection fraction 50 to 55%. Patient seen and examined at bedside. Patient seen and examined. She is asking to go home. She notes her last home situation was not good. She admits to drug use there. She also admits to not being able to have insulin before and needing to find it from donated places. Per nursing patient has had no new dietary indiscretions last evening. Vital signs reviewed General: Nontoxic, no distress, appears at stated age Cardiovascular: S1S2 reg, no murmur Lungs: CTA bilateral, no rhonchi, no rales, no accessory muscle use Abdominal: Soft, nontender to palpation, no guarding Ext: No gross muscle atrophy, no edema b/l lower extremities, no contractures Neuro: CN II-XI grossly intact, no focal neuro deficits Psych: Alert, oriented, appropriate affect Assessment/Plan: DKA Diabetes mellitus type 2, suboptimally controlled -A1c 15 -Add Levemir 10 units a.m., Continue with Levemir 30 units at night, NovoLog 10 units 3 times daily, and sliding scale -Continue to follow blood sugars -Patient will need sliding scale insulin on discharge -Pulmonary note reviewed: Continue current care plan E. coli UTI with septic shock Possible staph pneumonia -Continue IV Unasyn 3 g IV piggyback every 6 hours day #4, patient completed 2 days of Zosyn before this. - Patient sensitivities have come back and are indeterminant to ampicillin, await ID review. -Infectious disease recommendations reviewed: Continue with Unasyn -E. coli is dawson sensitive Isolated episode of A-fib with RVR on admission - event monitor on discharge -Patient was cardioverted in the ER -Cardiology note reviewed: GMT1LY2-GVEq score is 2 but under normal circumstances patient would be on anticoagulation following the procedure, no signs of acute thromboembolism underlying culprit for A-fib likely metabolic abnormalities possible noncompliance and therefore risk appears to outweigh benefit. Plan is for event monitor on day of discharge. -Echocardiogram reviewed ejection fraction 50 to 55% Schizophrenia Polysubstance abuse -Psych note reviewed, does not meet requirements for inpatient admission -Patient was given Invega on 06/14 with next dose due on 07/12 Acute kidney injury, resolved-Nephrology note reviewed: Stable for discharge from nephrology standpoint Metabolic encephalopathy, resolved Subclinical hyperthyroidism- repeat TSH in 6 weeks Acute hypoxic respiratory failure, resolved Hypernatremia, resolved Imaging: None new Data Review: Labs reviewed from today include CBC and basic metabolic profile which are remarkable for white blood cell count 14.8, hemoglobin 9.4, sodium 135, calcium 8.1 -Blood sugars remain elevated. DVT prophylaxis: Lovenox Anticipated discharge date and place: once safe discharge plan in place. This dictation was prepared using [employer] voice recognition software. Though every attempt is made to correct errors during dictation some may still exist. Objective - Vital Signs Vital signs: Vital Signs Temp 98.2 F 06/23/23 07:15 Pulse 76 06/23/23 07:15 Resp 18 06/23/23 07:15 BP 117/77 06/23/23 07:15 Pulse Ox 97 06/23/23 07:15 FiO2 40 06/19/23 10:39 Intake & Output 06/22/23 06/23/23 06/23/23 18:59 06:59 18:59 Intake Total 100 79.565 85.248 Balance 100 79.565 85.248 Intake: IV 100 Ampicillin-Sulbactam 3 gm 100 In Sodium Chloride 0.9% 100 ml @ 200 mls/hr IVPB Q6HR [facility] Rx#:[id number] Intake, IV Titration 79.565 85.248 Amount Heparin Sod,Pork in 0.45% 79.565 85.248 NaCl 25,000 unit In 0.45 % NaCl 1 250ml.bag @ 12 UNITS/KG/HR 9.216 mls/hr IV .Q24H [facility] Rx#: [id number] Other: Voiding Method Toilet Toilet # Voids 1 6 - Labs CBC & Chem 7: 06/23/23 05:42 06/23/23 05:42 Labs: Abnormal Lab Results - Last 24 Hours (Table) 06/22/23 06/22/23 06/22/23 Range/Units 14:41 15:28 16:41 WBC (3.8-10.6) k/uL RBC (3.80-5.40) m/uL Hgb (11.4-16.0) gm/dL Hct (34.0-46.0) % PT 9.6 L (10.0-12.5) sec APTT (22.0-30.0) sec Sodium (137-145) mmol/L Chloride (98-107) mmol/L Glucose (74-99) mg/dL POC Glucose (mg/dL) 205 H 275 H (70-110) mg/dL Calcium (8.4-10.2) mg/dL 06/22/23 06/22/23 06/22/23 Range/Units 21:08 21:10 23:25 WBC (3.8-10.6) k/uL RBC (3.80-5.40) m/uL Hgb (11.4-16.0) gm/dL Hct (34.0-46.0) % PT (10.0-12.5) sec APTT (22.0-30.0) sec Sodium (137-145) mmol/L Chloride (98-107) mmol/L Glucose (74-99) mg/dL POC Glucose (mg/dL) 502 H 499 H 432 H (70-110) mg/dL Calcium (8.4-10.2) mg/dL 06/23/23 06/23/23 06/23/23 Range/Units 01:28 05:42 05:42 WBC 14.8 H (3.8-10.6) k/uL RBC 3.22 L (3.80-5.40) m/uL Hgb 9.4 L (11.4-16.0) gm/dL Hct 28.7 L (34.0-46.0) % PT (10.0-12.5) sec APTT (22.0-30.0) sec Sodium 135 L (137-145) mmol/L Chloride 108 H (98-107) mmol/L Glucose 175 H (74-99) mg/dL POC Glucose (mg/dL) 316 H (70-110) mg/dL Calcium 8.1 L (8.4-10.2) mg/dL 06/23/23 06/23/23 06/23/23 Range/Units 06:14 07:25 11:52 WBC (3.8-10.6) k/uL RBC (3.80-5.40) m/uL Hgb (11.4-16.0) gm/dL Hct (34.0-46.0) % PT (10.0-12.5) sec APTT 33.0 H (22.0-30.0) sec Sodium (137-145) mmol/L Chloride (98-107) mmol/L Glucose (74-99) mg/dL POC Glucose (mg/dL) 206 H 342 H (70-110) mg/dL Calcium (8.4-10.2) mg/dL Microbiology - Last 24 Hours (Table) 06/17/23 17:20 Blood Culture - Final Blood 06/17/23 17:35 Blood Culture - Final Blood
[2023-06-23] MEDS: AMPICILLIN-SULBACTAM 3 GM in SODIUM CHLORIDE 0.9% 100 ML IVPB SCH (15:31)
--- NOTE | 2023-06-23 15:32 | P.PN ---
Subjective Progress Note Date: 06/22/23 Principal diagnosis: Reason for follow-up is aspiration pneumonia and UTI Patient is a 48-year-old female past medical history significant for diabetes mellitus osteoarthritis schizophrenia as well as polysubstance abuse, patient has been brought into the hospital after the patient was found to be unresponsive at home patient did require intubation for respiratory support did have a fever and concern for possible aspiration pneumonia with a sputum culture positive for MSSA Jamee urine culture with an E. coli prompting this consultation. On today's evaluation that is 06/22/2023,the patient remains to be afebrile, patient is on room air not requiring supplemental oxygen and denies any shortness of breath no chest pain or any worsening cough.Patient denies having any nausea or vomiting, no abdominal pain and no diarrhea has been reported. Patient white count is 15.6, creatinine 0.99 Objective - Vital Signs Vital signs: Vital Signs Temp 98.3 F 06/22/23 16:20 Pulse 76 06/22/23 16:20 Resp 19 06/22/23 16:20 BP 135/86 06/22/23 16:20 Pulse Ox 99 06/22/23 16:20 FiO2 40 06/19/23 10:39 Intake & Output 06/21/23 06/22/23 06/22/23 18:59 06:59 18:59 Intake Total 100 1200 100 Output Total 600 Balance -500 1200 100 Weight 76.8 kg Intake: IV 100 200 100 Ampicillin-Sulbactam 3 gm 100 200 100 In Sodium Chloride 0.9% 100 ml @ 200 mls/hr IVPB Q6HR [facility] Rx#:[id number] Oral 1000 Output: Urine 600 Other: Voiding Method Bedside Commode Toilet Toilet # Voids 1 5 1 # Bowel Movements 1 - Exam GENERAL DESCRIPTION: Middle-aged female up in the chair in no distress RESPIRATORY SYSTEM: Unlabored breathing , decreased breath sounds at bases HEART: S1 S2 regular rate and rhythm , ABDOMEN: Soft , no tenderness EXTREMITIES: No edema feet - Labs CBC & Chem 7: 06/23/23 05:42 06/23/23 05:42 Labs: Abnormal Lab Results - Last 24 Hours (Table) 06/21/23 06/21/23 06/22/23 Range/Units 17:02 20:29 03:51 WBC (3.8-10.6) k/uL RBC (3.80-5.40) m/uL Hgb (11.4-16.0) gm/dL Hct (34.0-46.0) % PT (10.0-12.5) sec Potassium (3.5-5.1) mmol/L Chloride (98-107) mmol/L BUN (7-17) mg/dL Glucose (74-99) mg/dL POC Glucose (mg/dL) 339 H 384 H 199 H (70-110) mg/dL Calcium (8.4-10.2) mg/dL 06/22/23 06/22/23 06/22/23 Range/Units 05:31 05:31 06:31 WBC 15.6 H (3.8-10.6) k/uL RBC 3.30 L (3.80-5.40) m/uL Hgb 9.9 L (11.4-16.0) gm/dL Hct 30.0 L (34.0-46.0) % PT (10.0-12.5) sec Potassium 3.3 L (3.5-5.1) mmol/L Chloride 111 H (98-107) mmol/L BUN 18 H (7-17) mg/dL Glucose 190 H (74-99) mg/dL POC Glucose (mg/dL) 193 H (70-110) mg/dL Calcium 7.8 L (8.4-10.2) mg/dL 06/22/23 06/22/23 06/22/23 Range/Units 11:16 14:41 15:28 WBC (3.8-10.6) k/uL RBC (3.80-5.40) m/uL Hgb (11.4-16.0) gm/dL Hct (34.0-46.0) % PT 9.6 L (10.0-12.5) sec Potassium (3.5-5.1) mmol/L Chloride (98-107) mmol/L BUN (7-17) mg/dL Glucose (74-99) mg/dL POC Glucose (mg/dL) 288 H 205 H (70-110) mg/dL Calcium (8.4-10.2) mg/dL 06/22/23 Range/Units 16:41 WBC (3.8-10.6) k/uL RBC (3.80-5.40) m/uL Hgb (11.4-16.0) gm/dL Hct (34.0-46.0) % PT (10.0-12.5) sec Potassium (3.5-5.1) mmol/L Chloride (98-107) mmol/L BUN (7-17) mg/dL Glucose (74-99) mg/dL POC Glucose (mg/dL) 275 H (70-110) mg/dL Calcium (8.4-10.2) mg/dL Microbiology - Last 24 Hours (Table) 06/18/23 06:15 Gram Stain - Final Sputum Sputum Culture - Final Staphylococcus aureus Jamee albicans Fungus Isolated 06/17/23 17:20 Blood Culture - Preliminary Blood Assessment and Plan (1) Aspiration pneumonia Current Visit: Yes Status: Acute Code(s): J69.0 - PNEUMONITIS DUE TO INHALATION OF FOOD AND VOMIT SNOMED Code(s): 252073587 (2) UTI (urinary tract infection) Current Visit: Yes Status: Acute Code(s): N39.0 - URINARY TRACT INFECTION, SITE NOT SPECIFIED SNOMED Code(s): 22662180 (3) MSSA (methicillin susceptible Staphylococcus aureus) pneumonia Current Visit: Yes Status: Acute Code(s): J15.211 - PNEUMONIA DUE TO METHICILLIN SUSCEP STAPH SNOMED Code(s): 468209843134653 (4) Leukocytosis Current Visit: Yes Status: Acute Code(s): D72.829 - ELEVATED WHITE BLOOD CELL COUNT, UNSPECIFIED SNOMED Code(s): 740970992 Plan: 1patient presented to hospital with sepsis in this patient who did have a fever elevated white count patient was found to be unresponsive he did have some interstitial infiltrate concerning for possible aspiration pneumonia with a sputum showing MSSA likely contributing to her illness 2-patient did have a positive urine culture positive for E. coli very hard to get any history as far as urinary symptoms is concerned 3-patient currently being treated with Unasyn 3 g every 6 hours, patient white count is trending down and monitor clinical course closely Dictation was produced using [employer] dictation software. please excuse any grammatical, word or spelling errors. Time with Patient: Less than 30
--- NOTE | 2023-06-23 15:33 | P.PN ---
Subjective Progress Note Date: 06/23/23 Principal diagnosis: Reason for follow-up is aspiration pneumonia and UTI Patient is a 48-year-old female past medical history significant for diabetes mellitus osteoarthritis schizophrenia as well as polysubstance abuse, patient has been brought into the hospital after the patient was found to be unresponsive at home patient did require intubation for respiratory support did have a fever and concern for possible aspiration pneumonia with a sputum culture positive for MSSA Jamee urine culture with an E. coli prompting this consultation. On today's evaluation that is 06/23/2023, the patient continues to be afebrile, the patient is on room air and breathing comfortably, the Pt denies having any chest pain or cough, the patient denies having any abdominal pain no vomiting or any diarrhea, patient mention feeling better Patient white count is down to 14.8, creatinine 0.82 Objective - Vital Signs Vital signs: Vital Signs Temp 98.4 F 06/23/23 13:39 Pulse 79 06/23/23 13:39 Resp 18 06/23/23 13:39 BP 105/68 06/23/23 13:39 Pulse Ox 99 06/23/23 13:39 FiO2 40 06/19/23 10:39 Intake & Output 06/22/23 06/23/23 06/23/23 18:59 06:59 18:59 Intake Total 100 79.565 85.248 Balance 100 79.565 85.248 Intake: IV 100 Ampicillin-Sulbactam 3 gm 100 In Sodium Chloride 0.9% 100 ml @ 200 mls/hr IVPB Q6HR [facility] Rx#:[id number] Intake, IV Titration 79.565 85.248 Amount Heparin Sod,Pork in 0.45% 79.565 85.248 NaCl 25,000 unit In 0.45 % NaCl 1 250ml.bag @ 12 UNITS/KG/HR 9.216 mls/hr IV .Q24H [facility] Rx#: [id number] Other: Voiding Method Toilet Toilet # Voids 1 6 - Exam GENERAL DESCRIPTION: Middle-aged female up in the chair in no distress RESPIRATORY SYSTEM: Unlabored breathing , decreased breath sounds at bases HEART: S1 S2 regular rate and rhythm , ABDOMEN: Soft , no tenderness EXTREMITIES: No edema feet - Labs CBC & Chem 7: 06/23/23 05:42 06/23/23 05:42 Labs: Abnormal Lab Results - Last 24 Hours (Table) 06/22/23 06/22/23 06/22/23 Range/Units 15:28 16:41 21:08 WBC (3.8-10.6) k/uL RBC (3.80-5.40) m/uL Hgb (11.4-16.0) gm/dL Hct (34.0-46.0) % PT 9.6 L (10.0-12.5) sec APTT (22.0-30.0) sec Sodium (137-145) mmol/L Chloride (98-107) mmol/L Glucose (74-99) mg/dL POC Glucose (mg/dL) 275 H 502 H (70-110) mg/dL Calcium (8.4-10.2) mg/dL 06/22/23 06/22/23 06/23/23 Range/Units 21:10 23:25 01:28 WBC (3.8-10.6) k/uL RBC (3.80-5.40) m/uL Hgb (11.4-16.0) gm/dL Hct (34.0-46.0) % PT (10.0-12.5) sec APTT (22.0-30.0) sec Sodium (137-145) mmol/L Chloride (98-107) mmol/L Glucose (74-99) mg/dL POC Glucose (mg/dL) 499 H 432 H 316 H (70-110) mg/dL Calcium (8.4-10.2) mg/dL 06/23/23 06/23/23 06/23/23 Range/Units 05:42 05:42 06:14 WBC 14.8 H (3.8-10.6) k/uL RBC 3.22 L (3.80-5.40) m/uL Hgb 9.4 L (11.4-16.0) gm/dL Hct 28.7 L (34.0-46.0) % PT (10.0-12.5) sec APTT (22.0-30.0) sec Sodium 135 L (137-145) mmol/L Chloride 108 H (98-107) mmol/L Glucose 175 H (74-99) mg/dL POC Glucose (mg/dL) 206 H (70-110) mg/dL Calcium 8.1 L (8.4-10.2) mg/dL 06/23/23 06/23/23 Range/Units 07:25 11:52 WBC (3.8-10.6) k/uL RBC (3.80-5.40) m/uL Hgb (11.4-16.0) gm/dL Hct (34.0-46.0) % PT (10.0-12.5) sec APTT 33.0 H (22.0-30.0) sec Sodium (137-145) mmol/L Chloride (98-107) mmol/L Glucose (74-99) mg/dL POC Glucose (mg/dL) 342 H (70-110) mg/dL Calcium (8.4-10.2) mg/dL Microbiology - Last 24 Hours (Table) 06/17/23 17:20 Blood Culture - Final Blood 06/17/23 17:35 Blood Culture - Final Blood Assessment and Plan (1) Aspiration pneumonia Current Visit: Yes Status: Acute Code(s): J69.0 - PNEUMONITIS DUE TO INHALATION OF FOOD AND VOMIT SNOMED Code(s): 435864829 (2) UTI (urinary tract infection) Current Visit: Yes Status: Acute Code(s): N39.0 - URINARY TRACT INFECTION, SITE NOT SPECIFIED SNOMED Code(s): 05913644 (3) MSSA (methicillin susceptible Staphylococcus aureus) pneumonia Current Visit: Yes Status: Acute Code(s): J15.211 - PNEUMONIA DUE TO METHICILLIN SUSCEP STAPH SNOMED Code(s): 082394512497369 (4) Leukocytosis Current Visit: Yes Status: Acute Code(s): D72.829 - ELEVATED WHITE BLOOD CELL COUNT, UNSPECIFIED SNOMED Code(s): 223319229 Plan: 1patient presented to hospital with sepsis in this patient who did have a fever elevated white count patient was found to be unresponsive he did have some interstitial infiltrate concerning for possible aspiration pneumonia with a sputum showing MSSA likely contributing to her illness 2-patient did have a positive urine culture positive for E. coli very hard to get any history as far as urinary symptoms is concerned 3-patient currently being treated with Unasyn 3 g every 6 hours, to continue while inpatient finishing therapy with oral Augmentin Dictation was produced using [employer] software. please excuse any grammatical, word or spelling errors. Time with Patient: Less than 30
[2023-06-23 16:36] LABS: Glucose,Whole Blood 373 mg/dL (70-110)
[2023-06-23 20:15] LABS: Glucose,Whole Blood 258 mg/dL (70-110)
[2023-06-24 07:00] LABS: Glucose,Whole Blood 340 mg/dL (70-110)
[2023-06-24 08:08] LABS: African American GFR (CKD) >90 (>60 ml/min/1.73 sqM); Anion Gap 1 mmol/L; Blood Urea Nitrogen 15 mg/dL (7-17); Calcium 8.2 mg/dL (8.4-10.2); Carbon Dioxide 27 mmol/L (22-30); Chloride 107 mmol/L (98-107); Glucose 313 mg/dL (74-99); Non-African American GFR(CKD) 89 (>60 ml/min/1.73 sqM); Sodium 135 mmol/L (137-145)
[2023-06-24 08:17] LABS: HCT 28.5 % (34.0-46.0); HGB 9.2 gm/dL (11.4-16.0); MCH 29.3 pg (25.0-35.0); MCHC 32.5 g/dL (31.0-37.0); MCV 90.4 fL (80.0-100.0); Mean Platelet Volume 8.9; Platelet Count 357 k/uL (150-450); RBC 3.15 m/uL (3.80-5.40); RDW 13.5 % (11.5-15.5)
[2023-06-24] MEDS: ENOXAPARIN 40 MG/0.4 ML SYRINGE SQ SCH (10:10)
[2023-06-24 10:49] LABS: % Iron Saturation 14.29 (12.00-45.00)
--- NOTE | 2023-06-24 11:27 | P.PN ---
Subjective patient is seen for follow-up for acute kidney injury. Patient is comfortable. Trying to increase oral intake. serum creatinine improved to 0.8 today. Objective - Vital Signs Vital signs: Vital Signs Temp 97.5 F L 06/24/23 07:26 Pulse 75 06/24/23 07:26 Resp 16 06/24/23 07:26 BP 123/80 06/24/23 07:26 Pulse Ox 97 06/24/23 07:26 FiO2 40 06/19/23 10:39 Intake & Output 06/23/23 06/24/23 06/24/23 18:59 06:59 18:59 Intake Total 85.248 Balance 85.248 Intake: Intake, IV Titration 85.248 Amount Heparin Sod,Pork in 0.45% 85.248 NaCl 25,000 unit In 0.45 % NaCl 1 250ml.bag @ 12 UNITS/KG/HR 9.216 mls/hr IV .Q24H [facility] Rx#: [id number] Other: Voiding Method Toilet # Voids 3 1 - Exam patient is comfortable. She is sleeping but arousable. Examination of the heart S1 and S2 Examination of the lungs decreased breath sounds at the bases Abdomen is soft nontender Examination of lower extremity shows no significant edema. Moving all 4 extremities. - Labs CBC & Chem 7: 06/24/23 07:13 06/24/23 07:13 Labs: Abnormal Lab Results - Last 24 Hours (Table) 06/23/23 06/23/23 06/23/23 Range/Units 11:52 16:35 20:13 WBC (3.8-10.6) k/uL RBC (3.80-5.40) m/uL Hgb (11.4-16.0) gm/dL Hct (34.0-46.0) % Sodium (137-145) mmol/L Glucose (74-99) mg/dL POC Glucose (mg/dL) 342 H 373 H 258 H (70-110) mg/dL Calcium (8.4-10.2) mg/dL Iron (50-170) UG/DL Transferrin (204.0-354.0) mg/dL Ferritin (10.0-291.0) ng/mL 06/24/23 06/24/23 06/24/23 Range/Units 06:58 07:13 07:13 WBC 15.0 H (3.8-10.6) k/uL RBC 3.15 L (3.80-5.40) m/uL Hgb 9.2 L (11.4-16.0) gm/dL Hct 28.5 L (34.0-46.0) % Sodium 135 L (137-145) mmol/L Glucose 313 H (74-99) mg/dL POC Glucose (mg/dL) 340 H (70-110) mg/dL Calcium 8.2 L (8.4-10.2) mg/dL Iron (50-170) UG/DL Transferrin (204.0-354.0) mg/dL Ferritin (10.0-291.0) ng/mL 06/24/23 Range/Units 07:13 WBC (3.8-10.6) k/uL RBC (3.80-5.40) m/uL Hgb (11.4-16.0) gm/dL Hct (34.0-46.0) % Sodium (137-145) mmol/L Glucose (74-99) mg/dL POC Glucose (mg/dL) (70-110) mg/dL Calcium (8.4-10.2) mg/dL Iron 33 L (50-170) UG/DL Transferrin 165.0 L (204.0-354.0) mg/dL Ferritin 372.0 H (10.0-291.0) ng/mL Microbiology - Last 24 Hours (Table) 06/17/23 17:20 Blood Culture - Final Blood Assessment and Plan Assessment: 1. Non-oliguric NIKOLE 2/2 ATN from volume depletion. Baseline creatinine 0.5 mg/dL, presented 3.4--> 0.8 today with good urine output. UA consistent with UTI. 2. DKA, status post insulin drip. 3. Toxic/Metabolic Encephalopathy 4. Pneumonia with severe sepsis s/p AVDRF- extubated 5. Hypernatremia due to volume depletion., improved 6. History of polysubstance abuse 7. UTI with urine culture growing E. coli. Plan: continue to encourage increased oral intake stable for discharge from nephrology standpoint.
[2023-06-24 11:28] LABS: Glucose,Whole Blood 562 mg/dL (70-110)
[2023-06-24 11:28] LABS: Glucose,Whole Blood 549 mg/dL (70-110)
--- NOTE | 2023-06-24 11:31 | P.PN ---
Subjective Progress Note Date: 06/24/23 This is a 48-year-old female with history of type 2 diabetes, history of schizophrenia, and polysubstance abuse, patient was found at home unresponsive by her guardian. Patient was brought into the ER and upon arrival the patient was noted to be in atrial fibrillation with RVR, she was extremely obtunded, she was also noted to have what seems to be a picture of severe hyperglycemia and DKA with significant anion gap metabolic acidosis. I was made aware of this patient by the ER physician and considering her obtundation, I recommended intubating the patient and accepted the patient to be admitted to the ICU with the DKA protocol, patient was extremely acidotic hyperkalemic significant anion gap metabolic acidosis was noted, and the patient was minimally responsive in the ER. Patient did have cardioversion for atrial fibrillation with RVR, and she went into sinus tachycardia. Initial labs upon admission showed leukocytosis with WBC count of 27.7, hemoglobin of 14.4, normal PT and INR, norm al PTT, ABG postintubation showed a pO2 of 361 pCO2 43 pH of 7.07. Patient was also noted to have hypernatremia with a sodium of 138, bicarb was less than 5, lactic acid was 1.2, anion gap was above 18. Patient had positive ketones in the urine, 2+ drug screen came back positive for amphetamine. Patient is known to have history of polysubstance abuse. Today the patient is in the ICU, intubated and mechanically ventilated, she is on assist-control rate of 16 tidal volume 350 FiO2 40% and PEEP of 5 ABG this a.m. showed a pO2 of 179 pCO2 49 pH of 7.45. FiO2 now is down to 40%. Electrolytes showed hyponatremia with sodium of 151 hence her main IV fluid was changed to 2.45 at 120 cc/h, and the renal functioning seems to be improving creatinine on admission was 3.41 today it is 3.07. Nephrology is following the patient for her acute kidney injury. Presently the patient is on Lovenox subcu at 30 mg subcu daily, she remains on the DKA protocol, receiving insulin at 6.5 units/h, she is also on Protonix as well as Zosyn, feeding is still presently on hold. Patient was reexamined today while in the ICU on 06/19/2023, patient remains intubated and mechanically ventilated. Patient is on assist-control rate of 16 tidal volume 350 FiO2 40% and PEEP of 5. Patient is on propofol at 15 m cg/kg/min, she is off norepinephrine, her IV fluid is running at 125 cc/h, it is 0.45, however patient is still running relatively high sodium, and I am changing her IV fluid to D5W, and I am recommending insulin drip to address her elevated blood sugars. WBC count today is 17.8 hemoglobin is 11.4. Basic metabolic profile is normal except for elevated sodium of 155 elevated chloride of 128 her anion gap has resolved her BUN is 76 creatinine 2.86, improving since admission patient had a creatinine as high as 3.41 on admission. Chest x-ray today showed minimal nonspecific patchy interstitial changes, patient remains empirically on Zosyn for presumptive aspiration. Patient remains on pantoprazole and she remains on Lovenox. The patient is seen today June 20, 2023 in follow-up in the intensive care unit. She is currently sitting up in bed. Awake and alert in no acute distress. Maintaining O2 saturations in the 90s on room air. Sputum culture was positive for MSSA. She remains on Unasyn and vancomycin. Insulin is on hold. Normal saline at 75 MLS per hour. She is currently off norepinephrine. Her ventricular rate is well-controlled. White count 20.5. Hemoglobin 10.0. Plat elets 186. Sodium 145. Potassium 2.9. Bicarb 25. BUN 42. Creatinine 1.52. Glucose 161. The patient is seen today June 21, 2023 in follow-up in the intensive care unit. She is awake and alert in no acute distress. Currently resting comfortably in bed. Denies any shortness of breath, cough or congestion. Maintaining good O2 saturation in the 90s on room air. She is afebrile. Hemodynamically stable. She has been resumed on Levemir 30 units at bedtime along with NovoLog sliding scale. Lovenox for DVT prophylaxis. She remains on antibiotics in the form of Unasyn. Her sputum culture was positive for MSSA and Jamee. Urine culture was positive for E. coli. White count 18.2. Hemoglobin 10.2. Platelets 175. Sodium 138. Potassium 3.7. Bicarb 22. BUN 24. Creatinine 1.18. Glucose 383. The patient is seen today June 22, 2023 in follow-up in the intensive care unit. She is currently sitting up in bed. Awake and alert in no acute distress. She is maintaining good O2 saturations in the 90s on room air. No IV fluids. Sputum culture was positive for MSSA. Urine culture positive for E. coli. She remains on antibiotics in the form of Unasyn. Lovenox for DVT prophylaxis. She is transitioned to Levemir and NovoLog sliding scale. White count 15.6. Hemoglobin 9.9. Platelets 197. Sodium 139. Potassium 3.3. Bicarb 25. BUN 18. Creatinine 0.99. Glucose 190. The patient is seen today June 23, 2023 in follow-up on the regular medical floor. She is currently resting comfortably in bed. Awake and alert in no acute distress. She is maintaining good O2 saturations in the 90s on room air. She did develop atrial fibrillation with a rapid ventricular response. C ardiology consulted. She is currently on a heparin drip. Normal saline at KVO. Continued on antibiotics in the form of Unasyn. Continued on Levemir and NovoLog sliding scale. White count 14.8. Hemoglobin 9.4. Platelets 259. Sodium 134. Potassium 3.6. Bicarb 23. BUN 16. Creatinine 0.82. Glucose 175. Patient is seen today June 24, 2023 in follow-up on the regular medical floor. She is currently sitting up in bed. Awake and alert in no acute distress. She remains on Unasyn. She is maintaining good O2 saturations in the 90s on room air. Normal staying at KVO. She remains afebrile. Hemodynamically stable. White count 15.0. Hemoglobin 9.2. Platelets 357. Sodium 135. Potassium 4.0. Bicarb 27. BUN 15. Creatinine 0.80. Glucose 313. Lovenox for DVT prophylaxis. Objective - Vital Signs Vital signs: Vital Signs Temp 97.5 F L 06/24/23 07:26 Pulse 75 06/24/23 07:26 Resp 16 06/24/23 07:26 BP 123/80 06/24/23 07:26 Pulse Ox 97 06/24/23 07:26 FiO2 40 06/19/23 10:39 Intake & Output 06/23/23 06/24/23 06/24/23 18:59 06:59 18:59 Intake Total 85.248 Balance 85.248 Intake: Intake, IV Titration 85.248 Amount Heparin Sod,Pork in 0.45% 85.248 NaCl 25,000 unit In 0.45 % NaCl 1 250ml.bag @ 12 UNITS/KG/HR 9.216 mls/hr IV .Q24H [facility] Rx#: [id number] Other: Voiding Method Toilet # Voids 3 1 - Exam General: Revealed an, alert pleasant 48-year-old female. Sitting up in bed. Awake in no distress. On room air. Head: Atraumatic, normocephalic. Endotracheal tube and orogastric tube are intact. Skin: No rashes Eyes: EOMI, PERRLA, no evidence of icterus ENT: Nose and ears, normal Neck: No cervical lymphadenopathy, trachea midline, supple Mouth: Moist mucous membranes noted. No lesions noted on mucous membranes Cardiovascular: Distant S1-S2, no S3 gallop, no murmur. Irregularly irregular, tachycardic Lungs: Good breath sound bilaterally no rhonchi no wheezes Abdominal: soft, nontender, no megaly no rebound no guarding Ext: No evidence of deformities good pulses bilaterally Neuro: Awake, alert, no focal deficits. - Labs CBC & Chem 7: 06/24/23 07:13 06/24/23 07:13 Labs: Abnormal Lab Results - Last 24 Hours (Table) 06/23/23 06/23/23 06/23/23 Range/Units 11:52 16:35 20:13 WBC (3.8-10.6) k/uL RBC (3.80-5.40) m/uL Hgb (11.4-16.0) gm/dL Hct (34.0-46.0) % Sodium (137-145) mmol/L Glucose (74-99) mg/dL POC Glucose (mg/dL) 342 H 373 H 258 H (70-110) mg/dL Calcium (8.4-10.2) mg/dL Iron (50-170) UG/DL Transferrin (204.0-354.0) mg/dL Ferritin (10.0-291.0) ng/mL 06/24/23 06/24/23 06/24/23 Range/Units 06:58 07:13 07:13 WBC 15.0 H (3.8-10.6) k/uL RBC 3.15 L (3.80-5.40) m/uL Hgb 9.2 L (11.4-16.0) gm/dL Hct 28.5 L (34.0-46.0) % Sodium 135 L (137-145) mmol/L Glucose 313 H (74-99) mg/dL POC Glucose (mg/dL) 340 H (70-110) mg/dL Calcium 8.2 L (8.4-10.2) mg/dL Iron (50-170) UG/DL Transferrin (204.0-354.0) mg/dL Ferritin (10.0-291.0) ng/mL 06/24/23 Range/Units 07:13 WBC (3.8-10.6) k/uL RBC (3.80-5.40) m/uL Hgb (11.4-16.0) gm/dL Hct (34.0-46.0) % Sodium (137-145) mmol/L Glucose (74-99) mg/dL POC Glucose (mg/dL) (70-110) mg/dL Calcium (8.4-10.2) mg/dL Iron 33 L (50-170) UG/DL Transferrin 165.0 L (204.0-354.0) mg/dL Ferritin 372.0 H (10.0-291.0) ng/mL Microbiology - Last 24 Hours (Table) 06/17/23 17:20 Blood Culture - Final Blood Assessment and Plan Assessment: Acute diabetic ketoacidosis, recovered Acute metabolic encephalopathy, recovered Possible amphetamine overdose, patient is known to have history of polysubstance abuse Atrial fibrillation with RVR on presentation requiring cardioversion, off anticoagulation per cardiology History of schizophrenia based on information obtained from the chart Acute anion gap metabolic acidosis, secondary to DKA Possible aspiration pneumonia, sputum positive for MSSA, Jamee Hypotension secondary mostly to hypovolemia secondary to hyperglycemia, doubt sepsis and doubt septic shock. Acute kidney injury secondary to hypotension and gram-negative bacilli urinary tract infection Obtundation on presentation requiring intubation and mechanical ventilation, recovered and on room air. Electrolytes imbalance secondary to her DKA and fluids given, being replaced Plan: The patient was seen and evaluated Labs and medications reviewed Stable and on room air Cleared for discharge from the pulmonary standpoint We will continue to follow I have personally seen and examined the patient, performed the documentation and the assessment and plan as written. Number of minutes spent on the visit: 10.
[2023-06-24] MEDS: INSULIN ASPART (NovoLOG) 100 UNIT/ML VIAL SQ ONE (12:35)
--- NOTE | 2023-06-24 13:18 | P.PN ---
Subjective Progress Note Date: 06/24/23 Patient is a 48-year-old female with diabetes mellitus type 2 previously on insulin, schizophrenia, and polysubstance abuse who initially was brought to the ER after being found unresponsive at home. Thorough evaluation in the ER revealed DKA with blood glucose of 1418 and a CO2 of less than 5. She was also noted to have A-fib with RVR and hypotension and was subsequently cardioverted. He required intubation in the emergency department. She underwent head CT which showed no acute process she was started on IV fluids, insulin drip, and was admitted to the ICU. Of note her toxicology was positive for amphetamines. Pulmonology and then ultimately nephrology were consulted. She underwent renal ultrasound which demonstrated no evidence of obstructive uropathy patient initially had renal failure which resolved with IV fluid administration. Of note her hemoglobin A1c was 15. She was able to come off of the insulin drip and was transitioned to long and short acting insulin. Was extubated on the morning of 06/19. She was found to have an E. coli urinary tract infection and infectious disease was consulted. She was transition to Unasyn 3 g every 6 hours. She underwent echocardiogram which showed ejection fraction 50 to 55%. Patient seen this morning. She states that she wants to go home. She otherwise denies any acute complaints General examination - Alert and Oriented 3 in NAD Heart - + S1S2 no murmurs Lungs - Clear to auscultation Abdomen soft NT ND +ve BS Extremities - No edema CRITICAL CARE RN - Moving all 4 extremities spontaneously Psych - Calm and cooperative Assessment/Plan: DKA Diabetes mellitus type 2, suboptimally controlled -A1c 15 -Add Levemir 10 units a.m., Continue with Levemir 30 units at night, NovoLog 10 units 3 times daily, and sliding scale -Continue to follow blood sugars -Patient will need sliding scale insulin on discharge -Pulmonary note reviewed: Continue current care plan -We need a safe discharge for the patient. Patient likely not able to admin ister her own insulin at home. 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 coli UTI with septic shock Possible staph pneumonia -Continue IV Unasyn 3 g IV piggyback every 6 hours day #4, patient completed 2 days of Zosyn before this. - Patient sensitivities have come back and are indeterminant to ampicillin, -Antibiotics as per ID Isolated episode of A-fib with RVR on admission - event monitor on discharge -Patient was cardioverted in the ER -Cardiology note reviewed: [id number]-AOMa score is 2 but under normal circumstances patient would be on anticoagulation following the procedure, no signs of acute thromboembolism underlying culprit for A-fib likely metabolic abnormalities possible noncompliance and therefore risk appears to outweigh benefit. Plan is for event monitor on day of discharge. -Echocardiogram reviewed ejection fraction 50 to 55% Schizophrenia Polysubstance abuse -Psych note reviewed, does not meet requirements for inpatient admission -Patient was given Invega on 06/14 with next dose due on 07/12 Acute kidney injury, resolved-Nephrology note reviewed: Stable for discharge from nephrology standpoint Metabolic encephalopathy, resolved Subclinical hyperthyroidism- repeat TSH in 6 weeks Acute hypoxic respiratory failure, resolved Hypernatremia, resolved DVT prophylaxis: Lovenox Anticipated discharge date and place: once safe discharge plan in place. Objective - Vital Signs Vital signs: Vital Signs Temp 97.5 F L 06/24/23 07:26 Pulse 75 06/24/23 07:26 Resp 16 06/24/23 07:26 BP 123/80 06/24/23 07:26 Pulse Ox 97 06/24/23 07:26 FiO2 40 06/19/23 10:39 Intake & Output 06/23/23 06/24/23 06/24/23 18:59 06:59 18:59 Intake Total 85.248 Balance 85.248 Intake: Intake, IV Titration 85.248 Amount Heparin Sod,Pork in 0.45% 85.248 NaCl 25,000 unit In 0.45 % NaCl 1 250ml.bag @ 12 UNITS/KG/HR 9.216 mls/hr IV .Q24H [facility] Rx#: [id number] Other: Voiding Method Toilet # Voids 3 1 1 - Labs CBC & Chem 7: 06/24/23 07:13 06/24/23 07:13 Labs: Abnormal Lab Results - Last 24 Hours (Table) 06/23/23 06/23/23 06/24/23 Range/Units 16:35 20:13 06:58 WBC (3.8-10.6) k/uL RBC (3.80-5.40) m/uL Hgb (11.4-16.0) gm/dL Hct (34.0-46.0) % Sodium (137-145) mmol/L Glucose (74-99) mg/dL POC Glucose (mg/dL) 373 H 258 H 340 H (70-110) mg/dL Calcium (8.4-10.2) mg/dL Iron (50-170) UG/DL Transferrin (204.0-354.0) mg/dL Ferritin (10.0-291.0) ng/mL 06/24/23 06/24/23 06/24/23 Range/Units 07:13 07:13 07:13 WBC 15.0 H (3.8-10.6) k/uL RBC 3.15 L (3.80-5.40) m/uL Hgb 9.2 L (11.4-16.0) gm/dL Hct 28.5 L (34.0-46.0) % Sodium 135 L (137-145) mmol/L Glucose 313 H (74-99) mg/dL POC Glucose (mg/dL) (70-110) mg/dL Calcium 8.2 L (8.4-10.2) mg/dL Iron 33 L (50-170) UG/DL Transferrin 165.0 L (204.0-354.0) mg/dL Ferritin 372.0 H (10.0-291.0) ng/mL 06/24/23 06/24/23 Range/Units 11:26 11:27 WBC (3.8-10.6) k/uL RBC (3.80-5.40) m/uL Hgb (11.4-16.0) gm/dL Hct (34.0-46.0) % Sodium (137-145) mmol/L Glucose (74-99) mg/dL POC Glucose (mg/dL) 562 H 549 H (70-110) mg/dL Calcium (8.4-10.2) mg/dL Iron (50-170) UG/DL Transferrin (204.0-354.0) mg/dL Ferritin (10.0-291.0) ng/mL Microbiology - Last 24 Hours (Table) 06/17/23 17:20 Blood Culture - Final Blood
--- NOTE | 2023-06-24 13:27 | P.PN ---
Subjective Progress Note Date: 06/24/23 Principal diagnosis: Reason for follow-up is aspiration pneumonia and UTI Patient is a 48-year-old female past medical history significant for diabetes mellitus osteoarthritis schizophrenia as well as polysubstance abuse, patient has been brought into the hospital after the patient was found to be unresponsive at home patient did require intubation for respiratory support did have a fever and concern for possible aspiration pneumonia with a sputum culture positive for MSSA Jamee urine culture with an E. coli prompting this consultation. On today's evaluation that is 06/24/2023, Patient is afebrile patient is currently on room air and denies having any shortness of breath, the patient denies any chest pain and cough has decreased in intensity, the patient denies any nausea vomiting did not have any abdominal pain and no diarrhea. Patient white count is 15, creatinine 0.80 Objective - Vital Signs Vital signs: Vital Signs Temp 97.5 F L 06/24/23 07:26 Pulse 75 06/24/23 07:26 Resp 16 06/24/23 07:26 BP 123/80 06/24/23 07:26 Pulse Ox 97 06/24/23 07:26 FiO2 40 06/19/23 10:39 Intake & Output 06/23/23 06/24/23 06/24/23 18:59 06:59 18:59 Intake Total 85.248 Balance 85.248 Intake: Intake, IV Titration 85.248 Amount Heparin Sod,Pork in 0.45% 85.248 NaCl 25,000 unit In 0.45 % NaCl 1 250ml.bag @ 12 UNITS/KG/HR 9.216 mls/hr IV .Q24H [facility] Rx#: [id number] Other: Voiding Method Toilet # Voids 3 1 1 - Exam GENERAL DESCRIPTION: Middle-aged female up in the chair in no distress RESPIRATORY SYSTEM: Unlabored breathing , decreased breath sounds at bases HEART: S1 S2 regular rate and rhythm , ABDOMEN: Soft , no tenderness EXTREMITIES: No edema feet - Labs CBC & Chem 7: 06/24/23 07:13 06/24/23 07:13 Labs: Abnormal Lab Results - Last 24 Hours (Table) 06/23/23 06/23/23 06/24/23 Range/Units 16:35 20:13 06:58 WBC (3.8-10.6) k/uL RBC (3.80-5.40) m/uL Hgb (11.4-16.0) gm/dL Hct (34.0-46.0) % Sodium (137-145) mmol/L Glucose (74-99) mg/dL POC Glucose (mg/dL) 373 H 258 H 340 H (70-110) mg/dL Calcium (8.4-10.2) mg/dL Iron (50-170) UG/DL Transferrin (204.0-354.0) mg/dL Ferritin (10.0-291.0) ng/mL 06/24/23 06/24/23 06/24/23 Range/Units 07:13 07:13 07:13 WBC 15.0 H (3.8-10.6) k/uL RBC 3.15 L (3.80-5.40) m/uL Hgb 9.2 L (11.4-16.0) gm/dL Hct 28.5 L (34.0-46.0) % Sodium 135 L (137-145) mmol/L Glucose 313 H (74-99) mg/dL POC Glucose (mg/dL) (70-110) mg/dL Calcium 8.2 L (8.4-10.2) mg/dL Iron 33 L (50-170) UG/DL Transferrin 165.0 L (204.0-354.0) mg/dL Ferritin 372.0 H (10.0-291.0) ng/mL 06/24/23 06/24/23 Range/Units 11:26 11:27 WBC (3.8-10.6) k/uL RBC (3.80-5.40) m/uL Hgb (11.4-16.0) gm/dL Hct (34.0-46.0) % Sodium (137-145) mmol/L Glucose (74-99) mg/dL POC Glucose (mg/dL) 562 H 549 H (70-110) mg/dL Calcium (8.4-10.2) mg/dL Iron (50-170) UG/DL Transferrin (204.0-354.0) mg/dL Ferritin (10.0-291.0) ng/mL Microbiology - Last 24 Hours (Table) 06/17/23 17:20 Blood Culture - Final Blood Assessment and Plan (1) Aspiration pneumonia Current Visit: Yes Status: Acute Code(s): J69.0 - PNEUMONITIS DUE TO INHALATION OF FOOD AND VOMIT SNOMED Code(s): 814099984 (2) UTI (urinary tract infection) Current Visit: Yes Status: Acute Code(s): N39.0 - URINARY TRACT INFECTION, SITE NOT SPECIFIED SNOMED Code(s): 02559819 (3) MSSA (methicillin susceptible Staphylococcus aureus) pneumonia Current Visit: Yes Status: Acute Code(s): J15.211 - PNEUMONIA DUE TO METHICILLIN SUSCEP STAPH SNOMED Code(s): 412285549395197 (4) Leukocytosis Current Visit: Yes Status: Acute Code(s): D72.829 - ELEVATED WHITE BLOOD CELL COUNT, UNSPECIFIED SNOMED Code(s): 942011499 Plan: 1patient presented to hospital with sepsis in this patient who did have a fever elevated white count patient was found to be unresponsive he did have some interstitial infiltrate concerning for possible aspiration pneumonia with a sputum showing MSSA likely contributing to her illness 2-patient did have a positive urine culture positive for E. coli very hard to get any history as far as urinary symptoms is concerned 3-patient currently being treated with Unasyn 3 g every 6 hours, to continue while inpatient finishing therapy with oral Augmentin Forpatient did have persistent elevated white count and possible component of thrush/oropharyngeal candidiasis, Diflucan cannot be added because of drug interaction with haloperidol we will add nystatin swish and swallow repeat CBC with a.m. lab Dictation was produced using [employer] dictation software. please excuse any grammatical, word or spelling errors.
[2023-06-24] MEDS: NYSTATIN 100,000 UNIT/ML SUSP 500,000 UNIT/5 ML CUP PO SCH (15:28)
[2023-06-24 17:09] LABS: Glucose,Whole Blood 235 mg/dL (70-110)
[2023-06-24 20:27] LABS: Glucose,Whole Blood 268 mg/dL (70-110)
[2023-06-25 06:11] LABS: Glucose,Whole Blood 372 mg/dL (70-110)
[2023-06-25 09:34] VITALS: PULSE 87
[2023-06-25 09:40] LABS: HCT 27.3 % (37.2-46.3); HGB 8.9 g/dL (12.0-15.0); MCH 28.9 pg (27.0-32.0); MCHC 32.6 g/dL (32.0-37.0); MCV 88.6 FL (80.0-97.0); Mean Platelet Volume 9.8 FL (9.5-12.2); NRBC Per 100 WBC 0 X 10*3/uL (0.00-0.01); Platelet Count 445 X 10*3/uL (140-440); RBC 3.08 X 10*6/uL (4.10-5.20); RDW 13.6 % (11.5-14.5); WBC 21.76 X 10*3/uL (4.50-10.00)
[2023-06-25 10:01] LABS: BUN/Creat Ratio 18.78 Ratio (12.00-20.00); Blood Urea Nitrogen 16.9 mg/dL (9.0-27.0); Calcium 8.3 mg/dL (8.7-10.3); Carbon Dioxide 21.8 mmol/L (21.6-31.8); Chloride 103 mmol/L (96-109); Glucose 341 mg/dL (70-110); Sodium 137 mmol/L (135-145)
[2023-06-25 10:34] LABS: Basophils # (M) 0 X 10*3/uL (0.00-0.10)
--- NOTE | 2023-06-25 11:29 | P.PN ---
Subjective patient is seen for follow-up for acute kidney injury. Patient is comfortable. Trying to increase oral intake. Objective - Vital Signs Vital signs: Vital Signs Temp 98.4 F 06/25/23 09:05 Pulse 87 06/25/23 09:05 Resp 20 06/25/23 01:50 BP 122/80 06/25/23 09:05 Pulse Ox 96 06/25/23 09:05 FiO2 40 06/19/23 10:39 Intake & Output 06/24/23 06/25/23 06/25/23 18:59 06:59 18:59 Other: Voiding Method Toilet # Voids 1 2 - Exam patient is comfortable. She is sleeping but arousable. Examination of lower extremity shows no significant edema. Moving all 4 extremities. - Labs CBC & Chem 7: 06/25/23 06:33 06/25/23 06:33 Labs: Abnormal Lab Results - Last 24 Hours (Table) 06/24/23 06/24/23 06/24/23 Range/Units 11:26 11:27 17:08 WBC (4.50-10.00) X 10*3/uL RBC (4.10-5.20) X 10*6/uL Hgb (12.0-15.0) g/dL Hct (37.2-46.3) % Plt Count (140-440) X 10*3/uL Neutrophils # (Manual) (1.80-7.70) X 10*3/uL Anion Gap (4.00-12.00) mmol/L Glucose (70-110) mg/dL POC Glucose (mg/dL) 562 H 549 H 235 H (70-110) mg/dL Calcium (8.7-10.3) mg/dL 06/24/23 06/25/23 06/25/23 Range/Units 20:25 06:01 06:33 WBC 21.76 H (4.50-10.00) X 10*3/uL RBC 3.08 L (4.10-5.20) X 10*6/uL Hgb 8.9 L (12.0-15.0) g/dL Hct 27.3 L (37.2-46.3) % Plt Count 445 H (140-440) X 10*3/uL Neutrophils # (Manual) 16.54 H (1.80-7.70) X 10*3/uL Anion Gap (4.00-12.00) mmol/L Glucose (70-110) mg/dL POC Glucose (mg/dL) 268 H 372 H (70-110) mg/dL Calcium (8.7-10.3) mg/dL 06/25/23 Range/Units 06:33 WBC (4.50-10.00) X 10*3/uL RBC (4.10-5.20) X 10*6/uL Hgb (12.0-15.0) g/dL Hct (37.2-46.3) % Plt Count (140-440) X 10*3/uL Neutrophils # (Manual) (1.80-7.70) X 10*3/uL Anion Gap 12.20 H (4.00-12.00) mmol/L Glucose 341 H (70-110) mg/dL POC Glucose (mg/dL) (70-110) mg/dL Calcium 8.3 L (8.7-10.3) mg/dL Assessment and Plan Assessment: 1. Non-oliguric NIKOLE 2/2 ATN from volume depletion. Baseline creatinine 0.5 mg/dL, presented 3.4--> 0.8 today with good urine output. UA consistent with UTI. 2. DKA, status post insulin drip. 3. Toxic/Metabolic Encephalopathy 4. Pneumonia with severe sepsis s/p AVDRF- extubated 5. Hypernatremia due to volume depletion., improved 6. History of polysubstance abuse 7. UTI with urine culture growing E. coli. Plan: continue to encourage increased oral intake stable for discharge from nephrology standpoint.
[2023-06-25 11:42] LABS: Glucose,Whole Blood 235 mg/dL (70-110)
--- NOTE | 2023-06-25 11:48 | P.PN ---
Subjective Progress Note Date: 06/25/23 This is a 48-year-old female with history of type 2 diabetes, history of schizophrenia, and polysubstance abuse, patient was found at home unresponsive by her guardian. Patient was brought into the ER and upon arrival the patient was noted to be in atrial fibrillation with RVR, she was extremely obtunded, she was also noted to have what seems to be a picture of severe hyperglycemia and DKA with significant anion gap metabolic acidosis. I was made aware of this patient by the ER physician and considering her obtundation, I recommended intubating the patient and accepted the patient to be admitted to the ICU with the DKA protocol, patient was extremely acidotic hyperkalemic significant anion gap metabolic acidosis was noted, and the patient was minimally responsive in the ER. Patient did have cardioversion for atrial fibrillation with RVR, and she went into sinus tachycardia. Initial labs upon admission showed leukocytosis with WBC count of 27.7, hemoglobin of 14.4, normal PT and INR, norm al PTT, ABG postintubation showed a pO2 of 361 pCO2 43 pH of 7.07. Patient was also noted to have hypernatremia with a sodium of 138, bicarb was less than 5, lactic acid was 1.2, anion gap was above 18. Patient had positive ketones in the urine, 2+ drug screen came back positive for amphetamine. Patient is known to have history of polysubstance abuse. Today the patient is in the ICU, intubated and mechanically ventilated, she is on assist-control rate of 16 tidal volume 350 FiO2 40% and PEEP of 5 ABG this a.m. showed a pO2 of 179 pCO2 49 pH of 7.45. FiO2 now is down to 40%. Electrolytes showed hyponatremia with sodium of 151 hence her main IV fluid was changed to 2.45 at 120 cc/h, and the renal functioning seems to be improving creatinine on admission was 3.41 today it is 3.07. Nephrology is following the patient for her acute kidney injury. Presently the patient is on Lovenox subcu at 30 mg subcu daily, she remains on the DKA protocol, receiving insulin at 6.5 units/h, she is also on Protonix as well as Zosyn, feeding is still presently on hold. Patient was reexamined today while in the ICU on 06/19/2023, patient remains intubated and mechanically ventilated. Patient is on assist-control rate of 16 tidal volume 350 FiO2 40% and PEEP of 5. Patient is on propofol at 15 m cg/kg/min, she is off norepinephrine, her IV fluid is running at 125 cc/h, it is 0.45, however patient is still running relatively high sodium, and I am changing her IV fluid to D5W, and I am recommending insulin drip to address her elevated blood sugars. WBC count today is 17.8 hemoglobin is 11.4. Basic metabolic profile is normal except for elevated sodium of 155 elevated chloride of 128 her anion gap has resolved her BUN is 76 creatinine 2.86, improving since admission patient had a creatinine as high as 3.41 on admission. Chest x-ray today showed minimal nonspecific patchy interstitial changes, patient remains empirically on Zosyn for presumptive aspiration. Patient remains on pantoprazole and she remains on Lovenox. The patient is seen today June 20, 2023 in follow-up in the intensive care unit. She is currently sitting up in bed. Awake and alert in no acute distress. Maintaining O2 saturations in the 90s on room air. Sputum culture was positive for MSSA. She remains on Unasyn and vancomycin. Insulin is on hold. Normal saline at 75 MLS per hour. She is currently off norepinephrine. Her ventricular rate is well-controlled. White count 20.5. Hemoglobin 10.0. Plat elets 186. Sodium 145. Potassium 2.9. Bicarb 25. BUN 42. Creatinine 1.52. Glucose 161. The patient is seen today June 21, 2023 in follow-up in the intensive care unit. She is awake and alert in no acute distress. Currently resting comfortably in bed. Denies any shortness of breath, cough or congestion. Maintaining good O2 saturation in the 90s on room air. She is afebrile. Hemodynamically stable. She has been resumed on Levemir 30 units at bedtime along with NovoLog sliding scale. Lovenox for DVT prophylaxis. She remains on antibiotics in the form of Unasyn. Her sputum culture was positive for MSSA and Jamee. Urine culture was positive for E. coli. White count 18.2. Hemoglobin 10.2. Platelets 175. Sodium 138. Potassium 3.7. Bicarb 22. BUN 24. Creatinine 1.18. Glucose 383. The patient is seen today June 22, 2023 in follow-up in the intensive care unit. She is currently sitting up in bed. Awake and alert in no acute distress. She is maintaining good O2 saturations in the 90s on room air. No IV fluids. Sputum culture was positive for MSSA. Urine culture positive for E. coli. She remains on antibiotics in the form of Unasyn. Lovenox for DVT prophylaxis. She is transitioned to Levemir and NovoLog sliding scale. White count 15.6. Hemoglobin 9.9. Platelets 197. Sodium 139. Potassium 3.3. Bicarb 25. BUN 18. Creatinine 0.99. Glucose 190. The patient is seen today June 23, 2023 in follow-up on the regular medical floor. She is currently resting comfortably in bed. Awake and alert in no acute distress. She is maintaining good O2 saturations in the 90s on room air. She did develop atrial fibrillation with a rapid ventricular response. C ardiology consulted. She is currently on a heparin drip. Normal saline at KVO. Continued on antibiotics in the form of Unasyn. Continued on Levemir and NovoLog sliding scale. White count 14.8. Hemoglobin 9.4. Platelets 259. Sodium 134. Potassium 3.6. Bicarb 23. BUN 16. Creatinine 0.82. Glucose 175. Patient is seen today June 24, 2023 in follow-up on the regular medical floor. She is currently sitting up in bed. Awake and alert in no acute distress. She remains on Unasyn. She is maintaining good O2 saturations in the 90s on room air. Normal staying at KVO. She remains afebrile. Hemodynamically stable. White count 15.0. Hemoglobin 9.2. Platelets 357. Sodium 135. Potassium 4.0. Bicarb 27. BUN 15. Creatinine 0.80. Glucose 313. Lovenox for DVT prophylaxis. The patient is seen today June 25, 2023 in follow-up on the regular medical floor. She is awake and alert in no acute distress. Sitting up in bed. Maintaining O2 saturation in the 90s on room air. No IV fluids. White count 21.7. Hemoglobin 8.9. Platelets 445. Sodium 137. Potassium 4.0. Bicarb 22. BUN 17. Creatinine 0.9. Glucose 341. She is continued on Levemir and NovoLog sliding scale. Remains on Unasyn. She is still requiring Haldol for agitation at times. Objective - Vital Signs Vital signs: Vital Signs Temp 98.4 F 06/25/23 09:05 Pulse 87 06/25/23 09:05 Resp 20 06/25/23 01:50 BP 122/80 06/25/23 09:05 Pulse Ox 96 06/25/23 09:05 FiO2 40 06/19/23 10:39 Intake & Output 06/24/23 06/25/23 06/25/23 18:59 06:59 18:59 Other: Voiding Method Toilet # Voids 1 2 - Exam GENERAL EXAM: Alert, active, 48-year-old female, on room air, comfortable in no apparent distress. HEAD: Normocephalic. EYES: Normal reaction of pupils, equal size. NOSE: Clear with pink turbinates. THROAT: No erythema or exudates. NECK: No masses, no JVD. CHEST: No chest wall deformity. LUNGS: Equal air entry with no crackles, wheeze, rhonchi or dullness. CVS: S1 and S2 normal with no audible murmur, regular rhythm. ABDOMEN: No hepatosplenomegaly, normal bowel sounds, no guarding or rigidity. SPINE: No scoliosis or deformity SKIN: No rashes CENTRAL NERVOUS SYSTEM: No focal deficits, tone is normal in all 4 extremities. EXTREMITIES: There is no peripheral edema. No clubbing, no cyanosis. Peripheral pulses are intact. - Labs CBC & Chem 7: 06/25/23 06:33 06/25/23 06:33 Labs: Abnormal Lab Results - Last 24 Hours (Table) 06/24/23 06/24/23 06/25/23 Range/Units 17:08 20:25 06:01 WBC (4.50-10.00) X 10*3/uL RBC (4.10-5.20) X 10*6/uL Hgb (12.0-15.0) g/dL Hct (37.2-46.3) % Plt Count (140-440) X 10*3/uL Neutrophils # (Manual) (1.80-7.70) X 10*3/uL Anion Gap (4.00-12.00) mmol/L Glucose (70-110) mg/dL POC Glucose (mg/dL) 235 H 268 H 372 H (70-110) mg/dL Calcium (8.7-10.3) mg/dL 06/25/23 06/25/23 Range/Units 06:33 06:33 WBC 21.76 H (4.50-10.00) X 10*3/uL RBC 3.08 L (4.10-5.20) X 10*6/uL Hgb 8.9 L (12.0-15.0) g/dL Hct 27.3 L (37.2-46.3) % Plt Count 445 H (140-440) X 10*3/uL Neutrophils # (Manual) 16.54 H (1.80-7.70) X 10*3/uL Anion Gap 12.20 H (4.00-12.00) mmol/L Glucose 341 H (70-110) mg/dL POC Glucose (mg/dL) (70-110) mg/dL Calcium 8.3 L (8.7-10.3) mg/dL Assessment and Plan Assessment: Acute diabetic ketoacidosis, recovered Acute metabolic encephalopathy, recovered Obtundation on presentation requiring intubation and mechanical ventilation, recovered and on room air Possible amphetamine overdose, patient is known to have history of polysubstance abuse Atrial fibrillation with RVR on presentation requiring cardioversion, off anticoagulation per cardiology History of schizophrenia Acute anion gap metabolic acidosis, secondary to DKA Possible aspiration pneumonia, sputum positive for MSSA, Jamee Hypotension secondary mostly to hypovolemia secondary to hyperglycemia Acute kidney injury secondary to hypotension and E. coli urinary tract infection Electrolytes imbalance secondary to her DKA , proved Plan: The patient was seen and evaluated Labs and medications reviewed Stable and on room air Discharge planning per social work I have personally seen and examined the patient, performed the documentation and the assessment and plan as written. Number of minutes spent on the visit: 10.
[2023-06-25 11:56] LABS: Eosinophils # (M) 0.44 X 10*3/uL (0.04-0.35); Lymphocytes # (M) 3.26 X 10*3/uL (0.90-5.00); Metamyelocytes % 1 % (0-0); Monocytes # (M) 1.31 X 10*3/uL (0.20-1.00); Neutrophils # (M) 16.54 X 10*3/uL (1.80-7.70); Neutrophils % (M) 76 %; RBC Morphology Normal (Normal)
[2023-06-25] MEDS: INSULIN ASPART (NovoLOG) 100 UNIT/ML VIAL SQ SCH (12:35)
--- NOTE | 2023-06-25 13:11 | P.PN ---
Subjective Progress Note Date: 06/25/23 Patient is a 48-year-old female with diabetes mellitus type 2 previously on insulin, schizophrenia, and polysubstance abuse who initially was brought to the ER after being found unresponsive at home. Thorough evaluation in the ER revealed DKA with blood glucose of 1418 and a CO2 of less than 5. She was also noted to have A-fib with RVR and hypotension and was subsequently cardioverted. He required intubation in the emergency department. She underwent head CT which showed no acute process she was started on IV fluids, insulin drip, and was admitted to the ICU. Of note her toxicology was positive for amphetamines. Pulmonology and then ultimately nephrology were consulted. She underwent renal ultrasound which demonstrated no evidence of obstructive uropathy patient initially had renal failure which resolved with IV fluid administration. Of note her hemoglobin A1c was 15. She was able to come off of the insulin drip and was transitioned to long and short acting insulin. Was extubated on the morning of 06/19. She was found to have an E. coli urinary tract infection and infectious disease was consulted. She was transition to Unasyn 3 g every 6 hours. She underwent echocardiogram which showed ejection fraction 50 to 55%. Patient seen this morning. She states that she wants to go home. 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 Per pulmonology patient is stable for discharge from their standpoint -We need a safe discharge for the patient. Patient likely not able to administer her own insulin at home. manager medical affairs working on a safe discharge plan E. coli UTI with septic shock Possible staph pneumonia -Continue IV Unasyn 3 g IV piggyback every 6 hours day #5, patient completed 2 days of Zosyn before this. -Reviewed ID note. Per ID patient will complete antibiotic course with Augmentin -WBC did increase from 16-21.76. Will continue to trend CBC Isolated episode of A-fib with RVR on admission - event monitor on discharge -Patient was cardioverted in the ER -Cardiology note reviewed: [id number] score is 2 but under normal circumstances patient would be on anticoagulation following the procedure, no signs of acute thromboembolism underlying culprit for A-fib likely metabolic abnormalities possible noncompliance and therefore risk appears to outweigh benefit. Plan is for event monitor on day of discharge. -Echocardiogram reviewed ejection fraction 50 to 55% Schizophrenia Polysubstance abuse -Psych note reviewed, does not meet requirements for inpatient admission -Patient was given Invega on 06/14 with next dose due on 07/12 Acute kidney injury, resolved-Nephrology note reviewed: Stable for discharge from nephrology standpoint Metabolic encephalopathy, resolved Subclinical hyperthyroidism- repeat TSH in 6 weeks Acute hypoxic respiratory failure, resolved Hypernatremia, resolved DVT prophylaxis: Lovenox Anticipated discharge date and place: once safe discharge plan in place. Objective - Vital Signs Vital signs: Vital Signs Temp 98.4 F 06/25/23 09:05 Pulse 87 06/25/23 09:05 Resp 20 06/25/23 01:50 BP 122/80 06/25/23 09:05 Pulse Ox 96 06/25/23 09:05 FiO2 40 06/19/23 10:39 Intake & Output 06/24/23 06/25/23 06/25/23 18:59 06:59 18:59 Other: Voiding Method Toilet # Voids 1 2 - Labs CBC & Chem 7: 06/25/23 06:33 06/25/23 06:33 Labs: Abnormal Lab Results - Last 24 Hours (Table) 06/24/23 06/24/23 06/25/23 Range/Units 17:08 20:25 06:01 WBC (4.50-10.00) X 10*3/uL RBC (4.10-5.20) X 10*6/uL Hgb (12.0-15.0) g/dL Hct (37.2-46.3) % Plt Count (140-440) X 10*3/uL Neutrophils # (Manual) (1.80-7.70) X 10*3/uL Monocytes # (Manual) (0.20-1.00) X 10*3/uL Eosinophils # (Manual) (0.04-0.35) X 10*3/uL Anion Gap (4.00-12.00) mmol/L Glucose (70-110) mg/dL POC Glucose (mg/dL) 235 H 268 H 372 H (70-110) mg/dL Calcium (8.7-10.3) mg/dL 06/25/23 06/25/23 06/25/23 Range/Units 06:33 06:33 11:41 WBC 21.76 H (4.50-10.00) X 10*3/uL RBC 3.08 L (4.10-5.20) X 10*6/uL Hgb 8.9 L (12.0-15.0) g/dL Hct 27.3 L (37.2-46.3) % Plt Count 445 H (140-440) X 10*3/uL Neutrophils # (Manual) 16.54 H (1.80-7.70) X 10*3/uL Monocytes # (Manual) 1.31 H (0.20-1.00) X 10*3/uL Eosinophils # (Manual) 0.44 H (0.04-0.35) X 10*3/uL Anion Gap 12.20 H (4.00-12.00) mmol/L Glucose 341 H (70-110) mg/dL POC Glucose (mg/dL) 235 H (70-110) mg/dL Calcium 8.3 L (8.7-10.3) mg/dL
--- NOTE | 2023-06-25 14:16 | XR ---
EXAMINATION TYPE: XR shoulder complete LT DATE OF EXAM: 06/25/2023 1:48 PM CLINICAL INDICATION:Female, 48 years old with history of shoulder pain. Fall; [facility] COMPARISON: None TECHNIQUE: XR shoulder complete LT; examined in AP, internally rotated and scapular Y projections. FINDINGS: No evidence of acute osseous pathology, joint dislocation, or soft tissue swelling. The remaining po rtions of the visualized chest are unremarkable. Mild degeneration changes of the acromion and dista l clavicle. IMPRESSION: 1. No acute osseous pathology. 2. Mild shoulder osteoarthrosis.
[2023-06-25] MEDS ORDERED: LORazepam 2 MG/ML INJ IV PRN (16:27)
[2023-06-25 17:02] LABS: Glucose,Whole Blood 306 mg/dL (70-110)
[2023-06-25] MEDS: LORazepam 1 MG/0.5 ML VIAL IV PRN (19:07)
[2023-06-25 19:09] VITALS: BP 133/82; RESP 17; TEMP 97.5
--- NOTE | 2023-06-26 03:20 | P.EN ---
Informed by the patient's RN at 0209 that the patient eloped at 2051 with an IV and telemetry box. The [place] police department was notified and are currently looking for the patient. The family members were notified.
[2023-06-26] MEDS ORDERED: PANTOPRAZOLE SODIUM 40 MG GRANULE PKT PO SCH (07:30)
--- NOTE | 2023-06-26 08:13 | P.DS ---
Providers Date of admission: 06/17/23 20:05 Attending physician: Maris Sky MD Consults: 06/17/23 20:05 Consult Physician Stat Consulting Provider: Kishore Huffman Consult Reason/Comments: icu patient Do you want consulting provider notified?: Already Contacted 06/18/23 19:18 Consult Physician Routine Consulting Provider: Brooks Jensen Consult Reason/Comments: NIKOLE Do you want consulting provider notified?: Yes 06/19/23 10:12 Consult Physician Routine Consulting Provider: Bhavesh Scherer Consult Reason/Comments: schizophrenia Do you want consulting provider notified?: Yes, Notify in am 06/20/23 08:37 Consult Physician Routine Consulting Provider: Dayan Valentin Consult Reason/Comments: S. aureus sputum Cx Do you want consulting provider notified?: Yes 06/20/23 13:06 Consult Physician Routine Consulting Provider: Bhavesh Scherer Consult Reason/Comments: schizophrenia Do you want consulting provider notified?: Yes 06/22/23 15:15 Consult Physician Routine Consulting Provider: Ara Alvarez Consult Reason/Comments: a fib on arrival Do you want consulting provider notified?: Yes Primary care physician: Stated None Hospital Course: Discharge diagnosis DKA Diabetes mellitus type 2 E. coli UTI with septic shock Staph aureus pneumonia A-fib with RVR Schizophrenia Polysubstance abuse Acute kidney injury Hospital course Patient is a 48-year-old female with diabetes mellitus type 2 previously on insulin, schizophrenia, and polysubstance abuse who initially was brought to the ER after being found unresponsive at home. Thorough evaluation in the ER revealed DKA with blood glucose of 1418 and a CO2 of less than 5. She was also noted to have A-fib with RVR and hypotension and was subsequently cardioverted. She required intubation in the emergency department. She underwent head CT which showed no acute process she was started on IV fluids, insulin drip, and was admitted to the ICU. Of note her toxicology was positive for amphetamines. Pulmonology and then ultimately nephrology were consulted. She underwent renal ultrasound which demonstrated no evidence of obstructive uropathy patient initially had renal failure which resolved with IV fluid administration. Of note her hemoglobin A1c was 15. She was able to come off of the insulin drip and was transitioned to long and short acting insulin. Was extubated on the morning of 06/19. She was found to have an E. coli urinary tract infection and infectious disease was consulted. She was also found to have MSSA pneumonia. She was transition to Unasyn 3 g every 6 hours. ID recommended augmentin on discharge. Patient also did have an isolated episode of A-fib with RVR. Cardiology was on board. Per cardiology since patient has a history of medication noncompliance they did not recommend anticoagulation. Patient spontaneously converted to normal sinus rhythm. manager action was working with [facility] to find a safe discharge for the patient to either a residential or SNF. Unfortunately patient eloped with IV line. Police were notified. Family also notified. I personally did speak with the patient's mother and told her that if they find that they need to bring her back to the ED so that she can be prescribed her insulin. Mother did state that patient has eloped from multiple facilities including hospitals and group homes. As patient eloped patient was not seen on the day of discharge Patient Condition at Discharge: Fair Plan - Discharge Summary New Discharge Prescriptions: No Action metFORMIN HCL [metFORMIN HCL ER] 750 mg PO DAILY Paliperidone IM [Invega Sustenna] 234 mg IM Q28D Atorvastatin [Lipitor] 10 mg PO DAILY Discharge Medication List Paliperidone IM [Invega Sustenna] 234 mg IM Q28D 06/17/23 [History] Atorvastatin [Lipitor] 10 mg PO DAILY 06/20/23 [History] metFORMIN HCL [metFORMIN HCL ER] 750 mg PO DAILY 06/20/23 [History] Follow up Appointment(s)/Referral(s): None,Stated [Primary Care Provider] - 1-2 days Activity/Diet/Wound Care/Special Instructions: Repeat TSH in 6 weeks Discharge Disposition: LEFT AGAINST MEDICAL ADVICE
== END 2023-06-25 20:52 | disposition left against medical advice (07) | DRG 208 ==
LOC: EC 16:54 → 2SICU 20:05 → 4SSUR 06-22 16:08
PROVIDERS: ADMIT Internal Medicine; ATTEND Internal Medicine
PROC: 5A1935Z Respiratory Ventilation, Less than 24 Consecutive Hours (ICD-10-PCS; principal; 2023-06-18)
PROC: 0BH17EZ Insertion of Endotracheal Airway into Trachea, Via Natural or Artificial Opening (ICD-10-PCS; 2023-06-18)
DX: J69.0 Pneumonitis due to inhalation of food and vomit (principal); E11.10 Type 2 diabetes mellitus with ketoacidosis without coma; A41.51 Sepsis due to Escherichia coli [E. coli]; J96.01 Acute respiratory failure with hypoxia; R65.21 Severe sepsis with septic shock; N17.0 Acute kidney failure with tubular necrosis; B37.1 Pulmonary candidiasis; G92.8 Other toxic encephalopathy; E87.0 Hyperosmolality and hypernatremia; E87.1 Hypo-osmolality and hyponatremia; N39.0 Urinary tract infection, site not specified; Z53.29 Procedure and treatment not carried out because of patient's decision for other reasons; I10 Essential (primary) hypertension; E87.5 Hyperkalemia; F20.9 Schizophrenia, unspecified; D64.9 Anemia, unspecified; J15.211 Pneumonia due to Methicillin susceptible Staphylococcus aureus; F31.9 Bipolar disorder, unspecified; F17.210 Nicotine dependence, cigarettes, uncomplicated; E86.9 Volume depletion, unspecified; E86.1 Hypovolemia; T43.621A Poisoning by amphetamines, accidental (unintentional), initial encounter; I48.91 Unspecified atrial fibrillation; Z79.4 Long term (current) use of insulin; Z79.84 Long term (current) use of oral hypoglycemic drugs; Z79.899 Other long term (current) drug therapy; Z82.49 Family history of ischemic heart disease and other diseases of the circulatory system; Z91.148 Patient's other noncompliance with medication regimen for other reason; Z86.32 Personal history of gestational diabetes; Z91.51 Personal history of suicidal behavior; Z79.890 Hormone replacement therapy
CPT/HCPCS: 31500; 36415; 36600; 51702; 70450; 71045; 76770; 80048; 80051; 80053; 80306; 80320; 81001; 82009; 82140; 82550; 82565; 82728; 82747; 82803; 82805; 82947; 83036; 83540; 83550; 83605; 83735; 84100; 84132; 84145; 84295; 84439; 84443; 84484; 84520; 85025; 85027; 85610; 85730; 87040; 87070; 87077; 87086; 87186; 87205; 93005; 93306; 94002; 94003; 96361; 96365; 96366; 96368; 99291

== ENCOUNTER 2023-06-26 21:52 | Inpatient (IN) | payer MEDICARE, OTHER ==
[2023-06-26 22:40] LABS: Glucose,Whole Blood >600 mg/dL (70-110)
[2023-06-26] MEDS: SODIUM CHLORIDE 0.9% 1,000 ML IV STA (23:13)
[2023-06-26 23:42] LABS: Basophils # (A) 0.1 k/uL (0-0.2); Basophils % (A) 0 %; Eosinophils # (A) 0.1 k/uL (0-0.7); Eosinophils % (A) 0 %; HCT 27.3 % (34.0-46.0); HGB 8.7 gm/dL (11.4-16.0); Lymphocytes # (A) 3.9 k/uL (1.0-4.8); Lymphocytes % (A) 19 %; MCV 90.5 fL (80.0-100.0); Mean Platelet Volume 8.1; Monocytes # (A) 0.9 k/uL (0-1.0); Monocytes % (A) 4 %; Neutrophils # (A) 15.6 k/uL (1.3-7.7); Neutrophils % (A) 75 %; Platelet Count 649 k/uL (150-450); RBC 3.01 m/uL (3.80-5.40); RDW 13.8 % (11.5-15.5); WBC 20.8 k/uL (3.8-10.6)
[2023-06-26 23:55] LABS: African American GFR (CKD) >90 (>60 ml/min/1.73 sqM); Anion Gap 9 mmol/L; Blood Urea Nitrogen 22 mg/dL (7-17); Calcium 9.2 mg/dL (8.4-10.2); Carbon Dioxide 22 mmol/L (22-30); Chloride 96 mmol/L (98-107); Non-African American GFR(CKD) >90 (>60 ml/min/1.73 sqM); Potassium 4.3 mmol/L (3.5-5.1); Sodium 127 mmol/L (137-145)
--- NOTE | 2023-06-27 00:05 | ED ---
General Adult HPI - General Chief complaint: Recheck/Abnormal Lab/Rx Stated complaint: abn labs Time Seen by Provider: 06/26/23 22:58 Source: patient Mode of arrival: ambulatory Limitations: no limitations - History of Present Illness Initial comments: Dictation was produced using [employer] dictation software. please excuse any grammatical, word or spelling errors. Chief Complaint: 48-year-old female with hyperglycemia History of Present Illness: Patient is a 48-year-old homeless female with history of insulin-dependent diabetes mellitus. Patient has been checking her sugar found to be high. Patient has not had her insulin due to homelessness. Noelle altamirano has nowhere to sleep. She has no other complaints. The ROS documented in this emergency department record has been reviewed and confirmed by me. Those systems with pertinent positive or negative responses have been documented in the HPI. All other systems are other negative and/or noncontributory. - Related Data Home Medications Medication Instructions Recorded Confirmed Paliperidone IM [Invega Sustenna] 234 mg IM Q28D 06/17/23 06/17/23 Atorvastatin [Lipitor] 10 mg PO DAILY 06/20/23 06/20/23 metFORMIN HCL [metFORMIN HCL ER] 750 mg PO DAILY 06/20/23 06/20/23 Allergies Allergy/AdvReac Type Severity Reaction Status Date / Time pollen extracts Allergy Rash/Hives Verified 06/17/23 19:00 Review of Systems ROS Statement: Those systems with pertinent positive or pertinent negative responses have been documented in the HPI. ROS Other: All systems not noted in ROS Statement are negative. Past Medical History Past Medical History: Diabetes Mellitus, Osteoarthritis (OA) Additional Past Medical History / Comment(s): "GESTATIONAL DIABETES", GOES TO [facility] History of Any Multi-Drug Resistant Organisms: None Reported Past Surgical History: Section Additional Past Surgical History / Comment(s): POLA ARM SX WHEN CHILD-WENT THRU A WINDOW Past Anesthesia/Blood Transfusion Reactions: No Reported Reaction Additional Past Anesthesia/Blood Transfusion Reaction / Comment(s): CLAUSTERPHOBIA Past Psychological History: Anxiety, Bipolar, Panic Disorder, Schizophrenia Smoking Status: Current every day smoker - Past Family History Father Additional Family Medical History / Comment(s): DEPRESSION, "PROBLEM WITH HIS PANCREAS" Mother Family Medical History: Hyperlipidemia, Hypertension Additional Family Medical History / Comment(s): DDD, NECK FUSION, KIDNEY CANCER General Exam - General Exam Comments Initial Comments: General: Well-appearing, nontoxic, no acute distress. Head: Normocephalic, atraumatic Eyes: PERRLA, EOMI ENT: Airway patent Chest: Nonlabored breathing Skin: No visual rash, normal skin tone Neuro: Alert and oriented 3 Musculoskeletal: No gross abnormalities Limitations: no limitations Course Vital Signs 06/26/23 06/27/23 22:35 00:00 Temperature 97.3 F L Pulse Rate 85 87 Respiratory 22 16 Rate Blood Pressure 137/82 125/76 O2 Sat by Pulse 98 97 Oximetry - Reevaluation(s) Reevaluation #1: 06/27/23 01:48 Patient evaluated at bedside at 1:40 AM. She is having what sounds like psychiatric symptoms. States that she is paranoid and people are out to get her. EPS evaluation ordered. Medical Decision Making - Medical Decision Making Was pt. sent in by a medical professional or institution (, PA, ELECTRIC MOTOR TESTER, urgent care, hospital, or care home...) When possible be specific @ -No Did you speak to anyone other than the patient for history (EMS, parent, family, police, friend...)? What history was obtained from this source @ -No Did you review nursing and triage notes (agree or disagree)? Why? @ -I reviewed and agree with nursing and triage notes Were old charts reviewed (outside hosp., previous admission, EMS record, old EKG, old radiological studies, urgent care reports/EKG's, care home records)? Report findings @ -No old charts were reviewed Differential Diagnosis (chest pain, altered mental status, abdominal pain women, abdominal pain men, vaginal bleeding, musculoskeletal, weakness, fever, dyspnea, syncope, headache, dizziness, GI bleed, back pain, seizure, CVA, palpatations, mental health)? @ -Not applicable EKG interpreted by me (3pts min.). @ -None done X-rays interpreted by me (1pt min.). @ -None done CT interpreted by me (1pt min.). @ -None done U/S interpreted by me (1pt. min.). @ -None done What testing was considered but not performed or refused? (CT, X-rays, U/S, labs)? Why? @ -None What meds were considered but not given or refused? Why? @ -None Did you discuss the management of the patient with other professionals (professionals i.e. , PA, ELECTRIC MOTOR TESTER, lab, RT, psych nurse, child welfare social worker, human services program specialist, teacher, chief administrative officer, case loader operator)? Give summary @ -No Was smoking cessation discussed for >3mins.? @ -No Was critical care preformed (if so, how long)? @ -No Were there social determinants of health that impacted care today? How? (Homelessness, low income, unemployed, alcoholism, drug addiction, transportation, low edu. Level, literacy, decrease access to med. care, half-way, rehab)? @ -No Was there de-escalation of care discussed even if they declined (Discuss DNR or withdrawal of care, Hospice)? DNR status @ -No What co-morbidities impacted this encounter? (DM, HTN, Smoking, COPD, CAD, Cancer, CVA, ARF, Chemo, Hep., AIDS, mental health diagnosis, sleep apnea, morbid obesity)? @ -None Was patient admitted / discharged? Hospital course, mention meds given and route, prescriptions, significant lab abnormalities, going to OR and other pertinent info. @ -48-year-old female presents emergency department for hyperglycemia. Vital signs are stable. Laboratory evaluation obtained. Leukocytosis 20.8. M etabolic panel shows sodium 127 glucose of 636. Patient given IV fluids and insulin. Patient allegedly eloped from the ICU recently. Patient not in DKA today. Her acetone is negative she does not have an anion gap. Patient displaying signs of psychiatric illness. Patient clearly psychotic at the bedside. Vital signs upon arrival are within acceptable limits. Patient hyperglycemic upon arrival. Chart review shows that patient had eloped recently from the hospital. Patient be admitted to hospitalist. Psychiatry will be on consult. Hyperglycemia treated and improved. Medicine was noted upon patient's return. They request patient be admitted medically for completion of antibiotic treatment. Undiagnosed new problem with uncertain prognosis? @ -No Drug Therapy requiring intensive monitoring for toxicity (Heparin, Nitro, Insulin, Cardizem)? @ -No Were any procedures done? @ -No Diagnosis/symptom? Acute, or Chronic, or Acute on Chronic? Uncomplicated (without systemic symptoms) or Complicated (systemic symptoms)? @ -Diabetic hyperglycemia, acute psychosis Side effects of treatment? @ -No Exacerbation, Progression, or Severe Exacerbation? @ -No Poses a threat to life or bodily function? How? (Chest pain, USA, NM, pneumonia, PE, COPD, DKA, ARF, appy, cholecystitis, CVA, Diverticulitis, Homicidal, Suicidal, threat to staff... and all critical care pts) @ -yes - Lab Data Result diagrams: 06/26/23 22:50 06/26/23 22:50 Lab Results 06/26/23 06/26/23 06/26/23 Range/Units 22:38 22:50 22:50 WBC 20.8 H (3.8-10.6) k/uL RBC 3.01 L (3.80-5.40) m/uL Hgb 8.7 L (11.4-16.0) gm/dL Hct 27.3 L (34.0-46.0) % MCV 90.5 (80.0-100.0) fL MCH 29.0 (25.0-35.0) pg MCHC 32.0 (31.0-37.0) g/dL RDW 13.8 (11.5-15.5) % Plt Count 649 H (150-450) k/uL MPV 8.1 Neutrophils % 75 % Lymphocytes % 19 % Monocytes % 4 % Eosinophils % 0 % Basophils % 0 % Neutrophils # 15.6 H (1.3-7.7) k/uL Lymphocytes # 3.9 (1.0-4.8) k/uL Monocytes # 0.9 (0-1.0) k/uL Eosinophils # 0.1 (0-0.7) k/uL Basophils # 0.1 (0-0.2) k/uL Sodium 127 L (137-145) mmol/L Potassium 4.3 (3.5-5.1) mmol/L Chloride 96 L (98-107) mmol/L Carbon Dioxide 22 (22-30) mmol/L Anion Gap 9 mmol/L BUN 22 H (7-17) mg/dL Creatinine 0.75 (0.52-1.04) mg/dL Est GFR (CKD-EPI)AfAm >90 (>60 ml/min/1.73 sqM) Est GFR (CKD-EPI)NonAf >90 (>60 ml/min/1.73 sqM) Glucose 636 H* (74-99) mg/dL POC Glucose (mg/dL) >600 H (70-110) mg/dL POC Glu Frame Fixer ID Merari Chavarria Calcium 9.2 (8.4-10.2) mg/dL Urine Color Urine Appearance (Clear) Urine pH (5.0-8.0) Ur Specific [place] (1.001-1.035) Urine Protein (Negative) Urine Glucose (UA) (Negative) Urine Ketones (Negative) Urine Blood (Negative) Urine Nitrite (Negative) Urine Bilirubin (Negative) Urine Urobilinogen (<2.0) mg/dL Ur Leukocyte Esterase (Negative) Urine RBC (0-5) /hpf Urine WBC (0-5) /hpf Ur Squamous Epith Cells (0-4) /hpf Acetone, Qual Negative (Negative) 06/26/23 06/27/23 06/27/23 Range/Units 23:59 00:33 01:54 WBC (3.8-10.6) k/uL RBC (3.80-5.40) m/uL Hgb (11.4-16.0) gm/dL Hct (34.0-46.0) % MCV (80.0-100.0) fL MCH (25.0-35.0) pg MCHC (31.0-37.0) g/dL RDW (11.5-15.5) % Plt Count (150-450) k/uL MPV Neutrophils % % Lymphocytes % % Monocytes % % Eosinophils % % Basophils % % Neutrophils # (1.3-7.7) k/uL Lymphocytes # (1.0-4.8) k/uL Monocytes # (0-1.0) k/uL Eosinophils # (0-0.7) k/uL Basophils # (0-0.2) k/uL Sodium (137-145) mmol/L Potassium (3.5-5.1) mmol/L Chloride (98-107) mmol/L Carbon Dioxide (22-30) mmol/L Anion Gap mmol/L BUN (7-17) mg/dL Creatinine (0.52-1.04) mg/dL Est GFR (CKD-EPI)AfAm (>60 ml/min/1.73 sqM) Est GFR (CKD-EPI)NonAf (>60 ml/min/1.73 sqM) Glucose (74-99) mg/dL POC Glucose (mg/dL) 492 H 235 H (70-110) mg/dL POC Glu Frame Fixer ID Lissette Irizarry Riva Calcium (8.4-10.2) mg/dL Urine Color Colorless Urine Appearance Clear (Clear) Urine pH 6.5 (5.0-8.0) Ur Specific [place] 1.018 (1.001-1.035) Urine Protein Negative (Negative) Urine Glucose (UA) 4+ H (Negative) Urine Ketones Negative (Negative) Urine Blood Trace H (Negative) Urine Nitrite Negative (Negative) Urine Bilirubin Negative (Negative) Urine Urobilinogen <2.0 (<2.0) mg/dL Ur Leukocyte Esterase Negative (Negative) Urine RBC 1 (0-5) /hpf Urine WBC 1 (0-5) /hpf Ur Squamous Epith Cells <1 (0-4) /hpf Acetone, Qual (Negative) 06/27/23 06/27/23 Range/Units 02:57 04:22 WBC (3.8-10.6) k/uL RBC (3.80-5.40) m/uL Hgb (11.4-16.0) gm/dL Hct (34.0-46.0) % MCV (80.0-100.0) fL MCH (25.0-35.0) pg MCHC (31.0-37.0) g/dL RDW (11.5-15.5) % Plt Count (150-450) k/uL MPV Neutrophils % % Lymphocytes % % Monocytes % % Eosinophils % % Basophils % % Neutrophils # (1.3-7.7) k/uL Lymphocytes # (1.0-4.8) k/uL Monocytes # (0-1.0) k/uL Eosinophils # (0-0.7) k/uL Basophils # (0-0.2) k/uL Sodium (137-145) mmol/L Potassium (3.5-5.1) mmol/L Chloride (98-107) mmol/L Carbon Dioxide (22-30) mmol/L Anion Gap mmol/L BUN (7-17) mg/dL Creatinine (0.52-1.04) mg/dL Est GFR (CKD-EPI)AfAm (>60 ml/min/1.73 sqM) Est GFR (CKD-EPI)NonAf (>60 ml/min/1.73 sqM) Glucose (74-99) mg/dL POC Glucose (mg/dL) 98 78 (70-110) mg/dL POC Glu Frame Fixer ID Lissette Irizarry IrizarryLissette Calcium (8.4-10.2) mg/dL Urine Color Urine Appearance (Clear) Urine pH (5.0-8.0) Ur Specific [place] (1.001-1.035) Urine Protein (Negative) Urine Glucose (UA) (Negative) Urine Ketones (Negative) Urine Blood (Negative) Urine Nitrite (Negative) Urine Bilirubin (Negative) Urine Urobilinogen (<2.0) mg/dL Ur Leukocyte Esterase (Negative) Urine RBC (0-5) /hpf Urine WBC (0-5) /hpf Ur Squamous Epith Cells (0-4) /hpf Acetone, Qual (Negative) Disposition Clinical Impression: Hyperglycemia, Psychosis Disposition: ADMITTED IP TO THIS [facility] Condition: Fair Referrals: None,Stated [Primary Care Provider] - 1-2 days Decision Time: 04:31
[2023-06-27 00:34] LABS: Glucose,Whole Blood 492 mg/dL (70-110)
[2023-06-27 00:35] LABS: Glucose 636 mg/dL (74-99)
[2023-06-27] MEDS: INSULIN REGULAR 100 UNIT/ML VIAL (IV) IV ONE ×2 (01:08→02:09)
[2023-06-27 01:41] LABS: Appearance,Urine Clear (Clear); Bilirubin,Urine Negative (Negative); Blood,Urine Trace (Negative); Color,Urine Colorless; Glucose,Urine (UA) 4+ (Negative); Ketones,Urine Negative (Negative); Leukocyte Esterase,Urine Negative (Negative); Nitrite,Urine Negative (Negative); PH, Urine 6.5 (5.0-8.0); Protein,Urine Negative (Negative); RBC,Urine 1 /hpf (0-5); Specific Gravity,Urine 1.018 (1.001-1.035); Squamous Epithelial Cell,Urine <1 /hpf (0-4); Urobilinogen,Urine <2.0 mg/dL (<2.0); WBC,Urine 1 /hpf (0-5)
[2023-06-27 01:56] LABS: Glucose,Whole Blood 235 mg/dL (70-110)
[2023-06-27 02:58] LABS: Glucose,Whole Blood 98 mg/dL (70-110)
--- NOTE | 2023-06-27 04:07 | P.HPIM ---
History of Present Illness H&P Date: 06/27/23 Patient is a 48-year-old female with a PMH of insulin-dependent diabetes mellitus, polysubstance abuse, and schizophrenia who presents to the emergency room for hyperglycemia. Of note, the patient was recently admitted to the hospital on 06/16 for DKA and being found unresponsive at home. She was i ntubated and admitted to the medical ICU. The patient was also treated for MSSA pneumonia and E. coli UTI. The patient was awaiting detention or SNF placement, however she eloped on 06/24 at around 2051. The patient states that she had gone to a friend's house where she was paying rent but that her sugar was repeatedly coming up high (in the 300s), which prompted her to come to the emergency room. The patient was reportedly picked up by her brother soon after eloping and was taking to a friend's house. The patient's mom had subsequently contacted the patient and advised her to go to the emergency room. The patient reports feeling somewhat tired at the time of interview but had no additional complaints. She denied experiencing chest discomfort, shortness of breath, fever, chills, cough, nausea, vomiting, abdominal pain, diarrhea. She is only concerned about her hyperglycemia. The patient is in agreement with placement at a detention or SNF. Laboratory evaluation in the emergency room was remarkable for WBC count 20.8, hemoglobin 8.7, platelet count 649, sodium 127, chloride 96, glucose 636, with an unremarkable UA and a negative acetone ED documentation reviewed and case discussed with ED provider. Review of systems: Pertinent positives and negatives as discussed in HPI, a complete review of systems was performed and all other systems are negative. Physical examination: Vital signs reviewed General: non toxic, no distress, appears older than stated age, overweight Derm: no unusual rashes/lesions, warm Head: atraumatic, normocephalic, symmetric Eyes: EOMI, no lid lag, anicteric sclera, pupils equal round reactive to light ENT: Nose and ears atraumatic Neck: No cervical lymphadenopathy, trachea midline, supple Mouth: no lip lesion, mucus membranes moist Cardiovascular: S1S2 reg, no murmur, positive dorsalis pedis pulse bilateral, no edema Lungs: CTA bilateral, no rhonchi, no rales, no accessory muscle use Abdominal: soft, nontender to palpation, no guarding Ext: muscle strength 5 out of 5 in all 4 extremities grossly, no gross muscle atrophy, no contractures, Neuro: CN II-XI grossly intact, no gross focal neuro deficits Psych: Alert, oriented, appropriate affect Assessment: Recent E. coli UTI and MSSA pneumonia Uncontrolled type II DM Hypochloremic hyponatremia Normocytic anemia Chronic conditions: Schizophrenia, polysubstance abuse Imaging: None performed Data Review: Laboratory evaluation in the emergency room was remarkable for WBC count 20.8, hemoglobin 8.7, platelet count 649, sodium 127, chloride 96, glucose 636, with an unremarkable UA and a negative acetone Plan: The patient was previously on Unasyn #5 days and Zosyn #2 days with plans to finish an oral Augmentin course. Initiate Augmentin Insulin sliding scale blood glucose monitoring Monitor BMP Continue IV fluids with normal saline 100 cc/h Monitor CBC Resume home medications DVT prophylaxis: Lovenox subcu The patient is admitted with an anticipated greater than 2 midnight stay for evaluation of UTI and pneumonia CODE STATUS: Full Code Discussed with: Patient Anticipated discharge place: skilled nursing/SNF Past Medical History Past Medical History: Diabetes Mellitus, Osteoarthritis (OA) Additional Past Medical History / Comment(s): "GESTATIONAL DIABETES", GOES TO [facility] History of Any Multi-Drug Resistant Organisms: None Reported Past Surgical History: Section Additional Past Surgical History / Comment(s): POLA ARM SX WHEN CHILD-WENT THRU A WINDOW Past Anesthesia/Blood Transfusion Reactions: No Reported Reaction Additional Past Anesthesia/Blood Transfusion Reaction / Comment(s): CLAUSTERPHOBIA Past Psychological History: Anxiety, Bipolar, Panic Disorder, Schizophrenia Smoking Status: Current every day smoker - Past Family History Father Additional Family Medical History / Comment(s): DEPRESSION, "PROBLEM WITH HIS PANCREAS" Mother Family Medical History: Hyperlipidemia, Hypertension Additional Family Medical History / Comment(s): DDD, NECK FUSION, KIDNEY CANCER Medications and Allergies Home Medications Medication Instructions Recorded Confirmed Type Paliperidone IM [Invega Sustenna] 234 mg IM Q28D 06/17/23 06/17/23 History Atorvastatin [Lipitor] 10 mg PO DAILY 06/20/23 06/20/23 History metFORMIN HCL [metFORMIN HCL ER] 750 mg PO DAILY 06/20/23 06/20/23 History Allergies Allergy/AdvReac Type Severity Reaction Status Date / Time pollen extracts Allergy Rash/Hives Verified 06/17/23 19:00 Physical Exam Vitals: Vital Signs Temp Pulse Resp BP Pulse Ox 06/27/23 00:00 87 16 125/76 97 06/26/23 22:35 97.3 F L 85 22 137/82 98 Intake and Output 06/26/23 06/26/23 06/27/23 14:59 22:59 06:59 Other: Weight 74.389 kg Results CBC & Chem 7: 06/26/23 22:50 06/26/23 22:50 Labs: Abnormal Lab Results - Last 24 Hours (Table) 06/26/23 06/26/23 06/26/23 Range/Units 22:38 22:50 22:50 WBC 20.8 H (3.8-10.6) k/uL RBC 3.01 L (3.80-5.40) m/uL Hgb 8.7 L (11.4-16.0) gm/dL Hct 27.3 L (34.0-46.0) % Plt Count 649 H (150-450) k/uL Neutrophils # 15.6 H (1.3-7.7) k/uL Sodium 127 L (137-145) mmol/L Chloride 96 L (98-107) mmol/L BUN 22 H (7-17) mg/dL Glucose 636 H* (74-99) mg/dL POC Glucose (mg/dL) >600 H (70-110) mg/dL Urine Glucose (UA) (Negative) Urine Blood (Negative) 06/26/23 06/27/23 06/27/23 Range/Units 23:59 00:33 01:54 WBC (3.8-10.6) k/uL RBC (3.80-5.40) m/uL Hgb (11.4-16.0) gm/dL Hct (34.0-46.0) % Plt Count (150-450) k/uL Neutrophils # (1.3-7.7) k/uL Sodium (137-145) mmol/L Chloride (98-107) mmol/L BUN (7-17) mg/dL Glucose (74-99) mg/dL POC Glucose (mg/dL) 492 H 235 H (70-110) mg/dL Urine Glucose (UA) 4+ H (Negative) Urine Blood Trace H (Negative)
[2023-06-27 04:23] LABS: Glucose,Whole Blood 78 mg/dL (70-110)
[2023-06-27] MEDS ORDERED: NALOXONE 0.4 MG/ML 1 ML VIAL IV PRN (04:26)
[2023-06-27] MEDS: SODIUM CHLORIDE 0.9% 1,000 ML IV STA (05:06)
[2023-06-27] MEDS: SODIUM CHLORIDE 0.9% 1,000 ML IV SCH (05:06)
[2023-06-27 06:35] LABS: Glucose,Whole Blood 92 mg/dL (70-110)
[2023-06-27 06:39] LABS: HCT 24.5 % (34.0-46.0); HGB 8.1 gm/dL (11.4-16.0); MCH 28.9 pg (25.0-35.0); MCHC 33.1 g/dL (31.0-37.0); MCV 87.4 fL (80.0-100.0); Mean Platelet Volume 7.8; Platelet Count 660 k/uL (150-450); RDW 13.7 % (11.5-15.5); WBC 24.9 k/uL (3.8-10.6)
[2023-06-27 06:54] LABS: ALT 19 U/L (4-34); AST 45 U/L (14-36); African American GFR (CKD) >90 (>60 ml/min/1.73 sqM); Albumin 2.7 g/dL (3.5-5.0); Alkaline Phosphatase 128 U/L (38-126); Anion Gap 2 mmol/L; Blood Urea Nitrogen 16 mg/dL (7-17); Calcium 8.7 mg/dL (8.4-10.2); Carbon Dioxide 26 mmol/L (22-30); Chloride 106 mmol/L (98-107); Glucose 82 mg/dL (74-99); Non-African American GFR(CKD) >90 (>60 ml/min/1.73 sqM); Potassium 3.6 mmol/L (3.5-5.1); Sodium 134 mmol/L (137-145); Total Bilirubin 0.2 mg/dL (0.2-1.3); Total Protein 5.4 g/dL (6.3-8.2)
[2023-06-27] MEDS: INSULIN ASPART (NovoLOG) 100 UNIT/ML VIAL SQ SCH (07:30)
[2023-06-27] MEDS: ENOXAPARIN 40 MG/0.4 ML SYRINGE SQ SCH (09:02)
[2023-06-27] MEDS: AMOXIC-POT CLAV 875-125MG 1 EACH TAB PO SCH (09:02)
[2023-06-27 12:28] LABS: Glucose,Whole Blood 313 mg/dL (70-110)
[2023-06-27] MEDS: INSULIN DETEMIR (LEVEMIR) 100 UNIT/ML SYR SQ SCH ×2 (12:52→21:11)
[2023-06-27 14:26] LABS: Glucose,Whole Blood 427 mg/dL (70-110)
[2023-06-27 17:14] LABS: Glucose,Whole Blood 247 mg/dL (70-110)
[2023-06-27] MEDS: ACETAMINOPHEN TAB 325 MG TAB PO PRN (18:06)
[2023-06-27 20:44] LABS: Glucose,Whole Blood 375 mg/dL (70-110)
[2023-06-28 00:14] LABS: Glucose,Whole Blood 105 mg/dL (70-110)
[2023-06-28 07:01] LABS: Glucose,Whole Blood 72 mg/dL (70-110)
[2023-06-28 09:32] LABS: Glucose,Whole Blood 228 mg/dL (70-110)
[2023-06-28] MEDS: ATORVASTATIN 10 MG TAB PO SCH (09:32)
[2023-06-28 10:14] LABS: African American GFR (CKD) >90 (>60 ml/min/1.73 sqM); Anion Gap 4 mmol/L; Blood Urea Nitrogen 11 mg/dL (7-17); Calcium 8.2 mg/dL (8.4-10.2); Carbon Dioxide 25 mmol/L (22-30); Chloride 104 mmol/L (98-107); Glucose 213 mg/dL (74-99); Non-African American GFR(CKD) >90 (>60 ml/min/1.73 sqM); Potassium 4.2 mmol/L (3.5-5.1); Sodium 133 mmol/L (137-145)
--- NOTE | 2023-06-28 10:49 | P.PN ---
Subjective Progress Note Date: 06/28/23 No new complaints today. CM working on dispo. Psych consult pending. Gen: In NAD, non-toxic HEENT: normocephalic, atraumatic, hearing acuity is intant, mucous membranes moist CVS: perfusing all extremities well, no pitting edema, Respiratory: symmetric chest expansion, no accessory muscle use, GI: soft, NTTP, ND, : no suprapubic tenderness, no CVA tenderness MSK/Derm: no rashes, cyanosis Neuro: CN II-XII intact, no motor weakness, Hospital course: Patient is a 48-year-old female with a PMH of insulin-dependent diabetes mellitus, polysubstance abuse, and schizophrenia who presents to the emergency room for hyperglycemia. Of note, the patient was recently admitted to the hospital on 06/16 for DKA and being found unresponsive at home. She was intubated and admitted to the medical ICU. The patient was also treated for MSSA pneumonia and E. coli UTI. The patient was awaiting [facility] or SNF placement, however she eloped on 06/24 at around 2051. The patient states that she had gone to a friend's house where she was paying rent but that her sugar was repeatedly coming up high (in the 300s), which prompted her to come to the emergency room. The patient was reportedly picked up by her brother soon after eloping and was taking to a friend's house. The patient's mom had subsequently contacted the patient and advised her to go to the emergency room. The patient reports feeling somewhat tired at the time of interview but had no additional complaints. She denied experiencing chest discomfort, shortness of breath, fever, chills, cough, nausea, vomiting, abdominal pain, diarrhea. She is only concerned about her hyperglycemia. The patient is in agreement with placement at a [facility] or SNF. Laboratory evaluation in the emergency room was remarkable for WBC count 20.8, hemoglobin 8.7, platelet count 649, sodium 127, chloride 96, glucose 636, with an unremarkable UA and a negative acetone ED documentation reviewed and case discussed with ED provider. Assessment/plan: Recent E. coli UTI and MSSA pneumonia -The patient was previously on Unasyn #5 days and Zosyn #2 days with plans to finish an oral Augmentin course. Initiate Augmentin for 3 more days Uncontrolled type II DM -Insulin sliding scale blood glucose monitoring -detemir 10U daily/30U HS -hold home metformin Hypochloremic hyponatremia Normocytic anemia -Monitor BMP -Continue IV fluids with normal saline 100 cc/h -Monitor CBC Chronic conditions: Schizophrenia, polysubstance abuse -Resume home medications -Psychiatry consult is pending DVT prophylaxis: Lovenox subcu The patient is admitted with an anticipated greater than 2 midnight stay for evaluation of UTI and pneumonia CODE STATUS: Full Code Discussed with: Patient Anticipated discharge place: snf/SNF Objective - Vital Signs Vital signs: Vital Signs Temp 97.6 F 06/27/23 20:45 Pulse 76 06/28/23 09:33 Resp 22 06/28/23 09:33 BP 110/68 06/28/23 09:33 Pulse Ox 97 06/28/23 09:33 FiO2 - Labs CBC & Chem 7: 06/27/23 06:27 06/28/23 09:28 Labs: Abnormal Lab Results - Last 24 Hours (Table) 06/27/23 06/27/23 06/27/23 Range/Units 12:26 14:23 17:12 Sodium (137-145) mmol/L Glucose (74-99) mg/dL POC Glucose (mg/dL) 313 H 427 H 247 H (70-110) mg/dL Calcium (8.4-10.2) mg/dL 06/27/23 06/28/23 06/28/23 Range/Units 20:42 09:28 09:30 Sodium 133 L (137-145) mmol/L Glucose 213 H (74-99) mg/dL POC Glucose (mg/dL) 375 H 228 H (70-110) mg/dL Calcium 8.2 L (8.4-10.2) mg/dL
[2023-06-28 12:49] LABS: Glucose,Whole Blood 249 mg/dL (70-110)
[2023-06-28 15:40] LABS: Basophils # (A) 0.04 X 10*3/uL (0.00-0.10); Basophils % (A) 0.2 %; Eosinophils # (A) 0.06 X 10*3/uL (0.04-0.35); Eosinophils % (A) 0.3 %; HCT 25.9 % (37.2-46.3); HGB 8.5 g/dL (12.0-15.0); Lymphocytes # (A) 4.22 X 10*3/uL (0.90-5.00); Lymphocytes % (A) 22.4 %; MCH 29.3 pg (27.0-32.0); MCHC 32.8 g/dL (32.0-37.0); MCV 89.3 FL (80.0-97.0); Mean Platelet Volume 9.2 FL (9.5-12.2); Monocytes # (A) 0.98 X 10*3/uL (0.20-1.00); Monocytes % (A) 5.2 %; NRBC Per 100 WBC 0 X 10*3/uL (0.00-0.01); Neutrophils # (A) 12.78 X 10*3/uL (1.80-7.70); Neutrophils % (A) 67.9 %; Platelet Count 664 X 10*3/uL (140-440); RDW 13.5 % (11.5-14.5); WBC 18.83 X 10*3/uL (4.50-10.00)
[2023-06-28 16:56] LABS: Glucose,Whole Blood 299 mg/dL (70-110)
[2023-06-28 21:10] LABS: Glucose,Whole Blood 303 mg/dL (70-110)
--- NOTE | 2023-06-28 22:26 | P.CN ---
Psychiatric Consult - . Consult date: 06/28/23 Consult:: 06/28/23 22:14 CONSULTATION Reason for consult; Evaluation of psychosis. Identifying Data: The patient is a 48 years old, single female, who is homeless. History of present illness: The patient has history of insulin-dependent diabetes mellitus. Patient has been checking her sugar, found to be high. Patient has not had her insulin due to homelessness. Patient has nowhere to sleep. She has no other complaints. She was brought to ER by her cousin. She has PMH of insulin-dependent diabetes mellitus, osteoarthritis. She was recently admitted to the hospital for DKA. She was found unresponsive at home. She was admitted to the medical ICU and intubated. The patient was waiting for nursing home or SNF placement. She eloped from ICU. The patient was readmitted due to consistent high blood sugar. She was brought back by her brother. The patient is requesting to be placed in a nursing home or SNF. During this evaluation, the patient noted that she needs to be placed in a place where she can be monitored to control her Diabetes. She is scared to be discharged without such arrangement. She noted, I have no place to sleep. She firmly denied being depressed, feeling worthless, hopeless suicidal or homicidal. She denied hearing voices, seeing things, or feeling paranoid. She admitted to being anxious about her disposition. History of past psychiatric illness: Th patient has h/o Schizophrenia. She received Invega sustenna on 06/14. The next dose is due 07/13. She was also given Prozac and trazodone. She has h/o of multiple psychiatric admissions. Her last admission to this hospital was In September,. Substance abuse history: Polysubstance abuse. MSE: The patient was alert and attentive. Orientation X3. Patient was pleasant and cooperative. Psychomotor activity was normal Speech was normal in tone, quality, and quantity. Her stated mood was stated to be anxious. Affect was worried SI or HI- None Thought content- normal Thought process- normal Perceptual disturbance- none Cognition- Intact Judgement- Operational judgment fine. Insight- Fair IMP: No acute psychopathology H/O Schizophrenia REC: The patient is stable at this time from psychiatric point of view. She needs a supervised structured setting to better monitor her medication, especially insulin. Prozac 10 mg po daily and Trazodone 50 mg at bedtime can be reinstated. She is due for her Invega sustenna on 07/12. The patient does not meet criteria for psychiatric admission. She need appointment with [facility] for out-pt treatment. Psychiatry will sign off the case. Brigido Sharma MD Psychiatry
[2023-06-29 05:32] LABS: Glucose,Whole Blood 181 mg/dL (70-110)
[2023-06-29 07:30] LABS: Glucose,Whole Blood 270 mg/dL (70-110)
[2023-06-29 08:46] VITALS: RESP 17
[2023-06-29 12:35] LABS: Glucose,Whole Blood 350 mg/dL (70-110)
--- NOTE | 2023-06-29 13:21 | P.DS ---
Providers Date of admission: 06/27/23 04:27 Expected date of discharge: 06/29/23 Attending physician: Maris Sky MD Consults: 06/27/23 04:31 Consult Physician Routine Consulting Provider: Bhavesh Scherer Consult Reason/Comments: psychosis Do you want consulting provider notified?: Already Contacted Primary care physician: Stated None Hospital Course: Recent E. coli UTI and MSSA pneumonia Uncontrolled type II DM Hypochloremic hyponatremia Normocytic anemia Chronic conditions: Schizophrenia, polysubstance abuse Gen: In NAD, non-toxic HEENT: normocephalic, atraumatic, hearing acuity is intant, mucous membranes moist CVS: perfusing all extremities well, no pitting edema, Respiratory: symmetric chest expansion, no accessory muscle use, GI: soft, NTTP, ND, : no suprapubic tenderness, no CVA tenderness MSK/Derm: no rashes, cyanosis Neuro: CN II-XII intact, no motor weakness, Hospital course: Patient is a 48-year-old female with a PMH of insulin-dependent diabetes mellitus, polysubstance abuse, and schizophrenia who presents to the emergency room for hyperglycemia. Of note, the patient was recently admitted to the hospital on 06/16 for DKA and being found unresponsive at home. She was intubated and admitted to the medical ICU. The patient was also treated for MSSA pneumonia and E. coli UTI. The patient was awaiting alf or SNF placement, however she eloped on 06/24 at around 2051. The patient states that she had gone to a friend's house where she was paying rent but that her sugar was repeatedly coming up high (in the 300s), which prompted her to come to the emergency room. The patient was reportedly picked up by her brother soon after eloping and was taking to a friend's house. The patient's mom had subsequently contacted the patient and advised her to go to the emergency room. The patient reports feeling somewhat tired at the time of interview but had no additional complaints. She denied experiencing chest discomfort, shortness of breath, fever, chills, cough, nausea, vomiting, abdominal pain, diarrhea. She is only concerned about her hyperglycemia. The patient is in agreement with placement at a alf or SNF. Laboratory evaluation in the emergency room was remarkable for WBC count 20.8, hemoglobin 8.7, platelet count 649, sodium 127, chloride 96, glucose 636, with an unremarkable UA and a negative acetone Pt was successfully placed in alf and discharged accordingly. She will f/u with PCP. Prescribed one additional day of augmentin to complete course of abx for UTI. I spent 34 min coordinating this discharge Patient Condition at Discharge: Good Plan - Discharge Summary New Discharge Prescriptions: New Amoxic-Pot Clav 875-125Mg [Augmentin 875-125] 1 each PO BID #2 tab Acetaminophen Tab [Tylenol] 650 mg PO Q6HR PRN tab PRN Reason: Fever And/ Or Pain Continue metFORMIN HCL [metFORMIN HCL ER] 750 mg PO DAILY Paliperidone IM [Invega Sustenna] 234 mg IM Q28D Atorvastatin [Lipitor] 10 mg PO DAILY Discharge Medication List Paliperidone IM [Invega Sustenna] 234 mg IM Q28D 06/17/23 [History] Atorvastatin [Lipitor] 10 mg PO DAILY 06/20/23 [History] metFORMIN HCL [metFORMIN HCL ER] 750 mg PO DAILY 06/20/23 [History] Acetaminophen Tab [Tylenol] 650 mg PO Q6HR PRN tab 06/29/23 [Rx] Amoxic-Pot Clav 875-125Mg [Augmentin 875-125] 1 each PO BID #2 tab 06/29/23 [Rx] Follow up Appointment(s)/Referral(s): None,Stated [Primary Care Provider] - 1-2 days Discharge Disposition: OTHER INSTITUTION NOT DEFINED
[2023-06-29 13:35] VITALS: BP 129/98; PULSE 76; TEMP 98.1
== END 2023-06-29 15:15 | disposition home or self-care (01) | DRG 637 ==
LOC: EC 21:52 → 4SSUR 06-27 04:27 → 5NMEDONC 06-28 17:56
PROVIDERS: ADMIT Internal Medicine; ATTEND Internal Medicine
DX: E11.65 Type 2 diabetes mellitus with hyperglycemia (principal); J15.211 Pneumonia due to Methicillin susceptible Staphylococcus aureus; N39.0 Urinary tract infection, site not specified; E87.1 Hypo-osmolality and hyponatremia; Z79.84 Long term (current) use of oral hypoglycemic drugs; F17.210 Nicotine dependence, cigarettes, uncomplicated; F20.9 Schizophrenia, unspecified; F31.9 Bipolar disorder, unspecified; B96.20 Unspecified Escherichia coli [E. coli] as the cause of diseases classified elsewhere; D64.9 Anemia, unspecified; E87.8 Other disorders of electrolyte and fluid balance, not elsewhere classified; I10 Essential (primary) hypertension; F40.240 Claustrophobia; F41.0 Panic disorder [episodic paroxysmal anxiety]; F19.10 Other psychoactive substance abuse, uncomplicated; Z79.899 Other long term (current) drug therapy; Z79.4 Long term (current) use of insulin
CPT/HCPCS: 36415; 80048; 80053; 81001; 82009; 82075; 85025; 85027; 96360; 96361; 96372; 99285

== ENCOUNTER 2023-06-29 21:23 | Emergency (ER) | payer MEDICARE, OTHER ==
[2023-06-29 21:40] LABS: Glucose,Whole Blood >600 mg/dL (70-110)
[2023-06-29 22:19] LABS: Basophils # (A) 0.1 k/uL (0-0.2); Basophils % (A) 1 %; Eosinophils # (A) 0.1 k/uL (0-0.7); Eosinophils % (A) 1 %; HCT 31.2 % (34.0-46.0); Lymphocytes # (A) 3.4 k/uL (1.0-4.8); Lymphocytes % (A) 23 %; MCH 29.3 pg (25.0-35.0); MCHC 31.3 g/dL (31.0-37.0); Mean Platelet Volume 7.4; Monocytes # (A) 0.5 k/uL (0-1.0); Monocytes % (A) 3 %; Neutrophils # (A) 10.6 k/uL (1.3-7.7); Neutrophils % (A) 71 %; Platelet Count 768 k/uL (150-450); RBC 3.34 m/uL (3.80-5.40); RDW 14.8 % (11.5-15.5); WBC 14.9 k/uL (3.8-10.6)
[2023-06-29 22:24] LABS: Appearance,Urine Clear (Clear); Bilirubin,Urine Negative (Negative); Blood,Urine Negative (Negative); Color,Urine Colorless; Glucose,Urine (UA) 4+ (Negative); Ketones,Urine Negative (Negative); Leukocyte Esterase,Urine Negative (Negative); Nitrite,Urine Negative (Negative); PH, Urine 6.5 (5.0-8.0); Protein,Urine Negative (Negative); Urobilinogen,Urine <2.0 mg/dL (<2.0)
[2023-06-29 22:30] LABS: HGB 9.8 gm/dL (11.4-16.0); MCV 93.5 fL (80.0-100.0)
[2023-06-29 22:36] LABS: ALT 21 U/L (4-34); AST 22 U/L (14-36); African American GFR (CKD) >90 (>60 ml/min/1.73 sqM); Albumin 3.2 g/dL (3.5-5.0); Alkaline Phosphatase 170 U/L (38-126); Anion Gap 7 mmol/L; Blood Urea Nitrogen 17 mg/dL (7-17); Calcium 8.3 mg/dL (8.4-10.2); Carbon Dioxide 22 mmol/L (22-30); Chloride 99 mmol/L (98-107); Magnesium 1.7 mg/dL (1.6-2.3); Non-African American GFR(CKD) >90 (>60 ml/min/1.73 sqM); Potassium 4.6 mmol/L (3.5-5.1); Sodium 128 mmol/L (137-145); Total Bilirubin 0.1 mg/dL (0.2-1.3)
[2023-06-29 22:41] LABS: VBG PH 7.48 (7.31-7.41)
[2023-06-29] MEDS: SODIUM CHLORIDE 0.9% 1,000 ML IV ONE (22:41)
[2023-06-29] MEDS: SODIUM CHLORIDE 0.9% 1,000 ML IV SCH (22:41)
[2023-06-29 22:43] LABS: Glucose 672 mg/dL (74-99)
[2023-06-29] MEDS: INSULIN REGULAR 100 UNIT/ML VIAL (IV) IV ONE (23:44)
[2023-06-30 00:32] VITALS: RESP 16
[2023-06-30 00:56] LABS: Glucose,Whole Blood 314 mg/dL (70-110)
--- NOTE | 2023-06-30 01:07 | ED ---
General Adult HPI - General Chief complaint: Recheck/Abnormal Lab/Rx Stated complaint: Hyperglycemia Time Seen by Provider: 06/29/23 22:18 Source: patient Mode of arrival: ambulatory Limitations: no limitations - History of Present Illness Initial comments: 48-year-old female brought in by her snf with chief complaint of hyperglycemia. Patient is a type II diabetic and takes metformin. This evening at home the glucose meter read "high". She tells me "I messed up my blood sugar again". She reports having ice cream this evening. Patient was recently seen in our facility and treated for pneumonia. She states that at this time she feels well. She is having no nausea, vomiting, abdominal pain,, chest pain, difficulty breathing, cough, congestion, sore throat, fever. - Related Data Home Medications Medication Instructions Recorded Confirmed Paliperidone IM [Invega Sustenna] 234 mg IM Q28D 06/17/23 06/27/23 Atorvastatin [Lipitor] 10 mg PO DAILY 06/20/23 06/27/23 metFORMIN HCL [metFORMIN HCL ER] 750 mg PO DAILY 06/20/23 06/27/23 Previous Rx's Medication Instructions Recorded Acetaminophen Tab [Tylenol] 650 mg PO Q6HR PRN tab 06/29/23 Amoxic-Pot Clav 875-125Mg 1 each PO BID #2 tab 06/29/23 [Augmentin 875-125] Allergies Allergy/AdvReac Type Severity Reaction Status Date / Time pollen extracts Allergy Rash/Hives Verified 06/29/23 21:36 Review of Systems ROS Statement: Those systems with pertinent positive or pertinent negative responses have been documented in the HPI. ROS Other: All systems not noted in ROS Statement are negative. Past Medical History Past Medical History: Diabetes Mellitus, Osteoarthritis (OA) Additional Past Medical History / Comment(s): "GESTATIONAL DIABETES", GOES TO [facility] History of Any Multi-Drug Resistant Organisms: None Reported Past Surgical History: Section Additional Past Surgical History / Comment(s): POLA ARM SX WHEN CHILD - WENT THRU A WINDOW Past Anesthesia/Blood Transfusion Reactions: No Reported Reaction Additional Past Anesthesia/Blood Transfusion Reaction / Comment(s): CLAUSTROPHOBIA Past Psychological History: Anxiety, Bipolar, Panic Disorder, Schizophrenia Smoking Status: Current some day smoker Past Alcohol Use History: Occasional Past Drug Use History: Methamphetamine - Past Family History Father Additional Family Medical History / Comment(s): DEPRESSION, "PROBLEM WITH HIS PANCREAS" Mother Family Medical History: Hyperlipidemia, Hypertension Additional Family Medical History / Comment(s): DDD, NECK FUSION, KIDNEY CANCER General Exam Limitations: no limitations General appearance: alert, in no apparent distress Head exam: Present: atraumatic, normocephalic Eye exam: Present: normal appearance, EOMI Neck exam: Present: normal inspection Respiratory exam: Present: normal lung sounds bilaterally. Absent: respiratory distress, wheezes, rales, rhonchi, stridor Cardiovascular Exam: Present: regular rate, normal rhythm, normal heart sounds. Absent: systolic murmur, diastolic murmur, rubs, gallop, clicks Neurological exam: Present: alert, oriented X3 Psychiatric exam: Present: normal affect, normal mood Skin exam: Present: warm, dry Course Vital Signs 06/29/23 06/29/23 06/29/23 21:37 22:24 23:50 Temperature 98.6 F Pulse Rate 88 76 87 Respiratory 20 17 16 Rate Blood Pressure 135/85 112/68 140/80 O2 Sat by Pulse 99 97 96 Oximetry 06/30/23 01:26 Temperature 98.5 F Pulse Rate 79 Respiratory 16 Rate Blood Pressure 128/79 O2 Sat by Pulse 100 Oximetry Medical Decision Making - Medical Decision Making Was pt. sent in by a medical professional or institution (JAYLON Tomas, LE[employer]PERATOR, urgent care, hospital, or care home...) When possible be specific @ -No Did you speak to anyone other than the patient for history (EMS, parent, family, police, friend...)? What history was obtained from this source @ -No Did you review nursing and triage notes (agree or disagree)? Why? @ -I reviewed and agree with nursing and triage notes Were old charts reviewed (outside hosp., previous admission, EMS record, old EKG, old radiological studies, urgent care reports/EKG's, care home records)? Report findings @ -No old charts were reviewed Differential Diagnosis (chest pain, altered mental status, abdominal pain women, abdominal pain men, vaginal bleeding, weakness, fever, dyspnea, syncope, headache, dizziness, GI bleed, back pain, seizure, CVA, palpatations, mental health, musculoskeletal)? @ -Differential includes DKA, diabetic hyperglycemia, infection, this is not an all-inclusive list EKG interpreted by me (3pts min.). @ -As above X-rays interpreted by me (1pt min.). @ -None done CT interpreted by me (1pt min.). @ -None done U/S interpreted by me (1pt. min.). @ -None done What testing was considered but not performed or refused? (CT, X-rays, U/S, labs)? Why? @ -None What meds were considered but not given or refused? Why? @ -None Did you discuss the management of the patient with other professionals (professionals i.e. DrMoni, PA, LEAD SHOP OPERATOR, lab, RT, psych nurse, health care social worker, business consult, teacher, family preservation officer, case worker)? Give summary @ -No Was smoking cessation discussed for >3mins.? @ -No Was critical care preformed (if so, how long)? @ -No Were there social determinants of health that impacted care today? How? (Homelessness, low income, unemployed, alcoholism, drug addiction, transportation, low edu. Level, literacy, decrease access to med. care, ch[facility], rehab)? @ -No Was there de-escalation of care discussed even if they declined (Discuss DNR or withdrawal of care, Hospice)? DNR status @ -No What co-morbidities impacted this encounter? (DM, HTN, Smoking, COPD, CAD, Cancer, CVA, ARF, Chemo, Hep., AIDS, mental health diagnosis, sleep apnea, morbid obesity)? @ -None Was patient admitted / discharged? Hospital course, mention meds given and route, prescriptions, significant lab abnormalities, going to OR and other pertinent info. @ -48-year-old female presenting with chief complaint of hyperglycemia. Patient feels well at this time. Workup is initiated by triage. Glucose is 672. Patient is not in DKA. Anion gap 7 carbon dioxide 22. No ketonuria. Negative acetone. Patient is given 1 L IV fluid bolus and started on maintenance rate of 130 mL/h. She is given 10 units of regular insulin IV. On recheck glucose is 314. Patient is discharged back to snf. Follow-up with PCP. Report back to ER with any new or worsening symptoms. Discussed return parameters and answered all questions. Patient conveyed verbal understanding and agreed to the plan. I discussed this case in detail with my a ttending Dr. Medel Undiagnosed new problem with uncertain prognosis? @ -No Drug Therapy requiring intensive monitoring for toxicity (Heparin, Nitro, Insulin, Cardizem)? @ -No Were any procedures done? @ -No Diagnosis/symptom? @ -Diabetic hyperglycemia Acute, or Chronic, or Acute on Chronic? @ -Acute Uncomplicated (without systemic symptoms) or Complicated (systemic symptoms)? @ -Uncomplicated Side effects of treatment? @ -No Exacerbation, Progression, or Severe Exacerbation? @ -No Poses a threat to life or bodily function? How? (Chest pain, [place], [place], pneumonia, PE, COPD, DKA, ARF, appy, cholecystitis, CVA, Diverticulitis, Homicidal, Suicidal, threat to staff... and all critical care pts) @ -Low likelihood at this time - Lab Data Result diagrams: 06/29/23 22:08 06/29/23 22:08 Lab Results 06/29/23 06/29/23 06/29/23 Range/Units 21:39 22:08 22:08 WBC 14.9 H (3.8-10.6) k/uL RBC 3.34 L (3.80-5.40) m/uL Hgb 9.8 L D (11.4-16.0) gm/dL Hct 31.2 L (34.0-46.0) % MCV 93.5 D (80.0-100.0) fL MCH 29.3 (25.0-35.0) pg MCHC 31.3 (31.0-37.0) g/dL RDW 14.8 (11.5-15.5) % Plt Count 768 H (150-450) k/uL MPV 7.4 Neutrophils % 71 % Lymphocytes % 23 % Monocytes % 3 % Eosinophils % 1 % Basophils % 1 % Neutrophils # 10.6 H (1.3-7.7) k/uL Lymphocytes # 3.4 (1.0-4.8) k/uL Monocytes # 0.5 (0-1.0) k/uL Eosinophils # 0.1 (0-0.7) k/uL Basophils # 0.1 (0-0.2) k/uL VBG pH (7.31-7.41) VBG pCO2 (37-51) mmHg VBG HCO3 (24-28) mmol/L Sodium 128 L (137-145) mmol/L Potassium 4.6 (3.5-5.1) mmol/L Chloride 99 (98-107) mmol/L Carbon Dioxide 22 (22-30) mmol/L Anion Gap 7 mmol/L BUN 17 (7-17) mg/dL Creatinine 0.73 (0.52-1.04) mg/dL Est GFR (CKD-EPI)AfAm >90 (>60 ml/min/1.73 sqM) Est GFR (CKD-EPI)NonAf >90 (>60 ml/min/1.73 sqM) Glucose 672 H* (74-99) mg/dL POC Glucose (mg/dL) >600 H* (70-110) mg/dL POC Glu Line Installer Repairer ID Mary Alice Pickering Calcium 8.3 L (8.4-10.2) mg/dL Magnesium 1.7 (1.6-2.3) mg/dL Total Bilirubin 0.1 L (0.2-1.3) mg/dL AST 22 (14-36) U/L ALT 21 (4-34) U/L Alkaline Phosphatase 170 H (38-126) U/L Total Protein 6.0 L (6.3-8.2) g/dL Albumin 3.2 L (3.5-5.0) g/dL Urine Color Urine Appearance (Clear) Urine pH (5.0-8.0) Ur Specific [place] (1.001-1.035) Urine Protein (Negative) Urine Glucose (UA) (Negative) Urine Ketones (Negative) Urine Blood (Negative) Urine Nitrite (Negative) Urine Bilirubin (Negative) Urine Urobilinogen (<2.0) mg/dL Ur Leukocyte Esterase (Negative) Acetone, Qual Negative (Negative) 06/29/23 06/29/23 06/30/23 Range/Units 22:16 22:37 00:54 WBC (3.8-10.6) k/uL RBC (3.80-5.40) m/uL Hgb (11.4-16.0) gm/dL Hct (34.0-46.0) % MCV (80.0-100.0) fL MCH (25.0-35.0) pg MCHC (31.0-37.0) g/dL RDW (11.5-15.5) % Plt Count (150-450) k/uL MPV Neutrophils % % Lymphocytes % % Monocytes % % Eosinophils % % Basophils % % Neutrophils # (1.3-7.7) k/uL Lymphocytes # (1.0-4.8) k/uL Monocytes # (0-1.0) k/uL Eosinophils # (0-0.7) k/uL Basophils # (0-0.2) k/uL VBG pH 7.48 H (7.31-7.41) VBG pCO2 32 L (37-51) mmHg VBG HCO3 24 (24-28) mmol/L Sodium (137-145) mmol/L Potassium (3.5-5.1) mmol/L Chloride (98-107) mmol/L Carbon Dioxide (22-30) mmol/L Anion Gap mmol/L BUN (7-17) mg/dL Creatinine (0.52-1.04) mg/dL Est GFR (CKD-EPI)AfAm (>60 ml/min/1.73 sqM) Est GFR (CKD-EPI)NonAf (>60 ml/min/1.73 sqM) Glucose (74-99) mg/dL POC Glucose (mg/dL) 314 H (70-110) mg/dL POC Glu Line Installer Repairer ID Nava Funes Calcium (8.4-10.2) mg/dL Magnesium (1.6-2.3) mg/dL Total Bilirubin (0.2-1.3) mg/dL AST (14-36) U/L ALT (4-34) U/L Alkaline Phosphatase (38-126) U/L Total Protein (6.3-8.2) g/dL Albumin (3.5-5.0) g/dL Urine Color Colorless Urine Appearance Clear (Clear) Urine pH 6.5 (5.0-8.0) Ur Specific [place] 1.020 (1.001-1.035) Urine Protein Negative (Negative) Urine Glucose (UA) 4+ H (Negative) Urine Ketones Negative (Negative) Urine Blood Negative (Negative) Urine Nitrite Negative (Negative) Urine Bilirubin Negative (Negative) Urine Urobilinogen <2.0 (<2.0) mg/dL Ur Leukocyte Esterase Negative (Negative) Acetone, Qual (Negative) Disposition Clinical Impression: Hyperglycemia Disposition: HOME SELF-CARE Condition: Good Instructions (If sedation given, give patient instructions): Diabetic Hyperglycemia (ED) Additional Instructions: Follow-up with PCP. Report back to ER with any new or worsening symptoms. Is patient prescribed a controlled substance at d/c from ED?: No Referrals: None,Stated [Primary Care Provider] - 1-2 days Time of Disposition: 01:06
[2023-06-30 01:33] VITALS: BP 128/79; PULSE 79; TEMP 98.5
== END 2023-06-30 01:27 | disposition home or self-care (01) ==
LOC: EC 21:23
DX: R73.9 Hyperglycemia, unspecified (principal); F17.200 Nicotine dependence, unspecified, uncomplicated; Z91.048 Other nonmedicinal substance allergy status
CPT/HCPCS: 36415; 80053; 81003; 82009; 82803; 83735; 85025; 96360; 96361; 99284

== ENCOUNTER 2023-06-30 08:48 | Observation (INO) | payer MEDICARE, OTHER ==
[2023-06-30 09:08] LABS: Glucose,Whole Blood >600 mg/dL (70-110)
[2023-06-30 09:16] VITALS: RESP 16; TEMP 97.6
[2023-06-30] MEDS: SODIUM CHLORIDE 0.9% 1,000 ML IV ONE (09:30)
[2023-06-30 09:35] LABS: Basophils % (A) 0 %; Eosinophils # (A) 0.1 k/uL (0-0.7); Eosinophils % (A) 1 %; HCT 31.5 % (34.0-46.0); HGB 9.7 gm/dL (11.4-16.0); Lymphocytes # (A) 2.4 k/uL (1.0-4.8); Lymphocytes % (A) 17 %; MCH 29.2 pg (25.0-35.0); MCHC 30.9 g/dL (31.0-37.0); MCV 94.3 fL (80.0-100.0); Mean Platelet Volume 7.9; Monocytes # (A) 0.5 k/uL (0-1.0); Monocytes % (A) 4 %; Neutrophils # (A) 10.7 k/uL (1.3-7.7); Neutrophils % (A) 76 %; Platelet Count 751 k/uL (150-450); RBC 3.34 m/uL (3.80-5.40); RDW 15.1 % (11.5-15.5)
[2023-06-30 09:46] LABS: ALT 19 U/L (4-34); AST 18 U/L (14-36); African American GFR (CKD) >90 (>60 ml/min/1.73 sqM); Albumin 2.8 g/dL (3.5-5.0); Alkaline Phosphatase 169 U/L (38-126); Anion Gap 5 mmol/L; Blood Urea Nitrogen 18 mg/dL (7-17); Calcium 8.5 mg/dL (8.4-10.2); Carbon Dioxide 22 mmol/L (22-30); Chloride 100 mmol/L (98-107); Magnesium 1.8 mg/dL (1.6-2.3); Non-African American GFR(CKD) >90 (>60 ml/min/1.73 sqM); Potassium 5.2 mmol/L (3.5-5.1); Sodium 127 mmol/L (137-145); Total Bilirubin 0.2 mg/dL (0.2-1.3); Total Protein 5.4 g/dL (6.3-8.2)
[2023-06-30 09:58] LABS: Glucose 722 mg/dL (74-99)
[2023-06-30 10:03] LABS: Appearance,Urine Clear (Clear); Bilirubin,Urine Negative (Negative); Blood,Urine Negative (Negative); Color,Urine Colorless; Glucose,Urine (UA) 4+ (Negative); Ketones,Urine Negative (Negative); Leukocyte Esterase,Urine Negative (Negative); Nitrite,Urine Negative (Negative); PH, Urine 6.5 (5.0-8.0); Protein,Urine Negative (Negative); Specific Gravity,Urine 1.018 (1.001-1.035); Urobilinogen,Urine <2.0 mg/dL (<2.0)
[2023-06-30] MEDS ORDERED: DEXTROSE 50% SYRINGE 50 ML IVP PRN ×2 (11:00)
--- NOTE | 2023-06-30 11:00 | ED ---
General Adult HPI - General Chief complaint: Recheck/Abnormal Lab/Rx Stated complaint: High Sugar/Chest Pain Time Seen by Provider: 06/30/23 08:55 Source: patient Mode of arrival: ambulatory Limitations: no limitations - History of Present Illness Initial comments: 48-year-old female who presents emergency department for hyperglycemia. She is currently residing at [facility]. She is a known diabetic. Patient was hospitalized recently for DKA. She presented to the emergency department last night for hyperglycemia. She states she has been taking her metformin 750 once a day. This morning she ate 2 oranges and banana. They checked her sugar and the machine read high. Patient is not currently prescribed any insulin. Patient denies any symptoms to include chest pain, difficulty breathing, abdominal pain, nausea or vomiting. No other alleviating, precipitating or modifying factors - Related Data Home Medications Medication Instructions Recorded Confirmed Paliperidone IM [Invega Sustenna] 234 mg IM Q28D 06/17/23 06/27/23 Atorvastatin [Lipitor] 10 mg PO DAILY 06/20/23 06/27/23 metFORMIN HCL [metFORMIN HCL ER] 750 mg PO DAILY 06/20/23 06/27/23 Previous Rx's Medication Instructions Recorded Acetaminophen Tab [Tylenol] 650 mg PO Q6HR PRN tab 06/29/23 Amoxic-Pot Clav 875-125Mg 1 each PO BID #2 tab 06/29/23 [Augmentin 875-125] Allergies Allergy/AdvReac Type Severity Reaction Status Date / Time pollen extracts Allergy Rash/Hives Verified 06/30/23 08:55 Review of Systems ROS Statement: Those systems with pertinent positive or pertinent negative responses have been documented in the HPI. ROS Other: All systems not noted in ROS Statement are negative. Past Medical History Past Medical History: Diabetes Mellitus, Osteoarthritis (OA) Additional Past Medical History / Comment(s): "GESTATIONAL DIABETES", GOES TO [facility] History of Any Multi-Drug Resistant Organisms: None Reported Past Surgical History: Section Additional Past Surgical History / Comment(s): POLA ARM SX WHEN CHILD - WENT THRU A WINDOW Past Anesthesia/Blood Transfusion Reactions: No Reported Reaction Additional Past Anesthesia/Blood Transfusion Reaction / Comment(s): CLAUSTROPHOBIA Past Psychological History: Anxiety, Bipolar, Panic Disorder, Schizophrenia Smoking Status: Current some day smoker Past Alcohol Use History: Occasional Past Drug Use History: Methamphetamine - Past Family History Father Additional Family Medical History / Comment(s): DEPRESSION, "PROBLEM WITH HIS PANCREAS" Mother Family Medical History: Hyperlipidemia, Hypertension Additional Family Medical History / Comment(s): DDD, NECK FUSION, KIDNEY CANCER General Exam Limitations: no limitations Course Vital Signs 06/30/23 06/30/23 08:52 09:14 Temperature 97.6 F Pulse Rate 93 Pulse Rate [ 93 Pulse Oximetery ] Respiratory 16 Rate Blood Pressure 133/84 O2 Sat by Pulse 98 Oximetry Medical Decision Making - Medical Decision Making Was pt. sent in by a medical professional or institution (, [facility], GLUE SPRAYER, urgent care, hospital, or shelter...) When possible be specific @ -[No] Did you speak to anyone other than the patient for history (EMS, parent, family, police, friend...)? What history was obtained from this source @ -[No] Did you review nursing and triage notes (agree or disagree)? Why? @ -[I reviewed and agree with nursing and triage notes] Were old charts reviewed (outside hosp., previous admission, EMS record, old EKG, old radiological studies, urgent care reports/EKG's, shelter records)? Report findings @ -[No old charts were reviewed] Differential Diagnosis (chest pain, altered mental status, abdominal pain women, abdominal pain men, vaginal bleeding, weakness, fever, dyspnea, syncope, headache, dizziness, GI bleed, back pain, seizure, CVA, palpatations, mental health, musculoskeletal)? @ -[not applicable] EKG interpreted by me (3pts min.). @ -Yes and demonstrates sinus rhythm with a rate of 74. [place] interval 137. QRS 89. QTc of 383. No acute ST segment elevations or depressions X-rays interpreted by me (1pt min.). @ -[None done] CT interpreted by me (1pt min.). @ -[None done] U/S interpreted by me (1pt. min.). @ -[None done] What testing was considered but not performed or refused? (CT, X-rays, U/S, labs)? Why? @ -[None] What meds were considered but not given or refused? Why? @ -[None] Did you discuss the management of the patient with other professionals (professionals i.e. , PA, GLUE SPRAYER, lab, RT, psych nurse, social group worker, cement fittings maker, teacher, property utilization officer, caser)? Give summary @ -[No] Was smoking cessation discussed for >3mins.? @ -[No] Was critical care preformed (if so, how long)? @ -[No] Were there social determinants of health that impacted care today? How? (Homelessness, low income, unemployed, alcoholism, drug addiction, transportation, low edu. Level, literacy, decrease access to med. care, intermediate, rehab)? @ -[No] Was there de-escalation of care discussed even if they declined (Discuss DNR or withdrawal of care, Hospice)? DNR status @ -[No] What co-morbidities impacted this encounter? (DM, HTN, Smoking, COPD, CAD, Cancer, CVA, ARF, Chemo, Hep., AIDS, mental health diagnosis, sleep apnea, morbid obesity)? @ -[None] Was patient admitted / discharged? Hospital course, mention meds given and route, prescriptions, significant lab abnormalities, going to OR and other pertinent info. @ -[hospital course] Undiagnosed new problem with uncertain prognosis? @ -[No] Drug Therapy requiring intensive monitoring for toxicity (Heparin, Nitro, Insulin, Cardizem)? @ -[No] Were any procedures done? @ -[No] Diagnosis/symptom? @ -[default] Acute, or Chronic, or Acute on Chronic? @ -[default] Uncomplicated (without systemic symptoms) or Complicated (systemic symptoms)? @ -[default] Side effects of treatment? @ -[No] Exacerbation, Progression, or Severe Exacerbation? @ -[No] Poses a threat to life or bodily function? How? (Chest pain, USA, PR, pneumonia, PE, COPD, DKA, ARF, appy, cholecystitis, CVA, Diverticulitis, Homicidal, Suicidal, threat to staff... and all critical care pts) @ -[No] - Lab Data Result diagrams: 06/30/23 09:25 06/30/23 09:25 Lab Results 06/30/23 06/30/23 06/30/23 Range/Units 09:06 09: 09:25 WBC 14.0 H (3.8-10.6) k/uL RBC 3.34 L (3.80-5.40) m/uL Hgb 9.7 L (11.4-16.0) gm/dL Hct 31.5 L (34.0-46.0) % MCV 94.3 (80.0-100.0) fL MCH 29.2 (25.0-35.0) pg MCHC 30.9 L (31.0-37.0) g/dL RDW 15.1 (11.5-15.5) % Plt Count 751 H (150-450) k/uL MPV 7.9 Neutrophils % 76 % Lymphocytes % 17 % Monocytes % 4 % Eosinophils % 1 % Basophils % 0 % Neutrophils # 10.7 H (1.3-7.7) k/uL Lymphocytes # 2.4 (1.0-4.8) k/uL Monocytes # 0.5 (0-1.0) k/uL Eosinophils # 0.1 (0-0.7) k/uL Basophils # 0.0 (0-0.2) k/uL Sodium (137-145) mmol/L Potassium (3.5-5.1) mmol/L Chloride (98-107) mmol/L Carbon Dioxide (22-30) mmol/L Anion Gap mmol/L BUN (7-17) mg/dL Creatinine (0.52-1.04) mg/dL Est GFR (CKD-EPI)AfAm (>60 ml/min/1.73 sqM) Est GFR (CKD-EPI)NonAf (>60 ml/min/1.73 sqM) Glucose (74-99) mg/dL POC Glucose (mg/dL) >600 H* (70-110) mg/dL POC Glu Reel And Rewinder Operator ID Belval, Jyotsna Plasma Lactic Acid Reed (0.7-2.0) mmol/L Calcium (8.4-10.2) mg/dL Magnesium (1.6-2.3) mg/dL Total Bilirubin (0.2-1.3) mg/dL AST (14-36) U/L ALT (4-34) U/L Alkaline Phosphatase (38-126) U/L Total Protein (6.3-8.2) g/dL Albumin (3.5-5.0) g/dL Urine Color Colorless Urine Appearance Clear (Clear) Urine pH 6.5 (5.0-8.0) Ur Specific Perry 1.018 (1.001-1.035) Urine Protein Negative (Negative) Urine Glucose (UA) 4+ H (Negative) Urine Ketones Negative (Negative) Urine Blood Negative (Negative) Urine Nitrite Negative (Negative) Urine Bilirubin Negative (Negative) Urine Urobilinogen <2.0 (<2.0) mg/dL Ur Leukocyte Esterase Negative (Negative) Acetone, Qual (Negative) 06/30/23 06/30/23 Range/Units 09:25 09:25 WBC (3.8-10.6) k/uL RBC (3.80-5.40) m/uL Hgb (11.4-16.0) gm/dL Hct (34.0-46.0) % MCV (80.0-100.0) fL MCH (25.0-35.0) pg MCHC (31.0-37.0) g/dL RDW (11.5-15.5) % Plt Count (150-450) k/uL MPV Neutrophils % % Lymphocytes % % Monocytes % % Eosinophils % % Basophils % % Neutrophils # (1.3-7.7) k/uL Lymphocytes # (1.0-4.8) k/uL Monocytes # (0-1.0) k/uL Eosinophils # (0-0.7) k/uL Basophils # (0-0.2) k/uL Sodium 127 L (137-145) mmol/L Potassium 5.2 H (3.5-5.1) mmol/L Chloride 100 (98-107) mmol/L Carbon Dioxide 22 (22-30) mmol/L Anion Gap 5 mmol/L BUN 18 H (7-17) mg/dL Creatinine 0.73 (0.52-1.04) mg/dL Est GFR (CKD-EPI)AfAm >90 (>60 ml/min/1.73 sqM) Est GFR (CKD-EPI)NonAf >90 (>60 ml/min/1.73 sqM) Glucose 722 H* (74-99) mg/dL POC Glucose (mg/dL) (70-110) mg/dL POC Glu Reel And Rewinder Operator ID Plasma Lactic Acid Reed 2.1 H* (0.7-2.0) mmol/L Calcium 8.5 (8.4-10.2) mg/dL Magnesium 1.8 (1.6-2.3) mg/dL Total Bilirubin 0.2 (0.2-1.3) mg/dL AST 18 (14-36) U/L ALT 19 (4-34) U/L Alkaline Phosphatase 169 H (38-126) U/L Total Protein 5.4 L (6.3-8.2) g/dL Albumin 2.8 L (3.5-5.0) g/dL Urine Color Urine Appearance (Clear) Urine pH (5.0-8.0) Ur Specific Perry (1.001-1.035) Urine Protein (Negative) Urine Glucose (UA) (Negative) Urine Ketones (Negative) Urine Blood (Negative) Urine Nitrite (Negative) Urine Bilirubin (Negative) Urine Urobilinogen (<2.0) mg/dL Ur Leukocyte Esterase (Negative) Acetone, Qual Negative (Negative) Disposition Clinical Impression: Hyperglycemia Disposition: [facility] Instructions (If sedation given, give patient instructions): Diabetes and Nutrition (ED), Diabetes and Exercise (ED), Type 2 Diabetes Management for Adults (ED) Is patient prescribed a controlled substance at d/c from ED?: No Referrals: Diabetes Malik Rodriguez PH [NON-STAFF] - 1-2 days None,Stated [Primary Care Provider] - 1-2 days Time of Disposition: 10:59 Decision to Admit Reason: Admit from EC Decision Date: 06/30/23 Decision Time: 10:59
[2023-06-30] MEDS ORDERED: NALOXONE 0.4 MG/ML 1 ML VIAL IV PRN (11:03)
[2023-06-30] MEDS: SODIUM CHLORIDE 0.9% 1,000 ML IV SCH (11:24)
[2023-06-30] MEDS: LACTATED RINGERS 1,000 ML IV ONE (11:25)
[2023-06-30] MEDS: INSULIN DETEMIR (LEVEMIR) 100 UNIT/ML SYR SQ STA (11:28)
[2023-06-30] MEDS: INSULIN ASPART (NovoLOG) 100 UNIT/ML VIAL SQ SCH (11:56)
[2023-06-30 12:32] LABS: Glucose,Whole Blood 537 mg/dL (70-110)
[2023-06-30] MEDS: LACTATED RINGERS 1,000 ML IV SCH (13:33)
[2023-06-30 15:00] LABS: Glucose,Whole Blood 333 mg/dL (70-110)
[2023-06-30 16:40] LABS: Glucose,Whole Blood 261 mg/dL (70-110)
--- NOTE | 2023-06-30 17:21 | P.HPIM ---
History of Present Illness H&P Date: 06/30/23 Chief Complaint: hyperglycemia Patient is a 48-year-old female with a PMH of insulin-dependent diabetes mellitus, polysubstance abuse, and schizophrenia who presented to the emergency room for hyperglycemia. She was recently discharged to [facility] after being admitted at our facility for the same. Unfortunately, patient was not discharged on insulin, and Rosaura presented to the hospital with hyperglycemia. She had no symptoms of hypoglycemia or DKA including nausea, vomiting, abdominal pain, diarrhea. Patient's sugars were in the 700s upon admission, she received some insulin in the emergency room and then was started on long-acting Levemir with sliding scal e insulin as well as IV fluids. Gen: In NAD, non-toxic HEENT: normocephalic, atraumatic, hearing acuity is intant, mucous membranes moist CVS: perfusing all extremities well, no pitting edema, Respiratory: symmetric chest expansion, no accessory muscle use, GI: soft, NTTP, ND, : no suprapubic tenderness, no CVA tenderness MSK/Derm: no rashes, cyanosis Neuro: CN II-XII intact, no motor weakness, Psych: cooperative, euthymic mood, judgment and insight is intact Assessment/plan: Uncontrolled type II DM with hyperglycemia -Insulin sliding scale blood glucose monitoring -detemir 10U daily/20U HS -hold home metformin -LR @ 125cc/hr Chronic conditions: Schizophrenia, polysubstance abuse -Resume home medications DVT prophylaxis: Lovenox subcu CODE STATUS: Full Code Discussed with: Patient Anticipated discharge place[facility] Past Medical History Past Medical History: Diabetes Mellitus, Osteoarthritis (OA) Additional Past Medical History / Comment(s): "GESTATIONAL DIABETES", GOES TO [facility] History of Any Multi-Drug Resistant Organisms: None Reported Past Surgical History: Section Additional Past Surgical History / Comment(s): POLA ARM SX WHEN CHILD - WENT THRU A WINDOW Past Anesthesia/Blood Transfusion Reactions: No Reported Reaction Additional Past Anesthesia/Blood Transfusion Reaction / Comment(s): CLAUSTROPHOBIA Past Psychological History: Anxiety, Bipolar, Panic Disorder, Schizophrenia Smoking Status: Current some day smoker Past Alcohol Use History: Occasional Past Drug Use History: Methamphetamine - Past Family History Father Additional Family Medical History / Comment(s): DEPRESSION, "PROBLEM WITH HIS P ANCREAS" Mother Family Medical History: Hyperlipidemia, Hypertension Additional Family Medical History / Comment(s): DDD, NECK FUSION, KIDNEY CANCER Medications and Allergies Home Medications Medication Instructions Recorded Confirmed Type Paliperidone IM [Invega Sustenna] 234 mg IM Q28D 06/17/23 06/30/23 History Atorvastatin [Lipitor] 10 mg PO HS@2100 06/20/23 06/30/23 History metFORMIN HCL [metFORMIN HCL ER] 750 mg PO DAILY@0800 06/20/23 06/30/23 History Allergies Allergy/AdvReac Type Severity Reaction Status Date / Time pollen extracts Allergy Rash/Hives Verified 06/30/23 11:13 Physical Exam Osteopathic Statement: *. No significant issues noted on an osteopathic structural exam other than those noted in the History and Physical/Consult. Vitals: Vital Signs Temp Pulse Pulse Resp BP Pulse Ox 06/30/23 17:00 76 16 148/94 99 06/30/23 09:14 93 06/30/23 08:52 97.6 F 93 16 133/84 98 Intake and Output 06/30/23 06/30/23 06/30/23 06:59 14:59 22:59 Other: Weight 77.111 kg Results CBC & Chem 7: 06/30/23 09:25 06/30/23 09:25 Labs: Abnormal Lab Results - Last 24 Hours (Table) 06/30/23 06/30/23 06/30/23 Range/Units 09:06 09:25 09:25 WBC 14.0 H (3.8-10.6) k/uL RBC 3.34 L (3.80-5.40) m/uL Hgb 9.7 L (11.4-16.0) gm/dL Hct 31.5 L (34.0-46.0) % MCHC 30.9 L (31.0-37.0) g/dL Plt Count 751 H (150-450) k/uL Neutrophils # 10.7 H (1.3-7.7) k/uL Sodium (137-145) mmol/L Potassium (3.5-5.1) mmol/L BUN (7-17) mg/dL Glucose (74-99) mg/dL POC Glucose (mg/dL) >600 H* (70-110) mg/dL Plasma Lactic Acid Reed (0.7-2.0) mmol/L Alkaline Phosphatase (38-126) U/L Total Protein (6.3-8.2) g/dL Albumin (3.5-5.0) g/dL Urine Glucose (UA) 4+ H (Negative) 06/30/23 06/30/23 06/30/23 Range/Units 09:25 09:25 12:30 WBC (3.8-10.6) k/uL RBC (3.80-5.40) m/uL Hgb (11.4-16.0) gm/dL Hct (34.0-46.0) % MCHC (31.0-37.0) g/dL Plt Count (150-450) k/uL Neutrophils # (1.3-7.7) k/uL Sodium 127 L (137-145) mmol/L Potassium 5.2 H (3.5-5.1) mmol/L BUN 18 H (7-17) mg/dL Glucose 722 H* (74-99) mg/dL POC Glucose (mg/dL) 537 H* (70-110) mg/dL Plasma Lactic Acid Reed 2.1 H* (0.7-2.0) mmol/L Alkaline Phosphatase 169 H (38-126) U/L Total Protein 5.4 L (6.3-8.2) g/dL Albumin 2.8 L (3.5-5.0) g/dL Urine Glucose (UA) (Negative) 06/30/23 06/30/23 Range/Units 14:59 16:39 WBC (3.8-10.6) k/uL RBC (3.80-5.40) m/uL Hgb (11.4-16.0) gm/dL Hct (34.0-46.0) % MCHC (31.0-37.0) g/dL Plt Count (150-450) k/uL Neutrophils # (1.3-7.7) k/uL Sodium (137-145) mmol/L Potassium (3.5-5.1) mmol/L BUN (7-17) mg/dL Glucose (74-99) mg/dL POC Glucose (mg/dL) 333 H 261 H (70-110) mg/dL Plasma Lactic Acid Reed (0.7-2.0) mmol/L Alkaline Phosphatase (38-126) U/L Total Protein (6.3-8.2) g/dL Albumin (3.5-5.0) g/dL Urine Glucose (UA) (Negative)
[2023-06-30 17:39] VITALS: PULSE 76
--- NOTE | 2023-06-30 17:46 | P.DS ---
Providers Date of admission: 06/30/23 11:05 Expected date of discharge: 06/30/23 Attending physician: Ousmane Del Real MD Primary care physician: Stated None Hospital Course: Uncontrolled type II DM with hyperglycemia Chronic conditions: Schizophrenia, polysubstance abuse Hospital Course: Patient is a 48-year-old female with a PMH of insulin-dependent diabetes mellitus, polysubstance abuse, and schizophrenia who presented to the emergency room for hyperglycemia. She was recently discharged to [facility] after being admitted at our facility for the same. Unfortunately, patient was not discharged on insulin, and Rosaura presented to the hospital with hyperglycemia. She had no symptoms of hypoglycemia or DKA including nausea, vomiting, abdominal pain, diarrhea. Patient's sugars were in the 700s upon admission, she received some insulin in the emergency room and then was started on long-acting Levemir with sliding scale insulin as well as IV fluids. Pts sugars improved to the 200s with this regimen. She was discharged back to [facility] with script for levemir 10U qAM and 20U qHS. She should continue her metformin. Gen: In NAD, non-toxic HEENT: normocephalic, atraumatic, hearing acuity is intant, mucous membranes moist CVS: perfusing all extremities well, no pitting edema, Respiratory: symmetric chest expansion, no accessory muscle use, GI: soft, NTTP, ND, : no suprapubic tenderness, no CVA tenderness MSK/Derm: no rashes, cyanosis Neuro: CN II-XII intact, no motor weakness, Psych: cooperative, euthymic mood, judgment and insight is intact Patient Condition at Discharge: Good Plan - Discharge Summary New Discharge Prescriptions: New Insulin Detemir (Levemir) [Levemir] 10 unit SQ DAILY@0700 #1 each Insulin Detemir (Levemir) [Levemir] 20 unit SQ HS #1 each Continue metFORMIN HCL [metFORMIN HCL ER] 750 mg PO DAILY@0800 Paliperidone IM [Invega Sustenna] 234 mg IM Q28D Atorvastatin [Lipitor] 10 mg PO HS@2100 Discharge Medication List Paliperidone IM [Invega Sustenna] 234 mg IM Q28D 06/17/23 [History] Atorvastatin [Lipitor] 10 mg PO HS@2100 06/20/23 [History] metFORMIN HCL [metFORMIN HCL ER] 750 mg PO DAILY@0800 06/20/23 [History] Insulin Detemir (Levemir) [Levemir] 10 unit SQ DAILY@0700 #1 each 06/30/23 [Rx] Insulin Detemir (Levemir) [Levemir] 20 unit SQ HS #1 each 06/30/23 [Rx] Follow up Appointment(s)/Referral(s): Diabetes Education,Malik PH [NON-STAFF] - 1-2 days None,Stated [Primary Care Provider] - 1-2 days Patient Instructions/Handouts: Diabetes and Nutrition (ED), Diabetes and Exercise (ED), Type 2 Diabetes Management for Adults (ED) Discharge Disposition: OTHER INSTITUTION NOT DEFINED
[2023-06-30 19:50] LABS: Glucose,Whole Blood 343 mg/dL (70-110)
[2023-06-30] MEDS: INSULIN DETEMIR (LEVEMIR) 100 UNIT/ML SYR SQ SCH (20:15)
[2023-06-30 21:35] VITALS: BP 134/76
[2023-07-01] MEDS ORDERED: INSULIN DETEMIR (LEVEMIR) 100 UNIT/ML SYR SQ SCH (07:00)
== END 2023-06-30 20:30 | disposition other institution (70) ==
LOC: EC 08:48 → 6NMEDSUR 11:05
PROVIDERS: ADMIT Internal Medicine; ATTEND Internal Medicine
DX: E11.65 Type 2 diabetes mellitus with hyperglycemia (principal); F20.9 Schizophrenia, unspecified; F41.0 Panic disorder [episodic paroxysmal anxiety]; F31.9 Bipolar disorder, unspecified; F17.200 Nicotine dependence, unspecified, uncomplicated; Z79.84 Long term (current) use of oral hypoglycemic drugs; Z79.899 Other long term (current) drug therapy
CPT/HCPCS: 96360; 96361; 99285; 36415; 93005; 80053; 82009; 83605; 83735; 85025; 81003; G0378

== ENCOUNTER → 2023-08-12 | Outpatient (CLI) | payer MEDICARE, OTHER ==
--- NOTE | 2023-08-12 16:50 | US ---
EXAMINATION TYPE: US abdomen complete DATE OF EXAM: 08/12/2023 COMPARISON: Renal ultrasound, liver ultrasound 10/21/2021 CLINICAL INDICATION: Female, 48 years old with history of R74.8 Elevated lipase; elevated labs TECHNIQUE: Multiple sonographic images of the abdomen are obtained. FINDINGS: EXAM MEASUREMENTS: Liver Length: 13.3 cm Gallbladder Wall: 0.2 cm CBD: 0.8 cm Spleen: 9.7 cm Right Kidney: 9.1 x 5.1 x 4.4 cm Left Kidney: 11.7 x 5.4 x 6.2 cm AGRICULTURAL EQUIPMENT SALES ENGINEER NOTES: Pancreas: wnl Liver: wnl Gallbladder: wnl Evidence for sonographic Valverde's sign: No CBD: Mildly dilated measuring 8 mm. Spleen: wnl Right Kidney: wnl Left Kidney: wnl Upper IVC: wnl Abd Aorta: wnl The liver is homogenous. The intrahepatic portion of the IVC and proximal abdominal aorta are within normal limits. There is no evidence of cholelithiasis. Common bile duct is mildly dilated measurin g up to 8 mm. The visualized portions of the pancreas are homogenous. No visualized peripancreatic fl uid collections. The spleen is unremarkable. Kidneys are symmetric and free of hydronephrosis. No renal lesions are seen. IMPRESSION: Mildly dilated common bile duct measuring up to 8 mm. Correlation with biliary obstruction labs and c onsideration for MRCP is recommended.
== END | disposition home or self-care (01) ==
LOC: RADUSWWP 08:15
PROVIDERS: ATTEND Family Medicine
DX: R74.8 Abnormal levels of other serum enzymes (principal); K83.8 Other specified diseases of biliary tract
CPT/HCPCS: 76700

== ENCOUNTER → 2023-12-08 | Outpatient (CLI) | payer MEDICARE, OTHER ==
[2023-12-08 08:44] LABS: Appearance,Urine Clear (Clear); Bilirubin,Urine Negative (Negative); Blood,Urine Negative (Negative); Color,Urine Colorless; Glucose,Urine (UA) Negative (Negative); Ketones,Urine Negative (Negative); Leukocyte Esterase,Urine Negative (Negative); Nitrite,Urine Negative (Negative); PH, Urine 6.5 (5.0-8.0); Protein,Urine Negative (Negative); Specific Gravity,Urine 1.015 (1.001-1.035); Urobilinogen,Urine <2.0 mg/dL (<2.0)
[2023-12-08 15:34] LABS: Basophils # (A) 0.06 X 10*3/uL (0.00-0.10); Basophils % (A) 0.6 %; Eosinophils # (A) 0.17 X 10*3/uL (0.04-0.35); Eosinophils % (A) 1.6 %; HCT 38.6 % (37.2-46.3); HGB 12.7 g/dL (12.0-15.0); Lymphocytes # (A) 4.15 X 10*3/uL (0.90-5.00); MCHC 32.9 g/dL (32.0-37.0); MCV 91.3 FL (80.0-97.0); Mean Platelet Volume 9.2 FL (9.5-12.2); Monocytes # (A) 0.63 X 10*3/uL (0.20-1.00); Monocytes % (A) 5.9 %; NRBC Per 100 WBC 0 X 10*3/uL (0.00-0.01); Neutrophils # (A) 5.61 X 10*3/uL (1.80-7.70); Neutrophils % (A) 52.6 %; Platelet Count 473 X 10*3/uL (140-440); RBC 4.23 X 10*6/uL (4.10-5.20); RDW 14.2 % (11.5-14.5); WBC 10.65 X 10*3/uL (4.50-10.00)
[2023-12-08 16:03] LABS: ALT 11 U/L (8-44); AST 16 U/L (13-35); Albumin 4.4 g/dL (3.8-4.9); Albumin/Globulin Ratio 1.83 Ratio (1.60-3.17); Alkaline Phosphatase 73 U/L (41-126); Blood Urea Nitrogen 16.1 mg/dL (9.0-27.0); Calcium 10.1 mg/dL (8.7-10.3); Carbon Dioxide 26.1 mmol/L (21.6-31.8); Chloride 105 mmol/L (96-109); Globulin 2.4 g/dL (1.6-3.3); Glucose 105 mg/dL (70-110); Phosphorus 4.6 mg/dL (2.4-5.1); Potassium 4.9 mmol/L (3.5-5.5); Sodium 141 mmol/L (135-145); Total Bilirubin 0.3 mg/dL (0.3-1.2); Total Protein 6.8 g/dL (6.2-8.2)
== END | disposition home or self-care (01) ==
LOC: LABWHC1 07:29
PROVIDERS: ATTEND Registered Nurse
DX: E09.10 Drug or chemical induced diabetes mellitus with ketoacidosis without coma (principal)
CPT/HCPCS: 36415; 80053; 81003; 83735; 84100; 85025

== ENCOUNTER → 2023-12-27 | Outpatient (CLI) | payer MEDICARE, OTHER ==
--- NOTE | 2023-12-27 13:08 | US ---
EXAMINATION TYPE: US kidneys/renal and bladder DATE OF EXAM: 12/27/2023 COMPARISON: NONE CLINICAL INDICATION: Female, 48 years old with history of E09.10 DRUG/CHEM DIABETES MELLITUS; diabeti c TECHNIQUE: Grayscale imaging of the bilateral kidneys and urinary bladder: FINDINGS: EXAM MEASUREMENTS: Right Kidney: 11.4 x 5.0 x 5.9 cm Left Kidney: 11.6 x 4.4 x 5.3 cm Right Kidney: No hydronephrosis or masses seen Left Kidney: No hydronephrosis or masses seen Bladder: wnl There is no evidence for hydronephrosis at this point in time. No nephrolithiasis is seen. No ny s are identified. The urinary bladder is anechoic. IMPRESSION: No evidence for obstructive uropathy or renal calculus. [facility], , 12/27/2023 1:05 PM
== END | disposition home or self-care (01) ==
LOC: RADUSWWP 11:14
PROVIDERS: ATTEND Family Medicine
DX: E09.10 Drug or chemical induced diabetes mellitus with ketoacidosis without coma (principal)
CPT/HCPCS: 76770

== ENCOUNTER → 2024-01-13 | Outpatient (CLI) | payer MEDICARE, OTHER ==
--- NOTE | 2024-01-16 11:29 | MM ---
Reason for Exam: Screening (asymptomatic). Baseline mammogram. Patient History: Menarche at age 16. First Full-Term at age 28. Postmenopausal. Risk Values: Michelle 5 year model risk: 0.9%. NCI Lifetime model risk: 9.6%. Prior Study Comparison: Patient's first Mammogram. Tissue Density: The breasts are heterogeneously dense, which may obscure small masses. Findings: Analyzed By CAD. Right breast: There is no suspicious group of microcalcifications or new suspicious mass. Left breast: There is no suspicious group of microcalcifications or new suspicious mass. Overall Assessment: Negative, BI-RAD 1 Management: Screening Mammogram of both breasts in [address] [facility] will attempt to contact patient to return for supplemental views and ultrasound if indicated. Patient should continue monthly self-breast exams. A clinical breast exam by your physician is recommended on an annual basis. This exam should not preclude additional follow-up of suspicious palpable abnormalities. Note on Michelle scores and lifetime risk: 1. A Michelle score greater than 3% is considered moderate risk. If this is the case, consider specialist referral to assess eligibility for a risk reducing agent. 2. If overall lifetime risk for the development of breast cancer is 20% or higher, the patient may qualify for future screening with alternating mammogram and breast MRI. [facility], , 01/16/2024 11:26 AM. Electronically signed and approved by: Rao Alejandro DO
== END | disposition home or self-care (01) ==
LOC: RADMAMWWP 10:19
PROVIDERS: ATTEND Family Medicine
DX: Z12.31 Encounter for screening mammogram for malignant neoplasm of breast (principal)
CPT/HCPCS: 77063; 77067

== ENCOUNTER → 2024-04-12 | Outpatient (CLI) | payer MEDICARE, OTHER | END | disposition home or self-care (01) | LOC: LABWHC1 11:30 | PROVIDERS: ATTEND Nurse Practitioner Family | DX: Z53.9 Procedure and treatment not carried out, unspecified reason (principal) ==

== ENCOUNTER → 2024-04-13 | Outpatient (CLI) | payer MEDICARE, OTHER ==
[2024-04-13 13:48] LABS: Appearance,Urine Cloudy (Clear); Bilirubin,Urine Negative (Negative); Blood,Urine Negative (Negative); Color,Urine Colorless; Glucose,Urine (UA) 4+ (Negative); Ketones,Urine Negative (Negative); Leukocyte Esterase,Urine Negative (Negative); Mucus,Urine Rare /hpf; Nitrite,Urine Negative (Negative); Protein,Urine Negative (Negative); Specific Gravity,Urine 1.014 (1.001-1.035); Squamous Epithelial Cell,Urine 8 /hpf (0-4); Urobilinogen,Urine <2.0 mg/dL (<2.0); WBC,Urine <1 /hpf (0-5)
== END | disposition home or self-care (01) ==
LOC: LABWHC1 11:05
PROVIDERS: ATTEND Nurse Practitioner Family
DX: N39.0 Urinary tract infection, site not specified (principal)
CPT/HCPCS: 81001; 87086

== ENCOUNTER 2024-04-20 20:07 | Emergency (ER) | payer MEDICARE, OTHER ==
[2024-04-20 20:10] VITALS: BP 151/80; PULSE 95; RESP 18; TEMP 97.6
--- NOTE | 2024-04-20 20:28 | ED ---
ENT HPI - General Chief complaint: Dental/Oral Stated complaint: mouth infection Time Seen by Provider: 04/20/24 20:13 Source: patient Mode of arrival: ambulatory Limitations: no limitations - History of Present Illness Initial comments: 48-year-old female presenting with chief complaint of dental pain. Patient has multiple known dental caries and fractured teeth. States that she has a dentist appointment coming up on the . He is having pain and swelling to the left lower jaw. No difficulty breathing or swallowing. No trismus fever or chills. No drooling or voice changes. - Related Data Home Medications Medication Instructions Recorded Confirmed Paliperidone IM [Invega Sustenna] 234 mg IM Q28D 06/17/23 06/30/23 Atorvastatin [Lipitor] 10 mg PO HS@2100 06/20/23 06/30/23 metFORMIN HCL [metFORMIN HCL ER] 750 mg PO DAILY@0800 06/20/23 06/30/23 Previous Rx's Medication Instructions Recorded Insulin Detemir (Levemir) [Levemir] 10 unit SQ DAILY@0700 #1 each 06/30/23 Insulin Detemir (Levemir) [Levemir] 20 unit SQ HS #1 each 06/30/23 Amoxic-Pot Clav 875-125Mg 1 tab PO Q12HR 7 Days #14 tab 04/20/24 [Augmentin 875-125] Allergies Allergy/AdvReac Type Severity Reaction Status Date / Time pollen extracts Allergy Rash/Hives Verified 04/20/24 20:10 Review of Systems ROS Statement: Those systems with pertinent positive or pertinent negative responses have been documented in the HPI. ROS Other: All systems not noted in ROS Statement are negative. Past Medical History Past Medical History: Diabetes Mellitus, Osteoarthritis (OA) Additional Past Medical History / Comment(s): "GESTATIONAL DIABETES", GOES [facility] History of Any Multi-Drug Resistant Organisms: None Reported Past Surgical History: Section Additional Past Surgical History / Comment(s): POLA ARM SX WHEN CHILD - WENT THRU A WINDOW Past Anesthesia/Blood Transfusion Reactions: No Reported Reaction Additional Past Anesthesia/Blood Transfusion Reaction / Comment(s): CLAUSTROPHOBIA Past Psychological History: Anxiety, Bipolar, Panic Disorder, Schizophrenia Smoking Status: Current every day smoker Past Alcohol Use History: None Reported Past Drug Use History: None Reported - Past Family History Father Additional Family Medical History / Comment(s): DEPRESSION, "PROBLEM WITH HIS PANCREAS" Mother Family Medical History: Hyperlipidemia, Hypertension Additional Family Medical History / Comment(s): DDD, NECK FUSION, KIDNEY CANCER General Exam Limitations: no limitations General appearance: alert, in no apparent distress Head exam: Present: atraumatic, normocephalic, normal inspection Eye exam: Present: normal appearance, EOMI Expanded Mouth exam: Present: tongue normal. Absent: drooling, trismus, muffled voice Teeth exam: Present: dental caries, fractured tooth #, dental tenderness #, gingival enlargement Throat exam: normal inspection Neck exam: Present: normal inspection. Absent: meningismus Respiratory exam: Absent: respiratory distress Cardiovascular Exam: Present: regular rate Neurological exam: Present: alert, oriented X3 Psychiatric exam: Present: normal affect, normal mood Skin exam: Present: warm, dry, normal color Course Vital Signs 04/20/24 20:08 Temperature 97.6 F Pulse Rate 95 Respiratory 18 Rate Blood Pressure 151/80 O2 Sat by Pulse 98 Oximetry Medical Decision Making - Medical Decision Making Was pt. sent in by a medical professional or institution (, PA, LOADER MAGAZINE GRINDER, urgent care, hospital, or group home...) When possible be specific @ -No Did you speak to anyone other than the patient for history (EMS, parent, family, police, friend...)? What history was obtained from this source @ -No Did you review nursing and triage notes (agree or disagree)? Why? @ -I reviewed and agree with nursing and triage notes Were old charts reviewed (outside hosp., previous admission, EMS record, old EKG, old radiological studies, urgent care reports/EKG's, group home records)? Report findings @ -No old charts were reviewed Differential Diagnosis (chest pain, altered mental status, abdominal pain women, abdominal pain men, vaginal bleeding, weakness, fever, dyspnea, syncope, headache, dizziness, GI bleed, back pain, seizure, CVA, palpatations, mental health, musculoskeletal)? @ -Differential includes toothache, dental abscess, Sid's angina, not an all-inclusive list EKG interpreted by me (3pts min.). @ -As above X-rays interpreted by me (1pt min.). @ -None done CT interpreted by me (1pt min.). @ -None done U/S interpreted by me (1pt. min.). @ -None done What testing was considered but not performed or refused? (CT, X-rays, U/S, labs)? Why? @ -None What meds were considered but not given or refused? Why? @ -None Did you discuss the management of the patient with other professionals (professionals i.e. Dr., PA, LOADER MAGAZINE GRINDER, lab, RT, psych nurse, social services technician, aircraft powerplant repairer, teacher, security officers and guards, case maker)? Give summary @ -No Was smoking cessation discussed for >3mins.? @ -No Was critical care preformed (if so, how long)? @ -No Were there social determinants of health that impacted care today? How? (Homelessness, low income, unemployed, alcoholism, drug addiction, transportation, low edu. Level, literacy, decrease access to med. care, prison, rehab)? @ -No Was there de-escalation of care discussed even if they declined (Discuss DNR or withdrawal of care, Hospice)? DNR status @ -No What co-morbidities impacted this encounter? (DM, HTN, Smoking, COPD, CAD, Cancer, CVA, ARF, Chemo, Hep., AIDS, mental health diagnosis, sleep apnea, morbid obesity)? @ -None Was patient admitted / discharged? Hospital course, mention meds given and route, prescriptions, significant lab abnormalities, going to OR and other pertinent info. @ -48-year-old female presenting with chief complaint of dental pain. On exam there is left lower jaw swelling as well as multiple severe dental caries and fractured teeth. She does have tenderness on exam. No brawny induration. No red flag symptoms. She will be treated with Augmentin. She will follow-up with her dentist at her scheduled appointment. Follow-up with PCP. Report back to ER with any new or worsening symptoms. Discussed return parameters and answered all questions. Patient conveyed verbal understanding and agreed to the plan. I discussed this case in detail with my attending Dr. Carlos Undiagnosed new problem with uncertain prognosis? @ -No Drug Therapy requiring intensive monitoring for toxicity (Heparin, Nitro, Insulin, Cardizem)? @ -No Were any procedures done? @ -No Diagnosis/symptom? @ -Dental abscess Acute, or Chronic, or Acute on Chronic? @ -Acute Uncomplicated (without systemic symptoms) or Complicated (systemic symptoms)? @ -Uncomplicated Side effects of treatment? @ -No Exacerbation, Progression, or Severe Exacerbation? @ -No Poses a threat to life or bodily function? How? (Chest pain, [place], [place], pneumonia, PE, COPD, DKA, ARF, appy, cholecystitis, CVA, Diverticulitis, Homicidal, Suicidal, threat to staff... and all critical care pts) @ -Threat with any infection without proper treatment, low likelihood at this time Disposition Clinical Impression: Dental abscess Disposition: HOME SELF-CARE Condition: Good Instructions (If sedation given, give patient instructions): Dental Abscess (ED) Additional Instructions: Follow-up with your dentist. Report back to ER with any new or worsening symptoms. Take Motrin and Tylenol as needed for pain control. Take your medication as prescribed. Prescriptions: Amoxic-Pot Clav 875-125Mg [Augmentin 875-125] 1 tab PO Q12HR 7 Days #14 tab Is patient prescribed a controlled substance at d/c from ED?: No Referrals: None,Stated [Primary Care Provider] - 1-2 days Time of Disposition: 20:26
[2024-04-20] MEDS: AMOXIC-POT CLAV 875-125MG 1 EACH TAB PO STA (20:39)
[2024-04-20] MEDS: KETOROLAC 15 MG/ML 1 ML VIAL IM STA (20:39)
== END 2024-04-20 20:50 | disposition home or self-care (01) ==
LOC: EC 20:07
DX: K04.7 Periapical abscess without sinus (principal); F17.200 Nicotine dependence, unspecified, uncomplicated; Z88.8 Allergy status to other drugs, medicaments and biological substances
CPT/HCPCS: 99283; 96372; J1885

== ENCOUNTER 2024-04-23 15:38 | Emergency (ER) | payer MEDICARE, OTHER ==
--- NOTE | 2024-04-23 15:59 | ED ---
Nausea/Vomiting/Diarrhea HPI - General Stated complaint: Vomiting,poss covid Time Seen by Provider: 04/23/24 15:51 Source: patient, RN notes reviewed Mode of arrival: ambulatory Limitations: no limitations - History of Present Illness Initial comments: This is a 48-year-old female presenting for GI symptoms occurring this morning. Patient endorses nausea and vomiting twice. Endorses recent sick contact with significant other was recently diagnosed with COVID, expressing concern she may have received a virus as well. Denies fever, chills, chest pain, dyspnea, abdominal pain, diarrhea, constipation, hematemesis, congestion, cough. MD complaint: nausea, vomiting Onset/Timin -: days(s) Associated Abdominal Pain: No - Related Data Home Medications Medication Instructions Recorded Confirmed Paliperidone IM [Invega Sustenna] 234 mg IM Q28D 06/17/23 06/30/23 Atorvastatin [Lipitor] 10 mg PO HS@2100 06/20/23 06/30/23 metFORMIN HCL [metFORMIN HCL ER] 750 mg PO DAILY@0800 06/20/23 06/30/23 Previous Rx's Medication Instructions Recorded Insulin Detemir (Levemir) [Levemir] 10 unit SQ DAILY@0700 #1 each 06/30/23 Insulin Detemir (Levemir) [Levemir] 20 unit SQ HS #1 each 06/30/23 Amoxic-Pot Clav 875-125Mg 1 tab PO Q12HR 7 Days #14 tab 04/20/24 [Augmentin 875-125] ondansetron HCL [Zofran] 8 mg PO Q8HR PRN #15 tab 04/23/24 Allergies Allergy/AdvReac Type Severity Reaction Status Date / Time pollen extracts Allergy Rash/Hives Verified 04/20/24 20:10 Review of Systems ROS Statement: Those systems with pertinent positive or pertinent negative responses have been documented in the HPI. ROS Other: All systems not noted in ROS Statement are negative. Past Medical History Past Medical History: Diabetes Mellitus, Osteoarthritis (OA) Additional Past Medical History / Comment(s): "GESTATIONAL DIABETES", GOES TO [facility] History of Any Multi-Drug Resistant Organisms: None Reported Past Surgical History: Section Additional Past Surgical History / Comment(s): POLA ARM SX WHEN CHILD - WENT THRU A WINDOW Past Anesthesia/Blood Transfusion Reactions: No Reported Reaction Additional Past Anesthesia/Blood Transfusion Reaction / Comment(s): CLAUSTROPHOBIA Past Psychological History: Anxiety, Bipolar, Panic Disorder, Schizophrenia Smoking Status: Current every day smoker Past Alcohol Use History: None Reported Past Drug Use History: None Reported - Past Family History Father Additional Family Medical History / Comment(s): DEPRESSION, "PROBLEM WITH HIS PANCREAS" Mother Family Medical History: Hyperlipidemia, Hypertension Additional Family Medical History / Comment(s): DDD, NECK FUSION, KIDNEY CANCER General Exam General appearance: alert, in no apparent distress Head exam: Present: atraumatic, normocephalic, normal inspection Eye exam: Present: normal appearance, PERRL, EOMI. Absent: scleral icterus, conjunctival injection, periorbital swelling ENT exam: Present: normal exam, mucous membranes moist Neck exam: Present: normal inspection. Absent: tenderness, meningismus, lymphadenopathy Respiratory exam: Present: normal lung sounds bilaterally. Absent: respiratory distress, wheezes, rales, rhonchi, stridor Cardiovascular Exam: Present: regular rate, normal rhythm, normal heart sounds. Absent: systolic murmur, diastolic murmur, rubs, gallop, clicks GI/Abdominal exam: Present: soft, normal bowel sounds. Absent: distended, tenderness, guarding, rebound, rigid Extremities exam: Present: normal inspection, full ROM, normal capillary refill. Absent: tenderness, pedal edema, joint swelling, calf tenderness Back exam: Present: normal inspection Neurological exam: Present: alert, oriented X3, CN II-XII intact Psychiatric exam: Present: normal affect, normal mood Skin exam: Present: warm, dry, intact, normal color. Absent: rash Course Vital Signs 04/23/24 16:22 Temperature 98.1 F Pulse Rate 88 Respiratory 20 Rate Blood Pressure 120/82 O2 Sat by Pulse 97 Oximetry Medical Decision Making - Medical Decision Making Was pt. sent in by a medical professional or institution (, PA, DIRECTOR DATA ARCHITECTURE, urgent care, hospital, or long-term...) When possible be specific @ -No Did you speak to anyone other than the patient for history (EMS, parent, family, police, friend...)? What history was obtained from this source @ -No Did you review nursing and triage notes (agree or disagree)? Why? @ -I reviewed and agree with nursing and triage notes Were old charts reviewed (outside hosp., previous admission, EMS record, old EKG, old radiological studies, urgent care reports/EKG's, long-term records)? Report findings @ -No old charts were reviewed Differential Diagnosis (chest pain, altered mental status, abdominal pain women, abdominal pain men, vaginal bleeding, weakness, fever, dyspnea, syncope, headache, dizziness, GI bleed, back pain, seizure, CVA, palpatations, mental health, musculoskeletal)? @ -Differential Abdominal Pain Women: Appendicitis, Cholecystitis, diverticulosis, ischemic bowel, pancreatitis, hepatitis, UTI, gastroenteritis, AAA, incarcerated hernia, bowel obstruction, constipation, inflammatory bowel, hepatitis, peptic ulcer disease, splenic infarction, perforated viscus, vulvitis, ovarian torsion, PID, kidney stone, placenta abruption, this is not meant to be an all-inclusive list EKG interpreted by me (3pts min.). @ -Not done X-rays interpreted by me (1pt min.). @ -None done CT interpreted by me (1pt min.). @ -None done U/S interpreted by me (1pt. min.). @ -None done What testing was considered but not performed or refused? (CT, X-rays, U/S, labs)? Why? @ -None What meds were considered but not given or refused? Why? @ -None Did you discuss the management of the patient with other professionals (professionals i.e. , PA, DIRECTOR DATA ARCHITECTURE, lab, RT, psych nurse, social services director, slash trimmer, teacher, geospatial program management officer, case worker)? Give summary @ -No Was smoking cessation discussed for >3mins.? @ -No Was critical care preformed (if so, how long)? @ -No Were there social determinants of health that impacted care today? How? (Homelessness, low income, unemployed, alcoholism, drug addiction, transportation, low edu. Level, literacy, decrease access to med. care, custodial, rehab)? @ -No Was there de-escalation of care discussed even if they declined (Discuss DNR or withdrawal of care, Hospice)? DNR status @ -No What co-morbidities impacted this encounter? (DM, HTN, Smoking, COPD, CAD, Cancer, CVA, ARF, Chemo, Hep., AIDS, mental health diagnosis, sleep apnea, morbid obesity)? @ -None Was patient admitted / discharged? Hospital course, mention meds given and route, prescriptions, significant lab abnormalities, going to OR and other pertinent info. @ -Cepheid test negative. Patient is pleased to hear results. Patient provided Zofran starter pack and Zofran sent to patient's pharmacy. Advised increase hydration of Pedialyte/Gatorade, antonia tea/aale for nausea and brat diet. Advised follow-up with PCP as needed. Discussed patient with Dr. Bueno. Undiagnosed new problem with uncertain prognosis? @ -No Drug Therapy requiring intensive monitoring for toxicity (Heparin, Nitro, Insulin, Cardizem)? @ -No Were any procedures done? @ -No Diagnosis/symptom? @ -Gastroenteritis Acute, or Chronic, or Acute on Chronic? @ -Acute Uncomplicated (without systemic symptoms) or Complicated (systemic symptoms)? @ -Uncomplicated Side effects of treatment? @ -No Exacerbation, Progression, or Severe Exacerbation? @ -No Poses a threat to life or bodily function? How? (Chest pain, [place], [place], pneumonia, PE, COPD, DKA, ARF, appy, cholecystitis, CVA, Diverticulitis, Homicidal, Suicidal, threat to staff... and all critical care pts) @ -No - Lab Data Lab Results 04/23/24 Range/Units 16:25 Influenza Type A (PCR) Not Detected (Not Detectd) Influenza Type B (PCR) Not Detected (Not Detectd) RSV (PCR) Not Detected (Not Detectd) SARS-CoV-2 (PCR) Not Detected (Not Detectd) Disposition Clinical Impression: Gastroenteritis Disposition: HOME SELF-CARE Condition: Good Instructions (If sedation given, give patient instructions): Acute Nausea and Vomiting (ED) Additional Instructions: Antonia tea/carter for nausea. Pedialyte/Gatorade for rehydration. Bread, rice, applesauce, tea, toast Prescriptions: ondansetron HCL [Zofran] 8 mg PO Q8HR PRN #15 tab PRN Reason: Nausea Is patient prescribed a controlled substance at d/c from ED?: No Referrals: None,Stated [Primary Care Provider] - 1-2 days Gaby Sykes PAC [REFERRING] - 1-2 days Time of Disposition: 17:46
[2024-04-23 16:25] VITALS: TEMP 98.1
[2024-04-23 17:10] LABS: Influenza A Not Detected (Not Detectd); Influenza B Not Detected (Not Detectd); RSV Not Detected (Not Detectd)
[2024-04-23] MEDS: ONDANSETRON 4 MG ODT STARTER PACK 2 TAB BTL PO STA (18:35)
[2024-04-23 18:38] VITALS: BP 120/78; PULSE 75; RESP 18
== END 2024-04-23 18:38 | disposition home or self-care (01) ==
LOC: EC 15:38
DX: K52.9 Noninfective gastroenteritis and colitis, unspecified (principal); F17.200 Nicotine dependence, unspecified, uncomplicated; Z91.048 Other nonmedicinal substance allergy status
CPT/HCPCS: 87636; 99284; S0119

== ENCOUNTER 2024-06-06 20:53 | Emergency (ER) | payer MEDICARE, OTHER ==
[2024-06-06 21:30] VITALS: TEMP 97.9
--- NOTE | 2024-06-06 22:09 | ED ---
General Adult HPI - General Chief complaint: Dental/Oral Stated complaint: tooth pain Time Seen by Provider: 06/06/24 21:30 Source: patient Mode of arrival: ambulatory Limitations: no limitations - History of Present Illness Initial comments: 49-year-old female with past medical history of diabetes who presents to the emergency department reporting a toothache. Patient states she started having pain in her right lower jaw today. Patient does have extremely poor dentition. Denies fevers. No difficulty breathing or swallowing. She is not currently on any antibiotics. Patient has taken some Tylenol for the pain without any relief. Currently patient does not have scheduled appointment with dentist. No other alleviating, precipitating or modifying factors - Related Data Home Medications Medication Instructions Recorded Confirmed Paliperidone IM [Invega Sustenna] 234 mg IM Q28D 06/17/23 06/11/24 Atorvastatin [Lipitor] 10 mg PO HS@2100 06/20/23 06/11/24 metFORMIN HCL [metFORMIN HCL ER] 1,000 mg PO DAILY@0800 06/20/23 06/11/24 Ascorbic Acid [Vitamin C] 500 mg PO DAILY 06/11/24 06/11/24 Cholecalciferol [Vitamin D3 (25 25 mcg PO DAILY 06/11/24 06/11/24 Mcg = 1000 Iu)] Semaglutide [Ozempic] 4 mg SQ WEEKLY 06/11/24 06/11/24 Previous Rx's Medication Instructions Recorded ondansetron HCL [Zofran] 8 mg PO Q8HR PRN #15 tab 04/23/24 HYDROcodone/APAP 5-325MG [[place] 1 tab PO Q6HR PRN 3 Days #12 tab 06/06/24 5-325] Penicillin V Potassium [Pen Vee K] 500 mg PO QID #40 tablet 06/06/24 Allergies Allergy/AdvReac Type Severity Reaction Status Date / Time pollen extracts Allergy Rash/Hives Verified 06/20/24 10:16 Review of Systems ROS Statement: Those systems with pertinent positive or pertinent negative responses have been documented in the HPI. ROS Other: All systems not noted in ROS Statement are negative. Past Medical History Past Medical History: Diabetes Mellitus, Osteoarthritis (OA) Additional Past Medical History / Comment(s): "GESTATIONAL DIABETES", GOES TO [facility] History of Any Multi-Drug Resistant Organisms: None Reported Past Surgical History: Section Additional Past Surgical History / Comment(s): POLA ARM SX WHEN CHILD - WENT THRU A WINDOW Past Anesthesia/Blood Transfusion Reactions: No Reported Reaction Additional Past Anesthesia/Blood Transfusion Reaction / Comment(s): CLAUSTROPHOBIA Past Psychological History: Anxiety, Bipolar, Panic Disorder, Schizophrenia Smoking Status: Current every day smoker Past Alcohol Use History: None Reported Past Drug Use History: None Reported - Past Family History Father Additional Family Medical History / Comment(s): DEPRESSION, "PROBLEM WITH HIS PANCREAS" Mother Family Medical History: Hyperlipidemia, Hypertension Additional Family Medical History / Comment(s): DDD, NECK FUSION, KIDNEY CANCER General Exam Limitations: no limitations General appearance: alert Head exam: Present: atraumatic Eye exam: Present: normal appearance, PERRL, EOMI. Absent: scleral icterus, conjunctival injection, periorbital swelling ENT exam: Present: other (Patient has extremely poor dentition. Tooth #29 is significantly decayed) Course Vital Signs 06/06/24 06/06/24 21:27 22:40 Temperature 97.9 F Pulse Rate 67 68 Respiratory 18 17 Rate Blood Pressure 117/86 139/89 O2 Sat by Pulse 97 99 Oximetry Medical Decision Making - Medical Decision Making Was pt. sent in by a medical professional or institution (, PA, MANAGER TEST, urgent care, hospital, or jail...) When possible be specific @ -No Did you speak to anyone other than the patient for history (EMS, parent, family, police, friend...)? What history was obtained from this source @ -No Did you review nursing and triage notes (agree or disagree)? Why? @ -I reviewed and agree with nursing and triage notes Were old charts reviewed (outside hosp., previous admission, EMS record, old EKG, old radiological studies, urgent care reports/EKG's, jail records)? Report findings @ -No old charts were reviewed Differential Diagnosis (chest pain, altered mental status, abdominal pain women, abdominal pain men, vaginal bleeding, weakness, fever, dyspnea, syncope, headache, dizziness, GI bleed, back pain, seizure, CVA, palpatations, mental health, musculoskeletal)? @ -Dental abscess, dental carry, ludwigs, gingivitis EKG interpreted by me (3pts min.). @ -Not done X-rays interpreted by me (1pt min.). @ -None done CT interpreted by me (1pt min.). @ -None done U/S interpreted by me (1pt. min.). @ -None done What testing was considered but not performed or refused? (CT, X-rays, U/S, labs)? Why? @ -None What meds were considered but not given or refused? Why? @ -None Did you discuss the management of the patient with other professionals (professionals i.e. DrMoni, PA, MANAGER TEST, lab, RT, psych nurse, clinical social work aide, broadcast designer, teacher, recreation officer, manager of case)? Give summary @ -No Was smoking cessation discussed for >3mins.? @ -No Was critical care preformed (if so, how long)? @ -No Were there social determinants of health that impacted care today? How? (Homelessness, low income, unemployed, alcoholism, drug addiction, transportation, low edu. Level, literacy, decrease access to med. care, usp, rehab)? @ -No Was there de-escalation of care discussed even if they declined (Discuss DNR or withdrawal of care, Hospice)? DNR status @ -No What co-morbidities impacted this encounter? (DM, HTN, Smoking, COPD, CAD, Cancer, CVA, ARF, Chemo, Hep., AIDS, mental health diagnosis, sleep apnea, morbid obesity)? @ -None Was patient admitted / discharged? Hospital course, mention meds given and route, prescriptions, significant lab abnormalities, going to OR and other pertinent info. @ -Upon arrival patient seen and evaluated in hallway 10. Thorough history and physical exam was performed. Patient does have signs of decayed teeth. No dental abscess. No signs of Ludwigs. Patient will be initiated on antibiotics and pain control. She is to call to make an appointment with her dentist and have her tooth extracted as definitive treatment. Instructed to return for any new or worsening symptoms. Patient agreeable to plan she was discharged home in stable condition Undiagnosed new problem with uncertain prognosis? @ -No Drug Therapy requiring intensive monitoring for toxicity (Heparin, Nitro, Insulin, Cardizem)? @ -No Were any procedures done? @ -No Diagnosis/symptom? @ -Acute dentalgia, acute dental infection Acute, or Chronic, or Acute on Chronic? @ -Acute Uncomplicated (without systemic symptoms) or Complicated (systemic symptoms)? @ -Complicated Side effects of treatment? @ -Allergic reaction Exacerbation, Progression, or Severe Exacerbation? @ -No Poses a threat to life or bodily function? How? (Chest pain, USA, PA, pneumonia, PE, COPD, DKA, ARF, appy, cholecystitis, CVA, Diverticulitis, Homicidal, Suicidal, threat to staff... and all critical care pts) @ -No ]] Disposition Clinical Impression: Dentalgia Disposition: HOME SELF-CARE Condition: Stable Instructions (If sedation given, give patient instructions): Toothache (ED) Additional Instructions: Please take the pain medications and antibiotics as they are instructed. Follow-up with your dentist so they can pull your teeth and return for any new or worsening symptoms Prescriptions: HYDROcodone/APAP 5-325MG [[place] 5-325] 1 tab PO Q6HR PRN 3 Days #12 tab PRN Reason: Severe Breakthrough Pain Penicillin V Potassium [Pen Vee K] 500 mg PO QID #40 tablet Is patient prescribed a controlled substance at d/c from ED?: Yes When asked, does pt state using other controlled substances?: No If prescribed controlled substance>3 days was MAPS reviewed?: Prescribed <3 Days If opioid is for acute pain is fill amount 7 days or less?: Yes If Rx opioid, was Start Talking consent form obtained?: Yes Referrals: None,Stated [Primary Care Provider] - 1-2 days Time of Disposition: 22:16
[2024-06-06] MEDS: CLINDAMYCIN 150 MG CAP PO STA (22:35)
[2024-06-06] MEDS: HYDROcodone/APAP 5-325MG 1 EACH TAB PO STA (22:35)
[2024-06-06 22:41] VITALS: BP 139/89; PULSE 68; RESP 17
== END 2024-06-06 22:40 | disposition home or self-care (01) ==
LOC: EC 20:53
DX: K04.7 Periapical abscess without sinus (principal); F17.200 Nicotine dependence, unspecified, uncomplicated; Z91.09 Other allergy status, other than to drugs and biological substances
CPT/HCPCS: 99282

== ENCOUNTER 2024-06-20 10:05 | Emergency (ER) | payer MEDICARE, OTHER ==
[2024-06-20 10:18] VITALS: TEMP 98.1
[2024-06-20 10:18] LABS: Glucose,Whole Blood 532 mg/dL (70-110)
[2024-06-20] MEDS: SODIUM CHLORIDE 0.9% 1,000 ML IV SCH (10:56)
[2024-06-20 10:57] LABS: Basophils # (A) 0.05 10*3/uL (0.00-0.10); Basophils % (A) 0.5 %; Eosinophils # (A) 0.08 10*3/uL (0.04-0.35); Eosinophils % (A) 0.7 %; HCT 39.6 % (37.2-46.3); HGB 14.1 g/dL (12.0-15.0); Lymphocytes # (A) 2.32 10*3/uL (0.90-5.00); Lymphocytes % (A) 21.1 %; MCH 31.1 pg (27.0-32.0); MCHC 35.6 g/dL (32.0-37.0); MCV 87.4 fL (80.0-97.0); Mean Platelet Volume 9.3 fL (9.5-12.2); Monocytes # (A) 0.52 10*3/uL (0.20-1.00); Monocytes % (A) 4.7 %; Neutrophils # (A) 7.98 10*3/uL (1.80-7.70); Neutrophils % (A) 72.7 %; Platelet Count 465 10*3/uL (140-440); RBC 4.53 10*6/uL (4.10-5.20); RDW 12.9 % (11.5-14.5); WBC 10.98 10*3/uL (4.50-10.00)
[2024-06-20 10:58] LABS: VBG PH 7.37 (7.31-7.41)
[2024-06-20 11:10] LABS: ALT 15 U/L (4-34); AST 24 U/L (14-36); African American GFR (CKD) >90 (>60 ml/min/1.73 sqM); Albumin 4.3 g/dL (3.5-5.0); Alkaline Phosphatase 98 U/L (38-126); Amylase 43 U/L (30-110); Anion Gap 13 mmol/L; Blood Urea Nitrogen 15 mg/dL (7-17); Carbon Dioxide 19 mmol/L (22-30); Chloride 99 mmol/L (98-107); Lipase 270 U/L (23-300); Magnesium 1.8 mg/dL (1.6-2.3); Non-African American GFR(CKD) >90 (>60 ml/min/1.73 sqM); Potassium 4.8 mmol/L (3.5-5.1); Sodium 131 mmol/L (137-145); Total Bilirubin 0.6 mg/dL (0.2-1.3)
[2024-06-20 11:16] LABS: Glucose 553 mg/dL (74-99)
[2024-06-20 12:08] LABS: Appearance,Urine Cloudy (Clear); Bilirubin,Urine Negative (Negative); Blood,Urine Negative (Negative); Color,Urine Colorless; Glucose,Urine (UA) 4+ (Negative); Ketones,Urine Negative (Negative); Leukocyte Esterase,Urine Negative (Negative); Nitrite,Urine Negative (Negative); Protein,Urine Negative (Negative); RBC,Urine 2 /hpf (0-5); Specific Gravity,Urine 1.029 (1.001-1.035); Squamous Epithelial Cell,Urine 15 /hpf (0-4); Urobilinogen,Urine <2.0 mg/dL (<2.0); WBC,Urine 4 /hpf (0-5)
[2024-06-20 12:37] LABS: Glucose,Whole Blood 399 mg/dL (70-110)
[2024-06-20 13:12] LABS: Glucose,Whole Blood 337 mg/dL (70-110)
[2024-06-20] MEDS: INSULIN LISPRO (HumaLOG) 100 UNIT/ML 10 mL VL SQ STA (13:30)
[2024-06-20 14:10] LABS: Glucose,Whole Blood 323 mg/dL (70-110)
--- NOTE | 2024-06-20 14:34 | ED ---
General Adult HPI - General Chief complaint: Recheck/Abnormal Lab/Rx Stated complaint: Abn Labs Time Seen by Provider: 06/20/24 10:33 Source: patient, RN notes reviewed, old records reviewed Mode of arrival: ambulatory Limitations: no limitations - History of Present Illness Initial comments: Patient is a 49-year-old female with past medical history remarkable for diabetes. Is on Ozempic, insulin, as well as metformin. Has not been taking her Lantus at night for at least 1 to 2 weeks. Presents today with hyperglycemia. States she feels somewhat tired but otherwise feels normal. Denies any nausea or vomiting. Denies any fevers, chills, cough. Has no other acute complaints. States she does have her medications at home she just was choosing not to take her insulin. States typically when she is on everything, her blood sugars between 100 and 200. Presents for further evaluation at this time. - Related Data Home Medications Medication Instructions Recorded Confirmed Paliperidone IM [Invega Sustenna] 234 mg IM Q28D 06/17/23 06/20/24 Atorvastatin [Lipitor] 10 mg PO HS@2100 06/20/23 06/20/24 Ascorbic Acid [Vitamin C] 500 mg PO BID@0800,2100 06/11/24 06/20/24 Cholecalciferol [Vitamin D3 (25 25 mcg PO DAILY@0800 06/11/24 06/20/24 Mcg = 1000 Iu)] Insulin Glargine,Hum.rec.anlog 10 units SQ HS@2100 06/20/24 06/20/24 [Lantus Solostar Pen] Semaglutide [Ozempic] 1 mg SQ EDMOND 06/20/24 06/20/24 diphenhydrAMINE [Benadryl] 25 mg PO HS PRN 06/20/24 06/20/24 metFORMIN HCL 1,000 mg PO BID@0800,1700 06/20/24 06/20/24 Previous Rx's Medication Instructions Recorded ondansetron HCL [Zofran] 8 mg PO Q8HR PRN #15 tab 04/23/24 HYDROcodone/APAP 5-325MG [[place] 1 tab PO Q6HR PRN 3 Days #12 tab 06/06/24 5-325] Penicillin V Potassium [Pen Vee K] 500 mg PO QID #40 tablet 06/06/24 Allergies Allergy/AdvReac Type Severity Reaction Status Date / Time pollen extracts Allergy Rash/Hives Verified 06/20/24 14:43 Review of Systems ROS Statement: Those systems with pertinent positive or pertinent negative responses have been documented in the HPI. Review of Systems: CONST: Denies fever EYES: Denies blurry vision ENT: Denies nasal congestion C/V: Denies Chest pain RESP: Denies shortness of breath GI: Denies abdominal pain : Denies dysuria SKIN: Denies rash. MSK: Denies joint pain. NEURO: Denies headache ROS Other: All systems not noted in ROS Statement are negative. Past Medical History Past Medical History: Diabetes Mellitus, Osteoarthritis (OA) Additional Past Medical History / Comment(s): "GESTATIONAL DIABETES", GOES TO [facility] History of Any Multi-Drug Resistant Organisms: None Reported Past Surgical History: Section Additional Past Surgical History / Comment(s): POLA ARM SX WHEN CHILD - WENT THRU A WINDOW Past Anesthesia/Blood Transfusion Reactions: No Reported Reaction Additional Past Anesthesia/Blood Transfusion Reaction / Comment(s): CLAUSTROPHOBIA Past Psychological History: Anxiety, Bipolar, Panic Disorder, Schizophrenia Smoking Status: Current every day smoker Past Alcohol Use History: None Reported Past Drug Use History: None Reported - Past Family History Father Additional Family Medical History / Comment(s): DEPRESSION, "PROBLEM WITH HIS PANCREAS" Mother Family Medical History: Hyperlipidemia, Hypertension Additional Family Medical History / Comment(s): DDD, NECK FUSION, KIDNEY CANCER General Exam - General Exam Comments Initial Comments: General: Appears in no acute distress. HEAD: Normal with no signs of head trauma. EYES: EOMI ENT: Hearing grossly intact, normal oropharynx. Moist mucous membranes. RESPIRATORY: Clear breath sounds bilaterally. No wheezes, rales, or rhonchi. C/V: Regular rate and rhythm. S1 and S2 auscultated, peripheral pulses 2+ and intact throughout ABD: Abd is soft, nontender, nondistended EXT: Normal range of motion, no obvious deformity SKIN: No rashes or lesions observed on exposed skin. NEURO: Alert and oriented x 4. Limitations: no limitations Course Vital Signs 06/20/24 10:14 Temperature 98.1 F Pulse Rate 82 Respiratory 18 Rate Blood Pressure 110/70 O2 Sat by Pulse 98 Oximetry Medical Decision Making - Medical Decision Making Was pt. sent in by a medical professional or institution (JAYLON Tomas, PSYCHIATRIC AIDES TEACHER, urgent care, hospital, or custodial...) When possible be specific @ -No Did you speak to anyone other than the patient for history (EMS, parent, family, police, friend...)? What history was obtained from this source @ -No Did you review nursing and triage notes (agree or disagree)? Why? @ -I reviewed and agree with nursing and triage notes Were old charts reviewed (outside hosp., previous admission, EMS record, old EKG, old radiological studies, urgent care reports/EKG's, custodial records)? Report findings @ -Reviewed documentation for medication list from where she lives, which she is is on Lantus. States she has not been taking it. States she does not require a new prescription. Differential Diagnosis (chest pain, altered mental status, abdominal pain women, abdominal pain men, vaginal bleeding, weakness, fever, dyspnea, syncope, headache, dizziness, GI bleed, back pain, seizure, CVA, palpatations, mental health, musculoskeletal)? @ -Hyperglycemia, DKA, electrolyte abnormality, dehydration, medication noncompliance. This list is not all inclusive. EKG interpreted by me (3pts min.). @ -As above X-rays interpreted by me (1pt min.). @ -None done CT interpreted by me (1pt min.). @ -None done U/S interpreted by me (1pt. min.). @ -None done What testing was considered but not performed or refused? (CT, X-rays, U/S, labs)? Why? @ -None What meds were considered but not given or refused? Why? @ -None Did you discuss the management of the patient with other professionals (professionals i.e. JAYLON Tomas, PSYCHIATRIC AIDES TEACHER, lab, RT, psych nurse, social and human services assistant, milling machine tender, teacher, correctional officer captain, employment evaluator/case manager)? Give summary @ -No Was smoking cessation discussed for >3mins.? @ -No Was critical care preformed (if so, how long)? @ -No Were there social determinants of health that impacted care today? How? (Homelessness, low income, unemployed, alcoholism, drug addiction, transportation, low edu. Level, literacy, decrease access to med. care, [facility], rehab)? @ -No Was there de-escalation of care discussed even if they declined (Discuss DNR or withdrawal of care, Hospice)? DNR status @ -No What co-morbidities impacted this encounter? (DM, HTN, Smoking, COPD, CAD, Cancer, CVA, ARF, Chemo, Hep., AIDS, mental health diagnosis, sleep apnea, morb id obesity)? @ -Hyperglycemia in the setting of diabetes, noncompliant with insulin Was patient admitted / discharged? Hospital course, mention meds given and route, prescriptions, significant lab abnormalities, going to OR and other pertinent info. @ -Patient presents for hyperglycemia in the setting of diabetes noncompliant with insulin. Vitals are within acceptable limits. She has no obvious acute complaints. We will obtain general labs as well as hydrate the patient. She was in agreement this plan. Laboratory studies negative for DKA. Do show a hyperglycemia of 553. This did improve with hydration at 399 and after insulin did improve to 323. She is trending downward. She does not require prescription for insulin. I did stress the importance of her being compliant with her medications and she expressed understanding. She will be discharged home at this time. She was in agreement this plan. I instructed the patient to follow up with their PCP in the next 1-3 days. I e xplained that the patient should return to the emergency department if they experience any worsening symptoms. Strict return precautions were discussed with the patient. The patient expressed understanding of these instructions. I answered all questions that the patient had. The patient was discharged home in good condition with their prescriptions and follow up information. Undiagnosed new problem with uncertain prognosis? @ -No Drug Therapy requiring intensive monitoring for toxicity (Heparin, Nitro, Insulin, Cardizem)? @ -No Were any procedures done? @ -No Diagnosis/symptom? @ -Hyperglycemia in the setting of diabetes, noncompliance with medication regimen Acute, or Chronic, or Acute on Chronic? @ -Acute Uncomplicated (without systemic symptoms) or Complicated (systemic symptoms)? @ -Uncomplicated Side effects of treatment? @ -No Exacerbation, Progression, or Severe Exacerbation? @ -No Poses a threat to life or bodily function? How? (Chest pain, USA, [place], pneumonia, PE, COPD, DKA, ARF, appy, cholecystitis, CVA, Diverticulitis, Homicidal, Suicidal, threat to staff... and all critical care pts) @ -Unlikely at this time - Lab Data Result diagrams: 06/20/24 10:48 06/20/24 10:48 Lab Results 06/20/24 06/20/24 06/20/24 Range/Units 10:17 10:48 10:48 WBC 10.98 H (4.50-10.00) 10*3/uL RBC 4.53 (4.10-5.20) 10*6/uL Hgb 14.1 (12.0-15.0) g/dL Hct 39.6 (37.2-46.3) % MCV 87.4 (80.0-97.0) fL MCH 31.1 (27.0-32.0) pg MCHC 35.6 (32.0-37.0) g/dL Plt Count 465 H (140-440) 10*3/uL MPV 9.3 L (9.5-12.2) fL Immature Gran % (Auto) 0.3 % Neutrophils % 72.7 % Lymphocytes % 21.1 % Monocytes % 4.7 % Eosinophils % 0.7 % Basophils % 0.5 % Immature Gran # 0.03 (0.00-0.04) 10*3/uL Neutrophils # 7.98 H (1.80-7.70) 10*3/uL Lymphocytes # 2.32 (0.90-5.00) 10*3/uL Monocytes # 0.52 (0.20-1.00) 10*3/uL Eosinophils # 0.08 (0.04-0.35) 10*3/uL Basophils # 0.05 (0.00-0.10) 10*3/uL VBG pH (7.31-7.41) VBG pCO2 (37-51) mmHg VBG HCO3 (24-28) mmol/L Sodium 131 L (137-145) mmol/L Potassium 4.8 (3.5-5.1) mmol/L Chloride 99 (98-107) mmol/L Carbon Dioxide 19 L (22-30) mmol/L Anion Gap 13 mmol/L BUN 15 (7-17) mg/dL Creatinine 0.71 (0.52-1.04) mg/dL Est GFR (CKD-EPI)AfAm >90 (>60 ml/min/1.73 sqM) Est GFR (CKD-EPI)NonAf >90 (>60 ml/min/1.73 sqM) Glucose 553 H* (74-99) mg/dL POC Glucose (mg/dL) 532 H* (70-110) mg/dL POC Glu Yeast Maker ID [place] Calcium 10.0 (8.4-10.2) mg/dL Magnesium 1.8 (1.6-2.3) mg/dL Total Bilirubin 0.6 (0.2-1.3) mg/dL AST 24 (14-36) U/L ALT 15 (4-34) U/L Alkaline Phosphatase 98 (38-126) U/L Total Protein 7.0 (6.3-8.2) g/dL Albumin 4.3 (3.5-5.0) g/dL Amylase 43 (30-110) U/L Lipase 270 (23-300) U/L Urine Color Urine Appearance (Clear) Urine pH (5.0-8.0) Ur Specific [place] (1.001-1.035) Urine Protein (Negative) Urine Glucose (UA) (Negative) Urine Ketones (Negative) Urine Blood (Negative) Urine Nitrite (Negative) Urine Bilirubin (Negative) Urine Urobilinogen (<2.0) mg/dL Ur Leukocyte Esterase (Negative) Urine RBC (0-5) /hpf Urine WBC (0-5) /hpf Ur Squamous Epith Cells (0-4) /hpf Acetone, Qual Negative (Negative) 06/20/24 06/20/24 06/20/24 Range/Units 10:48 11:51 12:35 WBC (4.50-10.00) 10*3/uL RBC (4.10-5.20) 10*6/uL Hgb (12.0-15.0) g/dL Hct (37.2-46.3) % MCV (80.0-97.0) fL MCH (27.0-32.0) pg MCHC (32.0-37.0) g/dL Plt Count (140-440) 10*3/uL MPV (9.5-12.2) fL Immature Gran % (Auto) % Neutrophils % % Lymphocytes % % Monocytes % % Eosinophils % % Basophils % % Immature Gran # (0.00-0.04) 10*3/uL Neutrophils # (1.80-7.70) 10*3/uL Lymphocytes # (0.90-5.00) 10*3/uL Monocytes # (0.20-1.00) 10*3/uL Eosinophils # (0.04-0.35) 10*3/uL Basophils # (0.00-0.10) 10*3/uL VBG pH 7.37 (7.31-7.41) VBG pCO2 39 (37-51) mmHg VBG HCO3 23 L (24-28) mmol/L Sodium (137-145) mmol/L Potassium (3.5-5.1) mmol/L Chloride (98-107) mmol/L Carbon Dioxide (22-30) mmol/L Anion Gap mmol/L BUN (7-17) mg/dL Creatinine (0.52-1.04) mg/dL Est GFR (CKD-EPI)AfAm (>60 ml/min/1.73 sqM) Est GFR (CKD-EPI)NonAf (>60 ml/min/1.73 sqM) Glucose (74-99) mg/dL POC Glucose (mg/dL) 399 H (70-110) mg/dL POC Glu Yeast Maker ID Tino Ida Calcium (8.4-10.2) mg/dL Magnesium (1.6-2.3) mg/dL Total Bilirubin (0.2-1.3) mg/dL AST (14-36) U/L ALT (4-34) U/L Alkaline Phosphatase (38-126) U/L Total Protein (6.3-8.2) g/dL Albumin (3.5-5.0) g/dL Amylase (30-110) U/L Lipase (23-300) U/L Urine Color Colorless Urine Appearance Cloudy H (Clear) Urine pH 6.0 (5.0-8.0) Ur Specific [place] 1.029 (1.001-1.035) Urine Protein Negative (Negative) Urine Glucose (UA) 4+ H (Negative) Urine Ketones Negative (Negative) Urine Blood Negative (Negative) Urine Nitrite Negative (Negative) Urine Bilirubin Negative (Negative) Urine Urobilinogen <2.0 (<2.0) mg/dL Ur Leukocyte Esterase Negative (Negative) Urine RBC 2 (0-5) /hpf Urine WBC 4 (0-5) /hpf Ur Squamous Epith Cells 15 H (0-4) /hpf Acetone, Qual (Negative) 06/20/24 06/20/24 Range/Units 13:10 14:08 WBC (4.50-10.00) 10*3/uL RBC (4.10-5.20) 10*6/uL Hgb (12.0-15.0) g/dL Hct (37.2-46.3) % MCV (80.0-97.0) fL MCH (27.0-32.0) pg MCHC (32.0-37.0) g/dL Plt Count (140-440) 10*3/uL MPV (9.5-12.2) fL Immature Gran % (Auto) % Neutrophils % % Lymphocytes % % Monocytes % % Eosinophils % % Basophils % % Immature Gran # (0.00-0.04) 10*3/uL Neutrophils # (1.80-7.70) 10*3/uL Lymphocytes # (0.90-5.00) 10*3/uL Monocytes # (0.20-1.00) 10*3/uL Eosinophils # (0.04-0.35) 10*3/uL Basophils # (0.00-0.10) 10*3/uL VBG pH (7.31-7.41) VBG pCO2 (37-51) mmHg VBG HCO3 (24-28) mmol/L Sodium (137-145) mmol/L Potassium (3.5-5.1) mmol/L Chloride (98-107) mmol/L Carbon Dioxide (22-30) mmol/L Anion Gap mmol/L BUN (7-17) mg/dL Creatinine (0.52-1.04) mg/dL Est GFR (CKD-EPI)AfAm (>60 ml/min/1.73 sqM) Est GFR (CKD-EPI)NonAf (>60 ml/min/1.73 sqM) Glucose (74-99) mg/dL POC Glucose (mg/dL) 337 H 323 H (70-110) mg/dL POC Glu Yeast Maker ID Amarilis Jyotsnakelly Mckeon Calcium (8.4-10.2) mg/dL Magnesium (1.6-2.3) mg/dL Total Bilirubin (0.2-1.3) mg/dL AST (14-36) U/L ALT (4-34) U/L Alkaline Phosphatase (38-126) U/L Total Protein (6.3-8.2) g/dL Albumin (3.5-5.0) g/dL Amylase (30-110) U/L Lipase (23-300) U/L Urine Color Urine Appearance (Clear) Urine pH (5.0-8.0) Ur Specific [place] (1.001-1.035) Urine Protein (Negative) Urine Glucose (UA) (Negative) Urine Ketones (Negative) Urine Blood (Negative) Urine Nitrite (Negative) Urine Bilirubin (Negative) Urine Urobilinogen (<2.0) mg/dL Ur Leukocyte Esterase (Negative) Urine RBC (0-5) /hpf Urine WBC (0-5) /hpf Ur Squamous Epith Cells (0-4) /hpf Acetone, Qual (Negative) - EKG Data -: EKG Interpreted by Me EKG Comments: 12-lead Electrocardiogram Interpretation Note EKG was reviewed and interpreted by myself. 12-lead ECG performed at 1057 is interpreted by me as revealing normal sinus rhythm at a rate of 65 beats per minute. [place] is normal. [place] interval is 146 ms, QRS duration is 88 ms, QTc is 376 ms.. There were no ST or T wave abnormalities to suggest myocardial ischemia or injury. R wave progression across the precordium was satisfactory. By my interpretation this EKG is non-diagnostic for acute ischemia. Disposition Clinical Impression: Hyperglycemia, Noncompliance with medication regimen Disposition: HOME SELF-CARE Condition: Good Instructions (If sedation given, give patient instructions): Diabetic Hyperglycemia (ED) Is patient prescribed a controlled substance at d/c from ED?: No Referrals: None,Stated [Primary Care Provider] - 1-2 days Forms: PH Area PCPs Time of Disposition: 14:20
[2024-06-20 14:57] VITALS: BP 130/88; PULSE 69; RESP 20
== END 2024-06-20 14:56 | disposition home or self-care (01) ==
LOC: EC 10:05
DX: E11.65 Type 2 diabetes mellitus with hyperglycemia (principal); Z91.148 Patient's other noncompliance with medication regimen for other reason; Z79.85 Long-term (current) use of injectable non-insulin antidiabetic drugs; F17.200 Nicotine dependence, unspecified, uncomplicated; Z88.8 Allergy status to other drugs, medicaments and biological substances
CPT/HCPCS: 36415; 80053; 81001; 82009; 82150; 82803; 83690; 83735; 85025; 93005; 96360; 99284